=== PATIENT | male | born 1965 | race Caucasian/White ===

== ENCOUNTER 2021-01-09 12:39 | Inpatient (IN) | payer OTHER ==
[2021-01-09 13:05] LABS: Glucose,Whole Blood 175 mg/dL (75-99)
[2021-01-09] MEDS ORDERED: VANCOMYCIN IV PER PHARMACY 1 EACH MISC MISCELLANE PRN (13:15)
[2021-01-09] MEDS ORDERED: VANCOMYCIN 1,250 MG in SODIUM CHLORIDE 0.9% 250 ML IVPB STA (13:30)
[2021-01-09] MEDS ORDERED: SODIUM CHLORIDE 0.9% 1,000 ML IV ONE (13:45)
--- NOTE | 2021-01-09 14:26 | XR ---
EXAMINATION TYPE: XR chest 1V portable DATE OF EXAM: 01/09/2021 COMPARISON: NONE HISTORY: Hypothermia TECHNIQUE: Single frontal view of the chest is obtained. FINDINGS: There is no focal air space opacity, pleural effusion, or pneumothorax seen. The cardiac silhouette size is within normal limits. The osseous structures are intact. IMPRESSION: No acute process.
[2021-01-09] MEDS ORDERED: IPRATROPIUM-ALBUTEROL 3 ML NEB INHALATION PRN (14:29)
[2021-01-09] MEDS ORDERED: bisacodyL 10 MG SUPP RECTAL PRN (14:29)
[2021-01-09] MEDS ORDERED: NALOXONE 0.4 MG/ML 1 ML VIAL IV PRN ×2 (14:29→14:55)
[2021-01-09] MEDS ORDERED: SUCRALFATE 1 GM TAB PO PRN (14:36)
[2021-01-09 14:56] LABS: Basophils % (A) 0 %; Eosinophils % (A) 0 %; Lymphocytes # (A) 0.6 k/uL (1.0-4.8); Lymphocytes % (A) 4 %; MCHC 31.4 g/dL (31.0-37.0); MCV 108.4 fL (80.0-100.0); Macrocytosis Marked; Mean Platelet Volume 8.7; Monocytes # (A) 0.6 k/uL (0-1.0); Monocytes % (A) 3 %; Neutrophils % (A) 92 %; Platelet Count 216 k/uL (150-450); RBC 1.68 m/uL (4.30-5.90); WBC 18.5 k/uL (3.8-10.6)
[2021-01-09] MEDS ORDERED: fentaNYL (PF) 50 MCG/ML 2 ML AMP IVP STA (14:57)
[2021-01-09 14:58] LABS: HCT 18.2 % (39.0-53.0); HGB 5.7 gm/dL (13.0-17.5)
[2021-01-09] MEDS: SODIUM CHLORIDE 0.9% 500 ML 500 ML IV SCH ×2 (14:59→15:04)
[2021-01-09] MEDS: SODIUM CHLORIDE 0.9% 1,000 ML IV SCH (15:00)
[2021-01-09 15:02] LABS: INR 1.7 (<1.2); Prothrombin Time 16.5 sec (9.0-12.0)
[2021-01-09 15:03] LABS: Calcium 7.7 mg/dL (8.4-10.2); Partial Thromboplastin Time 35.1 sec (22.0-30.0); Potassium 5.3 mmol/L (3.5-5.1); Total Bilirubin 1.7 mg/dL (0.2-1.3); Total Protein 3.8 g/dL (6.3-8.2)
[2021-01-09 15:20] LABS: Poikilocytosis (M) Present; Polychromasia Present
[2021-01-09] MEDS ORDERED: ONDANSETRON 4 MG/2 ML VIAL IVP STA (15:22)
[2021-01-09] MEDS: NOREPINEPHRINE 4 MG in SODIUM CHLORIDE 0.9% 250 ML IV SCH ×2 (15:30→23:23)
[2021-01-09 15:31] LABS: Appearance,Urine Clear (Clear); Bilirubin,Urine Negative (Negative); Blood,Urine Negative (Negative); Color,Urine Yellow; Glucose,Urine (UA) Negative (Negative); Ketones,Urine Negative (Negative); Leukocyte Esterase,Urine Negative (Negative); Nitrite,Urine Negative (Negative); Protein,Urine Trace (Negative); Specific Gravity,Urine 1.015 (1.001-1.035); Urobilinogen,Urine <2.0 mg/dL (<2.0)
[2021-01-09] MEDS ORDERED: PANTOPRAZOLE 40 MG TABLET PO PRN (15:53)
--- NOTE | 2021-01-09 15:57 | ED ---
General Adult HPI - General Chief complaint: Recheck/Abnormal Lab/Rx Stated complaint: hypothermia Time Seen by Provider: 01/09/21 13:01 Source: EMS, RN notes reviewed, old records reviewed Mode of arrival: EMS Limitations: no limitations - History of Present Illness Initial comments: I evaluated the patient when he was placed in a room. Patient is a 56-year-old male with past medical history remarkable for cirrhosis, liver disease, anemia, recently diagnosed colitis on vancomycin by mouth, ventral hernia surgery one month ago, who presents emergency department after being transferred from [place] for sepsis. Patient is transferred for ICU admission. The story goes that the patient was found this morning outside in the cold. He was hypothermic at the time. Workup at the outside facility showed severe dehydration, lactic acidosis, hypothermia to 88.9, lactic acidosis of 13, leukocytosis of 29, an AK I. Patient denies knowing how he ended up outside and was a little confused at the time. CT head was obtained as well as CT abdomen and pelvis which revealed no acute processes. Patient complains of abdominal discomfort. He otherwise denies chest pain, shortness breath, fevers, chills, cough. Denies any blurry vision. States he wasn't drinking today. To me he denies any history of alcohol withdrawal. Patient presents hypotensive following at least a liter and a half of fluids at the outside facility. He is tachycardic. There is active rewarming as well, and there is a rectal thermometer to monitor his temperature. Patient presents for admission to the ICU. Patient is somewhat a poor historian. However he is alert and oriented 4.Patient states he takes lactulose but has been not taking it due to persistent diarrhea. He states he believes his he has been compliant with his oral vancomycin as well for what is suspected to be C. diff colitis. - Related Data Home Medications Medication Instructions Recorded Confirmed Albuterol Sulfate [Proair Hfa] 2 puff INHALATION RT-Q4H PRN 01/09/21 01/09/21 Dicyclomine [Bentyl] 20 mg PO QID PRN 01/09/21 01/09/21 HYDROcodone/APAP 10-325MG [[place] 1 tab PO Q4H PRN 01/09/21 01/09/21 10-325] Lisdexamfetamine Dimesylate 70 mg PO DAILY 01/09/21 01/09/21 [Vyvanse] Pantoprazole Sodium 40 mg PO DAILY PRN 01/09/21 01/09/21 Promethazine [Phenergan] 25 mg PO Q4H PRN 01/09/21 01/09/21 Sucralfate [Carafate] 1 gm PO ACHS PRN 01/09/21 01/09/21 Vancomycin HCl [Vancocin HCl] 125 mg PO QID 01/09/21 01/09/21 Allergies Allergy/AdvReac Type Severity Reaction Status Date / Time No Known Allergies Allergy Verified 01/09/21 13:38 Review of Systems ROS Statement: Those systems with pertinent positive or pertinent negative responses have been documented in the HPI. Review of Systems: CONST: Denies fever EYES: Denies blurry vision ENT: Denies nasal congestion C/V: Denies Chest pain RESP: Denies shortness of breath GI: Endorses acute on chronic abdominal pain. : Denies dysuria SKIN: Denies rash. MSK: Denies joint pain. NEURO: Denies headache ROS Other: All systems not noted in ROS Statement are negative. Past Medical History Past Medical History: Unable to Obtain, Liver Disease Additional Past Medical History / Comment(s): anemia, colitis, chirrosis Past Surgical History: Unable to Obtain Past Psychological History: No Psychological Hx Reported Smoking Status: Current some day smoker Past Alcohol Use History: Abuse Past Drug Use History: None Reported General Exam - General Exam Comments Initial Comments: General: In mild distress secondary to abdominal discomfort. HEAD: Normal with no signs of head trauma. EYES: PERRLA, EOMI, conjunctiva normal, no discharge. Pupils are 3 mm and equal bilaterally. ENT: Hearing grossly intact, normal oropharynx. Dry mucous membranes. RESPIRATORY: Clear breath sounds bilaterally. No wheezes, rales, or rhonchi. C/V: Mildly tachycardic with a regular rhythm. S1 and S2 auscultated. Peripheral pulses are 2+ and intact throughout. ABD: Diminished is somewhat soft. He is tender to palpation, more over the right upper quadrant. There is a healing midline abdominal incision scar from surgery.. There may be a small fluid wave present as well. There is hepatomegaly. There is no guarding or peritoneal signs at this time. EXT: Normal range of motion, no obvious deformity SKIN: No rashes or lesions observed on exposed skin. NEURO: Alert and oriented 4. No acute focal deficits. Limitations: no limitations Course Vital Signs 01/09/21 01/09/21 01/09/21 12:41 12:59 13:00 Temperature 97.8 F Pulse Rate 106 H 105 H 105 H Respiratory 16 12 14 Rate Blood Pressure 84/64 O2 Sat by Pulse 98 100 100 Oximetry 01/09/21 01/09/21 01/09/21 13:10 13:20 13:30 Temperature Pulse Rate 105 H 105 H 106 H Respiratory 14 16 16 Rate Blood Pressure 83/50 81/45 90/55 O2 Sat by Pulse 99 99 100 Oximetry 01/09/21 01/09/21 01/09/21 13:40 13:50 14:00 Temperature Pulse Rate 106 H 0 L 106 H Respiratory 16 14 24 Rate Blood Pressure 90/55 90/55 90/55 O2 Sat by Pulse 99 100 79 L Oximetry 01/09/21 01/09/21 01/09/21 14:10 14:20 14:30 Temperature Pulse Rate 105 H 105 H 105 H Respiratory 23 15 17 Rate Blood Pressure 90/55 83/50 90/49 O2 Sat by Pulse Oximetry 01/09/21 01/09/21 01/09/21 14:40 14:50 15:00 Temperature Pulse Rate 104 H 105 H 104 H Respiratory 19 17 15 Rate Blood Pressure 88/51 87/48 85/48 O2 Sat by Pulse Oximetry 01/09/21 01/09/21 01/09/21 15:10 15:20 15:30 Temperature Pulse Rate 0 L 0 L 106 H Respiratory 21 30 H 13 Rate Blood Pressure 83/51 101/54 92/52 O2 Sat by Pulse Oximetry 01/09/21 01/09/21 01/09/21 15:40 15:50 16:00 Temperature Pulse Rate 103 H 105 H 105 H Respiratory 9 L 8 L 12 Rate Blood Pressure 100/57 96/53 99/53 O2 Sat by Pulse Oximetry 01/09/21 16:10 Temperature Pulse Rate 105 H Respiratory 12 Rate Blood Pressure 89/58 O2 Sat by Pulse Oximetry Procedures - [place] Protocol (Time Out) Procedure Performed:: central line Performing Provider: Mac Soriano Nurse: India Whaley Patient Identification (2 identifiers required): Chart, Verbal, Birthdate Patient/Legal Supervisor Extrusion has Confirmed: Identity, Site, Procedure, Consent Site: left IJ Site Marked: No Site Verified With Patient/Guardian: No - Arterial Line No standard instances Consent Obtained: verbal consent Technique Used: guide wire technique Post-Procedure: line sutured into place, dry sterile dressing placed Patient Tolerated Procedure: well Complications: none - Central Line Placement Left IJ Consent Obtained: verbal consent Patient Placed on Monitor/Pulse Ox: Yes MD Prep: mask, gown, gloves Central Line Prep: Chlorhexidine scrub Local Anesthesia Used: Lidocaine 1% Amount of Anesthesia Used (mls): 5 Ultrasound Used for Placement: Yes Central Line Lumen Inserted: triple Medical Decision Making - Medical Decision Making Based on the patient's presentation and physical exam, I'm concerned for sepsis and the patient based on the patient's outpatient workup. CT imaging will be transferred into our system. We will continue by mouth vancomycin as well as the Zosyn that was started at the outpatient location. We will repeat laboratory studies as well as an EKG as patient was hyperkalemic at the outside facility. No EKG came with the patient. Patient will be fluid challenged, to ensure he receives 20 mL per KG with an additional fluid bolus. He may require central line access. Patient will be administered fentanyl for pain management due to his blood pressure. Active rewarming with a bear hugger is being done now, and we are monitoring with a rectal thermometer. Patient was in agreement this plan. Repeat EKG showed no signs concerning for hyperkalemia. Following the fluid bolus, was determined that the patient will receive a central line as well as an arterial line. I examined the patient with Dr. Zapata of the ICU who accepted the patient under his service was in agreement with this plan. Please see the separate procedure notes for the arterial line as well as central line, both of which the patient tolerated well. Chest x-ray following insertion showed intact line. No signs of cardio pulmonary process. Gallbladder ultrasound was ordered due to the findings on the patient's CT images, which revealed gallbladder sludge without any evidence of acute cholecystitis. There is hepatomegaly with heterogeneous increased echogenicity of the liver probably secondary to underlying disease which the patient does have. At this time, patient's laboratory studies returned and were remarkable for a leukocytosis of 18.5. Patient has a macrocytic anemia with a hemoglobin of 5.7. 2 units of packed red blood cells were ordered by myself to be transfused. The patient was consented. Coag studies were mildly elevated likely secondary to h is chronic liver disease. Patient's potassium is mildly elevated to 5.3 and he is mildly hyponatremic 21 and 33 and hypochloremic 109. Patient also has an AK I with a mildly elevated creatinine and be ON of 1.35 and 37 respectively. Patient's lactic acid is improved to 3.5. LFTs are mildly elevated, with AST of 145 and ALT of 37. Bilirubin is elevated 1.7. Urine studies shows no acute infection. Covid swab is negative. Blood cultures were drawn and sent. At this time after discussion with the ICU team, the patient be admitted to ICU. Levophed was ordered by myself but was not started initially as the patient's blood pressure following line placement had systolics in the low 100s. He will continue to be monitored with goal map greater than 65, and levophed will be started if needed. Patient's hypothermia is also resolved at this time. Patient will receive transfusions. Antibiotics were ordered Zosyn every 8 hours. He will continue to receive IV fluids as well. Patient was in agreement this plan. I spoke with the admitting team under city call with Chris Friedman who accepted the admission. I also consulted general surgery due to patient's history of abdominal surgeries and abdominal complaints at this time. I spoke with Dr. Yarbrough was in agreement with the plan and accepted the consult. Patient was therefore admitted to the ICU in serious condition. - Lab Data Result diagrams: 01/09/21 16:45 01/09/21 16:45 Lab Results 01/09/21 01/09/21 Range/Units 13:03 14:34 POC Glucose (mg/dL) 175 H (75-99) mg/dL POC Glu Cutting Machine Tender ID India Whaley Coronavirus (PCR) Not Detected (Not Detectd) - EKG Data -: EKG Interpreted by Me EKG Comments: 12-lead Electrocardiogram Interpretation Note EKG was reviewed and interpreted by myself. 12-lead ECG performed at 1412 is interpreted by me as revealing sinus tachycardia at a rate of 103 beats per minute. [place] is normal. Intervals 136 seconds, QRS duration is 60 ms, QTc is 448 ms.. There were no ST or T wave abnormalities to suggest myocardial ischemia or injury. R wave progression across the precordium was satisfactory. By my interpretation this EKG is non-diagnostic for acute ischemia. There are no signs of hyperkalemia either. Critical Care Time Critical Care Time: Yes Total Critical Care Time: 40 Critical Care Time: Upon my evaluation, this patient had a high probability of imminent or life- threatening deterioration due to sepsis, hypothermia, which required my direct attention, intervention, and personal management. I have personally provided 40 minutes of critical care time exclusive of time spent on separately billable procedures. Time includes review of laboratory data, radiology results, discussion with consultants, and monitoring for potential decompensation. Interventions were performed as documented in my note. Disposition Clinical Impression: Hyperkalemia, Sepsis, Septic shock, Abdominal pain, History of liver disease, Lactic acidosis, Macrocytic anemia, Dehydration, LACEY (acute kidney injury) Disposition: ADMITTED IP TO THIS HOSP Condition: Serious
[2021-01-09] MEDS ORDERED: CEFEPIME 2 GM in SODIUM CHLORIDE 0.9% 100 ML IVPB SCH (16:00)
--- NOTE | 2021-01-09 16:03 | XR ---
EXAMINATION TYPE: XR chest 1V portable DATE OF EXAM: 01/09/2021 COMPARISON: Chest radiograph same day HISTORY: Hypothermia, line placement TECHNIQUE: Single frontal view of the chest is obtained. FINDINGS: Interval placement of left-sided central venous catheter with tip overlying the cavoatrial junction. Cardiac mediastinal silhouette appears within normal limits. No dense focal airspace opaci ty, pleural effusion, or pneumothorax. Osseous structures appear intact. IMPRESSION: 1. Left-sided central venous catheter with tip overlying the cavoatrial junction. 2. No acute cardiopulmonary process.
[2021-01-09] MEDS: PIPERACILLIN-TAZOBACTAM 3.375 GM in SODIUM CHLORIDE 0.9% 100 ML IVPB SCH ×2 (16:11→23:23)
--- NOTE | 2021-01-09 16:18 | US ---
EXAMINATION TYPE: US gallbladder DATE OF EXAM: 01/09/2021 COMPARISON: NONE CLINICAL HISTORY: abd pain. EXAM MEASUREMENTS: Liver Length: 18.6 cm Gallbladder Wall: 0.3 cm CBD: 0.3 cm Right Kidney: 11.5 x 4.6 x 5.6 cm Pancreas: Obscured by bowel gas Liver: Increased attenuation, measures large Gallbladder: sludge ball within, seen in 1 view patient unable to move Evidence for sonographic Turner's sign: no CBD: wnl Right Kidney: wnl IMPRESSION: 1. Gallbladder sludge without sonographic evidence of acute cholecystitis. 2. Hepatomegaly with heterogeneous increased echogenicity of the liver parenchyma likely due to under lying hepatocellular disease, most commonly hepatic steatosis.
[2021-01-09 16:33] LABS: Glucose,Whole Blood 115 mg/dL (75-99)
[2021-01-09 16:58] LABS: Anisocytosis Slight; Basophils % (A) 0 %; Eosinophils # (A) 0.1 k/uL (0-0.7); Eosinophils % (A) 0 %; Lymphocytes # (A) 0.9 k/uL (1.0-4.8); Lymphocytes % (A) 4 %; MCH 34.2 pg (25.0-35.0); MCHC 31.6 g/dL (31.0-37.0); MCV 108.4 fL (80.0-100.0); Macrocytosis Marked; Mean Platelet Volume 9.6; Monocytes # (A) 0.8 k/uL (0-1.0); Monocytes % (A) 3 %; Neutrophils # (A) 20.7 k/uL (1.3-7.7); Neutrophils % (A) 91 %; Platelet Count 250 k/uL (150-450); RBC 1.72 m/uL (4.30-5.90); RDW 16.3 % (11.5-15.5); WBC 22.7 k/uL (3.8-10.6)
[2021-01-09 17:07] LABS: HGB 5.9 gm/dL (13.0-17.5)
[2021-01-09 17:08] LABS: Calcium 7.7 mg/dL (8.4-10.2); HCT 18.6 % (39.0-53.0); Magnesium 1.8 mg/dL (1.6-2.3); Potassium 5.5 mmol/L (3.5-5.1)
[2021-01-09 17:16] LABS: Amorphous Sediment,Urine Rare /hpf; Appearance,Urine Cloudy (Clear); Bilirubin,Urine Negative (Negative); Blood,Urine Negative (Negative); Cellular Casts,Urine 3 /lpf (0); Color,Urine Yellow; Glucose,Urine (UA) Negative (Negative); Hyaline Casts,Urine 17 /lpf (0-2); Ketones,Urine Negative (Negative); Leukocyte Esterase,Urine Negative (Negative); Mucus,Urine Rare /hpf; Nitrite,Urine Negative (Negative); Protein,Urine 1+ (Negative); RBC,Urine 4 /hpf (0-5); Specific Gravity,Urine 1.015 (1.001-1.035); Squamous Epithelial Cell,Urine 1 /hpf (0-4); Urobilinogen,Urine <2.0 mg/dL (<2.0); WBC,Urine 4 /hpf (0-5)
--- NOTE | 2021-01-09 17:23 | P.HPIM ---
History of Present Illness H&P Date: 01/09/21 Chief Complaint: Altered mental status 56-year-old male patient who is currently living in a motel was found out by police near motel outside the store per patient who is currently alert oriented to time place and person, apparently patient was found unconscious and hypothermic, patient was brought into the emergency department, patient initial level workup showed severe dehydration and lactic acidosis and hypotension, patient was given IV fluids. Initially was started on Levophed which was later turned off, patient W BC count was 18.5 hemoglobin 5.70 history of GI bleed or black stools, patient INR is 1.7. No major abnormalities on basic metabolic profile, patient initial lactic acid was 3.5, patient also was noted to have mild transaminitis with elevated alkaline phosphatase. Patient initial urinalysis was negative chest x-ray was negative, patient was started on broad- spectrum antibiotic with a concern for sepsis, patient was started on IV Prot ceci sucralfate and was transfused with blood that was started in the emergency department patient was then admitted to ICU for further care critical care was also consulted. Patient recently had hernia surgery outside hospital, patient does not have any significant abdominal pain at this point, general surgery also consulted in emergency department, patient is being admitted on hospital medicine service. Review of Systems 14 point review of system was done in detail and is negative except as above in HPI. Past Medical History Past Medical History: Unable to Obtain, Liver Disease Additional Past Medical History / Comment(s): anemia, colitis, chirrosis Past Surgical History: Unable to Obtain Past Psychological History: No Psychological Hx Reported Smoking Status: Current some day smoker Past Alcohol Use History: Abuse Past Drug Use History: None Reported Medications and Allergies Home Medications Medication Instructions Recorded Confirmed Type Albuterol Sulfate [Proair Hfa] 2 puff INHALATION RT-Q4H PRN 01/09/21 01/09/21 History Dicyclomine [Bentyl] 20 mg PO QID PRN 01/09/21 01/09/21 History HYDROcodone/APAP 10-325MG [[place] 1 tab PO Q4H PRN 01/09/21 01/09/21 History 10-325] Lisdexamfetamine Dimesylate 70 mg PO DAILY 01/09/21 01/09/21 History [Vyvanse] Pantoprazole Sodium 40 mg PO DAILY PRN 01/09/21 01/09/21 History Promethazine [Phenergan] 25 mg PO Q4H PRN 01/09/21 01/09/21 History Sucralfate [Carafate] 1 gm PO ACHS PRN 01/09/21 01/09/21 History Vancomycin HCl [Vancocin HCl] 125 mg PO QID 01/09/21 01/09/21 History Allergies Allergy/AdvReac Type Severity Reaction Status Date / Time No Known Allergies Allergy Verified 01/09/21 13:38 Physical Exam Vitals: Vital Signs Temp Pulse Resp BP Pulse Ox 01/09/21 16:10 105 H 12 89/58 01/09/21 16:00 105 H 12 99/53 01/09/21 15:50 105 H 8 L 96/53 01/09/21 15:40 103 H 9 L 100/57 01/09/21 15:30 106 H 13 92/52 01/09/21 15:20 0 L 30 H 101/54 01/09/21 15:10 0 L 21 83/51 01/09/21 15:00 104 H 15 85/48 01/09/21 14:50 105 H 17 87/48 01/09/21 14:40 104 H 19 88/51 01/09/21 14:30 105 H 17 90/49 01/09/21 14:20 105 H 15 83/50 01/09/21 14:10 105 H 23 90/55 01/09/21 14:00 106 H 24 90/55 79 L 01/09/21 13:50 0 L 14 90/55 100 01/09/21 13:40 106 H 16 90/55 99 01/09/21 13:30 106 H 16 90/55 100 01/09/21 13:20 105 H 16 81/45 99 01/09/21 13:10 105 H 14 83/50 99 01/09/21 13:00 105 H 14 100 01/09/21 12:59 105 H 12 100 01/09/21 12:41 97.8 F 106 H 16 84/64 98 Intake and Output 01/09/21 01/09/21 01/09/21 06:59 14:59 22:59 Other: Weight 68.039 kg ABP, PAP, CO, CI - Last 8 Hours Arterial Blood Pressure 80/39 Arterial Blood Pressure 76/37 Arterial Blood Pressure 75/37 Arterial Blood Pressure 78/37 Arterial Blood Pressure 79/41 Arterial Blood Pressure 81/42 Arterial Blood Pressure 74/35 Arterial Blood Pressure 82/34 General: non toxic, no acute distress, alert oriented to time place and person Head: atraumatic, normocephalic, symmetric Eyes: no lid lesion], anicteric sclera Mouth: no lip lesion, mucus membranes moist Cardiovascular: S1S2 reg rate and rhythm, no murmur, no gallop Lungs: Bilateral equal air entry, no wheezing no rhonchi no crackles. Abdominal: Soft, tender ot deep palpation, BS positive in all four quadrants Ext: no gross muscle atrophy, no edema extremities warm to suppose a positive Neuro: Alert oriented to time place and person, exam grossly nonfocal Psych: Mood and affect appropriate, patient not so certain Skin exam: No rashes no jaundice. Results CBC & Chem 7: 01/09/21 16:45 01/09/21 16:45 Labs: Abnormal Lab Results - Last 24 Hours (Table) 01/09/21 01/09/21 01/09/21 Range/Units 13:03 14:37 14:37 WBC 18.5 H (3.8-10.6) k/uL RBC 1.68 L (4.30-5.90) m/uL Hgb 5.7 L* (13.0-17.5) gm/dL Hct 18.2 L* (39.0-53.0) % MCV 108.4 H (80.0-100.0) fL RDW 16.0 H (11.5-15.5) % Neutrophils # 17.0 H (1.3-7.7) k/uL Lymphocytes # 0.6 L (1.0-4.8) k/uL Macrocytosis Marked A PT 16.5 H (9.0-12.0) sec INR 1.7 H (<1.2) APTT 35.1 H (22.0-30.0) sec Sodium (137-145) mmol/L Potassium (3.5-5.1) mmol/L Chloride (98-107) mmol/L Carbon Dioxide (22-30) mmol/L BUN (9-20) mg/dL Creatinine (0.66-1.25) mg/dL Glucose (74-99) mg/dL POC Glucose (mg/dL) 175 H (75-99) mg/dL Plasma Lactic Acid [place] (0.7-2.0) mmol/L Calcium (8.4-10.2) mg/dL Total Bilirubin (0.2-1.3) mg/dL AST (17-59) U/L Alkaline Phosphatase (38-126) U/L Creatine Kinase (55-170) U/L Total Protein (6.3-8.2) g/dL Albumin (3.5-5.0) g/dL Urine Protein (Negative) 01/09/21 01/09/21 01/09/21 Range/Units 14:37 14:37 14:37 WBC (3.8-10.6) k/uL RBC (4.30-5.90) m/uL Hgb (13.0-17.5) gm/dL Hct (39.0-53.0) % MCV (80.0-100.0) fL RDW (11.5-15.5) % Neutrophils # (1.3-7.7) k/uL Lymphocytes # (1.0-4.8) k/uL Macrocytosis PT (9.0-12.0) sec INR (<1.2) APTT (22.0-30.0) sec Sodium 133 L (137-145) mmol/L Potassium 5.3 H (3.5-5.1) mmol/L Chloride 109 H (98-107) mmol/L Carbon Dioxide 17 L (22-30) mmol/L BUN 37 H (9-20) mg/dL Creatinine 1.35 H (0.66-1.25) mg/dL Glucose 111 H (74-99) mg/dL POC Glucose (mg/dL) (75-99) mg/dL Plasma Lactic Acid [place] 3.5 H* (0.7-2.0) mmol/L Calcium 7.7 L (8.4-10.2) mg/dL Total Bilirubin 1.7 H (0.2-1.3) mg/dL AST 145 H (17-59) U/L Alkaline Phosphatase 167 H (38-126) U/L Creatine Kinase 347 H (55-170) U/L Total Protein 3.8 L (6.3-8.2) g/dL Albumin 2.0 L (3.5-5.0) g/dL Urine Protein Trace H (Negative) 01/09/21 01/09/21 01/09/21 Range/Units 16:31 16:45 16:45 WBC 22.7 H (3.8-10.6) k/uL RBC 1.72 L (4.30-5.90) m/uL Hgb 5.9 L* (13.0-17.5) gm/dL Hct 18.6 L* (39.0-53.0) % MCV 108.4 H (80.0-100.0) fL RDW 16.3 H (11.5-15.5) % Neutrophils # 20.7 H (1.3-7.7) k/uL Lymphocytes # 0.9 L (1.0-4.8) k/uL Macrocytosis Marked A PT (9.0-12.0) sec INR (<1.2) APTT (22.0-30.0) sec Sodium 133 L (137-145) mmol/L Potassium 5.5 H (3.5-5.1) mmol/L Chloride 110 H (98-107) mmol/L Carbon Dioxide 17 L (22-30) mmol/L BUN 39 H (9-20) mg/dL Creatinine 1.38 H (0.66-1.25) mg/dL Glucose 102 H (74-99) mg/dL POC Glucose (mg/dL) 115 H (75-99) mg/dL Plasma Lactic Acid [place] (0.7-2.0) mmol/L Calcium 7.7 L (8.4-10.2) mg/dL Total Bilirubin (0.2-1.3) mg/dL AST (17-59) U/L Alkaline Phosphatase (38-126) U/L Creatine Kinase (55-170) U/L Total Protein (6.3-8.2) g/dL Albumin (3.5-5.0) g/dL Urine Protein (Negative) Assessment and Plan Assessment: Shock with lactic acidosis Likely due to dehydration doubt sepsis Patient has not been drinking and eating well in the last few days With IV fluid patient lactic acid is improving Empiric antibiotic antibiotics started Patient to be admitted to medical ICU, critical care will be consulted. Acute anemia Once again no significant history of blood loss, we will request surgery evaluation Started patient on Protonix sucralfate, transfused blood unit Monitor H&H every 6 hours Currently keep patient nothing by mouth. Recent history of C. diff colitis diagnosed outside hospital Continue oral vancomycin for now If patient complains of diarrhea will recheck stool studies Will also consider infection disease evaluation if needed. Recent history of abdominal hernia repair Patient recently had surgery done outside hospital No acute postoperative complications suspected We'll check CT abdomen and pelvis Consulting surgery for evaluation Acute kidney injury Likely prerenal We'll check CT abdominal and pelvis without contrast Continue IV hydration Avoid nephrotoxin, monitor renal function. History of alcohol abuse Patient was drinking on a daily basis a month ago currently not drinking Last drink one month ago No concern for alcohol ongoing abuse or concern for withdrawal. DVT prophylaxis: SCDs for now CODE STATUS: Full code Disposition plan/next site of care: Likely next 4-5 days pending hospital course clinical improvement, patient may need rehab
[2021-01-09] MEDS ORDERED: VANCOMYCIN 125 MG CAPSULE PO SCH (18:00)
[2021-01-09] MEDS ORDERED: VANCOMYCIN ORAL SOLUTION 250 MG/5 ML BOTTLE PO SCH (18:00)
--- NOTE | 2021-01-09 18:19 | P.GSCN ---
History of Present Illness Consult date: 01/09/21 Reason for Consult: Abdominal pain History of present illness: The patient is a 56-year-old man who was transferred from [facility] due to altered mental status. Patient himself is a poor historian. History from the chart shows that he was found outside being hypothermic and unconscious. Unknown how long he was outside. He was treated in the emergency department with IV fluids and correction of his hypothermia. He was found to be persistently hypotensive and had lactic acidosis. He was started on Levophed and transferred here. The patient does admit to having recent hernia surgery but he is not sure. He doesn't know if he's had a history of ulcers. He was complaining of some abdominal discomfort so a CT of the head abdomen and pelvis was performed at [place] which showed some postsurgical changes in his abdo men but was otherwise unremarkable. Patient is not sure if he's been eating or drinking well. Doesn't recall when his last bowel movement was. Is unsure as been any blood in the stool or dark tarry stool Review of Systems All systems: negative Past Medical History Past Medical History: Unable to Obtain, Liver Disease Additional Past Medical History / Comment(s): anemia, colitis, chirrosis History of Any Multi-Drug Resistant Organisms: None Reported Past Surgical History: Unable to Obtain Additional Past Surgical History / Comment(s): patient states ex-lap for an ulcer Past Anesthesia/Blood Transfusion Reactions: No Reported Reaction Past Psychological History: No Psychological Hx Reported Smoking Status: Current some day smoker Past Alcohol Use History: Abuse Past Drug Use History: None Reported Medications and Allergies Home Medications Medication Instructions Recorded Confirmed Type Albuterol Sulfate [Proair Hfa] 2 puff INHALATION RT-Q4H PRN 01/09/21 01/09/21 History Dicyclomine [Bentyl] 20 mg PO QID PRN 01/09/21 01/09/21 History HYDROcodone/APAP 10-325MG [[place] 1 tab PO Q4H PRN 01/09/21 01/09/21 History 10-325] Lisdexamfetamine Dimesylate 70 mg PO DAILY 01/09/21 01/09/21 History [Vyvanse] Pantoprazole Sodium 40 mg PO DAILY PRN 01/09/21 01/09/21 History Promethazine [Phenergan] 25 mg PO Q4H PRN 01/09/21 01/09/21 History Sucralfate [Carafate] 1 gm PO ACHS PRN 01/09/21 01/09/21 History Vancomycin HCl [Vancocin HCl] 125 mg PO QID 01/09/21 01/09/21 History Allergies Allergy/AdvReac Type Severity Reaction Status Date / Time No Known Allergies Allergy Verified 01/09/21 13:38 Surgical - Exam Osteopathic Statement: *. No significant issues noted on an osteopathic structural exam other than those noted in the History and Physical/Consult. Vital Signs Temp Pulse Resp BP Pulse Ox 97.8 F 106 H 16 84/64 98 01/09/21 12:41 01/09/21 12:41 01/09/21 12:41 01/09/21 12:41 01/09/21 12:41 - General Somnolent but weeks to tactile and verbal stimuli no distress, moderate distress - Neck trachea midline - Respiratory normal respiratory effort, clear to auscultation - Cardiovascular Rhythm: regular - Abdomen Abdomen: soft, tender (Mild tenderness in the midline), bowel sounds (Hypoactive), no guarding, no rigid, no rebound, no distended (No tympany to percussion) Results - Labs 01/09/21 16:45 01/09/21 16:45 Abnormal Lab Results - Last 24 Hours (Table) 01/09/21 01/09/21 01/09/21 Range/Units 13:03 14:37 14:37 WBC 18.5 H (3.8-10.6) k/uL RBC 1.68 L (4.30-5.90) m/uL Hgb 5.7 L* (13.0-17.5) gm/dL Hct 18.2 L* (39.0-53.0) % MCV 108.4 H (80.0-100.0) fL RDW 16.0 H (11.5-15.5) % Neutrophils # 17.0 H (1.3-7.7) k/uL Lymphocytes # 0.6 L (1.0-4.8) k/uL Macrocytosis Marked A PT 16.5 H (9.0-12.0) sec INR 1.7 H (<1.2) APTT 35.1 H (22.0-30.0) sec Sodium (137-145) mmol/L Potassium (3.5-5.1) mmol/L Chloride (98-107) mmol/L Carbon Dioxide (22-30) mmol/L BUN (9-20) mg/dL Creatinine (0.66-1.25) mg/dL Glucose (74-99) mg/dL POC Glucose (mg/dL) 175 H (75-99) mg/dL Plasma Lactic Acid [place] (0.7-2.0) mmol/L Calcium (8.4-10.2) mg/dL Total Bilirubin (0.2-1.3) mg/dL AST (17-59) U/L Alkaline Phosphatase (38-126) U/L Creatine Kinase (55-170) U/L Total Protein (6.3-8.2) g/dL Albumin (3.5-5.0) g/dL Urine Protein (Negative) Amorphous Sediment (None) /hpf Hyaline Casts (0-2) /lpf Urine Mucus (None) /hpf 01/09/21 01/09/21 01/09/21 Range/Units 14:37 14:37 14:37 WBC (3.8-10.6) k/uL RBC (4.30-5.90) m/uL Hgb (13.0-17.5) gm/dL Hct (39.0-53.0) % MCV (80.0-100.0) fL RDW (11.5-15.5) % Neutrophils # (1.3-7.7) k/uL Lymphocytes # (1.0-4.8) k/uL Macrocytosis PT (9.0-12.0) sec INR (<1.2) APTT (22.0-30.0) sec Sodium 133 L (137-145) mmol/L Potassium 5.3 H (3.5-5.1) mmol/L Chloride 109 H (98-107) mmol/L Carbon Dioxide 17 L (22-30) mmol/L BUN 37 H (9-20) mg/dL Creatinine 1.35 H (0.66-1.25) mg/dL Glucose 111 H (74-99) mg/dL POC Glucose (mg/dL) (75-99) mg/dL Plasma Lactic Acid Franklin 3.5 H* (0.7-2.0) mmol/L Calcium 7.7 L (8.4-10.2) mg/dL Total Bilirubin 1.7 H (0.2-1.3) mg/dL AST 145 H (17-59) U/L Alkaline Phosphatase 167 H (38-126) U/L Creatine Kinase 347 H (55-170) U/L Total Protein 3.8 L (6.3-8.2) g/dL Albumin 2.0 L (3.5-5.0) g/dL Urine Protein Trace H (Negative) Amorphous Sediment (None) /hpf Hyaline Casts (0-2) /lpf Urine Mucus (None) /hpf 01/09/21 01/09/21 01/09/21 Range/Units 16:31 16:45 16:45 WBC 22.7 H (3.8-10.6) k/uL RBC 1.72 L (4.30-5.90) m/uL Hgb 5.9 L* (13.0-17.5) gm/dL Hct 18.6 L* (39.0-53.0) % MCV 108.4 H (80.0-100.0) fL RDW 16.3 H (11.5-15.5) % Neutrophils # 20.7 H (1.3-7.7) k/uL Lymphocytes # 0.9 L (1.0-4.8) k/uL Macrocytosis Marked A PT (9.0-12.0) sec INR (<1.2) APTT (22.0-30.0) sec Sodium 133 L (137-145) mmol/L Potassium 5.5 H (3.5-5.1) mmol/L Chloride 110 H (98-107) mmol/L Carbon Dioxide 17 L (22-30) mmol/L BUN 39 H (9-20) mg/dL Creatinine 1.38 H (0.66-1.25) mg/dL Glucose 102 H (74-99) mg/dL POC Glucose (mg/dL) 115 H (75-99) mg/dL Plasma Lactic Acid [place] (0.7-2.0) mmol/L Calcium 7.7 L (8.4-10.2) mg/dL Total Bilirubin (0.2-1.3) mg/dL AST (17-59) U/L Alkaline Phosphatase (38-126) U/L Creatine Kinase (55-170) U/L Total Protein (6.3-8.2) g/dL Albumin (3.5-5.0) g/dL Urine Protein (Negative) Amorphous Sediment (None) /hpf Hyaline Casts (0-2) /lpf Urine Mucus (None) /hpf 01/09/21 Range/Units 16:48 WBC (3.8-10.6) k/uL RBC (4.30-5.90) m/uL Hgb (13.0-17.5) gm/dL Hct (39.0-53.0) % MCV (80.0-100.0) fL RDW (11.5-15.5) % Neutrophils # (1.3-7.7) k/uL Lymphocytes # (1.0-4.8) k/uL Macrocytosis PT (9.0-12.0) sec INR (<1.2) APTT (22.0-30.0) sec Sodium (137-145) mmol/L Potassium (3.5-5.1) mmol/L Chloride (98-107) mmol/L Carbon Dioxide (22-30) mmol/L BUN (9-20) mg/dL Creatinine (0.66-1.25) mg/dL Glucose (74-99) mg/dL POC Glucose (mg/dL) (75-99) mg/dL Plasma Lactic Acid [place] (0.7-2.0) mmol/L Calcium (8.4-10.2) mg/dL Total Bilirubin (0.2-1.3) mg/dL AST (17-59) U/L Alkaline Phosphatase (38-126) U/L Creatine Kinase (55-170) U/L Total Protein (6.3-8.2) g/dL Albumin (3.5-5.0) g/dL Urine Protein 1+ H (Negative) Amorphous Sediment Rare H (None) /hpf Hyaline Casts 17 H (0-2) /lpf Urine Mucus Rare H (None) /hpf Diabetes panel 01/09/21 01/09/21 Range/Units 14:37 16:45 Sodium 133 L 133 L (137-145) mmol/L Potassium 5.3 H 5.5 H (3.5-5.1) mmol/L Chloride 109 H 110 H (98-107) mmol/L Carbon Dioxide 17 L 17 L (22-30) mmol/L BUN 37 H 39 H (9-20) mg/dL Creatinine 1.35 H 1.38 H (0.66-1.25) mg/dL Glucose 111 H 102 H (74-99) mg/dL Calcium 7.7 L 7.7 L (8.4-10.2) mg/dL AST 145 H (17-59) U/L ALT 37 (4-49) U/L Alkaline Phosphatase 167 H (38-126) U/L Total Protein 3.8 L (6.3-8.2) g/dL Albumin 2.0 L (3.5-5.0) g/dL Calcium panel 01/09/21 01/09/21 Range/Units 14:37 16:45 Calcium 7.7 L 7.7 L (8.4-10.2) mg/dL Albumin 2.0 L (3.5-5.0) g/dL Pituitary panel 01/09/21 01/09/21 Range/Units 14:37 16:45 Sodium 133 L 133 L (137-145) mmol/L Potassium 5.3 H 5.5 H (3.5-5.1) mmol/L Chloride 109 H 110 H (98-107) mmol/L Carbon Dioxide 17 L 17 L (22-30) mmol/L BUN 37 H 39 H (9-20) mg/dL Creatinine 1.35 H 1.38 H (0.66-1.25) mg/dL Glucose 111 H 102 H (74-99) mg/dL Calcium 7.7 L 7.7 L (8.4-10.2) mg/dL Adrenal panel 01/09/21 01/09/21 Range/Units 14:37 16:45 Sodium 133 L 133 L (137-145) mmol/L Potassium 5.3 H 5.5 H (3.5-5.1) mmol/L Chloride 109 H 110 H (98-107) mmol/L Carbon Dioxide 17 L 17 L (22-30) mmol/L BUN 37 H 39 H (9-20) mg/dL Creatinine 1.35 H 1.38 H (0.66-1.25) mg/dL Glucose 111 H 102 H (74-99) mg/dL Calcium 7.7 L 7.7 L (8.4-10.2) mg/dL Total Bilirubin 1.7 H (0.2-1.3) mg/dL AST 145 H (17-59) U/L ALT 37 (4-49) U/L Alkaline Phosphatase 167 H (38-126) U/L Total Protein 3.8 L (6.3-8.2) g/dL Albumin 2.0 L (3.5-5.0) g/dL - Imaging CT scan - chest: report reviewed Assessment and Plan (1) Hypotension Current Visit: Yes Status: Acute Code(s): I95.9 - HYPOTENSION, UNSPECIFIED SNOMED Code(s): 37609875 (2) Gallbladder sludge Current Visit: Yes Status: Acute Code(s): K82.8 - OTHER SPECIFIED DISEASES OF GALLBLADDER SNOMED Code(s): 37050500 (3) History of hernia repair Current Visit: Yes Status: Acute Code(s): Z98.890 - OTHER SPECIFIED POSTPROCEDURAL STATES; Z87.19 - PERSONAL HISTORY OF OTHER DISEASES OF THE DIGESTIVE SYSTEM SNOMED Code(s): 53249887551998 (4) LACEY (acute kidney injury) Current Visit: Yes Status: Acute Code(s): N17.9 - ACUTE KIDNEY FAILURE, UNSPECIFIED SNOMED Code(s): 32101287 (5) Dehydration Current Visit: Yes Status: Acute Code(s): E86.0 - DEHYDRATION SNOMED Code(s): 47697510 (6) History of liver disease Current Visit: Yes Status: Acute Code(s): Z87.19 - PERSONAL HISTORY OF OTHER DISEASES OF THE DIGESTIVE SYSTEM SNOMED Code(s): 495159207 (7) Lactic acidosis Current Visit: Yes Status: Acute Code(s): E87.2 - ACIDOSIS SNOMED Code(s): 21991458 (8) Sepsis Current Visit: Yes Status: Acute Code(s): A41.9 - SEPSIS, UNSPECIFIED ORGANISM SNOMED Code(s): 16135053 Plan: I doubt any intra-abdominal source of his sepsis. There is some sludge in the gallbladder but no signs of acute cholecystitis. Common bile duct is not dilated. There were some changes on ultrasound consistent with chronic liver di sease. His computed tomography scan done at outside facility showed no evidence of ascites. Continue medical care. No surgical intervention required at this point. Sludge in the gallbladder is not the cause of liver function test elevation given normal common bile duct and no gallbladder wall thickening. I will follow up as needed
[2021-01-09] MEDS: VANCOMYCIN 125 MG CAPSULE PO SCH ×2 (18:28→20:27)
[2021-01-09] MEDS: DOCUSATE 100 MG CAP PO SCH (20:26)
[2021-01-09] MEDS: SENNOSIDES 8.6 MG TAB PO SCH (20:26)
[2021-01-09] MEDS: FAMOTIDINE 20 MG TAB PO SCH (20:27)
[2021-01-09] MEDS ORDERED: HEPARIN SODIUM,PORCINE/PF 5,000 UNIT/0.5 ML SYRINGE SQ SCH (21:00)
[2021-01-09] MEDS: MORPHINE SULFATE 2 MG/ML SYRINGE IV PRN (21:18)
--- NOTE | 2021-01-09 21:33 | P.CNPUL ---
History of Present Illness Consult date: 01/09/21 Chief complaint: Abdominal pain, altered mentation, dehydration, hypotension History of present illness: 56-year-old male patient known history of alcoholic liver cirrhosis, post recent abdominal wall hernia repair, was found lethargipic, hypothermic, dehydrated, and hypotensive. The patient presented initially to another hospital and subseq uently the patient was transferred to us and that condition. I believe his initial presentation was the [facility]. At that time, the patient had a temperature of 88.9, was severely dehydrated with a lactic acid level of 13, white cell count 29 and the patient also had an acute kidney injury. The patient was also having diffuse abdominal pain and was confused. The Computed Tomography scan of the head was negative, CAT scan of the abdomen and pelvis was done that showed non-complicated diverticulosis, small amount of intra-abdominal fluid, sludge within the gallbladder. No acute abnormalities. No peritoneum. Accordingly, the patient was transferred to our emergency department. He denies having any chest pain. No shortness of breath. No focal neurological deficit. He is a previous alcohol drinker and he denies having ongoing alcohol drinking. In the emergency room, the patient was given IV fluids for hemodynamic support. Triple-lumen catheter was inserted. Extremities are warm and was applied. The patient was considered to have an underlying sepsis. He was taking oral vancomycin probably related to some ongoing colitis. He was started on IV Zosyn. Fluid resuscitation was continued. Blood work showed a white cell count of 22.7 a hemoglobin of 5.9. Potassium level was 5.5 and serum bicarb was 17 with a mean of 13 and a creatinine of 1.38. EKG showed a normal sinus rhythm. No ST segment abnormalities. Started on packed RBC transfusion and the patient was given a total of 2 units of packed RBC 4 hemoglobin of 5.9. Pressors was also started in the form of norepinephrine infusion and general surgery consultation was obtained. Gen. surgery to evaluate the patient's and based on that'll. There was no evidence of an acute abdomen. The patient had a nondilated common bile duct. There was sludge in the gallbladder. No evidence of any acute cholecystitis. Ultrasound the liver was consistent with chronic liver disease. No evidence of any ascites. Patient was admitted to the intensive care unit. With ongoing resuscitation, likely acid level dropped to 3.5. UA was negative. COVID-19 testing was negative. note that the patient has some mild transaminitis and elevation of alkaline phosphatase. Review of Systems ROS unobtainable: due to mental status Past Medical History Past Medical History: Unable to Obtain, Liver Disease Additional Past Medical History / Comment(s): anemia, colitis, chirrosis History of Any Multi-Drug Resistant Organisms: None Reported Past Surgical History: Unable to Obtain Additional Past Surgical History / Comment(s): patient states ex-lap for an ulcer, anterior abdominal wall hernia repair approximately a month ago Past Anesthesia/Blood Transfusion Reactions: No Reported Reaction Past Psychological History: No Psychological Hx Reported Smoking Status: Current some day smoker Past Alcohol Use History: Abuse Past Drug Use History: None Reported Medications and Allergies Home Medications Medication Instructions Recorded Confirmed Type Albuterol Sulfate [Proair Hfa] 2 puff INHALATION RT-Q4H PRN 01/09/21 01/09/21 History Dicyclomine [Bentyl] 20 mg PO QID PRN 01/09/21 01/09/21 History HYDROcodone/APAP 10-325MG [[place] 1 tab PO Q4H PRN 01/09/21 01/09/21 History 10-325] Lisdexamfetamine Dimesylate 70 mg PO DAILY 01/09/21 01/09/21 History [Vyvanse] Pantoprazole Sodium 40 mg PO DAILY PRN 01/09/21 01/09/21 History Promethazine [Phenergan] 25 mg PO Q4H PRN 01/09/21 01/09/21 History Sucralfate [Carafate] 1 gm PO ACHS PRN 01/09/21 01/09/21 History Vancomycin HCl [Vancocin HCl] 125 mg PO QID 01/09/21 01/09/21 History Allergies Allergy/AdvReac Type Severity Reaction Status Date / Time No Known Allergies Allergy Verified 01/09/21 13:38 Physical Exam Vitals: Vital Signs Temp Pulse Resp BP Pulse Ox 01/09/21 20:36 98.5 F 100 18 105/46 99 01/09/21 20:06 98.7 F 103 H 16 106/57 98 01/09/21 19:56 98.7 F 101 H 18 105/48 98 01/09/21 19:00 101 H 11 L 95 01/09/21 18:45 101 H 11 L 94 L 01/09/21 18:30 100 12 96 01/09/21 18:15 100 11 L 95 01/09/21 18:00 101 H 12 96 01/09/21 17:53 98.8 F 103 H 16 94/54 96 01/09/21 17:45 105 H 20 97 01/09/21 17:30 101 H 12 96 01/09/21 17:15 104 H 13 94 L 01/09/21 17:00 103 H 15 96 01/09/21 16:45 98.7 F 105 H 22 91/58 98 01/09/21 16:10 105 H 12 89/58 01/09/21 16:02 98.7 F 01/09/21 16:00 105 H 12 99/53 01/09/21 15:50 105 H 8 L 96/53 01/09/21 15:40 103 H 9 L 100/57 01/09/21 15:30 106 H 13 92/52 01/09/21 15:20 0 L 30 H 101/54 01/09/21 15:10 0 L 21 83/51 01/09/21 15:00 104 H 15 85/48 01/09/21 14:50 105 H 17 87/48 01/09/21 14:40 104 H 19 88/51 01/09/21 14:30 105 H 17 90/49 01/09/21 14:20 105 H 15 83/50 01/09/21 14:10 105 H 23 90/55 01/09/21 14:00 106 H 24 90/55 79 L 01/09/21 13:50 0 L 14 90/55 100 01/09/21 13:40 106 H 16 90/55 99 01/09/21 13:30 106 H 16 90/55 100 01/09/21 13:20 105 H 16 81/45 99 01/09/21 13:10 105 H 14 83/50 99 01/09/21 13:00 105 H 14 100 01/09/21 12:59 105 H 12 100 01/09/21 12:41 97.8 F 106 H 16 84/64 98 Intake and Output 01/09/21 01/09/21 01/09/21 06:59 14:59 22:59 Intake Total 344.154 Output Total 230 Balance 114.154 Intake: IV 300 Sodium Chloride 0.9% 1, 300 000 ml @ 100 mls/hr IV . Q10H WHIT Rx#:[id number] Intake, IV Titration 44.154 Amount Norepinephrine 4 mg In 44.154 Sodium Chloride 0.9% 250 ml @ 0.05 MCG/KG/MIN 12. 961 mls/hr IV .[id number] WHIT Rx#:[id number] Blood Product 0 Rc As-1 Unit 0 [id number] Output: Urine 230 Other: Voiding Method Indwelling Catheter Weight 68.039 kg 68.039 kg ABP, PAP, CO, CI - Last 8 Hours Arterial Blood Pressure 93/42 Arterial Blood Pressure 90/42 Arterial Blood Pressure 96/43 Arterial Blood Pressure 85/39 Arterial Blood Pressure 92/39 Arterial Blood Pressure 84/42 Arterial Blood Pressure 79/37 Arterial Blood Pressure 86/40 Arterial Blood Pressure 73/42 Arterial Blood Pressure 80/39 Arterial Blood Pressure 76/37 Arterial Blood Pressure 75/37 Arterial Blood Pressure 78/37 Arterial Blood Pressure 79/41 Arterial Blood Pressure 81/42 Arterial Blood Pressure 74/35 Arterial Blood Pressure 82/34 General: non toxic, no acute distress, alert oriented to time place and person, arousable, following simple commands. Mucous membranes are essentially dry. Head: atraumatic, normocephalic, symmetric Eyes: no lid lesion], anicteric sclera Mouth: no lip lesion, mucus membranes moist Cardiovascular: S1S2 reg rate and rhythm, no murmur, no gallop Lungs: Bilateral equal air entry, no wheezing no rhonchi no crackles. Abdominal: Soft, tender ot deep palpation, BS positive in all four quadrants Ext: no gross muscle atrophy, no edema extremities warm to suppose a positive Neuro: Alert oriented to time place and person, exam grossly nonfocal Psych: Mood and affect appropriate, patient not so certain Examination of the skin revealed no evidence of significant rashes, suspicious appearing nevi or other concerning lesions. Results - Laboratory Findings CBC and BMP: 01/09/21 16:45 01/09/21 16:45 PT/INR, D-dimer PT 16.5 sec (9.0-12.0) H 01/09/21 14:37 INR 1.7 (<1.2) H 01/09/21 14:37 Abnormal lab findings: Abnormal Labs 01/09/21 01/09/21 01/09/21 13:03 14:37 14:37 WBC 18.5 H RBC 1.68 L Hgb 5.7 L* Hct 18.2 L* MCV 108.4 H RDW 16.0 H Neutrophils # 17.0 H Lymphocytes # 0.6 L Macrocytosis Marked A PT 16.5 H INR 1.7 H APTT 35.1 H Sodium Potassium Chloride Carbon Dioxide BUN Creatinine Glucose POC Glucose (mg/dL) 175 H Plasma Lactic Acid [place] Calcium Total Bilirubin AST Alkaline Phosphatase Creatine Kinase Total Protein Albumin Urine Protein Amorphous Sediment Hyaline Casts Urine Mucus Crossmatch 01/09/21 01/09/21 01/09/21 14:37 14:37 14:37 WBC RBC Hgb Hct MCV RDW Neutrophils # Lymphocytes # Macrocytosis PT INR APTT Sodium 133 L Potassium 5.3 H Chloride 109 H Carbon Dioxide 17 L BUN 37 H Creatinine 1.35 H Glucose 111 H POC Glucose (mg/dL) Plasma Lactic Acid [place] 3.5 H* Calcium 7.7 L Total Bilirubin 1.7 H AST 145 H Alkaline Phosphatase 167 H Creatine Kinase 347 H Total Protein 3.8 L Albumin 2.0 L Urine Protein Trace H Amorphous Sediment Hyaline Casts Urine Mucus Crossmatch 01/09/21 01/09/21 01/09/21 16:31 16:45 16:45 WBC 22.7 H RBC 1.72 L Hgb 5.9 L* Hct 18.6 L* MCV 108.4 H RDW 16.3 H Neutrophils # 20.7 H Lymphocytes # 0.9 L Macrocytosis Marked A PT INR APTT Sodium 133 L Potassium 5.5 H Chloride 110 H Carbon Dioxide 17 L BUN 39 H Creatinine 1.38 H Glucose 102 H POC Glucose (mg/dL) 115 H Plasma Lactic Acid [place] Calcium 7.7 L Total Bilirubin AST Alkaline Phosphatase Creatine Kinase Total Protein Albumin Urine Protein Amorphous Sediment Hyaline Casts Urine Mucus Crossmatch 01/09/21 01/09/21 16:48 16:48 WBC RBC Hgb Hct MCV RDW Neutrophils # Lymphocytes # Macrocytosis PT INR APTT Sodium Potassium Chloride Carbon Dioxide BUN Creatinine Glucose POC Glucose (mg/dL) Plasma Lactic Acid [place] Calcium Total Bilirubin AST Alkaline Phosphatase Creatine Kinase Total Protein Albumin Urine Protein 1+ H Amorphous Sediment Rare H Hyaline Casts 17 H Urine Mucus Rare H Crossmatch See Detail - Diagnostic Findings Chest x-ray: image reviewed Assessment and Plan Plan: 1 abdominal pain, without evidence of an acute abdomen. CAT scan of the abdomen was noted. No evidence of any significant ascites. No evidence of diverticulitis. No evidence of any acute cholecystitis. The patient has biliary sludge. No evidence of any pneumoperitoneum. Rule out ischemic colitis. Rule out underlying C. diff colitis as the patient was taking oral vancomycin outpatient basis 2 acute hypovolemic hypotension, improved with fluid resuscitation. Currently IV fluids and pressors 3 leukocytosis 4 lactic acidosis , improving 5 acute kidney injury, likely secondary to above 6 history of alcoholic liver cirrhosis 7 recent history of an abdominal wall hernia repair, surgical wound infection and intact 8 biliary sludge 9 history of alcoholism 10 mild transaminitis Plan Continue fluid resuscitation Pressors if needed to follow norepinephrine infusion Continue IV Zosyn Blood cultures 2 Continue oral vancomycin vancomycin Morphine for pain control Neurosurgery consultation Lovenox for prophylaxis COVID-19 testing was negative We'll continue to follow.
[2021-01-10] MEDS: MORPHINE SULFATE 2 MG/ML SYRINGE IV PRN ×6 (01:55→21:34)
[2021-01-10] MEDS: SODIUM CHLORIDE 0.9% 1,000 ML IV SCH ×3 (01:55→18:14)
[2021-01-10] MEDS: NOREPINEPHRINE 8 MG in SODIUM CHLORIDE 0.9% 250 ML IV SCH (02:47)
[2021-01-10 04:15] LABS: Glucose,Whole Blood 93 mg/dL (75-99)
[2021-01-10 04:25] LABS: Anisocytosis Slight; Basophils # (A) 0.1 k/uL (0-0.2); Basophils % (A) 0 %; Eosinophils # (A) 0.4 k/uL (0-0.7); Eosinophils % (A) 1 %; HCT 28.4 % (39.0-53.0); Hypochromasia Slight; Lymphocytes # (A) 1.5 k/uL (1.0-4.8); Lymphocytes % (A) 5 %; MCH 32.7 pg (25.0-35.0); MCHC 31.5 g/dL (31.0-37.0); MCV 103.7 fL (80.0-100.0); Macrocytosis Moderate; Mean Platelet Volume 8.5; Monocytes # (A) 1.3 k/uL (0-1.0); Monocytes % (A) 4 %; Neutrophils # (A) 26.5 k/uL (1.3-7.7); Neutrophils % (A) 88 %; Platelet Count 308 k/uL (150-450); RBC 2.74 m/uL (4.30-5.90); WBC 30.2 k/uL (3.8-10.6)
[2021-01-10 04:50] LABS: Calcium 7.9 mg/dL (8.4-10.2); Potassium 5.1 mmol/L (3.5-5.1)
--- NOTE | 2021-01-10 08:34 | P.PN ---
Subjective Progress Note Date: 01/10/21 On today's evaluation of 01/10/2021, the patient is currently in the intensive care unit. He was admitted to the ICU yesterday. He continues to be hypotensive. He had some improvement in his acid levels which To 3.5. Nevertheless, He Still Acidotic with a Serum Bicarb of 17. His White Cell Count Is up to 30.2. The Patient Is Still Requiring Pressors and Currently Is on Norepinephrine Infusion Running at 0.2 Mcg/Kg Per Minute. The Patient Was Resuscitated IV Fluids and Pressors. He Is Overall Fluid Balance Has Been +1.7 L since midnight. Urine output is in order of 30 mL an hour. Abdomen is diffusely tender. He is receiving IV Zosyn. He is also on oral vancomycin. COVID-19 testing is been negative. UA has been negative. Blood cultures are still pending for now. Meanwhile, the patient is on room air oxygen with a pulse ox of 96%. He is awake. He is arousable. He can't communicate. No emesis. No chest pain. Pulses remained quite diminished in lower extremities bilaterally. There is some increased edema in lower extremities. Abdominal wound anteriorly is dry clean and intact. No evidence of any wound infection or cellulitis. Objective - Vital Signs Vital signs: Vital Signs Temp 98.3 F 01/10/21 04:00 Pulse 99 01/10/21 07:00 Resp 10 L 01/10/21 07:00 BP 91/58 01/10/21 07:00 Pulse Ox 95 01/10/21 07:00 Intake & Output 01/09/21 01/10/21 01/10/21 18:59 06:59 18:59 Intake Total 374.509 6625.679 100 Output Total 145 480 50 Balance -0.846 1798.679 50 Weight 68.039 kg 80.7 kg Intake: IV 100 1200 100 Sodium Chloride 0.9% 1, 100 1200 100 000 ml @ 100 mls/hr IV . Q10H [facility] Rx#:[id number] Intake, IV Titration 44.154 308.679 Amount Norepinephrine 4 mg In 44.154 208.679 Sodium Chloride 0.9% 250 ml @ 0.05 MCG/KG/MIN 12. 961 mls/hr IV .[id number] [facility] Rx#:[id number] Piperacillin-Tazobactam 3 100 .375 gm In Sodium Chloride 0.9% 100 ml @ 25 mls/hr IVPB Q8HR [facility] Rx# :[id number] Oral 150 Blood Product 620 Rc As-1 Unit 310 [id number] Rc As-1 Unit 310 [id number] Output: Urine 145 480 50 Other: Voiding Method Indwelling Catheter Indwelling Catheter # Bowel Movements 1 ABP, PAP, CO, CI - Last Documented Arterial Blood Pressure 105/51 - Exam General: non toxic, no acute distress, alert oriented to time place and person, arousable, following simple commands. Mucous membranes are essentially dry. Head: atraumatic, normocephalic, symmetric Eyes: no lid lesion], anicteric sclera Mouth: no lip lesion, mucus membranes moist Cardiovascular: S1S2 reg rate and rhythm, no murmur, no gallop Lungs: Bilateral equal air entry, no wheezing no rhonchi no crackles. Abdominal: Soft, tender on palpation, BS positive in all four quadrants Ext: no gross muscle atrophy, no edema extremities warm to suppose a positive Neuro: Alert oriented to time place and person, exam grossly nonfocal Psych: Mood and affect appropriate, patient not so certain Examination of the skin revealed no evidence of significant rashes, suspicious appearing nevi or other concerning lesions. - Labs CBC & Chem 7: 01/10/21 04:16 01/10/21 04:16 Labs: Abnormal Lab Results - Last 24 Hours (Table) 01/09/21 01/09/21 01/09/21 Range/Units 13:03 14:37 14:37 WBC 18.5 H (3.8-10.6) k/uL RBC 1.68 L (4.30-5.90) m/uL Hgb 5.7 L* (13.0-17.5) gm/dL Hct 18.2 L* (39.0-53.0) % MCV 108.4 H (80.0-100.0) fL RDW 16.0 H (11.5-15.5) % Neutrophils # 17.0 H (1.3-7.7) k/uL Lymphocytes # 0.6 L (1.0-4.8) k/uL Monocytes # (0-1.0) k/uL Macrocytosis Marked A PT 16.5 H (9.0-12.0) sec INR 1.7 H (<1.2) APTT 35.1 H (22.0-30.0) sec Sodium (137-145) mmol/L Potassium (3.5-5.1) mmol/L Chloride (98-107) mmol/L Carbon Dioxide (22-30) mmol/L BUN (9-20) mg/dL Creatinine (0.66-1.25) mg/dL Glucose (74-99) mg/dL POC Glucose (mg/dL) 175 H (75-99) mg/dL Plasma Lactic Acid Franklin (0.7-2.0) mmol/L Calcium (8.4-10.2) mg/dL Total Bilirubin (0.2-1.3) mg/dL AST (17-59) U/L Alkaline Phosphatase (38-126) U/L Creatine Kinase (55-170) U/L Total Protein (6.3-8.2) g/dL Albumin (3.5-5.0) g/dL Urine Protein (Negative) Amorphous Sediment (None) /hpf Hyaline Casts (0-2) /lpf Urine Mucus (None) /hpf Crossmatch 01/09/21 01/09/21 01/09/21 Range/Units 14:37 14:37 14:37 WBC (3.8-10.6) k/uL RBC (4.30-5.90) m/uL Hgb (13.0-17.5) gm/dL Hct (39.0-53.0) % MCV (80.0-100.0) fL RDW (11.5-15.5) % Neutrophils # (1.3-7.7) k/uL Lymphocytes # (1.0-4.8) k/uL Monocytes # (0-1.0) k/uL Macrocytosis PT (9.0-12.0) sec INR (<1.2) APTT (22.0-30.0) sec Sodium 133 L (137-145) mmol/L Potassium 5.3 H (3.5-5.1) mmol/L Chloride 109 H (98-107) mmol/L Carbon Dioxide 17 L (22-30) mmol/L BUN 37 H (9-20) mg/dL Creatinine 1.35 H (0.66-1.25) mg/dL Glucose 111 H (74-99) mg/dL POC Glucose (mg/dL) (75-99) mg/dL Plasma Lactic Acid Franklin 3.5 H* (0.7-2.0) mmol/L Calcium 7.7 L (8.4-10.2) mg/dL Total Bilirubin 1.7 H (0.2-1.3) mg/dL AST 145 H (17-59) U/L Alkaline Phosphatase 167 H (38-126) U/L Creatine Kinase 347 H (55-170) U/L Total Protein 3.8 L (6.3-8.2) g/dL Albumin 2.0 L (3.5-5.0) g/dL Urine Protein Trace H (Negative) Amorphous Sediment (None) /hpf Hyaline Casts (0-2) /lpf Urine Mucus (None) /hpf Crossmatch 01/09/21 01/09/21 01/09/21 Range/Units 16:31 16:45 16:45 WBC 22.7 H (3.8-10.6) k/uL RBC 1.72 L (4.30-5.90) m/uL Hgb 5.9 L* (13.0-17.5) gm/dL Hct 18.6 L* (39.0-53.0) % MCV 108.4 H (80.0-100.0) fL RDW 16.3 H (11.5-15.5) % Neutrophils # 20.7 H (1.3-7.7) k/uL Lymphocytes # 0.9 L (1.0-4.8) k/uL Monocytes # (0-1.0) k/uL Macrocytosis Marked A PT (9.0-12.0) sec INR (<1.2) APTT (22.0-30.0) sec Sodium 133 L (137-145) mmol/L Potassium 5.5 H (3.5-5.1) mmol/L Chloride 110 H (98-107) mmol/L Carbon Dioxide 17 L (22-30) mmol/L BUN 39 H (9-20) mg/dL Creatinine 1.38 H (0.66-1.25) mg/dL Glucose 102 H (74-99) mg/dL POC Glucose (mg/dL) 115 H (75-99) mg/dL Plasma Lactic Acid Franklin (0.7-2.0) mmol/L Calcium 7.7 L (8.4-10.2) mg/dL Total Bilirubin (0.2-1.3) mg/dL AST (17-59) U/L Alkaline Phosphatase (38-126) U/L Creatine Kinase (55-170) U/L Total Protein (6.3-8.2) g/dL Albumin (3.5-5.0) g/dL Urine Protein (Negative) Amorphous Sediment (None) /hpf Hyaline Casts (0-2) /lpf Urine Mucus (None) /hpf Crossmatch 01/09/21 01/09/21 01/10/21 Range/Units 16:48 16:48 04:16 WBC 30.2 H (3.8-10.6) k/uL RBC 2.74 L (4.30-5.90) m/uL Hgb 9.0 L D (13.0-17.5) gm/dL Hct 28.4 L (39.0-53.0) % MCV 103.7 H (80.0-100.0) fL RDW 17.0 H (11.5-15.5) % Neutrophils # 26.5 H (1.3-7.7) k/uL Lymphocytes # (1.0-4.8) k/uL Monocytes # 1.3 H (0-1.0) k/uL Macrocytosis PT (9.0-12.0) sec INR (<1.2) APTT (22.0-30.0) sec Sodium (137-145) mmol/L Potassium (3.5-5.1) mmol/L Chloride (98-107) mmol/L Carbon Dioxide (22-30) mmol/L BUN (9-20) mg/dL Creatinine (0.66-1.25) mg/dL Glucose (74-99) mg/dL POC Glucose (mg/dL) (75-99) mg/dL Plasma Lactic Acid Franklin (0.7-2.0) mmol/L Calcium (8.4-10.2) mg/dL Total Bilirubin (0.2-1.3) mg/dL AST (17-59) U/L Alkaline Phosphatase (38-126) U/L Creatine Kinase (55-170) U/L Total Protein (6.3-8.2) g/dL Albumin (3.5-5.0) g/dL Urine Protein 1+ H (Negative) Amorphous Sediment Rare H (None) /hpf Hyaline Casts 17 H (0-2) /lpf Urine Mucus Rare H (None) /hpf Crossmatch See Detail 01/10/21 Range/Units 04:16 WBC (3.8-10.6) k/uL RBC (4.30-5.90) m/uL Hgb (13.0-17.5) gm/dL Hct (39.0-53.0) % MCV (80.0-100.0) fL RDW (11.5-15.5) % Neutrophils # (1.3-7.7) k/uL Lymphocytes # (1.0-4.8) k/uL Monocytes # (0-1.0) k/uL Macrocytosis PT (9.0-12.0) sec INR (<1.2) APTT (22.0-30.0) sec Sodium 134 L (137-145) mmol/L Potassium (3.5-5.1) mmol/L Chloride 111 H (98-107) mmol/L Carbon Dioxide 17 L (22-30) mmol/L BUN 48 H (9-20) mg/dL Creatinine 1.44 H (0.66-1.25) mg/dL Glucose 131 H (74-99) mg/dL POC Glucose (mg/dL) (75-99) mg/dL Plasma Lactic Acid Franklin (0.7-2.0) mmol/L Calcium 7.9 L (8.4-10.2) mg/dL Total Bilirubin (0.2-1.3) mg/dL AST (17-59) U/L Alkaline Phosphatase (38-126) U/L Creatine Kinase (55-170) U/L Total Protein (6.3-8.2) g/dL Albumin (3.5-5.0) g/dL Urine Protein (Negative) Amorphous Sediment (None) /hpf Hyaline Casts (0-2) /lpf Urine Mucus (None) /hpf Crossmatch Assessment and Plan Plan: 1 abdominal pain, without evidence of an acute abdomen. CAT scan of the abdomen was noted. No evidence of any significant ascites. No evidence of diverticulitis. No evidence of any acute cholecystitis. The patient has biliary sludge. No evidence of any pneumoperitoneum. Rule out ischemic colitis. Rule out underlying C. diff colitis as the patient was taking oral vancomycin outpatient basis today's evaluation, the patient continues to be tender in his abdomen. No significant improvement in the abdominal tenderness since yesterday. He is suspected to have an intra-abdominal source of sepsis. For now, the patient continues to have leukocytosis and the white cell count is on the rise at 30.2. His lactic acid level is at 3.5. History of pressor dependent. He did have some mild transaminitis and this needs to be followed up today. We'll also check amylase and lipase. 2 acute hypotension, likely septic in nature, consider intra-abdominal source of sepsis. There may be also a component of hypovolemic hypotension, improved with fluid resuscitation. Currently IV fluids and pressors 3 leukocytosis, white cell count is on the rise at 32 4 lactic acidosis , improving, currently at 3.5 5 acute kidney injury, likely secondary to above. Creatinine is at 1.4 and there could be an underlying component of chronic kidney disease 6 history of alcoholic liver cirrhosis 7 recent history of an abdominal wall hernia repair, surgical wound infection and intact 8 biliary sludge 9 history of alcoholism 10 mild transaminitis Plan Continue fluid resuscitation 0.9 normal saline at the rate of 100 is an hour Continue present and the patient has a triple lumen cath in his left IJ Continue IV Zosyn Blood cultures 2 sent from the emergency and the results are still pending Continue oral vancomycin vancomycin Abdomen remains quite tender. I would suggest repeating the abdominal CAT scan with by mouth contrast Morphine for pain control Gen. surgery consultation Check amylase and lipase Obtain follow-up LFTs Stool for C. diff should there be any ongoing diarrhea Hemoglobin stable at 9.0 Monitor the white cell count Keep the patient ICU for now Lovenox for prophylaxis COVID-19 testing was negative We'll continue to follow.
[2021-01-10] MEDS: VANCOMYCIN 125 MG CAPSULE PO SCH ×4 (10:08→21:48)
[2021-01-10] MEDS: PIPERACILLIN-TAZOBACTAM 3.375 GM in SODIUM CHLORIDE 0.9% 100 ML IVPB SCH ×2 (10:08→18:06)
[2021-01-10] MEDS: DOCUSATE 100 MG CAP PO SCH ×2 (10:08→21:28)
[2021-01-10] MEDS: FAMOTIDINE 20 MG TAB PO SCH ×2 (10:08→21:29)
[2021-01-10 10:29] LABS: Amylase 55 U/L (30-110); Lipase 107 U/L (23-300)
[2021-01-10] MEDS: IOPAMIDOL CONTRAST (ORAL USE) VIAL PO PRN ×2 (11:51→13:06)
[2021-01-10 12:14] LABS: Glucose,Whole Blood 192 mg/dL (75-99)
--- NOTE | 2021-01-10 12:42 | P.PN ---
Progress Note - Text Progress Note Date: 01/10/21 The patient is seen on rounds. He is much more alert today. Able to answer questions appropriately. His hernia surgery was about a month ago. He said he went into "system failure "about 4 days after surgery and had to go down to [facility]. He was there for quite a few days. He has pain in the incision. He did not have any problem with infection in the mesh after it was placed, to his knowledge. Abdomen is softly distended, positive bowel sounds, mild diffuse tenderness. There is a seroma present which was not appreciated during exam yesterday. It does not appear to be erythematous or infected. After giving informed consent, the abdomen was prepped with ChloraPrep. A skin wheal of 1% lidocaine was placed. An 18-gauge needle was then used to aspirate clear seroma fluid. A dressing was applied. The fluid will be sent for culture. Assessment: Abdominal pain, sepsis, history of hernia repair Plan: Await culture of the seroma fluid. Grossly it appears to be simple fluid with no sign of infection. Continue medical care.
[2021-01-10] MEDS: ONDANSETRON 4 MG/2 ML VIAL IVP PRN (13:07)
--- NOTE | 2021-01-10 14:26 | P.PN ---
Subjective Progress Note Date: 01/10/21 56-year-old male patient who is currently living in a motel was found out by police near motel outside the store per patient who is currently alert oriented to time place and person, apparently patient was found unconscious and hypothermic, patient was brought into the emergency department, patient initial level workup showed severe dehydration and lactic acidosis and hypotension, patient was given IV fluids. Initially was started on Levophed which was later turned off, patient W BC count was 18.5 hemoglobin 5.70 history of GI bleed or black stools, patient INR is 1.7. No major abnormalities on basic metabolic profile, patient initial lactic acid was 3.5, patient also was noted to have mild transaminitis with elevated alkaline phosphatase. Patient initial urinalysis was negative chest x-ray was negative, patient was started on broad- spectrum antibiotic with a concern for sepsis due intraabdominal source, patient recently had hernia repair surgery at outside facility, CT abd pelvis showed Seroma. Gen surgery consulted, general surgery and pulmonary and critical care following. Patient seen and evaluated at bedside, today patient does not report any worsening of his breathing or report any new significant chest pain. Patient remains in no acute distress. Patient questions and concerns addressed at bedside, proper counseling done. Plan discussed with nursing staff. Objective - Vital Signs Vital signs: Vital Signs Temp 98.3 F 01/10/21 04:00 Pulse 99 01/10/21 07:00 Resp 10 L 01/10/21 07:00 BP 91/58 01/10/21 07:00 Pulse Ox 96 01/10/21 08:28 Intake & Output 01/09/21 01/10/21 01/10/21 18:59 06:59 18:59 Intake Total 129.252 5986.679 131.05 Output Total 145 480 50 Balance -0.846 1798.679 81.05 Weight 68.039 kg 80.7 kg Intake: IV 100 1200 100 Sodium Chloride 0.9% 1, 100 1200 100 000 ml @ 100 mls/hr IV . Q10H [facility] Rx#:[id number] Intake, IV Titration 44.154 308.679 31.05 Amount Norepinephrine 4 mg In 44.154 208.679 Sodium Chloride 0.9% 250 ml @ 0.05 MCG/KG/MIN 12. 961 mls/hr IV .[id number] [facility] Rx#:[id number] Norepinephrine 8 mg In 31.05 Sodium Chloride 0.9% 250 ml @ 0.05 MCG/KG/MIN 6. 583 mls/hr IV .Q24H [facility] Rx#:[id number] Piperacillin-Tazobactam 3 100 .375 gm In Sodium Chloride 0.9% 100 ml @ 25 mls/hr IVPB Q8HR [facility] Rx# :[id number] Oral 150 Blood Product 620 Rc As-1 Unit 310 [id number] Rc As-1 Unit 310 [id number] Output: Urine 145 480 50 Other: Voiding Method Indwelling Catheter Indwelling Catheter # Bowel Movements 1 ABP, PAP, CO, CI - Last Documented Arterial Blood Pressure 105/51 General: Mild distress due to clinical condition Head: atraumatic, normocephalic, symmetric Eyes: no lid lesion], anicteric sclera Mouth: no lip lesion, mucus membranes moist Cardiovascular: S1S2 reg rate and rhythm, no murmur, no gallop Lungs: Diminished breaths sounds bilaterally Abdominal: Tender to palpation, bowel sounds positive all 4 quadrants Ext: no gross muscle atrophy, no edema extremities warm to suppose a positive Neuro: Alert oriented to time place and person, exam grossly nonfocal Psych: Mood and affect appropriate, patient not so certain Skin exam: No rashes no jaundice.. - Labs CBC & Chem 7: 01/10/21 04:16 01/10/21 04:16 Labs: Abnormal Lab Results - Last 24 Hours (Table) 01/09/21 01/09/21 01/09/21 Range/Units 14:37 14:37 14:37 WBC 18.5 H (3.8-10.6) k/uL RBC 1.68 L (4.30-5.90) m/uL Hgb 5.7 L* (13.0-17.5) gm/dL Hct 18.2 L* (39.0-53.0) % MCV 108.4 H (80.0-100.0) fL RDW 16.0 H (11.5-15.5) % Neutrophils # 17.0 H (1.3-7.7) k/uL Lymphocytes # 0.6 L (1.0-4.8) k/uL Monocytes # (0-1.0) k/uL Macrocytosis Marked A PT 16.5 H (9.0-12.0) sec INR 1.7 H (<1.2) APTT 35.1 H (22.0-30.0) sec ABG Lactic Acid (0.5-1.6) mmol/L Sodium (137-145) mmol/L Potassium (3.5-5.1) mmol/L Chloride (98-107) mmol/L Carbon Dioxide (22-30) mmol/L BUN (9-20) mg/dL Creatinine (0.66-1.25) mg/dL Glucose (74-99) mg/dL POC Glucose (mg/dL) (75-99) mg/dL Plasma Lactic Acid Franklin (0.7-2.0) mmol/L Calcium (8.4-10.2) mg/dL Total Bilirubin (0.2-1.3) mg/dL AST (17-59) U/L Alkaline Phosphatase (38-126) U/L Creatine Kinase (55-170) U/L Total Protein (6.3-8.2) g/dL Albumin (3.5-5.0) g/dL Urine Protein Trace H (Negative) Amorphous Sediment (None) /hpf Hyaline Casts (0-2) /lpf Urine Mucus (None) /hpf Crossmatch 01/09/21 01/09/21 01/09/21 Range/Units 14:37 14:37 16:31 WBC (3.8-10.6) k/uL RBC (4.30-5.90) m/uL Hgb (13.0-17.5) gm/dL Hct (39.0-53.0) % MCV (80.0-100.0) fL RDW (11.5-15.5) % Neutrophils # (1.3-7.7) k/uL Lymphocytes # (1.0-4.8) k/uL Monocytes # (0-1.0) k/uL Macrocytosis PT (9.0-12.0) sec INR (<1.2) APTT (22.0-30.0) sec ABG Lactic Acid (0.5-1.6) mmol/L Sodium 133 L (137-145) mmol/L Potassium 5.3 H (3.5-5.1) mmol/L Chloride 109 H (98-107) mmol/L Carbon Dioxide 17 L (22-30) mmol/L BUN 37 H (9-20) mg/dL Creatinine 1.35 H (0.66-1.25) mg/dL Glucose 111 H (74-99) mg/dL POC Glucose (mg/dL) 115 H (75-99) mg/dL Plasma Lactic Acid Franklin 3.5 H* (0.7-2.0) mmol/L Calcium 7.7 L (8.4-10.2) mg/dL Total Bilirubin 1.7 H (0.2-1.3) mg/dL AST 145 H (17-59) U/L Alkaline Phosphatase 167 H (38-126) U/L Creatine Kinase 347 H (55-170) U/L Total Protein 3.8 L (6.3-8.2) g/dL Albumin 2.0 L (3.5-5.0) g/dL Urine Protein (Negative) Amorphous Sediment (None) /hpf Hyaline Casts (0-2) /lpf Urine Mucus (None) /hpf Crossmatch 01/09/21 01/09/21 01/09/21 Range/Units 16:45 16:45 16:48 WBC 22.7 H (3.8-10.6) k/uL RBC 1.72 L (4.30-5.90) m/uL Hgb 5.9 L* (13.0-17.5) gm/dL Hct 18.6 L* (39.0-53.0) % MCV 108.4 H (80.0-100.0) fL RDW 16.3 H (11.5-15.5) % Neutrophils # 20.7 H (1.3-7.7) k/uL Lymphocytes # 0.9 L (1.0-4.8) k/uL Monocytes # (0-1.0) k/uL Macrocytosis Marked A PT (9.0-12.0) sec INR (<1.2) APTT (22.0-30.0) sec ABG Lactic Acid (0.5-1.6) mmol/L Sodium 133 L (137-145) mmol/L Potassium 5.5 H (3.5-5.1) mmol/L Chloride 110 H (98-107) mmol/L Carbon Dioxide 17 L (22-30) mmol/L BUN 39 H (9-20) mg/dL Creatinine 1.38 H (0.66-1.25) mg/dL Glucose 102 H (74-99) mg/dL POC Glucose (mg/dL) (75-99) mg/dL Plasma Lactic Acid Franklin (0.7-2.0) mmol/L Calcium 7.7 L (8.4-10.2) mg/dL Total Bilirubin (0.2-1.3) mg/dL AST (17-59) U/L Alkaline Phosphatase (38-126) U/L Creatine Kinase (55-170) U/L Total Protein (6.3-8.2) g/dL Albumin (3.5-5.0) g/dL Urine Protein 1+ H (Negative) Amorphous Sediment Rare H (None) /hpf Hyaline Casts 17 H (0-2) /lpf Urine Mucus Rare H (None) /hpf Crossmatch 01/09/21 01/10/21 01/10/21 Range/Units 16:48 04:16 04:16 WBC 30.2 H (3.8-10.6) k/uL RBC 2.74 L (4.30-5.90) m/uL Hgb 9.0 L D (13.0-17.5) gm/dL Hct 28.4 L (39.0-53.0) % MCV 103.7 H (80.0-100.0) fL RDW 17.0 H (11.5-15.5) % Neutrophils # 26.5 H (1.3-7.7) k/uL Lymphocytes # (1.0-4.8) k/uL Monocytes # 1.3 H (0-1.0) k/uL Macrocytosis PT (9.0-12.0) sec INR (<1.2) APTT (22.0-30.0) sec ABG Lactic Acid (0.5-1.6) mmol/L Sodium 134 L (137-145) mmol/L Potassium (3.5-5.1) mmol/L Chloride 111 H (98-107) mmol/L Carbon Dioxide 17 L (22-30) mmol/L BUN 48 H (9-20) mg/dL Creatinine 1.44 H (0.66-1.25) mg/dL Glucose 131 H (74-99) mg/dL POC Glucose (mg/dL) (75-99) mg/dL Plasma Lactic Acid Franklin (0.7-2.0) mmol/L Calcium 7.9 L (8.4-10.2) mg/dL Total Bilirubin (0.2-1.3) mg/dL AST (17-59) U/L Alkaline Phosphatase (38-126) U/L Creatine Kinase (55-170) U/L Total Protein (6.3-8.2) g/dL Albumin (3.5-5.0) g/dL Urine Protein (Negative) Amorphous Sediment (None) /hpf Hyaline Casts (0-2) /lpf Urine Mucus (None) /hpf Crossmatch See Detail 01/10/21 01/10/21 Range/Units 12:12 12:15 WBC (3.8-10.6) k/uL RBC (4.30-5.90) m/uL Hgb (13.0-17.5) gm/dL Hct (39.0-53.0) % MCV (80.0-100.0) fL RDW (11.5-15.5) % Neutrophils # (1.3-7.7) k/uL Lymphocytes # (1.0-4.8) k/uL Monocytes # (0-1.0) k/uL Macrocytosis PT (9.0-12.0) sec INR (<1.2) APTT (22.0-30.0) sec ABG Lactic Acid 2.3 H* (0.5-1.6) mmol/L Sodium (137-145) mmol/L Potassium (3.5-5.1) mmol/L Chloride (98-107) mmol/L Carbon Dioxide (22-30) mmol/L BUN (9-20) mg/dL Creatinine (0.66-1.25) mg/dL Glucose (74-99) mg/dL POC Glucose (mg/dL) 192 H (75-99) mg/dL Plasma Lactic Acid Franklin (0.7-2.0) mmol/L Calcium (8.4-10.2) mg/dL Total Bilirubin (0.2-1.3) mg/dL AST (17-59) U/L Alkaline Phosphatase (38-126) U/L Creatine Kinase (55-170) U/L Total Protein (6.3-8.2) g/dL Albumin (3.5-5.0) g/dL Urine Protein (Negative) Amorphous Sediment (None) /hpf Hyaline Casts (0-2) /lpf Urine Mucus (None) /hpf Crossmatch Assessment and Plan Assessment: Sepsis, Shock with lactic acidosis Questionable intra-abdominal source, patient status post abdominal hernia repair surgery [address] abdomen and pelvis showing seroma question if this is infected, aspirated by general surgery sent for culture Continue empiric antibiotic treatment Neurosurgery and pulmonary critical care following Acute anemia Likely status post surgery, does not seem to have ongoing blood loss issue, patient status post transfusion 1 unit this admission except patient currently stable No concern for ongoing bleeding Recent history of C. diff colitis diagnosed outside hospital Recently was started on oral lincomycin for positive C. diff outside hospital Continue the oral vancomycin for now. Recent history of abdominal hernia repair Patient status post surgery approximately a month ago Apparently postoperative course was complicated by C. diff infection Cont c diff treatment as mentioned above Acute kidney injury Likely prerenal versus ATN component. Hold nephrotoxins Continue IV fluid History of alcohol abuse Patient was drinking on a daily basis a month ago currently not drinking Last drink one month ago No concern for alcohol ongoing abuse or concern for withdrawal. DVT prophylaxis: SCDs for now CODE STATUS: Full code Disposition plan/next site of care: Likely next 4-5 days pending hospital course clinical improvement, patient may need rehab
--- NOTE | 2021-01-10 14:30 | CT ---
EXAMINATION TYPE: CT abdomen pelvis wo con DATE OF EXAM: 01/10/2021 COMPARISON: Yesterday HISTORY: 928.8 CT DLP: sepsis mGycm Automated exposure control for dose reduction was used. Images from the diaphragm to the floor the pelvis with without IV contrast. There is some oral contra st in the stomach and small bowel.. There are bilateral pleural effusions. There is infiltrate and atelectasis at both lung bases. There is abdominal ascites. Liver has normal size. Gallbladder is large and measures 4.3 x 10 cm. The bile ducts are not dilated. There is increased density in the gallbladder neck region that could be a larg e gallstone. Spleen is intact. There is no evidence of pancreatic mass. There are some surgical clips at the anterior aspect of the pancreatic head. The stomach has normal size. There is no adrenal mass. Kidneys show normal size and contour. There is no hydronephrosis. Ureters a re not dilated. There is no retroperitoneal adenopathy. Urinary bladder is empty. There is Muñoz cath eter in the urinary bladder. There are fluid levels in the large bowel down to the rectum. I see no e vidence of free air. There is subcutaneous fluid accumulation over the anterior mid abdomen. This dion sures 10 x 3 cm and could relate to ascites fluid in a ventral hernia. The lumbar vertebra have normal alignment. There is no compression fracture. Posterior elements are i ntact. The hip joints are intact. There is mild acetabular spurring. The pelvic ring is intact. Sacro iliac joints are intact. There are some large bowel diverticula. I see no sign of diverticulitis. I s ee no evidence of a bowel obstruction. IMPRESSION: Compared to exam yesterday there is development of bilateral pleural effusions and basilar pulmonary infiltrates. There is development of moderate abdominal ascites fluid. There are fluid levels in the large bowel suggestive of ileus and diarrhea. Gallbladder is mildly dilated compared to yesterday and could relate to gallbladder dysfunction or cholecystitis. There is possible gallstone.
[2021-01-10 18:00] LABS: Glucose,Whole Blood 156 mg/dL (75-99)
[2021-01-10] MEDS: SENNOSIDES 8.6 MG TAB PO SCH (21:28)
[2021-01-10] MEDS: ALPRAZolam 0.25 MG TAB PO PRN (21:33)
[2021-01-11] MEDS: PIPERACILLIN-TAZOBACTAM 3.375 GM in SODIUM CHLORIDE 0.9% 100 ML IVPB SCH ×4 (00:01→23:21)
[2021-01-11] MEDS: MORPHINE SULFATE 2 MG/ML SYRINGE IV PRN ×7 (02:33→21:09)
[2021-01-11 02:59] LABS: Anisocytosis Slight; Basophils % (A) 0 %; Eosinophils # (A) 0.4 k/uL (0-0.7); Eosinophils % (A) 2 %; HCT 28.6 % (39.0-53.0); HGB 9.2 gm/dL (13.0-17.5); Lymphocytes # (A) 1.3 k/uL (1.0-4.8); Lymphocytes % (A) 6 %; MCH 32.6 pg (25.0-35.0); MCV 101.9 fL (80.0-100.0); Macrocytosis Moderate; Mean Platelet Volume 9.3; Monocytes # (A) 0.8 k/uL (0-1.0); Monocytes % (A) 4 %; Neutrophils # (A) 18.1 k/uL (1.3-7.7); Neutrophils % (A) 87 %; Platelet Count 215 k/uL (150-450); RBC 2.81 m/uL (4.30-5.90); RDW 17.5 % (11.5-15.5); WBC 20.9 k/uL (3.8-10.6)
[2021-01-11 03:14] LABS: Albumin 2.1 g/dL (3.5-5.0); Calcium 7.9 mg/dL (8.4-10.2); Potassium 3.9 mmol/L (3.5-5.1); Total Bilirubin 2.1 mg/dL (0.2-1.3); Total Protein 4.1 g/dL (6.3-8.2)
[2021-01-11] MEDS: SODIUM CHLORIDE 0.9% 1,000 ML IV SCH ×2 (03:49→18:06)
[2021-01-11] MEDS: NOREPINEPHRINE 8 MG in SODIUM CHLORIDE 0.9% 250 ML IV SCH (07:44)
[2021-01-11] MEDS: DOCUSATE 100 MG CAP PO SCH ×2 (07:45→18:35)
[2021-01-11] MEDS: VANCOMYCIN 125 MG CAPSULE PO SCH ×4 (08:48→21:08)
[2021-01-11] MEDS: FAMOTIDINE 20 MG TAB PO SCH ×2 (08:48→21:08)
--- NOTE | 2021-01-11 13:43 | P.PN ---
Progress Note - Text Progress Note Date: 01/11/21 The patient's computed tomography scan shows development of ascites and pleural effusions. Otherwise no acute inflammatory process with the abdomen Gram stain of the seroma was aspirated shows no organisms. I will continue to check, culture. Otherwise Will follow up as needed
--- NOTE | 2021-01-11 14:01 | P.PN ---
Subjective Progress Note Date: 01/11/21 Principal diagnosis: Acute abdominal pain with abdominal sepsis and septic shock. On today's evaluation of 01/10/2021, the patient is currently in the intensive care unit. He was admitted to the ICU yesterday. He continues to be hypotensive. He had some improvement in his acid levels which To 3.5. Nevertheless, He Still Acidotic with a Serum Bicarb of 17. His White Cell Count Is up to 30.2. The Patient Is Still Requiring Pressors and Currently Is on Norepinephrine Infusion Running at 0.2 Mcg/Kg Per Minute. The Patient Was Resuscitated IV Fluids and Pressors. He Is Overall Fluid Balance Has Been +1.7 L since midnight. Urine output is in order of 30 mL an hour. Abdomen is diffusely tender. He is receiving IV Zosyn. He is also on oral vancomycin. COVID-19 testing is been negative. UA has been negative. Blood cultures are still pending for now. Meanwhile, the patient is on room air oxygen with a pulse ox of 96%. He is awake. He is arousable. He can't communicate. No emesis. No chest pain. Pulses remained quite diminished in lower extremities b ilaterally. There is some increased edema in lower extremities. Abdominal wound anteriorly is dry clean and intact. No evidence of any wound infection or cellulitis. Patient was reevaluated today on 01/11/21, remains in the ICU, still complaining of abdominal pain and distention and discomfort. Patient had a history of hernia repair back in mid November, and he presented to the hospital with abdominal pain and hypotension. Patient had metabolic acidosis, leukocytosis, he required fluid boluses, and norepinephrine infusion which is presently off. Remains on IV fluid at 100 mL/h, patient is quite edematous and swollen. Remains on Zosyn and oral vancomycin. Fluid from the abdomen/ascitic fluid showed no organisms, cultures are pending. Continues to have leukocytosis with WBC of 20.9 hemoglobin is 9.2 electrolytes are normal however his bicarb is 16 BUN is 44 creatinine is 1.18. Patient is having black tarry stools, and tested positive for stool occult blood. Repeat C. diff screening is negative CT of the abdomen and pelvis done yesterday showed development of bilateral pleural effusions and moderate abdominal ascites with fluid levels in the large bowel this is suggestive of the lesions and diarrhea. There was also evidence of possible gallstones Objective - Vital Signs Vital signs: Vital Signs Temp 97.9 F 01/11/21 12:00 Pulse 102 H 01/11/21 13:00 Resp 20 01/11/21 13:00 BP 91/58 01/10/21 23:15 Pulse Ox 92 L 01/11/21 13:00 Intake & Output 01/10/21 01/11/21 01/11/21 18:59 06:59 18:59 Intake Total 1881.05 1200 770 Output Total 640 775 350 Balance 1241.05 425 420 Weight 86.4 kg Intake: IV 1400 1200 550 Piperacillin-Tazobactam 3 200 100 .375 gm In Sodium Chloride 0.9% 100 ml @ 25 mls/hr IVPB Q8HR WHIT Rx# :[id number] Sodium Chloride 0.9% 1, 1200 1200 450 000 ml @ 50 mls/hr IV . Q20H WHIT Rx#:[id number] Intake, IV Titration 31.05 Amount Norepinephrine 8 mg In 31.05 Sodium Chloride 0.9% 250 ml @ 0.05 MCG/KG/MIN 6. 583 mls/hr IV .Q24H WHIT Rx#:[id number] Oral 150 220 Tube Feeding 300 Output: Urine 640 775 350 Other: Voiding Method Indwelling Catheter Indwelling Catheter Indwelling Catheter # Bowel Movements 1 1 ABP, PAP, CO, CI - Last Documented Arterial Blood Pressure 123/71 - Exam General: Revealed a 56-year-old white male in no distress. Head: atraumatic, normocephalic HEENT: PERRLA, EOMI, nonicteric, no neck masses, dry mucous membranes. Cardiovascular: S1S2 reg rate and rhythm, no murmur, no gallop Lungs: Diminished breath sounds at the bases no crackles or rhonchi or wheezes Abdominal: Soft, tender on palpation, BS positive in all four quadrants , recent surgical scars from recent incision noted. Ext: No clubbing positive edema no cyanosis. Neuro: Alert oriented to time place and person, exam grossly nonfocal Psych: Normal mood affect and normal mental status examination. Skin: No rashes - Labs CBC & Chem 7: 01/11/21 02:50 01/11/21 02:50 Labs: Abnormal Lab Results - Last 24 Hours (Table) 01/10/21 01/11/2101/11/21 Range/Units 17:59 02:50 02:50 WBC 20.9 H (3.8-10.6) k/uL RBC 2.81 L (4.30-5.90) m/uL Hgb 9.2 L (13.0-17.5) gm/dL Hct 28.6 L (39.0-53.0) % MCV 101.9 H (80.0-100.0) fL RDW 17.5 H (11.5-15.5) % Neutrophils # 18.1 H (1.3-7.7) k/uL Sodium 135 L (137-145) mmol/L Chloride 114 H (98-107) mmol/L Carbon Dioxide 16 L (22-30) mmol/L BUN 44 H (9-20) mg/dL Glucose 109 H (74-99) mg/dL POC Glucose (mg/dL) 156 H (75-99) mg/dL Calcium 7.9 L (8.4-10.2) mg/dL Total Bilirubin 2.1 H (0.2-1.3) mg/dL AST 90 H (17-59) U/L Alkaline Phosphatase 230 H (38-126) U/L Total Protein 4.1 L (6.3-8.2) g/dL Albumin 2.1 L (3.5-5.0) g/dL Microbiology - Last 24 Hours (Table) 01/10/21 12:05 Gram Stain - Preliminary Ascites Fluid Body Fluid Culture - Preliminary 01/09/21 14:37 Blood Culture - Preliminary Blood No Growth after 24 hours 01/09/21 14:37 Blood Culture - Preliminary Blood No Growth after 24 hours Assessment and Plan Assessment: Impression: Acute abdominal sepsis and septic shock, exact source is not clear. Hypotension secondary to septic shock and sepsis Leukocytosis secondary to abdominal sepsis Lactic acidosis secondary to sepsis and septic shock Acute kidney injury secondary to sepsis and septic shock History of liver cirrhosis. Alcoholic related. History of abdominal wall hernia repair in mid November. Biliary sludge. History of alcoholism. Recommendation: Continue IV fluids at 100 mL per hour. Continue antibiotics/Zosyn Continue oral vancomycin Awaiting cultures including blood cultures and seroma fluid from the abdominal wall. Continue pain control. Continue to monitor in the ICU. Monitor CBC and white count. Continue DVT prophylaxis. Continue GI prophylaxis. We'll continue to follow Time with Patient: Less than 30
--- NOTE | 2021-01-11 15:28 | P.PN ---
Subjective Progress Note Date: 01/11/21 Principal diagnosis: CC: abdominal pain 56-year-old male patient who is currently living in a motel was found out by police near motel outside the store per patient who is currently alert oriented to time place and person, apparently patient was found unconscious and h ypothermic, patient was brought into the emergency department, patient initial level workup showed severe dehydration and lactic acidosis and hypotension, patient was given IV fluids. Initially was started on Levophed which was later turned off, patient W BC count was 18.5 hemoglobin 5.70 history of GI bleed or black stools, patient INR is 1.7. No major abnormalities on basic metabolic profile, patient initial lactic acid was 3.5, patient also was noted to have mild transaminitis with elevated alkaline phosphatase. Patient initial urinalysis was negative chest x-ray was negative, patient was started on broad- spectrum antibiotic with a concern for sepsis due intraabdominal source, patient recently had hernia repair surgery at outside facility, CT abd pelvis showed Seroma. Gen surgery consulted, general surgery and pulmonary and critical care following. General surgery did aspiration of the seroma. Cultures are currently pending. On 01/11/2021 patient started having black tarry stools. Stool occult was positive. Patient was seen and examined today. Patient states that he still has diffuse abdominal pain. He also states that he is having diarrhea. I discussed the case with the ICU nurses said that patient is having black tarry stools. Objective - Vital Signs Vital signs: Vital Signs Temp 97.9 F 01/11/21 12:00 Pulse 77 01/11/21 14:00 Resp 18 01/11/21 14:00 BP 91/58 01/10/21 23:15 Pulse Ox 98 01/11/21 14:00 Intake & Output 01/10/21 01/11/21 01/11/21 18:59 06:59 18:59 Intake Total 1881.05 1200 770 Output Total 640 775 350 Balance 1241.05 425 420 Weight 86.4 kg Intake: IV 1400 1200 550 Piperacillin-Tazobactam 3 200 100 .375 gm In Sodium Chloride 0.9% 100 ml @ 25 mls/hr IVPB Q8HR WHIT Rx# :[id number] Sodium Chloride 0.9% 1, 1200 1200 450 000 ml @ 50 mls/hr IV . Q20H WHIT Rx#:[id number] Intake, IV Titration 31.05 Amount Norepinephrine 8 mg In 31.05 Sodium Chloride 0.9% 250 ml @ 0.05 MCG/KG/MIN 6. 583 mls/hr IV .Q24H WHIT Rx#:[id number] Oral 150 220 Tube Feeding 300 Output: Urine 640 775 350 Other: Voiding Method Indwelling Catheter Indwelling Catheter Indwelling Catheter # Bowel Movements 1 1 ABP, PAP, CO, CI - Last Documented Arterial Blood Pressure 92/74 - Exam General examination - Alert and Oriented 3, appears chronically debilitated Heart - + S1S2 no murmurs Lungs - Clear to auscultation Abdomen diffuse tenderness to palpate Extremities - No edema [employer] - Moving all 4 extremities spontaneously Psych - Calm and cooperative - Labs CBC & Chem 7: 01/11/21 02:50 01/11/21 02:50 Labs: Abnormal Lab Results - Last 24 Hours (Table) 01/10/21 01/11/21 01/11/21 Range/Units 17:59 02:50 02:50 WBC 20.9 H (3.8-10.6) k/uL RBC 2.81 L (4.30-5.90) m/uL Hgb 9.2 L (13.0-17.5) gm/dL Hct 28.6 L (39.0-53.0) % MCV 101.9 H (80.0-100.0) fL RDW 17.5 H (11.5-15.5) % Neutrophils # 18.1 H (1.3-7.7) k/uL Sodium 135 L (137-145) mmol/L Chloride 114 H (98-107) mmol/L Carbon Dioxide 16 L (22-30) mmol/L BUN 44 H (9-20) mg/dL Glucose 109 H (74-99) mg/dL POC Glucose (mg/dL) 156 H (75-99) mg/dL Calcium 7.9 L (8.4-10.2) mg/dL Total Bilirubin 2.1 H (0.2-1.3) mg/dL AST 90 H (17-59) U/L Alkaline Phosphatase 230 H (38-126) U/L Total Protein 4.1 L (6.3-8.2) g/dL Albumin 2.1 L (3.5-5.0) g/dL Microbiology - Last 24 Hours (Table) 01/10/21 12:05 Gram Stain - Preliminary Ascites Fluid Body Fluid Culture - Preliminary 01/09/21 14:37 Blood Culture - Preliminary Blood No Growth after 24 hours 01/09/21 14:37 Blood Culture - Preliminary Blood No Growth after 24 hours Assessment and Plan Assessment: Sepsis, Shock with lactic acidosis Questionable intra-abdominal source, patient status post abdominal hernia repair surgery [address] abdomen and pelvis showing seroma question if this is infected, aspirated by general surgery sent for culture Stool cultures sent including for C. diff Patient is now off pressors and blood pressure stable. Continue empiric antibiotic treatment with IV Zosyn WBC is trending down General surgery and pulmonary critical care following Acute anemia likely due to upper GI bleed versus possible ischemic bowel Patient having melanotic stool that started on 01/11/2021 Patient received a total of 2 units of PRBC since admission Hemoglobin is stable this morning Consult GI Recent history of C. diff colitis diagnosed outside hospital Recently was started on oral vancomycin for positive C. diff outside hospital Check repeat C. diff Continue the oral vancomycin for now. Recent history of abdominal hernia repair Patient status post surgery approximately a month ago Apparently postoperative course was complicated by C. diff infection Cont c diff treatment as mentioned above Acute kidney injury Likely prerenal versus ATN component. Hold nephrotoxins Continue IV fluid History of alcohol abuse Patient was drinking on a daily basis a month ago currently not drinking Last drink one month ago No concern for alcohol ongoing abuse or concern for withdrawal. DVT prophylaxis: SCDs for now CODE STATUS: Full code Disposition plan/next site of care: Likely next 4-5 days pending hospital course clinical improvement, patient may need rehab
[2021-01-11] MEDS: SENNOSIDES 8.6 MG TAB PO SCH (18:35)
[2021-01-11] MEDS: ALPRAZolam 0.25 MG TAB PO PRN (21:08)
[2021-01-12] MEDS: MORPHINE SULFATE 2 MG/ML SYRINGE IV PRN ×7 (00:48→23:58)
[2021-01-12] MEDS: NOREPINEPHRINE 8 MG in SODIUM CHLORIDE 0.9% 250 ML IV SCH (07:43)
[2021-01-12] MEDS: DOCUSATE 100 MG CAP PO SCH ×2 (07:44→18:50)
[2021-01-12 08:17] LABS: Anisocytosis Slight; Basophils % (A) 0 %; Eosinophils # (A) 0.4 k/uL (0-0.7); Eosinophils % (A) 2 %; HCT 29.5 % (39.0-53.0); HGB 9.4 gm/dL (13.0-17.5); Lymphocytes % (A) 4 %; MCHC 31.9 g/dL (31.0-37.0); MCV 103.5 fL (80.0-100.0); Macrocytosis Moderate; Mean Platelet Volume 8.8; Monocytes # (A) 0.8 k/uL (0-1.0); Monocytes % (A) 4 %; Neutrophils % (A) 89 %; Platelet Count 194 k/uL (150-450); RBC 2.86 m/uL (4.30-5.90); RDW 17.3 % (11.5-15.5); WBC 22.5 k/uL (3.8-10.6)
[2021-01-12] MEDS: PIPERACILLIN-TAZOBACTAM 3.375 GM in SODIUM CHLORIDE 0.9% 100 ML IVPB SCH ×3 (08:26→23:53)
[2021-01-12] MEDS: FAMOTIDINE 20 MG TAB PO SCH ×2 (08:26→19:48)
[2021-01-12] MEDS: VANCOMYCIN 125 MG CAPSULE PO SCH ×4 (08:26→19:48)
[2021-01-12 08:29] LABS: ALT 42 U/L (4-49); AST 90 U/L (17-59); African American GFR (CKD) >90 (>60 ml/min/1.73 sqM); Albumin 2.1 g/dL (3.5-5.0); Alkaline Phosphatase 297 U/L (38-126); Anion Gap 4 mmol/L; Blood Urea Nitrogen 34 mg/dL (9-20); Carbon Dioxide 18 mmol/L (22-30); Chloride 115 mmol/L (98-107); Glucose 102 mg/dL (74-99); Non-African American GFR(CKD) >90 (>60 ml/min/1.73 sqM); Potassium 3.7 mmol/L (3.5-5.1); Sodium 137 mmol/L (137-145); Total Bilirubin 2.4 mg/dL (0.2-1.3); Total Protein 4.1 g/dL (6.3-8.2)
--- NOTE | 2021-01-12 10:24 | P.PN ---
Subjective Progress Note Date: 01/12/21 Principal diagnosis: Acute abdominal pain with abdominal sepsis and septic shock On today's evaluation of 01/10/2021, the patient is currently in the intensive care unit. He was admitted to the ICU yesterday. He continues to be hypotensive. He had some improvement in his acid levels which To 3.5. Nevertheless, He Still Acidotic with a Serum Bicarb of 17. His White Cell Count Is up to 30.2. The Patient Is Still Requiring Pressors and Currently Is on Norepinephrine Infusion Running at 0.2 Mcg/Kg Per Minute. The Patient Was Resuscitated IV Fluids and Pressors. He Is Overall Fluid Balance Has Been +1.7 L since midnight. Urine output is in order of 30 mL an hour. Abdomen is diffusely tender. He is receiving IV Zosyn. He is also on oral vancomycin. COVID-19 testing is been negative. UA has been negative. Blood cultures are still pending for now. Meanwhile, the patient is on room air oxygen with a pulse ox of 96%. He is awake. He is arousable. He can't communicate. No emesis. No chest pain. Pulses remained quite diminished in lower extremities bilaterally. There is some increased edema in lower extremities. Abdominal wound anteriorly is dry clean and intact. No evidence of any wound infection or cellulitis. Patient was reevaluated today on 01/11/21, remains in the ICU, still complaining of abdominal pain and distention and discomfort. Patient had a history of hernia repair back in mid November, and he presented to the hospital with a bdominal pain and hypotension. Patient had metabolic acidosis, leukocytosis, he required fluid boluses, and norepinephrine infusion which is presently off. Remains on IV fluid at 100 mL/h, patient is quite edematous and swollen. Remains on Zosyn and oral vancomycin. Fluid from the abdomen/ascitic fluid showed no organisms, cultures are pending. Continues to have leukocytosis with WBC of 20.9 hemoglobin is 9.2 electrolytes are normal however his bicarb is 16 BUN is 44 creatinine is 1.18. Patient is having black tarry stools, and tested positive for stool occult blood. Repeat C. diff screening is negative CT of the abdomen and pelvis done yesterday showed development of bilateral pleural effusions and moderate abdominal ascites with fluid levels in the large bowel this is suggestive of the lesions and diarrhea. There was also evidence of possible gallstones The patient is seen today 01/12/2021 in follow-up in the intensive care unit. He is currently sitting up in bed. Awake and alert in no acute distress. Still having some ongoing issues with abdominal discomfort. Still receiving morphine. He is maintaining good O2 saturations in the mid 90s on room air. He has been afebrile. Hemodynamically stable. Off pressors. Status post 2 units of packed red blood cells this admission. Current hemoglobin 9.4. Blood cultures reveal no growth. Ascites fluid cultures are pending. He still has a leaking abdominal wound. White count 22.5. Hemoglobin 9.4. Platelets 194. Sodium 137. Potassium 3.7. Bicarb 18. Creatinine 0.90. AST 90. ALT 42. Alk phos 297. C. diff negative. Stool for occult blood was positive. He remains on oral vancomycin. Zosyn. 0.9 normal saline at 50 MLS per hour. Tolerating a diet. Objective - Vital Signs Vital signs: Vital Signs Temp 98 F 01/12/21 08:00 Pulse 77 01/12/21 09:00 Resp 18 01/12/21 09:00 BP 91/58 01/10/21 23:15 Pulse Ox 97 01/12/21 09:00 Intake & Output 01/11/21 01/12/21 01/12/21 18:59 06:59 18:59 Intake Total 1360 840 440 Output Total 625 550 165 Balance 735 290 275 Weight 86.5 kg Intake: IV 900 600 200 Piperacillin-Tazobactam 3 200 100 .375 gm In Sodium Chloride 0.9% 100 ml @ 25 mls/hr IVPB Q8HR WHIT Rx# :[id number] Sodium Chloride 0.9% 1, 700 600 100 000 ml @ 50 mls/hr IV . Q20H WHIT Rx#:[id number] Oral 460 240 240 Output: Urine 625 550 165 Other: Voiding Method Indwelling Catheter Indwelling Catheter Indwelling Catheter # Bowel Movements 1 ABP, PAP, CO, CI - Last Documented Arterial Blood Pressure 120/70 - Exam General: 56-year-old male patient, non toxic, no acute distress, alert oriented to time place and person. Head: atraumatic, normocephalic, symmetric Eyes: no lid lesion], anicteric sclera Mouth: no lip lesion, mucus membranes moist Cardiovascular: S1S2 reg rate and rhythm, no murmur, no gallop Lungs: Bilateral equal air entry, crackles in the bilateral bases. Abdominal: Soft, tender on palpation, BS positive in all four quadrants. Some oozing of serous fluid from the old abdominal incision Ext: no gross muscle atrophy, no edema extremities warm to suppose a positive Neuro: Alert oriented to time place and person, exam grossly nonfocal Psych: Mood and affect appropriate, patient not so certain Examination of the skin revealed no evidence of significant rashes, suspicious appearing nevi or other concerning lesions. - Labs CBC & Chem 7: 01/12/21 08:00 01/12/21 08:00 Labs: Abnormal Lab Results - Last 24 Hours (Table) 01/12/21 01/12/21 Range/Units 08:00 08:00 WBC 22.5 H (3.8-10.6) k/uL RBC 2.86 L (4.30-5.90) m/uL Hgb 9.4 L (13.0-17.5) gm/dL Hct 29.5 L (39.0-53.0) % MCV 103.5 H (80.0-100.0) fL RDW 17.3 H (11.5-15.5) % Neutrophils # 20.0 H (1.3-7.7) k/uL Chloride 115 H (98-107) mmol/L Carbon Dioxide 18 L (22-30) mmol/L BUN 34 H (9-20) mg/dL Glucose 102 H (74-99) mg/dL Calcium 8.0 L (8.4-10.2) mg/dL Total Bilirubin 2.4 H (0.2-1.3) mg/dL AST 90 H (17-59) U/L Alkaline Phosphatase 297 H (38-126) U/L Total Protein 4.1 L (6.3-8.2) g/dL Albumin 2.1 L (3.5-5.0) g/dL Microbiology - Last 24 Hours (Table) 01/09/21 14:37 Blood Culture - Preliminary Blood No Growth after 48 hours 01/09/21 14:37 Blood Culture - Preliminary Blood No Growth after 48 hours 01/10/21 12:05 Gram Stain - Preliminary Ascites Fluid Body Fluid Culture - Preliminary Assessment and Plan Assessment: 1 abdominal pain, without evidence of an acute abdomen. CAT scan of the abdomen was noted. No evidence of any significant ascites. No evidence of diverticulitis. No evidence of any acute cholecystitis. The patient has biliary sludge. No evidence of any pneumoperitoneum. Rule out ischemic colitis. Follow-up C. diff colitis is negative as the patient was taking oral vancomycin outpatient basis. On today's evaluation, the patient is less tender in his abdomen old surgical site with serous drainage. 2 acute hypotension, likely septic in nature, consider intra-abdominal source of sepsis. There may be also a component of hypovolemic hypotension, improved with fluid resuscitation. Recovered, Currently off pressors 3 leukocytosis, white cell count is 22.5 4 lactic acidosis resolved, currently 1.2 5 acute kidney injury, recovered and current creatinine 0.90 6 history of alcoholic liver cirrhosis 7 recent history of an abdominal wall hernia repair, surgical wound infection and intact 8 biliary sludge 9 history of alcoholism 10 mild transaminitis Plan The patient was seen and evaluated by Dr. Lucero Labs reviewed Continue Zosyn Stable from the pulmonary and critical care standpoint Transfer out of the ICU to a regular medical floor today Pain management per primary services We will continue to follow and make further recommendations based on his clinical status I, the cosigning physician, performed a history & physical examination of the patient. Lungs sounds with crackles in the bilateral bases. Maintaining good O2 saturations in the 90s on room air. I discussed the assessment and plan of care with my nurse practitioner, Sally Wong. I attest to the above note as dictated by her.
[2021-01-12] MEDS: SODIUM CHLORIDE 0.9% 1,000 ML IV SCH (12:55)
--- NOTE | 2021-01-12 16:52 | P.PN ---
Subjective Progress Note Date: 01/12/21 The patient was seen and examined at the bedside on 01/12. He reported that his abdominal pain is somewhat improved from prior. He denied fevers, chills, chest pain, shortness of breath, nausea, vomiting, abdominal pain. General: Non-toxic, in no acute distress, appears stated age, overweight HEENT: NC/AT, anicteric sclerae, moist conjunctiva, no lid-lag, PERRLA Cardiovascular: S1/S2 wnl, no murmurs, rubs, or gallops Lungs: Clear to auscultation, normal respiratory effort, no accessory muscle use Abdominal: Soft, nontender, non-distended Skin: Warm, dry Extremities: No edema or contractures Psychiatric: Alert and oriented to person, place and time, appropriate affect Neuro: CN II-XII grossly intact, Strength 3+/5 in all 4 extremities, Speech intact, Sensation to light touch grossly intact throughout Assessment/plan Intra-abdominal infection -Septic shock resolved -Continue with IV Zosyn -General surgery and pulmonary crit recommendations appreciated -White blood cell count now trending upwards Acute kidney injury -Continue with IV fluids Recent C. diff colitis -Continue the oral vancomycin Anemia, suspected due to acute blood loss from GI bleeding -Status post 2 units of PRBCs since admission -Continue to monitor CBC -Stable at this time Objective - Vital Signs Vital signs: Vital Signs Temp 98 F 01/12/21 08:00 Pulse 77 01/12/21 09:00 Resp 18 01/12/21 09:00 BP 91/58 01/10/21 23:15 Pulse Ox 97 01/12/21 09:00 Intake & Output 01/11/21 01/12/21 01/12/21 18:59 06:59 18:59 Intake Total 1360 840 980 Output Total 625 550 290 Balance 735 290 690 Weight 86.5 kg Intake: IV 900 600 500 Piperacillin-Tazobactam 3 200 100 .375 gm In Sodium Chloride 0.9% 100 ml @ 25 mls/hr IVPB Q8HR WHIT Rx# :[id number] Sodium Chloride 0.9% 1, 700 600 400 000 ml @ 50 mls/hr IV . Q20H WHIT Rx#:[id number] Oral 460 240 480 Output: Urine 625 550 290 Other: Voiding Method Indwelling Catheter Indwelling Catheter Indwelling Catheter # Bowel Movements 1 ABP, PAP, CO, CI - Last Documented Arterial Blood Pressure 120/70 - Labs CBC & Chem 7: 01/12/21 08:00 01/12/21 08:00 Labs: Abnormal Lab Results - Last 24 Hours (Table) 01/12/21 01/12/21 Range/Units 08:00 08:00 WBC 22.5 H (3.8-10.6) k/uL RBC 2.86 L (4.30-5.90) m/uL Hgb 9.4 L (13.0-17.5) gm/dL Hct 29.5 L (39.0-53.0) % MCV 103.5 H (80.0-100.0) fL RDW 17.3 H (11.5-15.5) % Neutrophils # 20.0 H (1.3-7.7) k/uL Chloride 115 H (98-107) mmol/L Carbon Dioxide 18 L (22-30) mmol/L BUN 34 H (9-20) mg/dL Glucose 102 H (74-99) mg/dL Calcium 8.0 L (8.4-10.2) mg/dL Total Bilirubin 2.4 H (0.2-1.3) mg/dL AST 90 H (17-59) U/L Alkaline Phosphatase 297 H (38-126) U/L Total Protein 4.1 L (6.3-8.2) g/dL Albumin 2.1 L (3.5-5.0) g/dL Microbiology - Last 24 Hours (Table) 01/10/21 12:05 Gram Stain - Preliminary Ascites Fluid Body Fluid Culture - Preliminary 01/09/21 14:37 Blood Culture - Preliminary Blood No Growth after 48 hours 01/09/21 14:37 Blood Culture - Preliminary Blood No Growth after 48 hours
[2021-01-12] MEDS: SENNOSIDES 8.6 MG TAB PO SCH (18:50)
[2021-01-13] MEDS: MORPHINE SULFATE 2 MG/ML SYRINGE IV PRN ×5 (05:33→21:47)
[2021-01-13] MEDS: FAMOTIDINE 20 MG TAB PO SCH ×2 (08:36→20:14)
[2021-01-13] MEDS: PIPERACILLIN-TAZOBACTAM 3.375 GM in SODIUM CHLORIDE 0.9% 100 ML IVPB SCH ×2 (08:36→15:05)
[2021-01-13] MEDS: VANCOMYCIN 125 MG CAPSULE PO SCH ×4 (08:37→20:14)
[2021-01-13] MEDS: DOCUSATE 100 MG CAP PO SCH ×2 (08:37→20:14)
[2021-01-13] MEDS: SODIUM CHLORIDE 0.9% 1,000 ML IV SCH (08:37)
[2021-01-13 10:08] LABS: Anisocytosis Slight; HCT 30.2 % (39.0-53.0); HGB 9.6 gm/dL (13.0-17.5); Hypochromasia Slight; MCH 33.9 pg (25.0-35.0); MCHC 31.8 g/dL (31.0-37.0); MCV 106.4 fL (80.0-100.0); Macrocytosis Marked; Mean Platelet Volume 9.4; Platelet Count 162 k/uL (150-450); RBC 2.84 m/uL (4.30-5.90); RDW 17.1 % (11.5-15.5); WBC 22.8 k/uL (3.8-10.6)
[2021-01-13 10:18] LABS: African American GFR (CKD) >90 (>60 ml/min/1.73 sqM); Anion Gap 6 mmol/L; Blood Urea Nitrogen 30 mg/dL (9-20); Calcium 8.1 mg/dL (8.4-10.2); Carbon Dioxide 17 mmol/L (22-30); Chloride 115 mmol/L (98-107); Glucose 141 mg/dL (74-99); Non-African American GFR(CKD) 89 (>60 ml/min/1.73 sqM); Potassium 3.8 mmol/L (3.5-5.1); Sodium 138 mmol/L (137-145)
--- NOTE | 2021-01-13 13:26 | P.PN ---
Subjective Progress Note Date: 01/13/21 Principal diagnosis: Acute abdominal pain with abdominal sepsis and septic shock On today's evaluation of 01/10/2021, the patient is currently in the intensive care unit. He was admitted to the ICU yesterday. He continues to be hypotensive. He had some improvement in his acid levels which To 3.5. Nevertheless, He Still Acidotic with a Serum Bicarb of 17. His White Cell Count Is up to 30.2. The Patient Is Still Requiring Pressors and Currently Is on Norepinephrine Infusion Running at 0.2 Mcg/Kg Per Minute. The Patient Was Resuscitated IV Fluids and Pressors. He Is Overall Fluid Balance Has Been +1.7 L since midnight. Urine output is in order of 30 mL an hour. Abdomen is diffusely tender. He is receiving IV Zosyn. He is also on oral vancomycin. COVID-19 testing is been negative. UA has been negative. Blood cultures are still pending for now. Meanwhile, the patient is on room air oxygen with a pulse ox of 96%. He is awake. He is arousable. He can't communicate. No emesis. No chest pain. Pulses remained quite diminished in lower extremities bilaterally. There is some increased edema in lower extremities. Abdominal wound anteriorly is dry clean and intact. No evidence of any wound infection or cellulitis. Patient was reevaluated today on 01/11/21, remains in the ICU, still complaining of abdominal pain and distention and discomfort. Patient had a history of hernia repair back in mid November, and he presented to the hospital with a bdominal pain and hypotension. Patient had metabolic acidosis, leukocytosis, he required fluid boluses, and norepinephrine infusion which is presently off. Remains on IV fluid at 100 mL/h, patient is quite edematous and swollen. Remains on Zosyn and oral vancomycin. Fluid from the abdomen/ascitic fluid showed no organisms, cultures are pending. Continues to have leukocytosis with WBC of 20.9 hemoglobin is 9.2 electrolytes are normal however his bicarb is 16 BUN is 44 creatinine is 1.18. Patient is having black tarry stools, and tested positive for stool occult blood. Repeat C. diff screening is negative CT of the abdomen and pelvis done yesterday showed development of bilateral pleural effusions and moderate abdominal ascites with fluid levels in the large bowel this is suggestive of the lesions and diarrhea. There was also evidence of possible gallstones The patient is seen today 01/12/2021 in follow-up in the intensive care unit. He is currently sitting up in bed. Awake and alert in no acute distress. Still having some ongoing issues with abdominal discomfort. Still receiving morphine. He is maintaining good O2 saturations in the mid 90s on room air. He has been afebrile. Hemodynamically stable. Off pressors. Status post 2 units of packed red blood cells this admission. Current hemoglobin 9.4. Blood cultures reveal no growth. Ascites fluid cultures are pending. He still has a leaking abdominal wound. White count 22.5. Hemoglobin 9.4. Platelets 194. Sodium 137. Potassium 3.7. Bicarb 18. Creatinine 0.90. AST 90. ALT 42. Alk phos 297. C. diff negative. Stool for occult blood was positive. He remains on oral vancomycin. Zosyn. 0.9 normal saline at 50 MLS per hour. Tolerating a diet. The patient is seen today 01/13/2021 in follow-up in the intensive care unit. He has a regular medical floor overflow. He is currently resting comfortably in bed. Awake and alert in no acute distress. He is feeling better today compared to yesterday. Pain is well controlled. He is maintaining O2 saturations in the mid 90s on room air. He's been afebrile. Hemodynamically stable. He is status post 2 units of packed red blood cells this admission. Blood cultures revealed no growth. White count 22.8. Hemoglobin 9.6. Sodium 138. Potassium 3.8. Creatinine 0.94. He remains on Zosyn. Oral vancomycin. Bronchodilators. Objective - Vital Signs Vital signs: Vital Signs Temp 97.7 F 01/13/21 08:00 Pulse 90 01/13/21 08:00 Resp 20 01/13/21 08:00 BP 107/67 01/13/21 08:00 Pulse Ox 97 01/13/21 08:00 Intake & Output 01/12/21 01/13/21 01/13/21 18:59 06:59 18:59 Intake Total 1420 1080 Output Total 515 875 Balance 905 205 Weight 86.9 kg Intake: IV 700 600 Piperacillin-Tazobactam 3 100 .375 gm In Sodium Chloride 0.9% 100 ml @ 25 mls/hr IVPB Q8HR [facility] Rx# :[id number] Sodium Chloride 0.9% 1, 600 600 000 ml @ 50 mls/hr IV . Q20H [facility] Rx#:[id number] Oral 720 480 Output: Urine 515 875 Other: Voiding Method Indwelling Catheter Indwelling Catheter ABP, PAP, CO, CI - Last Documented Arterial Blood Pressure 120/70 - Exam General: 56-year-old male patient, on room air, no acute distress, alert oriented to time place and person. Head: atraumatic, normocephalic, symmetric Eyes: no lid lesion], anicteric sclera Mouth: no lip lesion, mucus membranes moist Cardiovascular: S1S2 reg rate and rhythm, no murmur, no gallop Lungs: Bilateral equal air entry, crackles in the bilateral bases. Abdominal: Soft, tender on palpation, BS positive in all four quadrants. Some oozing of serous fluid from the old abdominal incision Ext: no gross muscle atrophy, no edema extremities warm to suppose a positive Neuro: Alert oriented to time place and person, exam grossly nonfocal Psych: Mood and affect appropriate, patient not so certain Examination of the skin revealed no evidence of significant rashes, suspicious appearing nevi or other concerning lesions. - Labs CBC & Chem 7: 01/13/21 09:46 01/13/21 09:46 Labs: Abnormal Lab Results - Last 24 Hours (Table) 01/13/21 01/13/21 Range/Units 09:46 09:46 WBC 22.8 H (3.8-10.6) k/uL RBC 2.84 L (4.30-5.90) m/uL Hgb 9.6 L (13.0-17.5) gm/dL Hct 30.2 L (39.0-53.0) % MCV 106.4 H (80.0-100.0) fL RDW 17.1 H (11.5-15.5) % Macrocytosis Marked A Chloride 115 H (98-107) mmol/L Carbon Dioxide 17 L (22-30) mmol/L BUN 30 H (9-20) mg/dL Glucose 141 H (74-99) mg/dL Calcium 8.1 L (8.4-10.2) mg/dL Microbiology - Last 24 Hours (Table) 01/10/21 12:05 Gram Stain - Preliminary Ascites Fluid Body Fluid Culture - Preliminary 01/09/21 14:37 Blood Culture - Preliminary Blood No Growth after 72 hours 01/09/21 14:37 Blood Culture - Preliminary Blood No Growth after 72 hours Assessment and Plan Assessment: 1 abdominal pain, without evidence of an acute abdomen. CAT scan of the abdomen was noted. No evidence of any significant ascites. No evidence of diverticulitis. No evidence of any acute cholecystitis. The patient has biliary sludge. No evidence of any pneumoperitoneum. Rule out ischemic colitis. Follow-up C. diff colitis is negative as the patient was taking oral vancomycin outpatient basis. 2 acute hypotension, likely septic in nature, consider intra-abdominal source of sepsis. There may be also a component of hypovolemic hypotension, improved with fluid resuscitation. Recovered, Currently off pressors 3 leukocytosis, white cell count is 22.8 4 lactic acidosis resolved, currently 1.2 5 acute kidney injury, recovered and current creatinine 0.94 6 history of alcoholic liver cirrhosis 7 recent history of an abdominal wall hernia repair, surgical wound infection and intact 8 biliary sludge 9 history of alcoholism 10 mild transaminitis Plan The patient was seen and evaluated by Dr. Nic Phan from the pulmonary and critical care standpoint Transfer to a regular medical floor Pain management per primary services I, the cosigning physician, performed a history & physical examination of the patient. Lungs sounds with crackles in the bilateral bases. Maintaining good O2 saturations in the 90s on room air. I discussed the assessment and plan of care with my nurse practitioner, Sally Wong. I attest to the above note as dictated by her.
--- NOTE | 2021-01-13 15:06 | P.PN ---
Subjective Progress Note Date: 01/13/21 The patient is a 56-year-old male living [place] who was brought into the emergency room after he was found unconscious and hyperthermic. In the emergency room, the patient was noted to be hypotensive with dehydration and lactic acidosis. He was thereby admitted to the medical ICU for septic shock with abdomen as a suspected source. The patient reportedly recently undergone a hernia repair surgery at an outside facility. General surgery was consulted. CT abdomen and pelvis had revealed seroma and he was maintained on broad- spectrum IV antibiotics. The patient's IV pressors were eventually tapered off and he was downgraded from the medical ICU. Patient was seen and examined at the bedside on 01/13. He reported ongoing abdominal pain, currently at a 4 out of 10, diffuse. He denied chest discomfort, shortness of breath, nausea, vomiting. Continues to have somewhat loose stools 3-4 times daily. General: Somewhat chronically ill-appearing male, in no acute distress, appears stated age HEENT: NC/AT, anicteric sclerae, moist conjunctiva, no lid-lag, PERRLA Cardiovascular: S1/S2 wnl, no murmurs, rubs, or gallops Lungs: Clear to auscultation, normal respiratory effort, no accessory muscle use Abdominal: Soft, mild diffuse tenderness, non-distended Skin: Warm, dry Extremities: No edema or contractures Psychiatric: Alert and oriented to person, place and time, appropriate affect Neuro: CN II-XII grossly intact, Strength 3+/5 in all 4 extremities, Speech intact, Sensation to light touch grossly intact throughout Assessment/plan Septic shock with suspected abdominal source, now resolved -CT abdomen and pelvis showed a seroma which was aspirated by Gen. surgery and sent for culture, currently pending -Continue with IV Zosyn -General surgery and pulmonary crit recommendations appreciated -Continuing to have persistent leukocytosis. Will consult ID -Downgraded to [facility] Acute kidney injury, significantly improved -Continue with IV fluids Recent C. diff colitis, from outside hospital -Continue the oral vancomycin Anemia, suspected due to acute blood loss from GI bleeding -Status post 2 units of PRBCs since admission -Continue to monitor CBC -Stable at this time Debility -PT consult DVT prophylaxis -IPCDs (recent GI bleeding) Discussed with: Patient Anticipated discharge date: 2-[address]: Assisted[facility]Hotel A total of 30 minutes was spent on the care of this complex patient more than 50% of the time was spent in counseling and care coordination. Objective - Vital Signs Vital signs: Vital Signs Temp 97.7 F 01/13/21 08:00 Pulse 90 01/13/21 08:00 Resp 20 01/13/21 08:00 BP 107/67 01/13/21 08:00 Pulse Ox 97 01/13/21 08:00 Intake & Output 01/12/21 01/13/21 01/13/21 18:59 06:59 18:59 Intake Total 1420 1080 Output Total 515 875 Balance 905 205 Weight 86.9 kg 86.9 kg Intake: IV 700 600 Piperacillin-Tazobactam 3 100 .375 gm In Sodium Chloride 0.9% 100 ml @ 25 mls/hr IVPB Q8HR [facility] Rx# :[id number] Sodium Chloride 0.9% 1, 600 600 000 ml @ 50 mls/hr IV . Q20H [facility] Rx#:[id number] Oral 720 480 Output: Urine 515 875 Other: Voiding Method Indwelling Catheter Indwelling Catheter ABP, PAP, CO, CI - Last Documented Arterial Blood Pressure 120/70 - Labs CBC & Chem 7: 01/13/21 09:46 01/13/21 09:46 Labs: Abnormal Lab Results - Last 24 Hours (Table) 01/13/21 01/13/21 Range/Units 09:46 09:46 WBC 22.8 H (3.8-10.6) k/uL RBC 2.84 L (4.30-5.90) m/uL Hgb 9.6 L (13.0-17.5) gm/dL Hct 30.2 L (39.0-53.0) % MCV 106.4 H (80.0-100.0) fL RDW 17.1 H (11.5-15.5) % Macrocytosis Marked A Chloride 115 H (98-107) mmol/L Carbon Dioxide 17 L (22-30) mmol/L BUN 30 H (9-20) mg/dL Glucose 141 H (74-99) mg/dL Calcium 8.1 L (8.4-10.2) mg/dL Microbiology - Last 24 Hours (Table) 01/10/21 12:05 Gram Stain - Preliminary Ascites Fluid Body Fluid Culture - Preliminary 01/09/21 14:37 Blood Culture - Preliminary Blood No Growth after 72 hours 01/09/21 14:37 Blood Culture - Preliminary Blood No Growth after 72 hours
--- NOTE | 2021-01-13 15:34 | P.PN ---
Progress Note - Text Progress Note Date: 01/13/21 The patient has developed more ascites. The ascites is draining from the puncture site from aspiration. It was treated with dermabond. If it continues to drain, I will place a suture to decrease the chance of ascending infection into the abdomen
[2021-01-13] MEDS: SENNOSIDES 8.6 MG TAB PO SCH (20:14)
[2021-01-14] MEDS: MORPHINE SULFATE 2 MG/ML SYRINGE IV PRN ×6 (01:05→23:01)
[2021-01-14] MEDS: PIPERACILLIN-TAZOBACTAM 3.375 GM in SODIUM CHLORIDE 0.9% 100 ML IVPB SCH ×3 (01:09→16:17)
[2021-01-14 06:39] LABS: Anisocytosis Slight; HCT 34.8 % (39.0-53.0); HGB 10.3 gm/dL (13.0-17.5); Hypochromasia Marked; MCH 32.2 pg (25.0-35.0); MCHC 29.6 g/dL (31.0-37.0); MCV 108.8 fL (80.0-100.0); Macrocytosis Marked; Mean Platelet Volume 8.9; Platelet Count 154 k/uL (150-450); RDW 16.3 % (11.5-15.5); WBC 25.8 k/uL (3.8-10.6)
[2021-01-14 07:02] LABS: African American GFR (CKD) >90 (>60 ml/min/1.73 sqM); Anion Gap 7 mmol/L; Blood Urea Nitrogen 29 mg/dL (9-20); Calcium 8.7 mg/dL (8.4-10.2); Carbon Dioxide 15 mmol/L (22-30); Chloride 117 mmol/L (98-107); Glucose 110 mg/dL (74-99); Non-African American GFR(CKD) >90 (>60 ml/min/1.73 sqM); Potassium 3.8 mmol/L (3.5-5.1); Sodium 139 mmol/L (137-145)
[2021-01-14] MEDS: SODIUM CHLORIDE 0.9% 1,000 ML IV SCH (07:44)
[2021-01-14] MEDS: DOCUSATE 100 MG CAP PO SCH ×2 (07:45→20:35)
[2021-01-14] MEDS: FAMOTIDINE 20 MG TAB PO SCH ×2 (07:45→20:35)
[2021-01-14] MEDS: VANCOMYCIN 125 MG CAPSULE PO SCH ×4 (11:54→23:00)
--- NOTE | 2021-01-14 12:33 | US ---
EXAMINATION TYPE: US abdomen limited DATE OF EXAM: 01/14/2021 COMPARISON: NONE CLINICAL HISTORY: abdominal distention, ascites. distended abd Moderate amount of fluid seen IMPRESSION: Ascites
--- NOTE | 2021-01-14 13:25 | P.PN ---
Subjective Progress Note Date: 01/14/21 Principal diagnosis: Abdominal pain On today's evaluation on 01/14/2021 patient seen in follow-up on medical surgical floor. He is alert, in no acute distress, he sitting up in the chair, reading cough, room air pulse ox is 98%, afebrile, hemodynamically stable, his abdomen is soft, but tender with palpation, not draining any fluid today, and there is just a small 4 x 4 dressing on the anterior lower abdominal area that was previously draining serous fluid. However his abdomen is generally distended and remains tender to touch. His last CT of the abdomen and pelvis showed moderate abdominal ascites, and fluid levels in the large bowel just above ileus and diarrhea, gallbladder was mildly dilated" related to gallbladder dysfunction and or cholecystitis. With the possibility of gallstone. Patient has been passing bowel movements. Stool For C. diff was negative. Ascites culture from previous paracentesis on 01/10/2021 showed no growth, blood cultures have been negative. Patient remains on oral vancomycin, and on Zosyn. He is tolerating oral diet. No nausea vomiting or diarrhea. He remains on IV hydration with 0.9 and was seen at a rate of 50 ML per hour. Objective - Vital Signs Vital signs: Vital Signs Temp 98.6 F 01/14/21 07:58 Pulse 92 01/14/21 07:58 Resp 17 01/14/21 07:58 BP 117/74 01/14/21 07:58 Pulse Ox 98 01/14/21 07:58 Intake & Output 01/13/21 01/14/21 01/14/21 18:59 06:59 18:59 Intake Total 550 Output Total 200 300 Balance 350 -300 Weight 86.9 kg 83 kg Intake: IV 550 Piperacillin-Tazobactam 3 100 .375 gm In Sodium Chloride 0.9% 100 ml @ 25 mls/hr IVPB Q8HR [facility] Rx# :[id number] Sodium Chloride 0.9% 1, 450 000 ml @ 50 mls/hr IV . Q20H [facility] Rx#:[id number] Output: Urine 200 300 Other: Voiding Method Urinal Urinal # Bowel Movements 1 ABP, PAP, CO, CI - Last Documented Arterial Blood Pressure 120/70 - Exam GENERAL EXAM: Alert, very pleasant, 56-year-old white male, sitting up in the chair, in no acute distress, breathing comfortably, appears slightly generally weak, comfortable in no apparent distress. HEAD: Normocephalic/atraumatic. EYES: Normal reaction of pupils, equal size. Conjunctiva pink, sclera white. NOSE: Clear with pink turbinates. THROAT: No erythema or exudates. NECK: No masses, no JVD, no thyroid enlargement, no adenopathy. CHEST: No chest wall deformity. Symmetrical expansion. LUNGS: Equal air entry with no crackles, wheeze, rhonchi or dullness. CVS: Regular rate and rhythm, normal S1 and S2, no gallops, no murmurs, no rubs ABDOMEN: Soft, distended and tender. No hepatosplenomegaly, normal bowel sounds, no guarding or rigidity. Anterior lower abdomen abdominal hernia, and there was a area of draining fluid from the center of the abdominal hernia that is currently not draining. Abdomen remains distended EXTREMITIES: No clubbing, 2+ bilateral lower extremity edema no cyanosis, 2+ pulses and upper and lower extremities. MUSCULOSKELETAL: Muscle strength and tone normal. SPINE: No scoliosis or deformity SKIN: No rashes CENTRAL NERVOUS SYSTEM: Alert and oriented -3. No focal deficits, tone is normal in all 4 extremities. PSYCHIATRIC: Alert and oriented -3. Appropriate affect. Intact judgment and insight. - Labs CBC & Chem 7: 01/14/21 06:26 01/14/21 06:26 Labs: Abnormal Lab Results - Last 24 Hours (Table) 01/14/21 01/14/21 Range/Units 06:26 06:26 WBC 25.8 H (3.8-10.6) k/uL RBC 3.20 L (4.30-5.90) m/uL Hgb 10.3 L (13.0-17.5) gm/dL Hct 34.8 L (39.0-53.0) % MCV 108.8 H (80.0-100.0) fL MCHC 29.6 L (31.0-37.0) g/dL RDW 16.3 H (11.5-15.5) % Macrocytosis Marked A Chloride 117 H (98-107) mmol/L Carbon Dioxide 15 L (22-30) mmol/L BUN 29 H (9-20) mg/dL Glucose 110 H (74-99) mg/dL Microbiology - Last 24 Hours (Table) 01/10/21 12:05 Gram Stain - Final Ascites Fluid Body Fluid Culture - Final 01/09/21 14:37 Blood Culture - Preliminary Blood No Growth after 96 hours 01/09/21 14:37 Blood Culture - Preliminary Blood No Growth after 96 hours Assessment and Plan Plan: Assessment: #1. Abdominal pain, without evidence of an acute abdomen, computed tomography scan of the abdomen showed no significant ascites, no evidence of diverticulitis, no cholecystitis. Patient had biliary sludge, no evidence of pneumoperitoneum. Rule out ischemic colitis, follow-up C. diff colitis was negative, and patient is taking oral vancomycin, which was started on an outpatient basis. Ascites fluid culture collected on 01/10/2021, showed no growth, patient is covered with Zosyn for empiric antibiotic coverage #2. Acute hypotension, likely septic in nature, with consideration of intra- abdominal source of sepsis. And this improved with fluid resuscitation. Patient did require pressors support and was in the ICU, currently he modynamically stable, transferred out of ICU on 01/13/2021 #3. Acute leukocytosis, persistent #4. Acute lactic acidosis, resolved with fluid resuscitation #5. Acute kidney injury recovered #6. History of alcoholic liver cirrhosis #7. Recent history of abdominal wall hernia repair, surgical wound infection is intact #8. Biliary sludge #9. History of alcoholism #10. Mild transaminitis Plan: Ultrasound of the abdomen was obtained showing ascites We will ask interventional radiology to do ultrasound-guided paracentesis We will send ascites fluid again for cultures, analysis and cytology Continue with Zosyn and oral vancomycin Vital signs are stable Denies any breathing difficulty, provided incentive spirometer and encourage the patient to use it Abdominal CT did show small bilateral pleural effusions patient has significant edema in his bilateral lower extremities We will add Aldactone 25 mg twice daily Obtain daily weights, follow-up labs including electrolytes and renal profile We'll continue Tylenol I performed a history & physical examination of the patient and discussed their management with my nurse practitioner, Antonina Rojo. I reviewed the nurse practitioner's note and agree with the documented findings and plan of care. Lung sounds are positive for diminished breath sounds throughout the lung mulligan. The findings and the impression was discussed with the patient. I attest to the documentation by the nurse practitioner. Time with Patient: Less than 30
--- NOTE | 2021-01-14 13:35 | XR ---
EXAMINATION TYPE: XR chest 2V DATE OF EXAM: 01/14/2021 COMPARISON: 01/09/2021 HISTORY: Shortness of breath TECHNIQUE: Frontal and lateral views of the chest are obtained. FINDINGS: Scattered senescent parenchymal changes noted. Hyperinflation compatible with COPD. Reticulonodular infiltrates bilaterally persist without significant change. Heart size is stable. Mediastinal structures are stable and grossly unremarkable. No evidence for hilar prominence. Degenerative changes dorsal spine. IMPRESSION: 1. Reticulonodular infiltrates bilaterally persist without significant change.
--- NOTE | 2021-01-14 14:34 | P.CONS ---
History of Present Illness - Reason for Consult Consult date: 01/13/21 leukocytosis Requesting physician: Link Ceballos - Chief Complaint weakness and abd pain x days - History of Present Illness History of Present Illness : Patient is a 56-year-old male with a past medical history sniffing and for cirrhosis of the liver and recent diagnosis of C. difficile colitis for the patient is on oral vancomycin developed after the patient had ventral hernia surgery a month ago patient presented to the hospital on 09 January from [facility] with concern for possible sepsis apparently the patient was found this morning outside in the cold patient was noted to be hypothermic did have a elevated white count lactic acidosis the ia tient did have CT abdominal pelvis which was negative for any acute process patient with continuous abdominal discomfort the some nausea but no vomiting and denies any worsening diarrhea on presentation to this facility patient was afebrile and no fever has been recorded subsequently patient did have a white count of 22,000 admission which went up to 30,000 on the 24 has been trending down and is down to 22.8 today infectious was consulted with percent elevated white count patient did have a UA x2 which has been negative ogden PCR was negative stool for C. difficile has been negative patient did have ultrasound of the gallbladder which was read as gallbladder sludge without evidence of acute cholecystitis, CT abdominal pelvis bilateral effusion and basilar pulmonary infiltrate ileus, chest x-ray admission was no acute process, patient is currently in ICU he is breathing comfortably denies any chest pain minimal cough some abdominal discomforts have some distention abdominal wall and pelvis patient have slight drainage from one of the site previous site of paracentesis but no cloudy fluid Review of system: CONSTITUTIONAL: Positive for weakness denies high-grade fever. EYES: No complaint. ENT: No complaint. RESPIRATORY: As per history of present illness. CARDIOVASCULAR: No complaint. GENITOURINARY: No complaint. GASTROINTESTINAL: As per history of present illness. MUSCULOSKELETAL: No complaint. INTEGUMENTARY : No complaint. PSYCHOLOGIC: No complaint. ENDOCRINE: No complaint. NEUROLOGIC: No complaint. Past medical history : Reviewed, documented below Past surgical history : Reviewed, documented below Social history: Reviewed, documented below Medications: Reviewed, as documented below EXAMINATION: Vital sigans= Reviewed and documented below GENERAL DESCRIPTION: Middle-aged male lying in bed, no distress. No tachypnea or accessory muscle of respiration use. HEENT: Shows Pallor , no scleral icterus. Oral mucous membrane is dry. NECK: Trachea central, no thyromegaly. LUNGS: Unlabored breathing. Decreased breath sound the base. No wheeze or crackle. HEART: S1, S2, regular rate and rhythm. ABDOMEN: Soft, abdominal distention with minimal tenderness , guarding or rigidity EXTREMITIES: 1+ edema feet SKIN: No rash, no masses palpable. NEUROLOGICAL: The patient is awake, alert, oriented x3, mood and affect normal. LABS AND RADIOLOGY: Reviewed results see below Assessment : Patient with elevated white count in this patient who did have a history of liver cirrhosis did have significant ascites and the patient also recently diagnosed with a C. difficile colitis and has been oral vancomycin however the patient diarrhea is improving further work-up during a negative chest x-ray urine has been negative with a question of possible SBP versus oropharyngeal candidiasis the patient has been on courses of antibiotic Plan: 1-recommend paracentesis and fluid should be sent for cell count differential and culture 2-continue oral vancomycin and Zosyn 3-add Diflucan We will follow on clinical condition and cultures to further adjust medication if needed Thank you for this consultation we will follow the patient along with you Past Medical History Past Medical History: Unable to Obtain, Liver Disease Additional Past Medical History / Comment(s): anemia, colitis, chirrosis History of Any Multi-Drug Resistant Organisms: None Reported Past Surgical History: Unable to Obtain Additional Past Surgical History / Comment(s): patient states ex-lap for an ulcer, anterior abdominal wall hernia repair approximately a month ago Past Anesthesia/Blood Transfusion Reactions: No Reported Reaction Past Psychological History: No Psychological Hx Reported Smoking Status: Current some day smoker Past Alcohol Use History: Abuse Past Drug Use History: None Reported Medications and Allergies Home Medications Medication Instructions Recorded Confirmed Type Albuterol Sulfate [Proair Hfa] 2 puff INHALATION RT-Q4H PRN 01/09/21 01/09/21 History Dicyclomine [Bentyl] 20 mg PO QID PRN 01/09/21 01/09/21 History HYDROcodone/APAP 10-325MG [[place] 1 tab PO Q4H PRN 01/09/21 01/09/21 History 10-325] Lisdexamfetamine Dimesylate 70 mg PO DAILY 01/09/21 01/09/21 History [Vyvanse] Pantoprazole Sodium 40 mg PO DAILY PRN 01/09/21 01/09/21 History Promethazine [Phenergan] 25 mg PO Q4H PRN 01/09/21 01/09/21 History Sucralfate [Carafate] 1 gm PO ACHS PRN 01/09/21 01/09/21 History Vancomycin HCl [Vancocin HCl] 125 mg PO QID 01/09/21 01/09/21 History Allergies Allergy/AdvReac Type Severity Reaction Status Date / Time No Known Allergies Allergy Verified 01/09/21 13:38 Physical Exam Vitals: Vital Signs Temp Pulse Pulse Pulse Resp BP BP 01/13/21 08:00 97.7 F 90 20 107/67 01/13/21 01:54 97.9 F 95 16 117/65 01/12/21 19:44 97.6 F 72 14 104/67 01/12/21 17:00 98 F 79 16 110/68 Pulse Ox 01/13/21 08:00 97 01/13/21 01:54 97 01/12/21 19:44 97 01/12/21 17:00 98 Intake and Output 01/13/21 01/13/21 01/13/21 06:59 14:59 22:59 Intake Total 1030 500 Output Total 875 200 Balance 155 300 Intake: IV 550 500 Piperacillin-Tazobactam 3 100 .375 gm In Sodium Chloride 0.9% 100 ml @ 25 mls/hr IVPB Q8HR [facility] Rx# :[id number] Sodium Chloride 0.9% 1, 550 400 000 ml @ 50 mls/hr IV . Q20H [facility] Rx#:[id number] Oral 480 Output: Urine 875 200 Other: Voiding Method Indwelling Catheter # Bowel Movements 1 Weight 86.9 kg 86.9 kg Results CBC & Chem 7: 01/14/21 06:26 01/14/21 06:26 Labs: Abnormal Lab Results - Last 24 Hours (Table) 01/13/21 01/13/21 Range/Units 09:46 09:46 WBC 22.8 H (3.8-10.6) k/uL RBC 2.84 L (4.30-5.90) m/uL Hgb 9.6 L (13.0-17.5) gm/dL Hct 30.2 L (39.0-53.0) % MCV 106.4 H (80.0-100.0) fL RDW 17.1 H (11.5-15.5) % Macrocytosis Marked A Chloride 115 H (98-107) mmol/L Carbon Dioxide 17 L (22-30) mmol/L BUN 30 H (9-20) mg/dL Glucose 141 H (74-99) mg/dL Calcium 8.1 L (8.4-10.2) mg/dL Microbiology - Last 24 Hours (Table) 01/10/21 12:05 Gram Stain - Preliminary Ascites Fluid Body Fluid Culture - Preliminary 01/09/21 14:37 Blood Culture - Preliminary Blood No Growth after 72 hours 01/09/21 14:37 Blood Culture - Preliminary Blood No Growth after 72 hours
[2021-01-14] MEDS ORDERED: FLUCONAZOLE 100 MG TAB PO ONE (14:45)
--- NOTE | 2021-01-14 15:30 | P.PN ---
Progress Note - Text Progress Note Date: 01/14/21 The patient is seen on rounds. He was having some persistent drainage of ascites from a puncture site when I aspirated a seroma. This was treated with skin glue yesterday and he is having no further drainage. Follow-up as needed.
--- NOTE | 2021-01-14 16:40 | ECHOF ---
Referral Reason:chf MEASUREMENTS -------- HEIGHT: 180.3 cm WEIGHT: 82.6 kg BP: 103/69 RVIDd: 3.2 cm (< 3.3) IVSd: 1.3 cm (0.6 - 1.1) LVIDd: 4.1 cm (3.9 - 5.3) LVPWd: 1.3 cm (0.6 - 1.1) IVSs: 1.5 cm LVIDs: 3.2 cm LVPWs: 1.7 cm LA Diam: 3.4 cm (2.7 - 3.8) Ao Diam: 3.4 cm (2.0 - 3.7) MV EXCURSION: 17.007 mm (> 18.000) MV EF SLOPE: 86 mm/s (70 - 150) EPSS: 0.4 cm MV E Daniel: 0.97 m/s MV DecT: 182 ms MV A Daniel: 0.84 m/s MV E/A Ratio: 1.16 FINDINGS -------- Sinus rhythm. This was a technically adequate study. The left ventricular size is normal. There is mild concentric left ventricular hypertrophy. Overa ll left ventricular systolic function is normal with, an EF between 60 - 65 %. The right ventricle is normal in size. The left atrium is normal in size. The right atrium is normal in size. Interatrial and interventricular septum intact. The aortic valve is trileaflet, and appears structurally normal. No aortic stenosis or regurgitation. The mitral valve leaflets are mildly thickened. Mild mitral annular calcification present. The tricuspid valve appears structurally normal. Unable to estimate RVSP due to inadequate TR jet s pectral doppler profile. The pulmonic valve was not well visualized. The aortic root size is normal. Normal inferior vena cava with normal inspiratory collapse consistent with estimated right atrial pre ssure of 5 mmHg. There is no pericardial effusion. CONCLUSIONS -------- 1. The left ventricular size is normal. 2. There is mild concentric left ventricular hypertrophy. 3. Overall left ventricular systolic function is normal with, an EF between 60 - 65 %. 4. The aortic valve is trileaflet, and appears structurally normal. No aortic stenosis or regurgitati on. 5. The mitral valve leaflets are mildly thickened. 6. Mild mitral annular calcification present. 7. There is no pericardial effusion. INTELLECTUAL PROPERTY COUNSEL: Beth Hodge RDCS
[2021-01-14] MEDS: SPIRONOLACTONE 25 MG TAB PO SCH ×2 (17:53→21:52)
--- NOTE | 2021-01-14 19:33 | PN ---
PROGRESS NOTE DATE OF SERVICE: 01/14/2021 REASON FOR FOLLOWUP: Leukocytosis, C difficile colitis and ascites. INTERVAL HISTORY: The patient is afebrile. The patient is breathing slightly comfortably. Still complaining of abdominal distention and some discomfort. The patient's diarrhea has slowed down per the nursing staff. No vomiting. Still has some drainage from his abdominal wall seroma site. PHYSICAL EXAMINATION: Blood pressure 112/74, pulse of 87, temperature 97.7. He is 99% on room air. General description is a middle-aged male up in the chair in no distress. RESPIRATORY SYSTEM: Unlabored breathing. Decreased breath sounds at the bases. No wheeze. HEART: S1, S2. Regular rate and rhythm. ABDOMEN: Soft. Mildly distended. No guarding or rigidity. EXTREMITIES: LABS: White count is up to 25,000 today. Creatinine 0.81. DIAGNOSTIC IMPRESSION AND PLAN: Patient with elevated white count; could be related to underlying oropharyngeal candidiasis in this patient who is status post antibiotic. Also with a history of C difficile; however, C difficile is improving, and no significant intraabdominal pathology per Surgery. We will discontinue the Zosyn. Continue the oral vancomycin and Diflucan. Await paracentesis and continue supportive care. MMODL / IJN: [id number] /
[2021-01-14 20:23] LABS: Appearance,BF Clear; Nucleated Cells, Body Fluid 42 /uL; RBC, Body Fluid 46 /uL
--- NOTE | 2021-01-14 20:30 | P.PN ---
Subjective Progress Note Date: 01/14/21 Principal diagnosis: decreased responsiveness The patient is a 56-year-old male living in [place] motel who was brought into the emergency room after he was found unconscious and hyperthermic. In the emergency room, the patient was noted to be hypotensive with dehydration and lactic acidosis. He was thereby admitted to the medical ICU for septic shock with abdomen as a suspected source. The patient reportedly recently undergone a hernia repair surgery at an outside facility. General surgery was consulted. CT abdomen and pelvis had revealed seroma and he was maintained on broad- spectrum IV antibiotics. The patient's IV pressors were eventually tapered off and he was downgraded from the medical ICU. Seroma cultures came back negative. He was also found have ascitic fluid which is cultured. Patient seen and examined at bedside. He reports feeling very cold and very t ired. He denies chest pain, shortness breath, nausea, vomiting, or diarrhea. He continues to have some abdominal pain. General: Ill-appearing, no distress, appears at stated age, disheveled Derm: warm, dry Head: atraumatic, normocephalic, symmetric Eyes: EOMI, no lid lag, anicteric sclera Mouth: no lip lesion, mucus membranes moist Cardiovascular: S1S2 reg, no murmur, positive posterior tibial pulse bilateral, Lungs: CTA bilateral, no rhonchi, no rales , no accessory muscle use Abdominal: soft, +tenderness to palpation diffusely, no guarding, no appreciable organomegaly Ext: no gross muscle atrophy, 3+ edema, no contractures Neuro: CN II-XI grossly intact, no focal neuro deficits Psych: Alert, oriented, appropriate affect Septic shock with suspected abdominal source, now resolved Recent C. diff -CT abdomen and pelvis showed a seroma which was aspirated by Gen. surgery and sent for culture which is negative -Repeat abdominal ultrasound with ascites. IR consulted by critical care. -Continue with IV Zosyn, on oral Diflucan and Zosyn -Critical care recommendations appreciated -ID recommendations appreciated -With persistent leukocytosis will check chest x-ray -Hyperbilirubinemia with elevated liver enzymes, distended gallbladder, and pericholecystic fluid. Repeat labs in a.m. Concern for possible cholecystitis. Ascites with lower extremity edema -Stop IV fluids -Start Lasix -Check echocardiogram Acute kidney injury, significantly improved -Off IV fluids -Continue with diuretics -Follow BMP Recent C. diff colitis, from outside hospital -Continue the oral vancomycin Anemia, suspected due to acute blood loss from GI bleeding -Status post 2 units of PRBCs since admission -Continue to monitor CBC -Stable at this time Debility -PT DVT prophylaxis: SCD Discussed with: Patient Anticipated discharge date: 2-[address]:[facility] A total of 35 minutes was spent on the care of this complex patient more than 50% of the time was spent in counseling and care coordination. Objective - Vital Signs Vital signs: Vital Signs Temp 97.6 F 01/14/21 19:25 Pulse 94 01/14/21 19:25 Resp 16 01/14/21 19:53 BP 106/56 01/14/21 19:25 Pulse Ox 97 01/14/21 19:25 Intake & Output 01/14/21 01/14/21 01/15/21 06:59 18:59 06:59 Output Total 300 Balance -300 Weight 83 kg Output: Urine 300 Other: Voiding Method Urinal Urinal ABP, PAP, CO, CI - Last Documented Arterial Blood Pressure 120/70 - Labs CBC & Chem 7: 01/14/21 06:26 01/14/21 06:26 Labs: Abnormal Lab Results - Last 24 Hours (Table) 01/14/21 01/14/21 Range/Units 06:26 06:26 WBC 25.8 H (3.8-10.6) k/uL RBC 3.20 L (4.30-5.90) m/uL Hgb 10.3 L (13.0-17.5) gm/dL Hct 34.8 L (39.0-53.0) % MCV 108.8 H (80.0-100.0) fL MCHC 29.6 L (31.0-37.0) g/dL RDW 16.3 H (11.5-15.5) % Macrocytosis Marked A Chloride 117 H (98-107) mmol/L Carbon Dioxide 15 L (22-30) mmol/L BUN 29 H (9-20) mg/dL Glucose 110 H (74-99) mg/dL Microbiology - Last 24 Hours (Table) 01/09/21 14:37 Blood Culture - Preliminary Blood No Growth after 120 hours 01/09/21 14:37 Blood Culture - Preliminary Blood No Growth after 120 hours 01/10/21 12:05 Gram Stain - Final Ascites Fluid Body Fluid Culture - Final
[2021-01-14] MEDS: FUROSEMIDE 10 MG/ML 4 ML VIAL IV SCH (20:35)
[2021-01-14] MEDS: SENNOSIDES 8.6 MG TAB PO SCH (20:35)
[2021-01-14 20:49] LABS: Mononuclear WBC,Body Fluid 42 %; Polynuclear WBC,Body Fluid 56 %; Total Cells Counted,Body Fluid 100
[2021-01-15] MEDS: MORPHINE SULFATE 2 MG/ML SYRINGE IV PRN ×4 (05:37→21:36)
[2021-01-15 06:40] LABS: Glucose, BF Source Ascites; Glucose, Body Fluid 131 mg/dL; LDH, Body Fluid Source Ascites; Total Protein, Body Fluid 717 mg/dL
[2021-01-15 07:32] LABS: Anisocytosis Slight; HCT 32.1 % (39.0-53.0); HGB 10.1 gm/dL (13.0-17.5); Hypochromasia Slight; MCH 33.1 pg (25.0-35.0); MCHC 31.3 g/dL (31.0-37.0); MCV 105.6 fL (80.0-100.0); Macrocytosis Marked; Mean Platelet Volume 9.3; Platelet Count 138 k/uL (150-450); RBC 3.04 m/uL (4.30-5.90); RDW 16.8 % (11.5-15.5); WBC 19.7 k/uL (3.8-10.6)
[2021-01-15 07:47] LABS: ALT 35 U/L (4-49); AST 70 U/L (17-59); African American GFR (CKD) >90 (>60 ml/min/1.73 sqM); Albumin 2.1 g/dL (3.5-5.0); Alkaline Phosphatase 324 U/L (38-126); Anion Gap 8 mmol/L; Blood Urea Nitrogen 27 mg/dL (9-20); Calcium 8.4 mg/dL (8.4-10.2); Carbon Dioxide 16 mmol/L (22-30); Chloride 115 mmol/L (98-107); Globulin 2.2 g/dL; Glucose 104 mg/dL (74-99); Non-African American GFR(CKD) >90 (>60 ml/min/1.73 sqM); Potassium 3.8 mmol/L (3.5-5.1); Sodium 139 mmol/L (137-145); Total Bilirubin 1.8 mg/dL (0.2-1.3); Total Protein 4.3 g/dL (6.3-8.2)
[2021-01-15] MEDS: VANCOMYCIN 125 MG CAPSULE PO SCH ×4 (08:29→21:36)
[2021-01-15] MEDS: FLUCONAZOLE 100 MG TAB PO SCH (08:29)
[2021-01-15] MEDS: FAMOTIDINE 20 MG TAB PO SCH ×2 (08:29→20:48)
[2021-01-15] MEDS: DOCUSATE 100 MG CAP PO SCH ×2 (08:29→20:48)
[2021-01-15] MEDS: SPIRONOLACTONE 25 MG TAB PO SCH ×2 (08:29→20:48)
--- NOTE | 2021-01-15 09:01 | US ---
EXAMINATION TYPE: US paracentesis abd w/image DATE OF EXAM: 01/14/2021 COMPARISON: NONE HISTORY: Ascites. PROCEDURE: Maximal barrier technique was utilized. The skin overlying a suitable pocket of fluid was localized with ultrasound and the overlying skin was prepped and draped. Ultrasound was utilized with sterile technique. Lidocaine was used for local anesthesia and a skin garrett made with a scalpel. Catheter was advanced under direct ultrasound guidance into a suitable pocket of fluid and approximately 1.7 liter s of serous fluid were removed. Catheter was withdrawn and hemostasis achieved. There is no immedia te complication; the patient is discharged in stable condition. IMPRESSION: STATUS POST ULTRASOUND GUIDED PARACENTESIS FOR PALLIATION AND DIAGNOSTIC PURPOSES OF ASC ITES. THIS PROCEDURE WAS PERFORMED BY THE UNDERSIGNED. Specimen sent for laboratory analysis.
[2021-01-15] MEDS: SODIUM CHLORIDE 0.9% 1,000 ML IV SCH (10:54)
[2021-01-15] MEDS: FUROSEMIDE 10 MG/ML 4 ML VIAL IV SCH ×2 (10:57→20:48)
--- NOTE | 2021-01-15 11:06 | P.PN ---
<Mendez Berger - Last Filed: 01/15/21 10:34> Subjective Progress Note Date: 01/15/21 Hospital Course: The patient is a 56-year-old male with a past medical history of cirrhosis, anemia, colitis and recent ventral hernia sx. He was reportedly living in a motel and was found to be unresponsive and hypothermic. He was taken to [facility] and was transferred to our facility for ICU admission on 01/09/21 for diagnosis of severe sepsis with septic shock as evidenced by hypotension, hypothermia, dehydration, and lactic acidosis. Initially pt was admitted to the medical ICU for septic shock with abdomen as a suspected source secondary to recent ventral hernia repair one month prior. General surgery was consulted. CT abdomen and pelvis obtained and had revealed seroma and he was maintained on broad-spectrum IV antibiotics. Initially pt required vasopressors, however these were eventually tapered off and patient was downgraded from the medical ICU. Seroma cultures came back negative. Blood cultures showing no growth after 120 hours. He was also found to have moderate ascitic fluid and underwent a paracentesis with removal of 1.7 L of fluid on 01/14/21 this was sent for culture and is currently pending results. Physical Examination: Patient seen and examined at bedside. He reports felling weak this morning. Pt was assisted with repositioning in bed so he could eat some breakfast. He reports continued abdominal discomfort, denies any nausea or vomiting. He also denies any lightheadedness, dizziness, chest pain, palpitations or shortness of breath. RN reports pt had moderate leakage overnight from paracentesis site requiring gown and bedding changes, states dressing reinforced and no further episodes of leakage. Blood pressure this morning soft 90's systolic. Discussed with RN imprortance of monitoring this closely and to notify provider immediately if worsened, may consider albumin infusion if hypotension worsens. Morning labs reviewed, patient continues to have significant leukocytosis with WBC count of 19.7, stable microcytic normochromic anemia with hemoglobin of 10.1, non-anion gap metabolic acidosis with chloride 115 and CO2 of 16. Elevated liver enzymes with total bili of 1.8, AST 70, and ALT of 324. Hypoalbuminemia with albumin of 2.1 and elevated pro-calcitonin and 0.47. General: Chronically Ill-appearing, no acute distress, appears at stated age Derm: warm, dry Head: atraumatic, normocephalic, symmetric Eyes: EOMI, no lid lag, anicteric sclera Mouth: no lip lesion, mucus membranes moist Cardiovascular: S1S2 reg, no murmur, positive posterior tibial pulses bilaterally, 3+ BLE pitting edema, Lungs: CTA bilateral, no rhonchi, no rales , no accessory muscle use Abdominal: Cirrhotic abdomen, +tenderness to palpation diffusely, no guarding, no appreciable organomegaly Ext: no gross muscle atrophy, no contractures Neuro: CN II-XI grossly intact, no focal neuro deficits Psych: Alert, oriented, appropriate affect Assessment and Plan of Care: Septic shock with suspected abdominal source, now resolved Recent C. diff Persistent abdominal pain Moderate ascites -CT abdomen and pelvis showed a seroma which was aspirated by Gen. surgery and sent for culture which was negative -Repeat abdominal ultrasound with moderate ascites. -IR following and patient underwent paracentesis with removal of 1.7 L of ascitic fluid on 01/14/21. This was sent for culture and is currently pending results. -Pt received IV antibiotics with Zosyn along with oral diflucan both completed treatment course. Pt remains on oral vancomycin at this time. -ID following appreciate further recommendations. -With persistent leukocytosis will check chest x-ray, repeat CXR showing no changes with reports of reticulonodular infiltrates bilaterally. -Hyperbilirubinemia with elevated liver enzymes, distended gallbladder, and pericholecystic fluid. Repeat labs in a.m. Concern for possible cholecystitis. Ascites with lower extremity edema -Stop IV fluids -Start Lasix -Check echocardiogram -Ronnie barron Acute kidney injury, resolved -Off IV fluids -Continue with diuretics -Follow BMP Recent C. diff colitis, from outside hospital -Continue the oral vancomycin Anemia, suspected due to acute blood loss from GI bleeding -Status post 2 units of PRBCs since admission -Continue to monitor CBC -Stable at this time Physical Debility -PT Consult DVT prophylaxis: SCDs Discussed with: Patient and RN Anticipated discharge date: Clinical Course to Determine Anticipated discharge place: [facility] A total of 40 minutes was spent on the care of this complex patient more than 50% of the time was spent in counseling and care coordination.coordination. Objective - Vital Signs Vital signs: Vital Signs Temp 97.6 F 01/15/21 01:01 Pulse 88 01/15/21 01:01 Resp 16 01/15/21 01:01 BP 112/71 01/15/21 01:01 Pulse Ox 98 01/15/21 01:01 Intake & Output 01/14/21 01/15/21 01/15/21 18:59 06:59 18:59 Weight 81 kg Other: Voiding Method Urinal ABP, PAP, CO, CI - Last Documented Arterial Blood Pressure 120/70 - Labs CBC & Chem 7: 01/15/21 06:50 01/15/21 06:50 Labs: Abnormal Lab Results - Last 24 Hours (Table) 01/14/21 01/15/21 01/15/21 Range/Units 06:26 06:50 06:50 WBC 19.7 H (3.8-10.6) k/uL RBC 3.04 L (4.30-5.90) m/uL Hgb 10.1 L (13.0-17.5) gm/dL Hct 32.1 L (39.0-53.0) % MCV 105.6 H (80.0-100.0) fL RDW 16.8 H (11.5-15.5) % Plt Count 138 L (150-450) k/uL Macrocytosis Marked A Chloride 115 H (98-107) mmol/L Carbon Dioxide 16 L (22-30) mmol/L BUN 27 H (9-20) mg/dL Glucose 104 H (74-99) mg/dL Total Bilirubin 1.8 H (0.2-1.3) mg/dL AST 70 H (17-59) U/L Alkaline Phosphatase 324 H (38-126) U/L Total Protein 4.3 L (6.3-8.2) g/dL Albumin 2.1 L (3.5-5.0) g/dL Procalcitonin 0.47 H (0.02-0.09) ng/mL Microbiology - Last 24 Hours (Table) 01/14/21 16:13 Body Fluid Culture - Preliminary Ascites Fluid 01/14/21 16:13 Anaerobic Culture - Preliminary Ascites Fluid 01/14/21 16:13 Fungal Culture - Preliminary Ascites Fluid 01/09/21 14:37 Blood Culture - Preliminary Blood No Growth after 120 hours 01/09/21 14:37 Blood Culture - Preliminary Blood No Growth after 120 hours 01/10/21 12:05 Gram Stain - Final Ascites Fluid Body Fluid Culture - Final <Shoshana,Yajaira Madie - Last Filed: 01/15/21 20:49> Subjective Mendez Berger NP rendered care for this patient independently, reviewed the findings and plan as documented in the note above. I did not physically speak with or examine the patient on this date. Objective - Vital Signs Vital signs: Vital Signs Temp 97.6 F 01/15/21 14:00 Pulse 98 01/15/21 14:00 Resp 17 01/15/21 14:00 BP 109/68 01/15/21 14:00 Pulse Ox 99 01/15/21 14:00 Intake & Output 01/15/21 01/15/21 01/16/21 06:59 18:59 06:59 Weight 81 kg 81 kg Other: Voiding Method Urinal ABP, PAP, CO, CI - Last Documented Arterial Blood Pressure 120/70 - Labs CBC & Chem 7: 01/15/21 06:50 01/15/21 06:50 Labs: Abnormal Lab Results - Last 24 Hours (Table) 01/14/21 01/15/21 01/15/21 Range/Units 06:26 06:50 06:50 WBC 19.7 H (3.8-10.6) k/uL RBC 3.04 L (4.30-5.90) m/uL Hgb 10.1 L (13.0-17.5) gm/dL Hct 32.1 L (39.0-53.0) % MCV 105.6 H (80.0-100.0) fL RDW 16.8 H (11.5-15.5) % Plt Count 138 L (150-450) k/uL Macrocytosis Marked A Chloride 115 H (98-107) mmol/L Carbon Dioxide 16 L (22-30) mmol/L BUN 27 H (9-20) mg/dL Glucose 104 H (74-99) mg/dL Total Bilirubin 1.8 H (0.2-1.3) mg/dL AST 70 H (17-59) U/L Alkaline Phosphatase 324 H (38-126) U/L Total Protein 4.3 L (6.3-8.2) g/dL Albumin 2.1 L (3.5-5.0) g/dL Procalcitonin 0.47 H (0.02-0.09) ng/mL Microbiology - Last 24 Hours (Table) 01/09/21 14:37 Blood Culture - Final Blood No Growth after 144 hours 01/09/21 14:37 Blood Culture - Final Blood No Growth after 144 hours 01/14/21 16:13 Gram Stain - Preliminary Ascites Fluid Body Fluid Culture - Preliminary 01/14/21 16:13 Anaerobic Culture - Preliminary Ascites Fluid 01/14/21 16:13 Fungal Culture - Preliminary Ascites Fluid
--- NOTE | 2021-01-15 16:50 | PN ---
PROGRESS NOTE DATE OF SERVICE: 12/26/2020 REASON FOR FOLLOWUP: 1. C difficile colitis. 2. Possible oropharyngeal candidiasis. INTERVAL HISTORY: The patient is afebrile. The patient is status post paracentesis. Ascitic fluid white count was only 56. The patient tolerated the procedure. Abdominal distention has slightly decreased. No chest pain or shortness of breath or cough. Diarrhea has decreased in frequency as well. PHYSICAL EXAMINATION: Blood pressure is 139/68 with a pulse of 90, temperature 97.6. He is 99% on 2 L nasal cannula. General description is a middle-aged male lying in bed in no distress. RESPIRATORY SYSTEM: Unlabored breathing. Decreased breath sounds at the bases. No wheeze. HEART: S1, S2. Regular rate and rhythm. ABDOMEN: Soft. Mildly distended. No guarding or rigidity. EXTREMITIES: No edema of the feet. LABS: Cultures are currently pending. DIAGNOSTIC IMPRESSION AND PLAN: 1. Patient with elevated white count, more likely multifactorial, possibly reactive versus related to oropharyngeal candidiasis. The white count is trending down with Diflucan; to continue for another week or 10 days. 2. Patient with history of Clostridium difficile colitis. Will continue with his oral vancomycin to finish his course of therapy. Continue with supportive care. MMODL / IJN: [id number] /
[2021-01-15] MEDS: SENNOSIDES 8.6 MG TAB PO SCH (20:48)
[2021-01-16] MEDS: MORPHINE SULFATE 2 MG/ML SYRINGE IV PRN ×8 (01:37→23:44)
[2021-01-16] MEDS: SODIUM CHLORIDE 0.9% 1,000 ML IV SCH (02:04)
[2021-01-16] MEDS: SPIRONOLACTONE 25 MG TAB PO SCH ×2 (09:54→21:02)
[2021-01-16] MEDS: VANCOMYCIN 125 MG CAPSULE PO SCH ×3 (09:54→17:02)
[2021-01-16] MEDS: DOCUSATE 100 MG CAP PO SCH ×2 (09:54→21:02)
[2021-01-16] MEDS: FAMOTIDINE 20 MG TAB PO SCH ×2 (09:54→21:02)
[2021-01-16] MEDS: FUROSEMIDE 10 MG/ML 4 ML VIAL IV SCH ×2 (09:56→21:02)
[2021-01-16] MEDS: FLUCONAZOLE 100 MG TAB PO SCH (09:56)
[2021-01-16] MEDS: ONDANSETRON 4 MG/2 ML VIAL IVP PRN (11:18)
[2021-01-16 12:08] LABS: ALT 38 U/L (4-49); AST 85 U/L (17-59); African American GFR (CKD) >90 (>60 ml/min/1.73 sqM); Albumin 2.3 g/dL (3.5-5.0); Albumin/Globulin Ratio 0.9; Alkaline Phosphatase 360 U/L (38-126); Anion Gap 9 mmol/L; Blood Urea Nitrogen 30 mg/dL (9-20); Calcium 8.9 mg/dL (8.4-10.2); Carbon Dioxide 16 mmol/L (22-30); Chloride 114 mmol/L (98-107); Globulin 2.5 g/dL; Glucose 96 mg/dL (74-99); Magnesium 1.7 mg/dL (1.6-2.3); Non-African American GFR(CKD) 88 (>60 ml/min/1.73 sqM); Sodium 139 mmol/L (137-145); Total Bilirubin 1.6 mg/dL (0.2-1.3); Total Protein 4.8 g/dL (6.3-8.2)
--- NOTE | 2021-01-16 12:16 | P.PN ---
Subjective Progress Note Date: 01/16/21 Hospital Course: The patient is a 56-year-old male with a past medical history of cirrhosis, anemia, colitis and recent ventral hernia sx. He was reportedly living in a motel and was found to be unresponsive and hypothermic. He was taken to [place] [facility] and was transferred to our facility for ICU admission on 01/09/21 for diagnosis of severe sepsis with septic shock as evidenced by hypotension, hypothermia, dehydration, and lactic acidosis. Initially pt was admitted to the medical ICU for septic shock with abdomen as a suspected source secondary to recent ventral hernia repair one month prior. General surgery was consulted. CT abdomen and pelvis obtained and had revealed seroma and he was maintained on broad-spectrum IV antibiotics. Initially pt required vasopressors, however these were eventually tapered off and patient was downgraded from the medical ICU. Seroma cultures came back negative. Blood cultures showing no growth after 120 hours. He was also found to have moderate ascitic fluid and underwent a paracentesis with removal of 1.7 L of fluid on 01/14/21 this was sent for culture and is currently pending results. Physical Examination: Patient seen and examined at bedside. Patient reports continued feeling of weakness and fatigue, he states improvement of abdominal discomfort but abdomen remains diffusely tender with palpation. Vital signs have been stable. Patient denies having any complaints at this time including lightheadedness, dizziness, chest pain, palpitations, shortness of breath, or experiencing any numbness/tingling/weakness in his extremities. Patient assisted the sitting position and encouraged to eat breakfast this morning. Morning labs are delayed and currently awaiting their results. Preliminary cultures of ascitic fluid showing no growth at this time. Blood cultures resulting showing no growth after 144 hours. Patient has shown improvement in lower extremity edema since application of RONNIE hose. General: Chronically Ill-appearing, no acute distress, appears at stated age Derm: warm, dry Head: atraumatic, normocephalic, symmetric Eyes: EOMI, no lid lag, anicteric sclera Mouth: no lip lesion, mucus membranes moist Cardiovascular: S1S2 reg, systolic murmur, positive posterior tibial pulses bilaterally, 2+ BLE pitting edema, Lungs: CTA bilateral, no rhonchi, no rales , no accessory muscle use Abdominal: Cirrhotic abdomen, +tenderness to palpation diffusely, no guarding, no appreciable organomegaly Ext: no gross muscle atrophy, no contractures Neuro: CN II-XI grossly intact, no focal neuro deficits Psych: Alert, oriented, appropriate affect Assessment and Plan of Care: Septic shock with suspected abdominal source, now resolved Recent C. diff Persistent abdominal pain Moderate ascites -CT abdomen and pelvis showed a seroma which was aspirated by Gen. surgery and sent for culture which was negative -Repeat abdominal ultrasound with moderate ascites. -IR following and patient underwent paracentesis with removal of 1.7 L of ascitic fluid on 01/14/21. This was sent for culture and is currently pending results. -Pt received IV antibiotics with Zosyn along with oral diflucan both completed treatment course. Pt remains on oral vancomycin at this time. -ID following appreciate further recommendations. -With persistent leukocytosis will check chest x-ray, repeat CXR showing no changes with reports of reticulonodular infiltrates bilaterally. -Hyperbilirubinemia with elevated liver enzymes, distended gallbladder, and pericholecystic fluid. Repeat labs in a.m. Concern for possible cholecystitis. Ascites with lower extremity edema, improving -Continue Lasix -Echocardiogram revealing a normal EF between 60 and 65% with no significant valvular abnormalities. -Ronnie barron Acute kidney injury, resolved -Off IV fluids -Continue with diuretics -Follow BMP Recent C. diff colitis, from outside hospital -Continue the oral vancomycin Anemia, suspected due to acute blood loss from GI bleeding -Status post 2 units of PRBCs since admission -Continue to monitor CBC -Stable at this time Physical Debility -PT Consult, appreciate recommendations DVT prophylaxis: SCDs Discussed with: Patient and RN Anticipated discharge date: Clinical Course to Determine Anticipated discharge place: [facility] A total of 40 minutes was spent on the care of this complex patient more than 50% of the time was spent in counseling and care coordination.coordination. Objective - Vital Signs Vital signs: Vital Signs Temp 97.8 F 01/16/21 08:00 Pulse 98 01/16/21 08:00 Resp 18 01/16/21 08:00 BP 115/74 01/16/21 08:00 Pulse Ox 98 01/16/21 08:00 Intake & Output 01/15/21 01/16/21 01/16/21 18:59 06:59 18:59 Output Total 300 Balance -300 Weight 81 kg 97.7 kg Output: Urine 300 Other: Voiding Method Urinal # Voids 1 ABP, PAP, CO, CI - Last Documented Arterial Blood Pressure 120/70 - Labs CBC & Chem 7: 01/15/21 06:50 01/16/21 10:26 Labs: Microbiology - Last 24 Hours (Table) 01/14/21 16:13 Anaerobic Culture - Preliminary Ascites Fluid 01/14/21 16:13 Gram Stain - Preliminary Ascites Fluid Body Fluid Culture - Preliminary 01/09/21 14:37 Blood Culture - Final Blood No Growth after 144 hours 01/09/21 14:37 Blood Culture - Final Blood No Growth after 144 hours
[2021-01-16 13:42] LABS: Basophils % (A) 0 %; Eosinophils # (A) 0.4 k/uL (0-0.7); Eosinophils % (A) 2 %; HCT 35.5 % (39.0-53.0); Hypochromasia Moderate; Lymphocytes # (A) 1.2 k/uL (1.0-4.8); Lymphocytes % (A) 5 %; MCH 32.6 pg (25.0-35.0); MCHC 30.9 g/dL (31.0-37.0); MCV 105.7 fL (80.0-100.0); Macrocytosis Moderate; Mean Platelet Volume 11.1; Monocytes % (A) 4 %; Neutrophils # (A) 20.4 k/uL (1.3-7.7); Neutrophils % (A) 87 %; Platelet Count 125 k/uL (150-450); RBC 3.36 m/uL (4.30-5.90); RDW 15.9 % (11.5-15.5)
[2021-01-16 13:45] LABS: WBC 23.5 k/uL (3.8-10.6)
--- NOTE | 2021-01-16 18:31 | PN ---
PROGRESS NOTE DATE OF SERVICE: 01/16/2021 REASON FOR FOLLOWUP: Leukocytosis. INTERVAL HISTORY: The patient is afebrile. The patient is currently breathing comfortably on room air. The patient denies having any chest pain or shortness of breath or cough. Abdominal pain has improved and diarrhea has slowed down. No urinary symptoms. PHYSICAL EXAMINATION: Blood pressure 114/69, pulse of 97, temperature 97.9. He is 100% on room air. General description is a middle-aged male lying in bed in no distress. RESPIRATORY SYSTEM: Unlabored breathing. Clear to auscultation anteriorly. HEART: S1, S2. Regular rate and rhythm. ABDOMEN: Soft. Mildly distended. No guarding or rigidity. EXTREMITIES: No edema of the feet. LABS: Hemoglobin is 11, white count is up to 23,000, BUN of 30, creatinine 0.95. DIAGNOSTIC IMPRESSION AND PLAN: Patient with elevated white count in this patient with a history of cirrhosis of the liver. Did have C difficile colitis, which seems to have clinically improved. There was concern for possible oropharyngeal candidiasis, for which the patient was started on Diflucan; however, the white count did jump higher today. Will recheck his CBC, inflammatory markers and culture tomorrow and adjust antibiotics further if needed. Continue supportive care. MMODL / IJN: [id number] /
[2021-01-16] MEDS: SENNOSIDES 8.6 MG TAB PO SCH (21:02)
[2021-01-17 00:17] LABS: Appearance,Urine Clear (Clear); Bilirubin,Urine Negative (Negative); Blood,Urine Negative (Negative); Color,Urine Yellow; Glucose,Urine (UA) Negative (Negative); Ketones,Urine Negative (Negative); Leukocyte Esterase,Urine Negative (Negative); Nitrite,Urine Negative (Negative); Protein,Urine Negative (Negative); Specific Gravity,Urine 1.012 (1.001-1.035); Urobilinogen,Urine <2.0 mg/dL (<2.0)
[2021-01-17] MEDS: SODIUM CHLORIDE 0.9% 1,000 ML IV SCH (03:31)
[2021-01-17] MEDS: MORPHINE SULFATE 2 MG/ML SYRINGE IV PRN ×5 (03:56→22:07)
[2021-01-17] MEDS: SPIRONOLACTONE 25 MG TAB PO SCH ×2 (07:22→20:21)
[2021-01-17] MEDS: FLUCONAZOLE 100 MG TAB PO SCH (07:22)
[2021-01-17] MEDS: FAMOTIDINE 20 MG TAB PO SCH ×2 (07:22→20:21)
[2021-01-17] MEDS: DOCUSATE 100 MG CAP PO SCH ×2 (07:22→20:20)
[2021-01-17] MEDS: FUROSEMIDE 10 MG/ML 4 ML VIAL IV SCH ×2 (07:23→20:21)
[2021-01-17 10:14] LABS: Basophils # (A) 0.1 k/uL (0-0.2); Basophils % (A) 0 %; Eosinophils # (A) 0.4 k/uL (0-0.7); Eosinophils % (A) 2 %; HCT 31.6 % (39.0-53.0); HGB 9.7 gm/dL (13.0-17.5); Hypochromasia Moderate; Lymphocytes # (A) 0.8 k/uL (1.0-4.8); Lymphocytes % (A) 4 %; MCH 32.8 pg (25.0-35.0); MCHC 30.7 g/dL (31.0-37.0); Macrocytosis Marked; Mean Platelet Volume 9.3; Monocytes # (A) 0.8 k/uL (0-1.0); Monocytes % (A) 4 %; Neutrophils # (A) 18.9 k/uL (1.3-7.7); Neutrophils % (A) 89 %; Platelet Count 132 k/uL (150-450); RBC 2.96 m/uL (4.30-5.90); RDW 15.9 % (11.5-15.5); WBC 21.2 k/uL (3.8-10.6)
[2021-01-17 10:26] LABS: ALT 35 U/L (4-49); AST 85 U/L (17-59); African American GFR (CKD) 72 (>60 ml/min/1.73 sqM); Albumin 2.2 g/dL (3.5-5.0); Albumin/Globulin Ratio 0.9; Alkaline Phosphatase 312 U/L (38-126); Anion Gap 9 mmol/L; Blood Urea Nitrogen 35 mg/dL (9-20); C Reactive Protein 6.9 mg/dL (<1.0); Calcium 8.4 mg/dL (8.4-10.2); Carbon Dioxide 15 mmol/L (22-30); Chloride 112 mmol/L (98-107); Globulin 2.4 g/dL; Glucose 121 mg/dL (74-99); LDH 518 U/L (313-618); Non-African American GFR(CKD) 62 (>60 ml/min/1.73 sqM); Potassium 4.1 mmol/L (3.5-5.1); Sodium 136 mmol/L (137-145); Total Bilirubin 1.6 mg/dL (0.2-1.3); Total Protein 4.6 g/dL (6.3-8.2)
[2021-01-17 10:38] LABS: MCV 106.9 fL (80.0-100.0)
--- NOTE | 2021-01-17 13:16 | P.PN ---
Subjective Progress Note Date: 01/17/21 Hospital Course: The patient is a 56-year-old male with a past medical history of cirrhosis, anemia, colitis and recent ventral hernia sx. He was reportedly living in a motel and was found to be unresponsive and hypothermic. He was taken to [place] ER and was transferred to our facility for ICU admission on 01/09/21 for diagnosis of severe sepsis with septic shock as evidenced by hypotension, hypothermia, dehydration, and lactic acidosis. Initially pt was admitted to the medical ICU for septic shock with abdomen as a suspected source secondary to recent ventral hernia repair one month prior. General surgery was consulted. CT abdomen and pelvis obtained and had revealed seroma and he was maintained on broad-spectrum IV antibiotics. Initially pt required vasopressors, however these were eventually tapered off and patient was downgraded from the medical ICU. Seroma cultures came back negative. Blood cultures showing no growth after 144 hours. He was also found to have moderate ascitic fluid and underwent a paracentesis with removal of 1.7 L of fluid on 01/14/21 this was sent for culture and is currently pending results. Physical Examination: Patient was seen and fully evaluated at bedside this morning. He reports continued diffuse abdominal pain, however reports improvement with pain upon palpation. His vital signs remained stable and he remains afebrile. Patient continues to have leukocytosis with WBC count of 21.2. Pro-calcitonin 0.64, CRP 7.2, and LDH of 518. Infectious disease following, appreciate further recommendations. Blood cultures showing no growth after 144 hours. Gram stain negative. Fungal culture preliminary results negative and ascites fluid culture preliminary results negative. Patient denies having any headache, lightheadedness, dizziness, chest pain, palpitations, shortness of breath, nausea, or vomiting. Vital signs stable and lower extremity edema improving. General: Chronically Ill-appearing, no acute distress, appears at stated age Derm: warm, dry Head: atraumatic, normocephalic, symmetric Eyes: EOMI, no lid lag, anicteric sclera Mouth: no lip lesion, mucus membranes moist Cardiovascular: S1S2 reg, systolic murmur, positive posterior tibial pulses bilaterally, 2+ BLE pitting edema, Lungs: CTA bilateral, no rhonchi, no rales , no accessory muscle use Abdominal: Cirrhotic abdomen, +tenderness to palpation diffusely, no guarding, no appreciable organomegaly Ext: no gross muscle atrophy, no contractures Neuro: CN II-XI grossly intact, no focal neuro deficits Psych: Alert, oriented, appropriate affect Assessment and Plan of Care: Septic shock with suspected abdominal source, now resolved Recent C. diff Persistent abdominal pain Moderate ascites -CT abdomen and pelvis showed a seroma which was aspirated by Gen. surgery and sent for culture which was negative -Repeat abdominal ultrasound with moderate ascites. -IR following and patient underwent paracentesis with removal of 1.7 L of ascitic fluid on 01/14/21. This was sent for culture and is currently pending results. -Pt received IV antibiotics with Zosyn along with oral diflucan both completed treatment course. Pt remains on oral vancomycin at this time. -ID following appreciate further recommendations. -With persistent leukocytosis will check chest x-ray, repeat CXR showing no changes with reports of reticulonodular infiltrates bilaterally. -Hyperbilirubinemia with elevated liver enzymes, distended gallbladder, and pericholecystic fluid. Repeat labs in a.m. Concern for possible cholecystitis. -Blood cultures showing no growth after 144 hours. Gram stain negative. Fungal culture preliminary results negative and ascites fluid culture preliminary results negative. Ascites with lower extremity edema, improving -Continue Lasix -Echocardiogram revealing a normal EF between 60 and 65% with no significant valvular abnormalities. -Ronnie barron Acute kidney injury, resolved -Off IV fluids -Continue with diuretics -Follow BMP Recent C. diff colitis, from outside hospital -Completed course of oral vancomycin Anemia, suspected due to acute blood loss from GI bleeding, stable -Status post 2 units of PRBCs since admission -Continue to monitor CBC -Stable at this time Physical Debility -PT Consult, appreciate recommendations DVT prophylaxis: SCDs Discussed with: Patient and RN Anticipated discharge date: Clinical Course to Determine Anticipated discharge place: [facility] A total of 40 minutes was spent on the care of this complex patient more than 50% of the time was spent in counseling and care coordination.coordination. Objective - Vital Signs Vital signs: Vital Signs Temp 97.5 F L 01/17/21 06:10 Pulse 98 01/17/21 06:10 Resp 16 01/16/21 20:12 BP 134/85 01/17/21 06:10 Pulse Ox 100 01/17/21 06:10 Intake & Output 01/16/21 01/17/21 01/17/21 18:59 06:59 18:59 Output Total 600 500 Balance -600 -500 Output: Urine 600 500 Other: Voiding Method Urinal # Voids 3 # Bowel Movements 0 ABP, PAP, CO, CI - Last Documented Arterial Blood Pressure 120/70 - Labs CBC & Chem 7: 01/17/21 09:51 01/17/21 09:51 Labs: Abnormal Lab Results - Last 24 Hours (Table) 01/16/21 01/16/21 Range/Units 10:26 10:26 WBC 23.5 H (3.8-10.6) k/uL RBC 3.36 L (4.30-5.90) m/uL Hgb 11.0 L (13.0-17.5) gm/dL Hct 35.5 L (39.0-53.0) % MCV 105.7 H (80.0-100.0) fL MCHC 30.9 L (31.0-37.0) g/dL RDW 15.9 H (11.5-15.5) % Plt Count 125 L (150-450) k/uL Neutrophils # 20.4 H (1.3-7.7) k/uL Chloride 114 H (98-107) mmol/L Carbon Dioxide 16 L (22-30) mmol/L BUN 30 H (9-20) mg/dL Total Bilirubin 1.6 H (0.2-1.3) mg/dL AST 85 H (17-59) U/L Alkaline Phosphatase 360 H (38-126) U/L Total Protein 4.8 L (6.3-8.2) g/dL Albumin 2.3 L (3.5-5.0) g/dL Microbiology - Last 24 Hours (Table) 01/14/21 16:13 Gram Stain - Preliminary Ascites Fluid Body Fluid Culture - Preliminary 01/14/21 16:13 Anaerobic Culture - Preliminary Ascites Fluid
[2021-01-17 13:55] LABS: Erythrocyte Sedimentation Rate 16 mm/hr (0-15)
[2021-01-17] MEDS: SENNOSIDES 8.6 MG TAB PO SCH (20:21)
--- NOTE | 2021-01-18 00:46 | PN ---
PROGRESS NOTE DATE OF SERVICE: 01/17/2021 REASON FOR FOLLOWUP: Leukocytosis. INTERVAL HISTORY: The patient is afebrile. The patient is breathing comfortably. The patient denies having any chest pain, shortness of breath or cough. No abdominal pain mentioned. Diarrhea has resolved. PHYSICAL EXAMINATION: Blood pressure 116/70 with a pulse of 85, temperature 97.6. He is 99% on room air. General description is a middle-aged male lying in bed in no distress. RESPIRATORY SYSTEM: Unlabored breathing. Decreased breath sounds at the bases. No wheeze. HEART: S1, S2. Regular rate and rhythm. ABDOMEN: Soft. Mildly distended. No guarding or rigidity. LABS: White count is down to 21.2. Creatinine is 1.26. DIAGNOSTIC IMPRESSION AND PLAN: Patient with leukocytosis, multifactorial, in this patient status post paracentesis, and did have recent C difficile colitis. The patient's white count is trending down. Will repeat CBC tomorrow. If it is showing the downward trend, to continue. Otherwise, we will obtain a CT abdomen and pelvis to continue with empiric Diflucan at this point. Continue supportive care. MMODL / IJN: [id number] /
[2021-01-18] MEDS: MORPHINE SULFATE 2 MG/ML SYRINGE IV PRN ×6 (03:48→23:06)
[2021-01-18] MEDS: SODIUM CHLORIDE 0.9% 1,000 ML IV SCH (06:47)
[2021-01-18] MEDS: DOCUSATE 100 MG CAP PO SCH ×2 (06:56→19:42)
[2021-01-18] MEDS: SPIRONOLACTONE 25 MG TAB PO SCH ×2 (06:56→19:42)
[2021-01-18] MEDS: FAMOTIDINE 20 MG TAB PO SCH ×2 (06:56→19:42)
[2021-01-18] MEDS: FLUCONAZOLE 100 MG TAB PO SCH (06:56)
[2021-01-18] MEDS: FUROSEMIDE 10 MG/ML 4 ML VIAL IV SCH ×2 (06:57→19:42)
[2021-01-18 08:43] LABS: HCT 29.2 % (39.6-50.0); HGB 9.4 g/dL (13.0-17.0); MCH 31.8 pg (27.0-32.0); MCHC 32.2 g/dL (32.0-37.0); MCV 98.6 fL (80.0-97.0); Mean Platelet Volume 11.6 fL (9.5-12.2); Platelet Count 150 X 10*3/uL (140-440); RBC 2.96 X 10*6/uL (4.40-5.60); RDW 17.2 % (11.5-14.5); WBC 22.82 X 10*3/uL (4.50-10.00)
[2021-01-18 09:12] LABS: African American GFR (CKD) 54.2 (60.0-200.0); Albumin 2.4 g/dL (3.8-4.9); Albumin/Globulin Ratio 1.26 (1.60-3.17); Anion Gap 12.2 mmol/L (4.00-12.00); BUN/Creat Ratio 22.75 Ratio (12.00-20.00); Blood Urea Nitrogen 36.4 mg/dL (9.0-27.0); Calcium 8.3 mg/dL (8.7-10.3); Carbon Dioxide 16.8 mmol/L (21.6-31.8); Globulin 1.9 g/dL (1.6-3.3); Magnesium 1.8 mg/dL (1.5-2.4); Non-African American GFR(CKD) 46.8 (60.0-200.0); Potassium 4.3 mmol/L (3.5-5.5); Total Bilirubin 1.2 mg/dL (0.30-1.20); Total Protein 4.4 g/dL (6.2-8.2)
[2021-01-18] MEDS: IOPAMIDOL CONTRAST (ORAL USE) VIAL PO PRN ×2 (10:38→11:36)
--- NOTE | 2021-01-18 13:55 | P.CONS ---
History of Present Illness - Reason for Consult Consult date: 01/18/21 melena, ascites Requesting physician: Stanley Hyde - Chief Complaint Sepsis - History of Present Illness This is a 56-year-old male who was a transfer from [facility] on 01/09/2021 for sepsis. On admission he was noted to have a hemoglobin of 5.7 and is status post 2 units of PRBC transfusion. Gastroenterology was consulted for melena/anemia. The consultation order for gastroenterology was placed on 01/11/2021, however there was no GI coverage until today. Gen. surgery Dr. Yarbrough was consulted for abdominal pain at that time, reviewed CT of the abdomen which with no significant findings. No endoscopy was completed. He has a past medical history including alcoholic cirrhosis of the liver, anemia, recent diagnosis of C. difficile colitis status post oral vancomycin, and recent ventral hernia repair. Apparently the patient was found outside in the cold nonresponsive and was hypothermic. The patient states he does have a known history of alcoholic cirrhosis of the liver which he states his PCP has been following. The patient states he has been a daily drinker for multiple years, he states he recently quit a couple months ago. He also states that he has had previous paracentesis 4-5 times and has had that done in [facility]. He is unsure how much fluid they remove each time. He denies any history of anemia, states he has had a blood transfusion previously but he is unsure why and states many years ago. He denies any previous EGD, states he has had a colonoscopy years ago. He denies any black stool or blood in his stool. Denies any history of acid reflux. He did recently undergo ventral hernia surgery approximately 2 months ago. He had a paracentesis this admission on 01/15/2021 with 1.7 L removed. Protein was 717 mg, fluid culture with no growth. Patient is complaining of abdominal tenderness. He denies any fevers or chills. Review of Systems REVIEW OF SYSTEMS: CARDIOPULMONARY: No chest pain or shortness of breath. Gastrointestinal: Diffuse abdominal pain. Abdominal distention. No nausea or vomiting. No hematemesis, coffee-ground emesis. No rectal bleeding, or melena. GENITOURINARY: No dysuria or hematuria. MUSCULOSKELETAL: Reports normal range of motion., Joint pain. SKIN: No rashes. No jaundice. ENDOCRINE: No chills, fevers. No excessive weight gain or loss. No polydipsia or polyuria. PSYCHIATRIC: Unremarkable. NEUROLOGY: Patient was found unresponsive prior to admission outside in the cold. Denies dizziness, headache. ENT: Vision unremarkable. CONSTITUTIONAL: No recent weight loss. No fever, chills, night sweats. Past Medical History Past Medical History: Unable to Obtain, Liver Disease Additional Past Medical History / Comment(s): anemia, colitis, chirrosis History of Any Multi-Drug Resistant Organisms: None Reported Past Surgical History: Unable to Obtain Additional Past Surgical History / Comment(s): patient states ex-lap for an ulcer, anterior abdominal wall hernia repair approximately a month ago Past Anesthesia/Blood Transfusion Reactions: No Reported Reaction Past Psychological History: No Psychological Hx Reported Smoking Status: Current some day smoker Past Alcohol Use History: Abuse Past Drug Use History: None Reported Medications and Allergies Home Medications Medication Instructions Recorded Confirmed Type Albuterol Sulfate [Proair Hfa] 2 puff INHALATION RT-Q4H PRN 01/09/21 01/09/21 History Dicyclomine [Bentyl] 20 mg PO QID PRN 01/09/21 01/09/21 History HYDROcodone/APAP 10-325MG [[place] 1 tab PO Q4H PRN 01/09/21 01/09/21 History 10-325] Lisdexamfetamine Dimesylate 70 mg PO DAILY 01/09/21 01/09/21 History [Vyvanse] Pantoprazole Sodium 40 mg PO DAILY PRN 01/09/21 01/09/21 History Promethazine [Phenergan] 25 mg PO Q4H PRN 01/09/21 01/09/21 History Sucralfate [Carafate] 1 gm PO ACHS PRN 01/09/21 01/09/21 History Vancomycin HCl [Vancocin HCl] 125 mg PO QID 01/09/21 01/09/21 History Allergies Allergy/AdvReac Type Severity Reaction Status Date / Time No Known Allergies Allergy Verified 01/09/21 13:38 Physical Exam Vitals: Vital Signs Temp Pulse Resp BP Pulse Ox 01/18/21 07:20 97.6 F 90 16 107/71 98 01/18/21 02:05 97.8 F 92 17 101/66 99 01/17/21 18:05 97.6 F 85 18 116/70 99 01/17/21 14:00 97.6 F 86 18 115/77 99 Intake and Output 01/17/21 01/18/21 01/18/21 22:59 06:59 14:59 Intake Total 296 Output Total 200 Balance -200 296 Intake: Oral 296 Output: Urine 200 Other: Voiding Method Urinal Weight 82.5 kg General appearance: The patient is alert, oriented, appears in no acute distress. HET: Head is normocephalic and atraumatic. Conjunctiva pink. Sclera anicteric. Neck: Supple without lymphadenopathy. Trachea midline. Heart: S1 S2. Regular rate and rhythm. Lungs: Clear to auscultation. Abdomen: Soft, diffuse tenderness, ventral hernia, mild distention with bowel s ounds. No guarding or rigidity. Skin: No rashes. No jaundice. Extremities: Normal skin color and turgor. Bilateral pedal edema. Neurological: No focal deficits. Alert and oriented x3. Results CBC & Chem 7: 01/18/21 06:17 01/18/21 06:17 Labs: Abnormal Lab Results - Last 24 Hours (Table) 01/17/21 01/17/21 01/17/21 Range/Units 06:58 06:58 09:51 WBC 21.2 H (3.8-10.6) k/uL RBC 2.96 L (4.30-5.90) m/uL Hgb 9.7 L (13.0-17.5) gm/dL Hct 31.6 L (39.0-53.0) % MCV 106.9 H (80.0-100.0) fL MCHC 30.7 L (31.0-37.0) g/dL RDW 15.9 H (11.5-15.5) % Plt Count 132 L (150-450) k/uL Neutrophils # 18.9 H (1.3-7.7) k/uL Lymphocytes # 0.8 L (1.0-4.8) k/uL Macrocytosis Marked A ESR 16 H (0-15) mm/hr Sodium (137-145) mmol/L Chloride (98-107) mmol/L Carbon Dioxide (22-30) mmol/L Anion Gap (4.00-12.00) mmol/L BUN (9-20) mg/dL Creatinine (0.66-1.25) mg/dL Est GFR (CKD-EPI)AfAm (60.0-200.0) Est GFR (CKD-EPI)NonAf (60.0-200.0) BUN/Creatinine Ratio (12.00-20.00) Ratio Glucose (74-99) mg/dL Calcium (8.7-10.3) mg/dL Total Bilirubin (0.2-1.3) mg/dL AST (17-59) U/L Alkaline Phosphatase (38-126) U/L C-Reactive Protein 7.20 H (0.00-0.80) mg/dL Total Protein (6.3-8.2) g/dL Albumin (3.5-5.0) g/dL Albumin/Globulin Ratio (1.60-3.17) g/dL Procalcitonin 0.64 H (0.02-0.09) ng/mL 01/17/21 01/18/21 01/18/21 Range/Units 09:51 06:17 06:17 WBC 22.82 H (3.8-10.6) k/uL RBC 2.96 L (4.30-5.90) m/uL Hgb 9.4 L (13.0-17.5) gm/dL Hct 29.2 L (39.0-53.0) % MCV 98.6 H (80.0-100.0) fL MCHC (31.0-37.0) g/dL RDW 17.2 H (11.5-15.5) % Plt Count (150-450) k/uL Neutrophils # (1.3-7.7) k/uL Lymphocytes # (1.0-4.8) k/uL Macrocytosis ESR (0-15) mm/hr Sodium 136 L (137-145) mmol/L Chloride 112 H 110 H (98-107) mmol/L Carbon Dioxide 15 L 16.8 L (22-30) mmol/L Anion Gap 12.20 H (4.00-12.00) mmol/L BUN 35 H 36.4 H (9-20) mg/dL Creatinine 1.26 H 1.6 H (0.66-1.25) mg/dL Est GFR (CKD-EPI)AfAm 54.2 L (60.0-200.0) Est GFR (CKD-EPI)NonAf 46.8 L (60.0-200.0) BUN/Creatinine Ratio 22.75 H (12.00-20.00) Ratio Glucose 121 H (74-99) mg/dL Calcium 8.3 L (8.7-10.3) mg/dL Total Bilirubin 1.6 H (0.2-1.3) mg/dL AST 85 H 71 H (17-59) U/L Alkaline Phosphatase 312 H 342 H (38-126) U/L C-Reactive Protein 6.9 H (0.00-0.80) mg/dL Total Protein 4.6 L 4.4 L (6.3-8.2) g/dL Albumin 2.2 L 2.4 L (3.5-5.0) g/dL Albumin/Globulin Ratio 1.26 L (1.60-3.17) g/dL Procalcitonin (0.02-0.09) ng/mL Microbiology - Last 24 Hours (Table) 01/14/21 16:13 Gram Stain - Preliminary Ascites Fluid Body Fluid Culture - Preliminary Comments: CT abdomen and pelvis (01/10/21) showed development of bilateral pleural effusion and basilar pulmonary infiltrates. There is development of moderate abdominal ascites fluid. There are fluid levels in the large bowel suggestive of ileus and diarrhea. Gallbladder is mildly dilated compared to yesterday and could relate to gallbladder dysfunction or cholecystitis. There is possible occult stone. Assessment and Plan (1) Alcoholic cirrhosis of liver with ascites Narrative/Plan: 56-year-old male with a previous history of alcoholic cirrhosis of the liver with ascites. Patient states he has been a daily drinker for several years, who recently quit drinking a few months ago. Patient states he's managed by his PCP and has had 4-5 previous paracentesis done in [facility]. Patient was found unresponsive outside and brought to [facility] then transferred to our intensive care unit on 01/09/2021 for sepsis and altered mental status changes. The patient had a CT of the abdomen and pelvis that did show moderate amount of ascites. He underwent a paracentesis on 01/15/2021 with 1.7 L of fluid removed. He had a fluid protein of 717 g, fluid WBC 56, fluid culture with no growth. Patient is still with complaints of abdominal pain as well as leukocytosis. He has been afebrile. Patient was treated with vancomycin outpatient for C. difficile colitis. Need to consider spontaneous bacterial peritonitis, will discuss starting ceftriaxone with infectious disease. Current Visit: Yes Status: Acute Code(s): K70.31 - ALCOHOLIC CIRRHOSIS OF LIVER WITH ASCITES SNOMED Code(s): 190173963 (2) Macrocytic anemia Narrative/Plan: Patiently is consistent with macrocytic anemia. Likely related to underlying liver disease. Denies any signs or symptoms of GI bleed. Patient did have a positive occult stool on admission, however patient also had recent diagnosis of C. difficile colitis recently treated with vancomycin. On admission patient was noted to have a hemoglobin of 5.7, he was transfused with 2 units of PRBC transfusion. Hemoglobin has remained stable and is 9.4 today. Patient denies any previous history of EGD, last colonoscopy several years ago. No plans at this time for endoscopic evaluation. We'll continue to monitor CBC. Current Visit: Yes Status: Acute Code(s): D53.9 - NUTRITIONAL ANEMIA, UNSPECIFIED SNOMED Code(s): 41174903 (3) Abdominal pain Current Visit: Yes Status: Acute Code(s): R10.9 - UNSPECIFIED ABDOMINAL PAIN SNOMED Code(s): 25817218 (4) Sepsis Current Visit: Yes Status: Acute Code(s): A41.9 - SEPSIS, UNSPECIFIED ORGANISM SNOMED Code(s): 18999616 Plan: 1. Continue symptomatic and supportive care 2. Continue current diuretics 3. Discussed possibility of SBP with infectious disease, will start ceftriaxone 2 g daily 4. Recommend Alcohol abstinence 5. No plans on endoscopic evaluation at this time 6. Continue daily CBC, CMP Thank you for this consultation, we will continue to follow. Dr. Karen Aleman I agree with the dictator's note, documented as a scribe by Hoda De La Torre.
--- NOTE | 2021-01-18 14:26 | P.PN ---
Subjective Progress Note Date: 01/18/21 Principal diagnosis: sepsis 56-year-old male with a past medical history of cirrhosis, anemia, colitis and recent ventral hernia sx. He was reportedly living in a motel and was found to be unresponsive and hypothermic. He was taken to [facility] and was transferred to our facility for ICU admission on 01/09/21 for diagnosis of severe sepsis with septic shock as evidenced by hypotension, hypothermia, dehydration, and lactic acidosis. Initially pt was admitted to the medical ICU for septic shock with abdomen as a suspected source secondary to recent ventral hernia repair one month prior. General surgery was consulted. CT abdomen and pelvis obtained and had revealed seroma and he was maintained on broad-spectrum IV antibiotics. Initially pt required vasopressors, however these were eventually tapered off and patient was downgraded from the medical ICU. Seroma cultures came back negative. Blood cultures showing no growth after 144 hours. He was also found to have moderate ascitic fluid and underwent a paracentesis with removal of 1.7 L of fluid on 01/14/21 this was sent for culture and is currently pending results. 01/18 Doing well. Has some abdominal pain, no fevers. Objective - Vital Signs Vital signs: Vital Signs Temp 97.6 F 01/18/21 13:35 Pulse 87 01/18/21 13:35 Resp 16 01/18/21 13:35 BP 108/73 01/18/21 13:35 Pulse Ox 100 01/18/21 13:35 Intake & Output 01/17/21 01/18/21 01/18/21 18:59 06:59 18:59 Intake Total 532 Output Total 350 Balance -350 532 Weight 82.5 kg Intake: Oral 532 Output: Urine 350 Other: Voiding Method Urinal ABP, PAP, CO, CI - Last Documented Arterial Blood Pressure 120/70 - Exam General: Chronically Ill-appearing, no acute distress, appears at stated age Derm: warm, dry Head: atraumatic, normocephalic, symmetric Eyes: EOMI, no lid lag, anicteric sclera Mouth: no lip lesion, mucus membranes moist Cardiovascular: S1S2 reg, systolic murmur, positive posterior tibial pulses bilaterally, 2+ BLE pitting edema, Lungs: CTA bilateral, no rhonchi, no rales , no accessory muscle use Abdominal: Cirrhotic abdomen, +tenderness to palpation diffusely, no guarding, no appreciable organomegaly Ext: no gross muscle atrophy, no contractures Neuro: CN II-XI grossly intact, no focal neuro deficits Psych: Alert, oriented, appropriate affect - Labs CBC & Chem 7: 01/18/21 06:17 01/18/21 06:17 Labs: Abnormal Lab Results - Last 24 Hours (Table) 01/18/21 01/18/21 Range/Units 06:17 06:17 WBC 22.82 H (4.50-10.00) X 10*3/uL RBC 2.96 L (4.40-5.60) X 10*6/uL Hgb 9.4 L (13.0-17.0) g/dL Hct 29.2 L (39.6-50.0) % MCV 98.6 H (80.0-97.0) fL RDW 17.2 H (11.5-14.5) % Chloride 110 H (96-109) mmol/L Carbon Dioxide 16.8 L (21.6-31.8) mmol/L Anion Gap 12.20 H (4.00-12.00) mmol/L BUN 36.4 H (9.0-27.0) mg/dL Creatinine 1.6 H (0.6-1.5) mg/dL Est GFR (CKD-EPI)AfAm 54.2 L (60.0-200.0) Est GFR (CKD-EPI)NonAf 46.8 L (60.0-200.0) BUN/Creatinine Ratio 22.75 H (12.00-20.00) Ratio Calcium 8.3 L (8.7-10.3) mg/dL AST 71 H (14-35) U/L Alkaline Phosphatase 342 H (41-126) U/L Total Protein 4.4 L (6.2-8.2) g/dL Albumin 2.4 L (3.8-4.9) g/dL Albumin/Globulin Ratio 1.26 L (1.60-3.17) g/dL Microbiology - Last 24 Hours (Table) 01/17/21 06:58 Blood Culture - Preliminary Blood No Growth after 24 hours 01/14/21 16:13 Gram Stain - Preliminary Ascites Fluid Body Fluid Culture - Preliminary Assessment and Plan Plan: Septic shock with suspected abdominal source, now resolved Recent C. diff Persistent abdominal pain Moderate ascites -CT abdomen and pelvis showed a seroma which was aspirated by Gen. surgery and sent for culture which was negative, will repeat CT today -Repeat abdominal ultrasound with moderate ascites. -IR following and patient underwent paracentesis with removal of 1.7 L of ascitic fluid on 01/14/21. WBC in the 50s. D/w ID, will re-start abx due to ongoing symptoms. Pt received IV antibiotics with Zosyn along with oral diflucan both completed treatment course. Pt remains on oral vancomycin at this time. -With persistent leukocytosis will check chest x-ray, repeat CXR showing no changes with reports of reticulonodular infiltrates bilaterally. -Hyperbilirubinemia with elevated liver enzymes, distended gallbladder, and pericholecystic fluid. -Seen by GI, no plans for scopes Ascites with lower extremity edema, improving -Continue Lasix -Echocardiogram revealing a normal EF between 60 and 65% with no significant valvular abnormalities. -Ronnie barron Acute kidney injury, resolved -Off IV fluids -Continue with diuretics -Follow BMP Recent C. diff colitis, from outside hospital -Completed course of oral vancomycin Anemia, suspected due to acute blood loss from GI bleeding, stable -Status post 2 units of PRBCs since admission -Continue to monitor CBC -Stable at this time Physical Debility -PT Consult, appreciate recommendations DVT prophylaxis: SCDs Discussed with: Patient and RN Anticipated discharge date: Clinical Course to Determine Anticipated discharge place: SNF A total of 40 minutes was spent on the care of this complex patient more than 50% of the time was spent in counseling and care coordination.coordination.
--- NOTE | 2021-01-18 15:18 | CT ---
EXAMINATION TYPE: CT abdomen pelvis wo con DATE OF EXAM: 01/18/2021 COMPARISON: 01/10/2021 HISTORY: 56-year-old male Sepsis, leukocytosis CT DLP: 775.1 mGycm. Automated exposure control for dose reduction was used. TECHNIQUE: Contiguous axial scanning of the abdomen and pelvis without IV contrast. Coronal and sagit pablito reconstructions performed. FINDINGS: Heart normal size without pericardial effusion. Scattered coronary artery calcifications are present. Tiny hiatal hernia. There is a small left and trace right pleural effusion. Patchy groundglass changes in the anterior lo wer lungs, increased from prior. Severe generalized anasarca change, increased from prior. Nodular, cirrhotic hepatic morphology. Borderline hepatomegaly at 17.2 cm. Lack of IV contrast limits assessment of the solid abdominal viscera, lymph nodes, and vascular structures. There is some rounded soft tissue density in the gallbladder neck region measuring 2.9 cm, possible g allstone or sludge. Noncontrast appearance of the adrenal glands, kidneys, leaning, and pancreas show no gross abnormalit y. Curvilinear high density material near the yaakov hepatis region probably related to some prior proced ure or surgery and should be correlated clinically. Worsening, now moderate abdominal pelvic ascites. No dilated small bowel, free fluid, or free air. Oral contrast material has progressed to the mid sma ll bowel level. There is moderate stool burden. Sigmoid diverticulosis. No discrete colonic wall thickening is identi fied. Scattered mild atherosclerosis calcifications infrarenal abdominal aorta and common iliac arteries. Tiny focus of nondependent air anteriorly at the bladder likely within the lumen. Bladder is collapse d. Prostate gland normal size at 3.2 cm wide. Moderate pelvic ascites. No pelvic lymphadenopathy iden tified. There is ventral abdominal wall hernia along the supraumbilical region filled with ascites fluid meaghan uring 9.9 cm wide versus 9.6 cm, previously. Bones: Moderate degenerative change at the hips. Mild degenerative changes SI joints. Moderate degene rative disc disease L5-S1. Facet arthropathy lower lumbar spine. IMPRESSION: 1. Severe generalized anasarca/third spacing, worsening from 01/10/2021. Worsening, now moderate abd ominopelvic ascites and new small left and trace right pleural effusions. 2. Tiny focus of nondependent air anteriorly in the bladder. Correlate for any recent instrumentatio n that would account for this air. Otherwise, correlate to exclude cystitis. 3. Worsening patchy groundglass within the anterior lower lungs concerning for COVID pneumonia. 4. Cirrhotic morphology of the liver. 5. Curvilinear high density material near the yaakov hepatis probably related to some type of prior p rocedure or surgery. This should be correlated clinically. 6. Moderate-sized supraumbilical ventral abdominal wall hernia filled with ascites fluid is slightly larger now measuring nearly 10 cm wide. 7. Sigmoid diverticulosis. No definite evidence for acute diverticulitis. 8. Rounded 2.9 cm soft tissue density at the gallbladder neck region, possible gallstone or tumefact hema sludge.
--- NOTE | 2021-01-18 19:12 | PN ---
PROGRESS NOTE DATE OF SERVICE: 01/18/2021 REASON FOR FOLLOWUP: Leukocytosis. INTERVAL HISTORY: The patient is afebrile. The patient is breathing comfortably. Denies any chest pain or cough. Still has abdominal distention. Some nausea but no vomiting. Denies any further diarrhea. PHYSICAL EXAMINATION: Blood pressure 108/73 with a pulse of , temperature 97.6. He is 100% on room air. General description is a middle-aged male up in the chair in no distress. RESPIRATORY SYSTEM: Unlabored breathing. Decreased intensity of breath sounds. No wheeze. HEART: S1, S2. Regular rate and rhythm. ABDOMEN: Soft. Mildly distended. No guarding or rigidity. LABS: Hematocrit is 9.4, white count 22.3, creatinine 1.6. CT of abdomen and pelvis shows ascites but no other acute abnormality. DIAGNOSTIC IMPRESSION AND PLAN: Patient with elevated white count, multifactorial, in this patient who did have ascites from underlying cirrhosis, concern for SBP. CT did not show any other abnormality. Rocephin has been added; to continue along with Diflucan. Repeat CBC tomorrow and monitor clinical course closely. MMODL / IJN: [id number] /
[2021-01-18] MEDS: SENNOSIDES 8.6 MG TAB PO SCH (19:41)
[2021-01-19] MEDS: MORPHINE SULFATE 2 MG/ML SYRINGE IV PRN ×7 (01:46→22:37)
[2021-01-19] MEDS: SODIUM CHLORIDE 0.9% 1,000 ML IV SCH (03:27)
[2021-01-19] MEDS: SPIRONOLACTONE 25 MG TAB PO SCH ×2 (07:37→20:34)
[2021-01-19] MEDS: DOCUSATE 100 MG CAP PO SCH ×2 (07:37→20:34)
[2021-01-19] MEDS: FLUCONAZOLE 100 MG TAB PO SCH (07:37)
[2021-01-19] MEDS: FAMOTIDINE 20 MG TAB PO SCH ×2 (07:37→20:34)
[2021-01-19] MEDS: FUROSEMIDE 10 MG/ML 4 ML VIAL IV SCH ×2 (07:57→20:34)
[2021-01-19 11:16] LABS: HCT 33.3 % (39.6-50.0); HGB 10.6 g/dL (13.0-17.0); MCH 32.4 pg (27.0-32.0); MCHC 31.8 g/dL (32.0-37.0); MCV 101.8 fL (80.0-97.0); Platelet Count 161 X 10*3/uL (140-440); RBC 3.27 X 10*6/uL (4.40-5.60); RDW 16.8 % (11.5-14.5); WBC 26.19 X 10*3/uL (4.50-10.00)
--- NOTE | 2021-01-19 11:29 | P.PN ---
Subjective Progress Note Date: 01/19/21 Principal diagnosis: Anemia, ascites 56-year-old male who was admitted as a transfer from [facility] for sepsis. On admission he was noted to be anemic and gastroenterology was consulted for melena. He denies any reported blood in his stool. He does have a significant history of alcoholism and has been diagnosed with alcoholic cirrhosis of the liver. During this hospitalization on 1028 he underwent a paracentesis with 1.7 L of fluid removed. Blood cultures were negative. Patient continues to remain with elevated WBC, he has been afebrile. He has however been complaining of abdominal pain which he states today is severe. He denies any nausea or vomiting. He has had a decreased appetite but is drinking his Ensure. Yesterday he underwent a CT of the abdomen and pelvis that showed severe generalized anasarca/third spacing, worsening from 01/10/2021. Worsening now moderate abdominopelvic ascites and new small left and trace right pleural effusions. Tiny focus of nondependent air anteriorly in the bladder. Correlate for any recent instrumentation that would account for this air. Worsening patchy groundglass within the anterior lower lungs concerning for cold with pneumonia. Cirrhotic morphology of the liver. Curvilinear high density mater ial near the yaakov hepatis probably related to some type of prior procedure or surgery. Moderate-sized supraumbilical ventral abdominal wall hernia filled with ascites fluid is slightly larger now measuring nearly 10 cm wide. Sigmoid diverticulosis. No definite evidence for acute diverticulitis. Rounded 2.9 cm soft tissue density at the gallbladder neck region, possible gallstone or tumefactive sludge. Labs are Currently pending. He has been afebrile. Objective - Vital Signs Vital signs: Vital Signs Temp 97.4 F L 01/19/21 07:45 Pulse 98 01/19/21 07:45 Resp 18 01/19/21 07:45 BP 110/72 01/19/21 07:45 Pulse Ox 100 01/19/21 07:45 Intake & Output 01/18/21 01/19/21 01/19/21 18:59 06:59 18:59 Intake Total 532 Output Total 400 Balance 132 Weight 81.2 kg Intake: Oral 532 Output: Urine 400 ABP, PAP, CO, CI - Last Documented Arterial Blood Pressure 120/70 - Exam General appearance: The patient is alert, oriented, appears in no acute dist ress. HET: Head is normocephalic and atraumatic. Conjunctiva pink. Sclera anicteric. Neck: Supple without lymphadenopathy. Abdomen: Distended, abdominal ascites with ventral hernia, diffuse tenderness to palpation. No guarding or rigidity. Extremities: Normal skin color and turgor. Pedal edema. Skin: No rashes, no jaundice Neurological: No focal deficits. Alert and oriented x3. - Labs CBC & Chem 7: 01/18/21 06:17 01/18/21 06:17 Labs: Microbiology - Last 24 Hours (Table) 01/17/21 06:58 Blood Culture - Preliminary Blood No Growth after 48 hours 01/14/21 16:13 Gram Stain - Final Ascites Fluid Body Fluid Culture - Final 01/14/21 16:13 Anaerobic Culture - Final Ascites Fluid Assessment and Plan (1) Alcoholic cirrhosis of liver with ascites Narrative/Plan: 56-year-old male with a previous history of alcoholic cirrhosis of the liver with ascites. Patient states he has been a daily drinker for several years, who recently quit drinking a few months ago. Patient states he's managed by his PCP and has had 4-5 previous paracentesis done in [facility]. Patient was found unresponsive outside and brought to [facility] then transferred to our intensive care unit on 01/09/2021 for sepsis and altered mental status changes. The patient had a CT of the abdomen and pelvis that did show moderate amount of ascites. He underwent a paracentesis on 01/15/2021 with 1.7 L of fluid removed. He had a fluid protein of 717 g, fluid WBC 56, fluid culture with no growth. Patient is still with complaints of abdominal pain as well as leukocytosis. He has been afebrile. Patient was treated with vancomycin outpatient for C. difficile colitis. Need to consider spontaneous bacterial peritonitis, will discuss starting ceftriaxone with infectious disease. Current Visit: Yes Status: Acute Code(s): K70.31 - ALCOHOLIC CIRRHOSIS OF LIVER WITH ASCITES SNOMED Code(s): 058533555 (2) Macrocytic anemia Narrative/Plan: Patiently is consistent with macrocytic anemia. Likely related to underlying liver disease. Denies any signs or symptoms of GI bleed. Patient did have a positive occult stool on admission, however patient also had recent diagnosis of C. difficile colitis recently treated with vancomycin. On admission patient was noted to have a hemoglobin of 5.7, he was transfused with 2 units of PRBC transfusion. Hemoglobin has remained stable and is 9.4 today. Patient denies any previous history of EGD, last colonoscopy several years ago. No plans at this time for endoscopic evaluation. We'll continue to monitor CBC. Current Visit: Yes Status: Acute Code(s): D53.9 - NUTRITIONAL ANEMIA, UNSPECIFIED SNOMED Code(s): 70383738 (3) Abdominal pain Current Visit: Yes Status: Acute Code(s): R10.9 - UNSPECIFIED ABDOMINAL PAIN SNOMED Code(s): 85301478 (4) Sepsis Current Visit: Yes Status: Acute Code(s): A41.9 - SEPSIS, UNSPECIFIED ORGANISM SNOMED Code(s): 79723346 Plan: 1. Continue symptomatic and supportive care 2. Continue current diuretics 3. Continue ceftriaxone 2 g daily 4. Recommend Alcohol abstinence 5. No plans on endoscopic evaluation at this time 6. Continue daily CBC, CMP 7. Consult to intervention Gen. radiology for repeat paracentesis Thank you for this consultation, we will continue to follow. Dr. Karen Aleman I agree with the dictator's note, documented as a scribe by Hoda De La Torre.
[2021-01-19 12:13] LABS: Albumin 2.8 g/dL (3.8-4.9); Albumin/Globulin Ratio 1.22 (1.60-3.17); Anion Gap 15.4 mmol/L (4.00-12.00); BUN/Creat Ratio 23.11 Ratio (12.00-20.00); Blood Urea Nitrogen 41.6 mg/dL (9.0-27.0); Calcium 8.6 mg/dL (8.7-10.3); Carbon Dioxide 16.6 mmol/L (21.6-31.8); Globulin 2.3 g/dL (1.6-3.3); Non-African American GFR(CKD) 40.6 (60.0-200.0); Potassium 4.5 mmol/L (3.5-5.5); Total Bilirubin 1.3 mg/dL (0.30-1.20); Total Protein 5.1 g/dL (6.2-8.2)
[2021-01-19 14:08] LABS: Basophils # (A) 0.07 X 10*3/uL (0.00-0.10); Basophils % (A) 0.3 %; Eosinophils # (A) 0.36 X 10*3/uL (0.04-0.35); Eosinophils % (A) 1.4 %; Lymphocytes # (A) 1.06 X 10*3/uL (0.90-5.00); Monocytes # (A) 1.55 X 10*3/uL (0.20-1.00); Monocytes % (A) 5.9 %; Neutrophils # (A) 22.97 X 10*3/uL (1.80-7.70); Neutrophils % (A) 87.7 %
[2021-01-19 14:09] LABS: Crenated RBC 2+
[2021-01-19 14:11] LABS: INR 1.3 (<1.2); Prothrombin Time 13.7 sec (9.0-12.0)
--- NOTE | 2021-01-19 15:39 | P.PN ---
Subjective Progress Note Date: 01/19/21 Hospital Course: The patient is a 56-year-old male with a past medical history of cirrhosis, anemia, colitis and recent ventral hernia sx. He was reportedly living in a motel and was found to be unresponsive and hypothermic. He was taken to [facility] and was transferred to our facility for ICU admission on 01/09/21 for diagnosis of severe sepsis with septic shock as evidenced by hypotension, hypothermia, dehydration, and lactic acidosis. Initially pt was admitted to the medical ICU for septic shock with abdomen as a suspected source secondary to recent ventral hernia repair one month prior. General surgery was consulted. CT abdomen and pelvis obtained and had revealed seroma and he was maintained on broad-spectrum IV antibiotics. Initially pt required vasopressors, however these were eventually tapered off and patient was downgraded from the medical ICU. Seroma cultures came back negative. Blood cultures showing no growth after 144 hours. He was also found to have moderate ascitic fluid and underwent a paracentesis with removal of 1.7 L of fluid on 01/14/21 this was sent for culture with negative results. blood cultures showing no growth after 144 hours, gram stains negative, fungal culture negative and repeat blood cultures again showing no growth after 48 hour Physical Examination: Patient was seen and fully evaluated at bedside this morning. He reports continued diffuse abdominal pain and significant increase in abdominal distention and lower extremity edema. Morning labs reveal elevated WBC count of 26.19 and an acute kidney injury with BUN 41.6, creatinine 1.8, and GFR of 40.6 with baseline creatinine of 0.9. Pro-calcitonin 0.64. Vital signs stable and patient remains afebrile. Patient reports abdominal distention has gotten so bad it is difficult for him to take a deep breath and that he just feels full and heavy. He denies having any headache, lightheadedness, dizziness, chest pain, palpitations, shortness of breath, nausea, or vomiting. General: Chronically Ill-appearing, no acute distress, appears at stated age Derm: warm, dry Head: atraumatic, normocephalic, symmetric Eyes: EOMI, no lid lag, anicteric sclera Mouth: no lip lesion, mucus membranes moist Cardiovascular: S1S2 reg, systolic murmur, positive posterior tibial pulses bilaterally, 3+ BLE pitting edema, Lungs: CTA bilateral, no rhonchi, no rales , no accessory muscle use Abdominal: Cirrhotic abdomen, +tenderness to palpation diffusely, no guarding, no appreciable organomegaly Ext: no gross muscle atrophy, no contractures Neuro: CN II-XI grossly intact, no focal neuro deficits Psych: Alert, oriented, appropriate affect Assessment and Plan of Care: Septic shock with suspected abdominal source, now resolved Recent C. diff Persistent abdominal pain Moderate ascites -CT abdomen and pelvis showed a seroma which was aspirated by Gen. surgery and sent for culture which was negative -Repeat abdominal ultrasound with moderate ascites. -IR following and patient underwent paracentesis with removal of 1.7 L of ascitic fluid on 01/14/21. -Continue IV antibiotics: Rocephin -Continue Diflucan -ID following appreciate further recommendations. -GI following, no plans for scopes at this time. -With persistent leukocytosis will check chest x-ray, repeat CXR showing no changes with reports of reticulonodular infiltrates bilaterally. -Hyperbilirubinemia with elevated liver enzymes, distended gallbladder, and pericholecystic fluid. Repeat labs in a.m. Concern for possible cholecystitis. -Blood cultures showing no growth after 144 hours. Gram stain negative. Fungal culture negative and ascites fluid culture negative. Moderate Ascites with lower extremity edema -Continue Lasix and Aldactone -Echocardiogram revealing a normal EF between 60 and 65% with no significant valvular abnormalities. -Ronnie barron Acute kidney injury -Off IV fluids -Continue with diuretics -Follow BMP closely Recent C. diff colitis, from outside hospital -Completed course of oral vancomycin Anemia, suspected due to acute blood loss from GI bleeding, stable -Status post 2 units of PRBCs since admission -Continue to monitor CBC -Stable at this time Physical Debility -PT Consult, appreciate recommendations DVT prophylaxis: SCDs Discussed with: Patient and RN Anticipated discharge date: Clinical Course to Determine Anticipated discharge place: SNF A total of 40 minutes was spent on the care of this complex patient more than 50% of the time was spent in counseling and care coordination.coordination. Objective - Vital Signs Vital signs: Vital Signs Temp 97.4 F L 01/19/21 07:45 Pulse 98 01/19/21 07:45 Resp 18 01/19/21 07:45 BP 110/72 01/19/21 07:45 Pulse Ox 100 01/19/21 07:45 Intake & Output 01/18/21 01/19/21 01/19/21 18:59 06:59 18:59 Intake Total 532 Output Total 400 Balance 132 Weight 81.2 kg Intake: Oral 532 Output: Urine 400 ABP, PAP, CO, CI - Last Documented Arterial Blood Pressure 120/70 - Labs CBC & Chem 7: 01/19/21 06:48 01/19/21 06:48 Labs: Abnormal Lab Results - Last 24 Hours (Table) 01/18/21 01/18/21 Range/Units 06:17 06:17 WBC 22.82 H (4.50-10.00) X 10*3/uL RBC 2.96 L (4.40-5.60) X 10*6/uL Hgb 9.4 L (13.0-17.0) g/dL Hct 29.2 L (39.6-50.0) % MCV 98.6 H (80.0-97.0) fL RDW 17.2 H (11.5-14.5) % Chloride 110 H (96-109) mmol/L Carbon Dioxide 16.8 L (21.6-31.8) mmol/L Anion Gap 12.20 H (4.00-12.00) mmol/L BUN 36.4 H (9.0-27.0) mg/dL Creatinine 1.6 H (0.6-1.5) mg/dL Est GFR (CKD-EPI)AfAm 54.2 L (60.0-200.0) Est GFR (CKD-EPI)NonAf 46.8 L (60.0-200.0) BUN/Creatinine Ratio 22.75 H (12.00-20.00) Ratio Calcium 8.3 L (8.7-10.3) mg/dL AST 71 H (14-35) U/L Alkaline Phosphatase 342 H (41-126) U/L Total Protein 4.4 L (6.2-8.2) g/dL Albumin 2.4 L (3.8-4.9) g/dL Albumin/Globulin Ratio 1.26 L (1.60-3.17) g/dL Microbiology - Last 24 Hours (Table) 01/14/21 16:13 Gram Stain - Final Ascites Fluid Body Fluid Culture - Final 01/14/21 16:13 Anaerobic Culture - Final Ascites Fluid 01/17/21 06:58 Blood Culture - Preliminary Blood No Growth after 24 hours
[2021-01-19] MEDS: SENNOSIDES 8.6 MG TAB PO SCH (20:34)
--- NOTE | 2021-01-19 22:07 | PN ---
PROGRESS NOTE DATE OF SERVICE: 01/19/2021 REASON FOR FOLLOWUP: Leukocytosis. INTERVAL HISTORY: The patient is afebrile; has been complaining of more abdominal distention and discomfort. Slight nausea but no vomiting. No diarrhea. He is currently breathing comfortably on room air. PHYSICAL EXAMINATION: Blood pressure 104/71 with a pulse of 89, temperature 97.5. He is 100% on room air. General description is a middle-aged male lying in bed in no distress. RESPIRATORY SYSTEM: Unlabored breathing. Decreased intensity of breath sounds. No wheeze. HEART: S1, S2. Regular rate and rhythm. ABDOMEN: Soft. Mildly distended. No guarding or rigidity. LABS: Hemoglobin is 10.8, white count 6.19. Creatinine is up to 1.8. DIAGNOSTIC IMPRESSION AND PLAN: Patient with leukocytosis in this patient who had extensive workup. CT of abdomen and pelvis did show extensive ascites and did show some abnormality in the gallbladder neck area and a question of possible cholecystitis. Antibiotic was adjusted to Zosyn. Will check an ultrasound of the gallbladder area and continue supportive care. MMODL / IJN: [id number] /
[2021-01-19] MEDS: PIPERACILLIN-TAZOBACTAM 3.375 GM in SODIUM CHLORIDE 0.9% 100 ML IVPB SCH (22:38)
[2021-01-20] MEDS: MORPHINE SULFATE 2 MG/ML SYRINGE IV PRN ×6 (02:06→19:32)
[2021-01-20] MEDS: SODIUM CHLORIDE 0.9% 1,000 ML IV SCH (02:39)
[2021-01-20] MEDS: DOCUSATE 100 MG CAP PO SCH ×2 (07:34→20:24)
[2021-01-20] MEDS: FAMOTIDINE 20 MG TAB PO SCH (07:38)
[2021-01-20] MEDS: SPIRONOLACTONE 25 MG TAB PO SCH ×2 (07:39→21:05)
[2021-01-20] MEDS: FUROSEMIDE 10 MG/ML 4 ML VIAL IV SCH ×2 (07:54→21:05)
[2021-01-20] MEDS: FLUCONAZOLE 100 MG TAB PO SCH (07:55)
[2021-01-20] MEDS: PIPERACILLIN-TAZOBACTAM 3.375 GM in SODIUM CHLORIDE 0.9% 100 ML IVPB SCH ×2 (07:55→16:16)
--- NOTE | 2021-01-20 08:09 | US ---
EXAMINATION TYPE: US abdomen limited DATE OF EXAM: 01/20/2021 COMPARISON: CT 01/18/2021 CLINICAL HISTORY: 56-year-old male abnormal CT. Per RN, assess for ascites for possible paracentesis today TECHNIQUE: Multiple sonographic images of the 4 abdominal quadrants for assessment of ascites fluid. FINDINGS: Ascites is imaged in all 4 abdominal quadrants with largest pocket in RLQ = 8.8cm A/P. IMPRESSION: Moderate overall abdominal ascites fluid. 9 mm pocket in the right lower quadrant.
--- NOTE | 2021-01-20 11:02 | P.PN ---
Subjective Progress Note Date: 01/20/21 Principal diagnosis: Anemia, ascites 56-year-old male who was admitted as a transfer from [facility] for sepsis. On admission he was noted to be anemic and gastroenterology was consulted for melena. He denies any reported blood in his stool. He does have a significant history of alcoholism and has been diagnosed with alcoholic cirrhosis of the liver. During this hospitalization on 1029 he underwent a paracentesis with 1.7 L of fluid removed. Blood cultures were negative. Patient continues to remain with elevated WBC, he has been afebrile. shouldn't states still having abdominal pain. He did have an abdominal ultrasound this morning that again showed ascites. Plan is for paracentesis with fluid studies today. Today's labs are currently pending. He remains afebrile Objective - Vital Signs Vital signs: Vital Signs Temp 97.5 F L 01/20/21 07:41 Pulse 95 01/20/21 10:51 Resp 18 01/20/21 10:51 BP 107/70 01/20/21 10:51 Pulse Ox 97 01/20/21 10:51 Intake & Output 01/19/21 01/20/21 01/20/21 18:59 06:59 18:59 Weight 81.2 kg 88.5 kg Other: Voiding Method Urinal ABP, PAP, CO, CI - Last Documented Arterial Blood Pressure 120/70 - Exam General appearance: The patient is alert, oriented, appears in no acute distress. HET: Head is normocephalic and atraumatic. Conjunctiva pink. Sclera anicteric. Neck: Supple without lymphadenopathy. Abdomen: Distended, abdominal ascites with ventral hernia, diffuse tenderness to palpation. No guarding or rigidity. Extremities: Normal skin color and turgor. Pedal edema. Skin: No rashes, no jaundice Neurological: No focal deficits. Alert and oriented x3. - Labs CBC & Chem 7: 01/19/21 06:48 01/19/21 06:48 Labs: Abnormal Lab Results - Last 24 Hours (Table) 01/19/21 01/19/21 01/19/21 Range/Units 06:48 06:48 13:07 WBC 26.19 H (4.50-10.00) X 10*3/uL RBC 3.27 L (4.40-5.60) X 10*6/uL Hgb 10.6 L (13.0-17.0) g/dL Hct 33.3 L (39.6-50.0) % MCV 101.8 H (80.0-97.0) fL MCH 32.4 H (27.0-32.0) pg MCHC 31.8 L (32.0-37.0) g/dL RDW 16.8 H (11.5-14.5) % Immature Gran # 0.18 H (0.00-0.04) X 10*3/uL Neutrophils # 22.97 H (1.80-7.70) X 10*3/uL Monocytes # 1.55 H (0.20-1.00) X 10*3/uL Eosinophils # 0.36 H (0.04-0.35) X 10*3/uL PT 13.7 H (9.0-12.0) sec INR 1.3 H (<1.2) Carbon Dioxide 16.6 L (21.6-31.8) mmol/L Anion Gap 15.40 H (4.00-12.00) mmol/L BUN 41.6 H (9.0-27.0) mg/dL Creatinine 1.8 H (0.6-1.5) mg/dL Est GFR (CKD-EPI)AfAm 47.0 L (60.0-200.0) Est GFR (CKD-EPI)NonAf 40.6 L (60.0-200.0) BUN/Creatinine Ratio 23.11 H (12.00-20.00) Ratio Calcium 8.6 L (8.7-10.3) mg/dL Total Bilirubin 1.30 H (0.30-1.20) mg/dL AST 94 H (14-35) U/L Alkaline Phosphatase 392 H (41-126) U/L Total Protein 5.1 L (6.2-8.2) g/dL Albumin 2.8 L (3.8-4.9) g/dL Albumin/Globulin Ratio 1.22 L (1.60-3.17) g/dL Microbiology - Last 24 Hours (Table) 01/17/21 06:58 Blood Culture - Preliminary Blood No Growth after 72 hours Assessment and Plan (1) Alcoholic cirrhosis of liver with ascites Narrative/Plan: 56-year-old male with a previous history of alcoholic cirrhosis of the liver with ascites. Patient states he has been a daily drinker for several years, who recently quit drinking a few months ago. Patient states he's managed by his PCP and has had 4-5 previous paracentesis done in [facility]. Patient was found unresponsive outside and brought to [facility] then transferred to our intensive care unit on 01/09/2021 for sepsis and altered mental status changes. The patient had a CT of the abdomen and pelvis that did show moderate amount of ascites. He underwent a paracentesis on 01/15/2021 with 1.7 L of fluid removed. He had a fluid protein of 717 g, fluid WBC 56, fluid culture with no growth. Patient is still with complaints of abdominal pain as well as leukocytosis. He has been afebrile. Patient was treated with vancomycin outpatient for C. difficile colitis. Need to consider spontaneous bacterial peritonitis, will discuss starting ceftriaxone with infectious disease. Current Visit: Yes Status: Acute Code(s): K70.31 - ALCOHOLIC CIRRHOSIS OF LIVER WITH ASCITES SNOMED Code(s): 821682248 (2) Macrocytic anemia Narrative/Plan: Patiently is consistent with macrocytic anemia. Likely related to underlying liver disease. Denies any signs or symptoms of GI bleed. Patient did have a positive occult stool on admission, however patient also had recent diagnosis of C. difficile colitis recently treated with vancomycin. On admission patient was noted to have a hemoglobin of 5.7, he was transfused with 2 units of PRBC transfusion. Hemoglobin has remained stable and is 9.4 today. Patient denies any previous history of EGD, last colonoscopy several years ago. No plans at this time for endoscopic evaluation. We'll continue to monitor CBC. Current Visit: Yes Status: Acute Code(s): D53.9 - NUTRITIONAL ANEMIA, UNSPECIFIED SNOMED Code(s): 50966251 (3) Abdominal pain Current Visit: Yes Status: Acute Code(s): R10.9 - UNSPECIFIED ABDOMINAL PAIN SNOMED Code(s): 26498698 (4) Sepsis Current Visit: Yes Status: Acute Code(s): A41.9 - SEPSIS, UNSPECIFIED ORGANISM SNOMED Code(s): 79197397 (5) Leukocytosis Current Visit: Yes Status: Acute Code(s): D72.829 - ELEVATED WHITE BLOOD CELL COUNT, UNSPECIFIED SNOMED Code(s): 783609081 Plan: 1. Continue symptomatic and supportive care 2. Continue current diuretics 3. Continue ceftriaxone 2 g daily 4. Recommend Alcohol abstinence 5. No plans on endoscopic evaluation at this time 6. Continue daily CBC, CMP 7. Consult to intervention Gen. radiology for repeat paracentesiswith fluid studies 8. Continue with recommendations from infectious disease for leukocytosis Thank you for this consultation, we will continue to follow. Dr. Karen Aleman I agree with the dictator's note, documented as a scribe by Hoda De La Torre.
--- NOTE | 2021-01-20 13:00 | US ---
EXAMINATION TYPE: US paracentesis abd w/image DATE OF EXAM: 01/20/2021 COMPARISON: NONE HISTORY: Ascites. PROCEDURE: Maximal barrier technique was utilized. The skin overlying a suitable pocket of fluid was localized with ultrasound and the overlying skin was prepped and draped. Ultrasound was utilized with sterile technique. Lidocaine was used for local anesthesia and a skin garrett made with a scalpel. Catheter was advanced under direct ultrasound guidance into a suitable pocket of fluid and approximately 3.6 liter s of serous fluid were removed. Catheter was withdrawn and hemostasis achieved. There is no immedia te complication; the patient is discharged in stable condition. IMPRESSION: STATUS POST ULTRASOUND GUIDED PARACENTESIS FOR PALLIATION OF ASCITES. THIS PROCEDURE WA S PERFORMED BY THE UNDERSIGNED. Specimen submitted for laboratory analysis.
[2021-01-20 15:03] LABS: Appearance,BF Hazy; Nucleated Cells, Body Fluid 41 /uL; RBC, Body Fluid 76 /uL
[2021-01-20 15:58] LABS: Mononuclear WBC,Body Fluid 71 %; Polynuclear WBC,Body Fluid 29 %; Total Cells Counted,Body Fluid 100
[2021-01-20 17:04] LABS: Basophils # (A) 0.1 k/uL (0-0.2); Basophils % (A) 1 %; Eosinophils # (A) 0.4 k/uL (0-0.7); Eosinophils % (A) 2 %; HCT 34.2 % (39.0-53.0); HGB 9.7 gm/dL (13.0-17.5); Hypochromasia Marked; Lymphocytes # (A) 0.7 k/uL (1.0-4.8); Lymphocytes % (A) 3 %; MCH 32.3 pg (25.0-35.0); MCHC 28.5 g/dL (31.0-37.0); MCV 113.5 fL (80.0-100.0); Macrocytosis Marked; Mean Platelet Volume 8.6; Monocytes % (A) 4 %; Neutrophils # (A) 20.1 k/uL (1.3-7.7); Neutrophils % (A) 88 %; Platelet Count 120 k/uL (150-450); RBC 3.01 m/uL (4.30-5.90); RDW 15.7 % (11.5-15.5); WBC 22.9 k/uL (3.8-10.6)
--- NOTE | 2021-01-20 18:11 | P.PN ---
<Mendez Berger - Last Filed: 01/20/21 17:17> Subjective Progress Note Date: 01/20/21 Hospital Course: The patient is a 56-year-old male with a past medical history of cirrhosis, anemia, colitis and recent ventral hernia sx. He was reportedly living in a motel and was found to be unresponsive and hypothermic. He was taken to [facility] and was transferred to our facility for ICU admission on 01/09/21 for diagnosis of severe sepsis with septic shock as evidenced by hypotension, hypothermia, dehydration, and lactic acidosis. Initially pt was admitted to the medical ICU for septic shock with abdomen as a suspected source secondary to recent ventral hernia repair one month prior. General surgery was consulted. CT abdomen and pelvis obtained and had revealed seroma and he was maintained on broad-spectrum IV antibiotics. Initially pt required vasopressors, however these were eventually tapered off and patient was downgraded from the medical ICU. Seroma cultures came back negative. Blood cultures showing no growth after 144 hours. He was also found to have moderate ascitic fluid and underwent a paracentesis with removal of 1.7 L of fluid on 01/14/21 this was sent for culture with negative results. blood cultures showing no growth after 144 hours, gram stains negative, fungal culture negative and repeat blood cultures again showing no growth after 72 hours. Physical Examination: Patient was seen and fully evaluated at bedside upon return from paracentesis completed this morning. Patient reports feeling "relieved". He states he has continued abdominal pain/discomfort. But states fullness and heaviness significantly improved after having paracentesis. Patient denies having any headache, lightheadedness, dizziness, chest pain, palpitations, or shortness of breath at this time. Morning labs reveal continued leukocytosis with WBC count of 22.9, thrombocytopenia with platelet count of 120, and stable macrocytic hyperchromic anemia with hemoglobin of 9.7. Paracentesis report stated removal of approximately 3.6 L of ascitic fluid. General: Chronically Ill-appearing, no acute distress, appears at stated age Derm: warm, dry Head: atraumatic, normocephalic, symmetric Eyes: EOMI, no lid lag, anicteric sclera Mouth: no lip lesion, mucus membranes moist Cardiovascular: S1S2 reg, systolic murmur, positive posterior tibial pulses bilaterally, 3+ BLE pitting edema, Lungs: CTA bilateral, no rhonchi, no rales , no accessory muscle use Abdominal: Cirrhotic abdomen, +tenderness to palpation diffusely, no guarding, no appreciable organomegaly Ext: no gross muscle atrophy, no contractures Neuro: CN II-XI grossly intact, no focal neuro deficits Psych: Alert, oriented, appropriate affect Assessment and Plan of Care: Septic shock with suspected abdominal source, now resolved Recent C. diff Persistent abdominal pain Moderate ascites Significant leukocytosis -CT abdomen and pelvis showed a seroma which was aspirated by Gen. surgery and sent for culture which was negative -Repeat abdominal ultrasound with moderate ascites. -IR following and patient underwent paracentesis with removal of 1.7 L of ascitic fluid on 01/14/21. Patient underwent repeat paracentesis this morning in which approximately 3.6 L of fluid was removed. -Rocephin discontinued and ID place patient on Zosyn along with continued Diflucan. -ID following appreciate further recommendations. -GI following, no plans for scopes at this time. -With persistent leukocytosis will check chest x-ray, repeat CXR showing no changes with reports of reticulonodular infiltrates bilaterally. -Hyperbilirubinemia with elevated liver enzymes, distended gallbladder, and pericholecystic fluid. Repeat labs in a.m. Concern for possible cholecystitis. -Blood cultures showing no growth after 144 hours. Gram stain negative. Fungal culture negative and ascites fluid culture negative. Repeat blood culture showing no growth after 72 hours. Moderate Ascites with lower extremity edema Generalized Weakness reported secondary to swelling -Continue Lasix and Aldactone -Echocardiogram revealing a normal EF between 60 and 65% with no significant valvular abnormalities. -Ronnie barron PT/OT Acute kidney injury -Off IV fluids -Continue with diuretics -Follow BMP closely Recent C. diff colitis, from outside hospital -Completed course of oral vancomycin Anemia, suspected due to acute blood loss from GI bleeding, stable normocytic hyperchromic anemia -Status post 2 units of PRBCs since admission -Continue to monitor CBC -Stable at this time. Thrombocytopenia -We will continue to monitor with repeat a.m. labs. Physical Debility -PT Consult, appreciate recommendations DVT prophylaxis: SCDs Discussed with: Patient and RN Anticipated discharge date: Clinical Course to Determine Anticipated discharge place: [facility] A total of 40 minutes was spent on the care of this complex patient more than 50% of the time was spent in counseling and care coordination.coordination. Objective - Vital Signs Vital signs: Vital Signs Temp 97.5 F L 01/20/21 07:41 Pulse 91 01/20/21 07:41 Resp 17 01/20/21 07:41 BP 106/75 01/20/21 07:41 Pulse Ox 99 01/20/21 07:41 Intake & Output 01/19/21 01/20/21 01/20/21 18:59 06:59 18:59 Weight 81.2 kg Other: Voiding Method Urinal ABP, PAP, CO, CI - Last Documented Arterial Blood Pressure 120/70 - Labs CBC & Chem 7: 01/20/21 16:10 01/19/21 06:48 Labs: Abnormal Lab Results - Last 24 Hours (Table) 01/19/21 01/19/21 01/19/21 Range/Units 06:48 06:48 13:07 WBC 26.19 H (4.50-10.00) X 10*3/uL RBC 3.27 L (4.40-5.60) X 10*6/uL Hgb 10.6 L (13.0-17.0) g/dL Hct 33.3 L (39.6-50.0) % MCV 101.8 H (80.0-97.0) fL MCH 32.4 H (27.0-32.0) pg MCHC 31.8 L (32.0-37.0) g/dL RDW 16.8 H (11.5-14.5) % Immature Gran # 0.18 H (0.00-0.04) X 10*3/uL Neutrophils # 22.97 H (1.80-7.70) X 10*3/uL Monocytes # 1.55 H (0.20-1.00) X 10*3/uL Eosinophils # 0.36 H (0.04-0.35) X 10*3/uL PT 13.7 H (9.0-12.0) sec INR 1.3 H (<1.2) Carbon Dioxide 16.6 L (21.6-31.8) mmol/L Anion Gap 15.40 H (4.00-12.00) mmol/L BUN 41.6 H (9.0-27.0) mg/dL Creatinine 1.8 H (0.6-1.5) mg/dL Est GFR (CKD-EPI)AfAm 47.0 L (60.0-200.0) Est GFR (CKD-EPI)NonAf 40.6 L (60.0-200.0) BUN/Creatinine Ratio 23.11 H (12.00-20.00) Ratio Calcium 8.6 L (8.7-10.3) mg/dL Total Bilirubin 1.30 H (0.30-1.20) mg/dL AST 94 H (14-35) U/L Alkaline Phosphatase 392 H (41-126) U/L Total Protein 5.1 L (6.2-8.2) g/dL Albumin 2.8 L (3.8-4.9) g/dL Albumin/Globulin Ratio 1.22 L (1.60-3.17) g/dL Microbiology - Last 24 Hours (Table) 01/17/21 06:58 Blood Culture - Preliminary Blood No Growth after 48 hours <Yajaira Anna - Last Filed: 01/20/21 22:45> Subjective Mendez Berger NP rendered care for this patient independently, reviewed the findings and plan as documented in the note above. I did not physically speak with or examine the patient on this date. Add oncology due to persistent leukocytosis with ABX use and no definitive source Objective - Vital Signs Vital signs: Vital Signs Temp 97.8 F 01/20/21 19:36 Pulse 96 01/20/21 19:55 Resp 18 01/20/21 19:55 BP 114/58 01/20/21 19:36 Pulse Ox 97 01/20/21 19:36 Intake & Output 01/20/21 01/20/21 01/21/21 06:59 18:59 06:59 Intake Total 236 236 Output Total 400 Balance 236 -164 Weight 88.5 kg 88.5 kg Intake: Oral 236 236 Output: Urine 400 Other: Voiding Method Urinal # Voids 3 ABP, PAP, CO, CI - Last Documented Arterial Blood Pressure 120/70 - Labs CBC & Chem 7: 01/20/21 16:10 01/20/21 19:09 Labs: Abnormal Lab Results - Last 24 Hours (Table) 01/20/21 01/20/21 Range/Units 16:10 19:09 WBC 22.9 H (3.8-10.6) k/uL RBC 3.01 L (4.30-5.90) m/uL Hgb 9.7 L (13.0-17.5) gm/dL Hct 34.2 L (39.0-53.0) % MCV 113.5 H D (80.0-100.0) fL MCHC 28.5 L (31.0-37.0) g/dL RDW 15.7 H (11.5-15.5) % Plt Count 120 L (150-450) k/uL Neutrophils # 20.1 H (1.3-7.7) k/uL Lymphocytes # 0.7 L (1.0-4.8) k/uL Macrocytosis Marked A Sodium 136 L (137-145) mmol/L Chloride 108 H (98-107) mmol/L Carbon Dioxide 20 L (22-30) mmol/L BUN 47 H (9-20) mg/dL Creatinine 2.03 H (0.66-1.25) mg/dL Glucose 121 H (74-99) mg/dL AST 91 H (17-59) U/L Alkaline Phosphatase 330 H (38-126) U/L Total Protein 4.8 L (6.3-8.2) g/dL Albumin 2.2 L (3.5-5.0) g/dL Microbiology - Last 24 Hours (Table) 01/20/21 11:15 Body Fluid Culture - Preliminary Paracentesis Fluid 01/17/21 06:58 Blood Culture - Preliminary Blood No Growth after 72 hours
[2021-01-20 19:27] LABS: ALT 34 U/L (4-49); AST 91 U/L (17-59); African American GFR (CKD) 41 (>60 ml/min/1.73 sqM); Albumin 2.2 g/dL (3.5-5.0); Albumin/Globulin Ratio 0.8; Alkaline Phosphatase 330 U/L (38-126); Anion Gap 8 mmol/L; Blood Urea Nitrogen 47 mg/dL (9-20); Calcium 8.4 mg/dL (8.4-10.2); Carbon Dioxide 20 mmol/L (22-30); Chloride 108 mmol/L (98-107); Globulin 2.6 g/dL; Glucose 121 mg/dL (74-99); Magnesium 1.8 mg/dL (1.6-2.3); Non-African American GFR(CKD) 35 (>60 ml/min/1.73 sqM); Potassium 4.6 mmol/L (3.5-5.1); Sodium 136 mmol/L (137-145); Total Bilirubin 1.1 mg/dL (0.2-1.3); Total Protein 4.8 g/dL (6.3-8.2)
[2021-01-20] MEDS: SENNOSIDES 8.6 MG TAB PO SCH (20:24)
--- NOTE | 2021-01-20 23:40 | PN ---
PROGRESS NOTE DATE OF SERVICE: 01/20/2021 REASON FOR FOLLOW UP: Leukocytosis. INTERVAL HISTORY: Patient is status post paracentesis. Patient has tolerated the procedure and no discomfort. Denies any chest pain, shortness of breath or cough. No vomiting or any diarrhea. PHYSICAL EXAMINATION: Blood pressure 114/58 with a pulse of 93, temperature 97.8. He is 97% on room air. General description is a middle-aged male up in the bed in no distress. Respiratory system: Unlabored breathing. Decreased breath sounds at the base. No wheeze. Heart S1, S2. Regular rate and rhythm. Abdomen: Soft. Mild distention. No guarding. No rigidity. LABS: Hemoglobin is 9.1, white count 22.9, creatinine is 2.03. DIAGNOSTIC IMPRESSION AND PLAN: Patient with elevated white count. Multifactorial in this patient who did have cirrhosis of the liver, significant . No other significant focus has been noticed. White count responded with addition of Zosyn that will continue while waiting for the culture to finalize. Monitor clinical course closely. MMODL / IJN: [id number] /
[2021-01-21] MEDS: PIPERACILLIN-TAZOBACTAM 3.375 GM in SODIUM CHLORIDE 0.9% 100 ML IVPB SCH ×4 (02:28→21:06)
[2021-01-21] MEDS: MORPHINE SULFATE 2 MG/ML SYRINGE IV PRN ×5 (02:29→21:07)
[2021-01-21 02:31] LABS: Total Protein, Body Fluid 703 mg/dL
[2021-01-21] MEDS: SODIUM CHLORIDE 0.9% 1,000 ML IV SCH (04:40)
[2021-01-21] MEDS: FLUCONAZOLE 100 MG TAB PO SCH (07:42)
[2021-01-21] MEDS: SPIRONOLACTONE 25 MG TAB PO SCH ×2 (07:42→21:10)
[2021-01-21] MEDS: DOCUSATE 100 MG CAP PO SCH ×2 (07:42→21:11)
[2021-01-21] MEDS: FUROSEMIDE 10 MG/ML 4 ML VIAL IV SCH (07:42)
[2021-01-21] MEDS: FAMOTIDINE 20 MG TAB PO SCH (07:42)
[2021-01-21 09:37] LABS: HGB 10.2 g/dL (13.0-17.0); MCH 31.8 pg (27.0-32.0); MCHC 31.9 g/dL (32.0-37.0); MCV 99.7 fL (80.0-97.0); Mean Platelet Volume 11.1 fL (9.5-12.2); Platelet Count 158 X 10*3/uL (140-440); RBC 3.21 X 10*6/uL (4.40-5.60); RDW 16.7 % (11.5-14.5); WBC 25.07 X 10*3/uL (4.50-10.00)
[2021-01-21 14:02] LABS: African American GFR (CKD) 36.7 (60.0-200.0); Albumin 2.4 g/dL (3.8-4.9); Albumin/Globulin Ratio 1.08 (1.60-3.17); Anion Gap 15.8 mmol/L (4.00-12.00); BUN/Creat Ratio 20.23 Ratio (12.00-20.00); Blood Urea Nitrogen 44.7 mg/dL (9.0-27.0); Calcium 8.4 mg/dL (8.7-10.3); Carbon Dioxide 17.3 mmol/L (21.6-31.8); Globulin 2.2 g/dL (1.6-3.3); Magnesium 1.8 mg/dL (1.5-2.4); Non-African American GFR(CKD) 31.7 (60.0-200.0); Potassium 4.5 mmol/L (3.5-5.5); Total Bilirubin 1.1 mg/dL (0.30-1.20); Total Protein 4.7 g/dL (6.2-8.2)
--- NOTE | 2021-01-21 14:17 | P.CONS ---
History of Present Illness - Reason for Consult Consult date: 01/21/21 leukocytosis, not responding to abx Requesting physician: Yajaira Anna - Chief Complaint abdominal pain - History of Present Illness Mr. Aggarwal is a patient we were asked to see for his persistent Leukocytosis despite infection treatment, He has a known history of ETOH and liver disease, recurrent abdominal ascites - last cytology neg malignancy. Status Post Palliaitive paracentesis for recurrent ascites. He denies ETOH, but then changes his story, therefore as an historian not sure quite accurate. Review of Systems All systems: negative Constitutional: Reports as per HPI Past Medical History Past Medical History: Unable to Obtain, Liver Disease Additional Past Medical History / Comment(s): anemia, colitis, chirrosis History of Any Multi-Drug Resistant Organisms: None Reported Past Surgical History: Unable to Obtain Additional Past Surgical History / Comment(s): patient states ex-lap for an ulcer, anterior abdominal wall hernia repair approximately a month ago Past Anesthesia/Blood Transfusion Reactions: No Reported Reaction Past Psychological History: No Psychological Hx Reported Smoking Status: Current some day smoker Past Alcohol Use History: Abuse Past Drug Use History: None Reported Medications and Allergies Home Medications Medication Instructions Recorded Confirmed Type Albuterol Sulfate [Proair Hfa] 2 puff INHALATION RT-Q4H PRN 01/09/21 01/09/21 History Dicyclomine [Bentyl] 20 mg PO QID PRN 01/09/21 01/09/21 History HYDROcodone/APAP 10-325MG [Solomons 1 tab PO Q4H PRN 01/09/21 01/09/21 History 10-325] Lisdexamfetamine Dimesylate 70 mg PO DAILY 01/09/21 01/09/21 History [Vyvanse] Pantoprazole Sodium 40 mg PO DAILY PRN 01/09/21 01/09/21 History Promethazine [Phenergan] 25 mg PO Q4H PRN 01/09/21 01/09/21 History Sucralfate [Carafate] 1 gm PO ACHS PRN 01/09/21 01/09/21 History Vancomycin HCl [Vancocin HCl] 125 mg PO QID 01/09/21 01/09/21 History Allergies Allergy/AdvReac Type Severity Reaction Status Date / Time No Known Allergies Allergy Verified 01/09/21 13:38 Physical Exam Vitals: Vital Signs Temp Pulse Resp BP Pulse Ox 01/21/21 08:00 97.4 F L 93 18 102/67 100 01/21/21 02:00 97.5 F L 95 17 99/65 99 01/20/21 19:55 96 18 01/20/21 19:36 97.8 F 96 18 114/58 97 01/20/21 14:00 97.5 F L 99 16 109/70 100 Intake and Output 01/20/21 01/21/21 01/21/21 22:59 06:59 14:59 Intake Total 236 Output Total 400 Balance -164 Intake: Oral 236 Output: Urine 400 Other: Voiding Method Urinal # Voids 3 Weight 88.5 kg - Constitutional General appearance: cooperative, no acute distress - EENT Eyes: poor dentition, scleral icterus ENT: NA/AT - Neck Neck: normal ROM - Respiratory Respiratory: bilateral: diminished - Cardiovascular Rhythm: regularly irregular - Gastrointestinal General gastrointestinal: distended, tenderness - Integumentary Integumentary: jaundiced, pale - Neurologic non focal - Musculoskeletal Musculoskeletal: generalized weakness - Psychiatric Psychiatric: A&O x's 3 Results CBC & Chem 7: 01/21/21 06:07 01/20/21 19:09 Labs: Abnormal Lab Results - Last 24 Hours (Table) 01/20/21 01/20/21 01/21/21 Range/Units 16:10 19:09 06:07 WBC 22.9 H 25.07 H (3.8-10.6) k/uL RBC 3.01 L 3.21 L (4.30-5.90) m/uL Hgb 9.7 L 10.2 L (13.0-17.5) gm/dL Hct 34.2 L 32.0 L (39.0-53.0) % MCV 113.5 H D 99.7 H (80.0-100.0) fL MCHC 28.5 L 31.9 L (31.0-37.0) g/dL RDW 15.7 H 16.7 H (11.5-15.5) % Plt Count 120 L (150-450) k/uL Neutrophils # 20.1 H (1.3-7.7) k/uL Lymphocytes # 0.7 L (1.0-4.8) k/uL Macrocytosis Marked A Sodium 136 L (137-145) mmol/L Chloride 108 H (98-107) mmol/L Carbon Dioxide 20 L (22-30) mmol/L BUN 47 H (9-20) mg/dL Creatinine 2.03 H (0.66-1.25) mg/dL Glucose 121 H (74-99) mg/dL AST 91 H (17-59) U/L Alkaline Phosphatase 330 H (38-126) U/L Total Protein 4.8 L (6.3-8.2) g/dL Albumin 2.2 L (3.5-5.0) g/dL Microbiology - Last 24 Hours (Table) 01/20/21 11:15 Gram Stain - Preliminary Paracentesis Fluid Body Fluid Culture - Preliminary 01/17/21 06:58 Blood Culture - Preliminary Blood No Growth after [address] scan - abdomen: report reviewed CT scan - pelvis: report reviewed US - abdomen: report reviewed Assessment and Plan (1) Macrocytosis Current Visit: Yes Status: Acute Code(s): D75.89 - OTHER SPECIFIED DISEASES OF BLOOD AND BLOOD-FORMING ORGANS SNOMED Code(s): 622630072 (2) LACEY (acute kidney injury) Current Visit: Yes Status: Acute Code(s): N17.9 - ACUTE KIDNEY FAILURE, UNSPECIFIED SNOMED Code(s): 94920684 (3) Abdominal pain Current Visit: Yes Status: Acute Code(s): R10.9 - UNSPECIFIED ABDOMINAL PAIN SNOMED Code(s): 55031692 (4) Alcoholic cirrhosis of liver with ascites Current Visit: Yes Status: Acute Code(s): K70.31 - ALCOHOLIC CIRRHOSIS OF LIVER WITH ASCITES SNOMED Code(s): 231562536 (5) Leukocytosis Current Visit: Yes Status: Acute Code(s): D72.829 - ELEVATED WHITE BLOOD CELL COUNT, UNSPECIFIED SNOMED Code(s): 246268063 Plan: leukocytosis, macrocytosis, and mild thrombocytopenia. Leukocytosis likely reactive to viral infectious and/or underlying inflammatory process, further work-up has been ordered. Await results of further work-up, likely most stems from ETOH cirrhosis Status post Paracentesis - Would send culture if has not been sent. Very tender to abdomen exam Physician Attest: I have completed the full history and physical and agree with above dictation, dictated as a scribe.
--- NOTE | 2021-01-21 14:25 | P.PN ---
Subjective Progress Note Date: 01/21/21 Principal diagnosis: Anemia, ascites 56-year-old male who was admitted as a transfer from [facility] for sepsis. On admission he was noted to be anemic and gastroenterology was consulted for melena. He denies any reported blood in his stool. He does have a significant history of alcoholism and has been diagnosed with alcoholic cirrhosis of the liver. Patient underwent paracentesis yesterday with 3.6 L of fluid removed. Infectious disease changed patient from ceftriaxone to Zosyn. Patient still has evidence of leukocytosis with a WBC of 25. The patient act ually states he is feeling better today. He still has abdominal pain however feeling some improvement. He denies any fevers or chills. He is eating and has a little bit more appetite. He has been afebrile. Bowel movements have been normal last bowel movement this morning. Objective - Vital Signs Vital signs: Vital Signs Temp 97.4 F L 01/21/21 08:00 Pulse 93 01/21/21 08:00 Resp 18 01/21/21 08:00 BP 102/67 01/21/21 08:00 Pulse Ox 100 01/21/21 08:00 Intake & Output 01/20/21 01/21/21 01/21/21 18:59 06:59 18:59 Intake Total 236 236 Output Total 400 Balance 236 -164 Weight 88.5 kg Intake: Oral 236 236 Output: Urine 400 Other: Voiding Method Urinal # Voids 3 ABP, PAP, CO, CI - Last Documented Arterial Blood Pressure 120/70 - Exam General appearance: The patient is alert, oriented, appears in no acute distress. HET: Head is normocephalic and atraumatic. Conjunctiva pink. Sclera anicteric. Neck: Supple without lymphadenopathy. Abdomen: Soft, abdominal ascites with ventral hernia, diffuse tenderness to palpation. No guarding or rigidity. Extremities: Normal skin color and turgor. Pedal edema. Skin: No rashes, no jaundice Neurological: No focal deficits. Alert and oriented x3. - Labs CBC & Chem 7: 01/21/21 06:07 01/21/21 06:07 Labs: Abnormal Lab Results - Last 24 Hours (Table) 01/20/21 01/20/21 01/21/21 Range/Units 16:10 19:09 06:07 WBC 22.9 H 25.07 H (3.8-10.6) k/uL RBC 3.01 L 3.21 L (4.30-5.90) m/uL Hgb 9.7 L 10.2 L (13.0-17.5) gm/dL Hct 34.2 L 32.0 L (39.0-53.0) % MCV 113.5 H D 99.7 H (80.0-100.0) fL MCHC 28.5 L 31.9 L (31.0-37.0) g/dL RDW 15.7 H 16.7 H (11.5-15.5) % Plt Count 120 L (150-450) k/uL Neutrophils # 20.1 H (1.3-7.7) k/uL Lymphocytes # 0.7 L (1.0-4.8) k/uL Macrocytosis Marked A Sodium 136 L (137-145) mmol/L Chloride 108 H (98-107) mmol/L Carbon Dioxide 20 L (22-30) mmol/L BUN 47 H (9-20) mg/dL Creatinine 2.03 H (0.66-1.25) mg/dL Glucose 121 H (74-99) mg/dL AST 91 H (17-59) U/L Alkaline Phosphatase 330 H (38-126) U/L Total Protein 4.8 L (6.3-8.2) g/dL Albumin 2.2 L (3.5-5.0) g/dL Microbiology - Last 24 Hours (Table) 01/20/21 11:15 Gram Stain - Preliminary Paracentesis Fluid Body Fluid Culture - Preliminary 01/17/21 06:58 Blood Culture - Preliminary Blood No Growth after 72 hours Assessment and Plan (1) Alcoholic cirrhosis of liver with ascites Narrative/Plan: 56-year-old male with a previous history of alcoholic cirrhosis of the liver with ascites. Patient states he has been a daily drinker for several years, who recently quit drinking a few months ago. Patient states he's managed by his PCP and has had 4-5 previous paracentesis done in [facility]. Patient was found unresponsive outside and brought to [facility] then transferred to our intensive care unit on 01/09/2021 for sepsis and altered mental status changes. The patient had a CT of the abdomen and pelvis that did show moderate amount of ascites. He underwent a paracentesis on 01/15/2021 with 1.7 L of fluid removed. He had a fluid protein of 717 g, fluid WBC 56, fluid culture with no growth. Patient is still with complaints of abdominal pain as well as leukocytosis. He has been afebrile. Patient was treated with vancomycin outpatient for C. difficile colitis. Need to consider spontaneous bacterial peritonitis, will discuss starting ceftriaxone with infectious disease. Current Visit: Yes Status: Acute Code(s): K70.31 - ALCOHOLIC CIRRHOSIS OF LIVER WITH ASCITES SNOMED Code(s): 750503744 (2) Macrocytic anemia Narrative/Plan: Patiently is consistent with macrocytic anemia. Likely related to underlying liver disease. Denies any signs or symptoms of GI bleed. Patient did have a positive occult stool on admission, however patient also had recent diagnosis of C. difficile colitis recently treated with vancomycin. On admission patient was noted to have a hemoglobin of 5.7, he was transfused with 2 units of PRBC transfusion. Hemoglobin has remained stable and is 9.4 today. Patient denies any previous history of EGD, last colonoscopy several years ago. No plans at this time for endoscopic evaluation. We'll continue to monitor CBC. Current Visit: Yes Status: Acute Code(s): D53.9 - NUTRITIONAL ANEMIA, UNSPECIFIED SNOMED Code(s): 66906889 (3) Abdominal pain Narrative/Plan: Recommend reconsult to general surgery regarding ongoing abdominal pain Current Visit: Yes Status: Acute Code(s): R10.9 - UNSPECIFIED ABDOMINAL PAIN SNOMED Code(s): 09294753 (4) Sepsis Current Visit: Yes Status: Acute Code(s): A41.9 - SEPSIS, UNSPECIFIED ORGANISM SNOMED Code(s): 17683763 (5) Leukocytosis Current Visit: Yes Status: Acute Code(s): D72.829 - ELEVATED WHITE BLOOD CELL COUNT, UNSPECIFIED SNOMED Code(s): 949555012 Plan: 1. Continue symptomatic and supportive care 2. Continue current diuretics 3. Continue IV antibiotics per recommendations from infectious disease 4. Recommend Alcohol abstinence 5. No plans on endoscopic evaluation at this time 6. Recommend consultation to general surgery regarding abdominal pain, ventral hernia, gallbladder Thank you for this consultation, we will continue to follow. Dr. Karen Aleman I agree with the dictator's note, documented as a scribe by Hoda De La Torre.
--- NOTE | 2021-01-21 18:05 | P.PN ---
<Mendez Berger - Last Filed: 01/21/21 17:40> Subjective Progress Note Date: 01/21/21 Hospital Course: The patient is a 56-year-old male with a past medical history of cirrhosis, anemia, colitis and recent ventral hernia sx. He was reportedly living in a motel and was found to be unresponsive and hypothermic. He was taken to [facility] and was transferred to our facility for ICU admission on 01/09/21 for diagnosis of severe sepsis with septic shock as evidenced by hypotension, hypothermia, dehydration, and lactic acidosis. Initially pt was admitted to the medical ICU for septic shock with abdomen as a suspected source secondary to recent ventral hernia repair one month prior. General surgery was consulted. CT abdomen and pelvis obtained and had revealed seroma and he was maintained on broad-spectrum IV antibiotics. Initially pt required vasopressors, however these were eventually tapered off and patient was downgraded from the medical ICU. Seroma cultures came back negative. Blood cultures showing no growth after 144 hours. He was also found to have moderate ascitic fluid and underwent a paracentesis with removal of 1.7 L of fluid on 01/14/21 this was sent for culture with negative results. blood cultures showing no growth after 144 hours, gram stains negative, fungal culture negative and repeat blood cultures again showing no growth after 96 hours. Patient again underwent paracentesis on 01/20/21, with a reported removal of approximately 3.6 L of ascitic fluid. Physical Examination: Patient was seen and fully evaluated at bedside this morning. He reports feeling significantly better after paracentesis yesterday and reports able to walk around room much easier. He does however report continued diffuse abdominal pain and discomfort as well as pain in lower extremities, patient describes this pain as feeling as though his skin is going to break because it is so tight. Morning labs show continued leukocytosis with WBC count of 25.07, consult placed to hematology at this time and surgery re-consulted secondary to concerns of continued suspected abdominal source of infection and CT findings indicative of 2.9 cm soft tissue density at neck of gallbladder. Renal function also continues to elevate with creatinine of 2.2, BUN 44.7, and GFR 31.7. Lasix decreased to 40 mg daily. At this time we will continue Aldactone 25 mg twice daily. General: Chronically Ill-appearing, no acute distress, appears at stated age Derm: warm, dry Head: atraumatic, normocephalic, symmetric Eyes: EOMI, no lid lag, anicteric sclera Mouth: no lip lesion, mucus membranes moist Cardiovascular: S1S2 reg, systolic murmur, positive posterior tibial pulses bilaterally, 3+ BLE pitting edema, Lungs: CTA bilateral, no rhonchi, no rales , no accessory muscle use Abdominal: Cirrhotic abdomen, +tenderness to palpation diffusely, no guarding, no appreciable organomegaly Ext: no gross muscle atrophy, no contractures Neuro: CN II-XI grossly intact, no focal neuro deficits Psych: Alert, oriented, appropriate affect Assessment and Plan of Care: Septic shock with suspected abdominal source Recent C. diff Persistent abdominal pain Moderate ascites Significant leukocytosis -CT abdomen and pelvis showed a seroma which was aspirated by Gen. surgery and sent for culture which was negative -Repeat abdominal ultrasound with moderate ascites. -IR following and patient underwent paracentesis with removal of 1.7 L of ascitic fluid on 01/14/21. Patient underwent repeat paracentesis 01/20/21 in which approximately 3.6 L of fluid was removed. -Rocephin discontinued and ID place patient on Zosyn along with continued Diflucan. -ID following appreciate further recommendations. -GI following, no plans for scopes at this time. -Morning labs show continued leukocytosis with WBC count of 25.07, consult placed to hematology at this time and surgery re-consulted secondary to concerns of continued suspected abdominal source of infection and CT findings indicative of 2.9 cm soft tissue density at neck of gallbladder. -With persistent leukocytosis will check chest x-ray, repeat CXR showing no changes with reports of reticulonodular infiltrates bilaterally. -Blood cultures showing no growth after 144 hours. Gram stain negative. Fungal culture negative and ascites fluid culture negative. Repeat blood culture showing no growth after 96 hours. Moderate Ascites with lower extremity edema Generalized Weakness reported secondary to swelling -Continue Lasix and Aldactone -Echocardiogram revealing a normal EF between 60 and 65% with no significant valvular abnormalities. -Ronnie barron PT/OT Acute kidney injury, worsening -Off IV fluids -Lasix decreased to 40 mg once daily and this time we will continue Aldactone 25 mg twice daily. -Follow BMP closely Recent C. diff colitis, from outside hospital -Completed course of oral vancomycinIn reporting back to normal bowel function Anemia, suspected due to acute blood loss from GI bleeding, stable normocytic hyperchromic anemia -Status post 2 units of PRBCs since admission -Continue to monitor CBC -Stable at this time. Thrombocytopenia, resolved -We will continue to monitor with repeat a.m. labs. Physical Debility -PT Consult, appreciate recommendations DVT prophylaxis: SCDs Discussed with: Patient and RN Anticipated discharge date: Clinical Course to Determine Anticipated discharge place: SNF A total of 40 minutes was spent on the care of this complex patient more than 50% of the time was spent in counseling and care coordination.coordination. Objective - Vital Signs Vital signs: Vital Signs Temp 97.6 F 01/21/21 14:00 Pulse 88 01/21/21 14:00 Resp 16 01/21/21 14:00 BP 104/69 01/21/21 14:00 Pulse Ox 100 01/21/21 14:00 Intake & Output 01/20/21 01/21/21 01/21/21 18:59 06:59 18:59 Intake Total 236 236 472 Output Total 400 Balance 236 -164 472 Weight 88.5 kg Intake: Oral 236 236 472 Output: Urine 400 Other: Voiding Method Urinal # Voids 3 ABP, PAP, CO, CI - Last Documented Arterial Blood Pressure 120/70 - Labs CBC & Chem 7: 01/21/21 06:07 01/21/21 06:07 Labs: Abnormal Lab Results - Last 24 Hours (Table) 01/20/21 01/21/21 01/21/21 Range/Units 19:09 06:07 06:07 WBC 25.07 H (4.50-10.00) X 10*3/uL RBC 3.21 L (4.40-5.60) X 10*6/uL Hgb 10.2 L (13.0-17.0) g/dL Hct 32.0 L (39.6-50.0) % MCV 99.7 H (80.0-97.0) fL MCHC 31.9 L (32.0-37.0) g/dL RDW 16.7 H (11.5-14.5) % Sodium 136 L (137-145) mmol/L Chloride 108 H (98-107) mmol/L Carbon Dioxide 20 L 17.3 L (22-30) mmol/L Anion Gap 15.80 H (4.00-12.00) mmol/L BUN 47 H 44.7 H (9-20) mg/dL Creatinine 2.03 H 2.2 H (0.66-1.25) mg/dL Est GFR (CKD-EPI)AfAm 36.7 L (60.0-200.0) Est GFR (CKD-EPI)NonAf 31.7 L (60.0-200.0) BUN/Creatinine Ratio 20.23 H (12.00-20.00) Ratio Glucose 121 H (74-99) mg/dL Calcium 8.4 L (8.7-10.3) mg/dL AST 91 H 90 H (17-59) U/L Alkaline Phosphatase 330 H 373 H (38-126) U/L Total Protein 4.8 L 4.7 L (6.3-8.2) g/dL Albumin 2.2 L 2.4 L (3.5-5.0) g/dL Albumin/Globulin Ratio 1.08 L (1.60-3.17) g/dL Microbiology - Last 24 Hours (Table) 01/20/21 11:15 Gram Stain - Preliminary Paracentesis Fluid Body Fluid Culture - Preliminary 01/17/21 06:58 Blood Culture - Preliminary Blood No Growth after 96 hours <Yajaira Anna - Last Filed: 01/21/21 21:56> Subjective Mendez Berger NP rendered care for this patient independently, reviewed the findings and plan as documented in the note above. I did not physically speak with or examine the patient on this date. Objective - Vital Signs Vital signs: Vital Signs Temp 97.6 F 01/21/21 14:00 Pulse 88 01/21/21 19:39 Resp 16 01/21/21 19:39 BP 104/69 01/21/21 14:00 Pulse Ox 100 01/21/21 14:00 Intake & Output 01/21/21 01/21/21 01/22/21 06:59 18:59 06:59 Intake Total 236 472 240 Output Total 400 Balance -164 472 240 Weight 88.5 kg 88.4 kg Intake: Oral 236 472 240 Output: Urine 400 Other: Voiding Method Urinal Urinal # Voids 3 ABP, PAP, CO, CI - Last Documented Arterial Blood Pressure 120/70 - Labs CBC & Chem 7: 01/21/21 06:07 01/21/21 06:07 Labs: Abnormal Lab Results - Last 24 Hours (Table) 01/21/21 01/21/21 Range/Units 06:07 06:07 WBC 25.07 H (4.50-10.00) X 10*3/uL RBC 3.21 L (4.40-5.60) X 10*6/uL Hgb 10.2 L (13.0-17.0) g/dL Hct 32.0 L (39.6-50.0) % MCV 99.7 H (80.0-97.0) fL MCHC 31.9 L (32.0-37.0) g/dL RDW 16.7 H (11.5-14.5) % Carbon Dioxide 17.3 L (21.6-31.8) mmol/L Anion Gap 15.80 H (4.00-12.00) mmol/L BUN 44.7 H (9.0-27.0) mg/dL Creatinine 2.2 H (0.6-1.5) mg/dL Est GFR (CKD-EPI)AfAm 36.7 L (60.0-200.0) Est GFR (CKD-EPI)NonAf 31.7 L (60.0-200.0) BUN/Creatinine Ratio 20.23 H (12.00-20.00) Ratio Calcium 8.4 L (8.7-10.3) mg/dL AST 90 H (14-35) U/L Alkaline Phosphatase 373 H (41-126) U/L Total Protein 4.7 L (6.2-8.2) g/dL Albumin 2.4 L (3.8-4.9) g/dL Albumin/Globulin Ratio 1.08 L (1.60-3.17) g/dL Microbiology - Last 24 Hours (Table) 01/20/21 11:15 Gram Stain - Preliminary Paracentesis Fluid Body Fluid Culture - Preliminary 01/17/21 06:58 Blood Culture - Preliminary Blood No Growth after 96 hours
[2021-01-21] MEDS: ONDANSETRON 4 MG/2 ML VIAL IVP PRN (21:08)
[2021-01-21] MEDS: SENNOSIDES 8.6 MG TAB PO SCH (21:11)
--- NOTE | 2021-01-21 22:18 | PN ---
PROGRESS NOTE DATE OF SERVICE: 01/21/2021 REASON FOR FOLLOWUP: Leukocytosis. INTERVAL HISTORY: The patient is afebrile, breathing comfortably. Denies having any chest pain, shortness of breath or cough. Still has some abdominal distention and discomfort, nausea but no vomiting, and no worsening diarrhea. PHYSICAL EXAMINATION: Blood pressure 104/69, pulse of 80, temperature 97.6. He is 100% on room air. General description is a middle-aged male up in the bed in no distress. RESPIRATORY SYSTEM: Unlabored breathing. Decreased breath sounds at the bases. No wheeze. HEART: S1, S2. Regular rate and rhythm. ABDOMEN: Soft. Mildly distended. No guarding or rigidity. LABS: Hemoglobin is 10.2, white count 55,000 with a BUN of 44. Creatinine is 2.2. Paracentesis from yesterday did not show elevated white count. Cultures have been negative. DIAGNOSTIC IMPRESSION AND PLAN: Patient with elevated white count in this patient who did have multiple cultures. Those have been negative. He has not responded to the antifungal or antibiotic therapy. Question of non-infectious etiology. Oncology has been consulted. Will wait for their recommendation. May consider continue antibiotic. Continue with supportive care. MMODL / IJN: [id number] /
[2021-01-22] MEDS: SODIUM CHLORIDE 0.9% 1,000 ML IV SCH (04:05)
[2021-01-22] MEDS: MORPHINE SULFATE 2 MG/ML SYRINGE IV PRN ×4 (05:35→21:58)
[2021-01-22] MEDS: ONDANSETRON 4 MG/2 ML VIAL IVP PRN (05:35)
[2021-01-22] MEDS: PIPERACILLIN-TAZOBACTAM 3.375 GM in SODIUM CHLORIDE 0.9% 100 ML IVPB SCH (09:04)
[2021-01-22] MEDS: FUROSEMIDE 10 MG/ML 4 ML VIAL IV SCH (09:05)
[2021-01-22 09:12] LABS: HCT 31.3 % (39.6-50.0); HGB 10.2 g/dL (13.0-17.0); MCH 31.1 pg (27.0-32.0); MCHC 32.6 g/dL (32.0-37.0); MCV 95.4 fL (80.0-97.0); Mean Platelet Volume 11.9 fL (9.5-12.2); Platelet Count 170 X 10*3/uL (140-440); RBC 3.28 X 10*6/uL (4.40-5.60); RDW 16.9 % (11.5-14.5); WBC 25.82 X 10*3/uL (4.50-10.00)
[2021-01-22] MEDS: FAMOTIDINE 20 MG TAB PO SCH (10:06)
[2021-01-22] MEDS: SPIRONOLACTONE 25 MG TAB PO SCH ×2 (10:06→21:58)
[2021-01-22] MEDS: FLUCONAZOLE 100 MG TAB PO SCH (10:06)
[2021-01-22] MEDS: DOCUSATE 100 MG CAP PO SCH ×2 (10:06→21:24)
[2021-01-22 10:19] LABS: Protein, Total 4.9 g/dL (6.2-8.2)
[2021-01-22 10:22] LABS: ALT 36 U/L (10-49); AST 78 U/L (14-35); African American GFR (CKD) 30.2 (60.0-200.0); Albumin 2.5 g/dL (3.8-4.9); Albumin/Globulin Ratio 1.04 (1.60-3.17); Alkaline Phosphatase 357 U/L (41-126); BUN/Creat Ratio 17.85 Ratio (12.00-20.00); Blood Urea Nitrogen 46.4 mg/dL (9.0-27.0); Calcium 8.3 mg/dL (8.7-10.3); Carbon Dioxide 16.6 mmol/L (21.6-31.8); Chloride 104 mmol/L (96-109); Globulin 2.4 g/dL (1.6-3.3); Glucose 102 mg/dL (70-110); Potassium 4.4 mmol/L (3.5-5.5); Sodium 137 mmol/L (135-145); Total Protein 4.9 g/dL (6.2-8.2)
--- NOTE | 2021-01-22 11:09 | P.PN ---
Subjective Progress Note Date: 01/22/21 Principal diagnosis: Anemia, ascites 56-year-old male who was admitted as a transfer from [facility] for sepsis. On admission he was noted to be anemic and gastroenterology was consulted for melena. He denies any reported blood in his stool. He does have a significant history of alcoholism and has been diagnosed with alcoholic cirrhosis of the liver. Patient underwent paracentesis yesterday with 3.6 L of fluid removed. Infectious disease changed patient from ceftriaxone to Zosyn. Patient seen and examined lying in bed. States overall not much change. He denies any fevers or chills. He's been afebrile. WBC 25.8. Hematology now on consult. Gen. surgery Dr. Yarbrough recovery consulted for abdominal pain. Fluid cytology came back negative for malignant cells. Fluid culture currently pending however no growth after 24 hours. Acute changes through the night. Objective - Vital Signs Vital signs: Vital Signs Temp 97.8 F 01/22/21 09:03 Pulse 97 01/22/21 09:03 Resp 18 01/22/21 09:03 BP 105/67 01/22/21 09:03 Pulse Ox 99 01/22/21 09:03 Intake & Output 01/21/21 01/22/21 01/22/21 18:59 06:59 18:59 Intake Total 472 240 Balance 472 240 Weight 88.4 kg Intake: Oral 472 240 Other: Voiding Method Urinal # Voids 3 ABP, PAP, CO, CI - Last Documented Arterial Blood Pressure 120/70 - Exam General appearance: The patient is alert, oriented, appears in no acute distress. HET: Head is normocephalic and atraumatic. Conjunctiva pink. Sclera anicteric. Neck: Supple without lymphadenopathy. Abdomen: Soft, ventral hernia, diffuse tenderness to palpation. No guarding or rigidity. Extremities: Normal skin color and turgor. Pedal edema. Skin: No rashes, no jaundice Neurological: No focal deficits. Alert and oriented x3. - Labs CBC & Chem 7: 01/22/21 06:16 01/22/21 06:16 Labs: Abnormal Lab Results - Last 24 Hours (Table) 01/21/21 01/22/21 01/22/21 Range/Units 06:07 06:16 06:16 WBC 25.82 H (4.50-10.00) X 10*3/uL RBC 3.28 L (4.40-5.60) X 10*6/uL Hgb 10.2 L (13.0-17.0) g/dL Hct 31.3 L (39.6-50.0) % RDW 16.9 H (11.5-14.5) % Carbon Dioxide 17.3 L 16.6 L (21.6-31.8) mmol/L Anion Gap 15.80 H 16.40 H (4.00-12.00) mmol/L BUN 44.7 H 46.4 H (9.0-27.0) mg/dL Creatinine 2.2 H 2.6 H (0.6-1.5) mg/dL Est GFR (CKD-EPI)AfAm 36.7 L 30.2 L (60.0-200.0) Est GFR (CKD-EPI)NonAf 31.7 L 26.0 L (60.0-200.0) BUN/Creatinine Ratio 20.23 H (12.00-20.00) Ratio Calcium 8.4 L 8.3 L (8.7-10.3) mg/dL AST 90 H 78 H (14-35) U/L Alkaline Phosphatase 373 H 357 H (41-126) U/L Total Protein 4.7 L 4.9 L (6.2-8.2) g/dL Total Protein (PEP) (6.2-8.2) g/dL Albumin 2.4 L 2.5 L (3.8-4.9) g/dL Albumin/Globulin Ratio 1.08 L 1.04 L (1.60-3.17) g/dL 01/22/21 Range/Units 06:16 WBC (4.50-10.00) X 10*3/uL RBC (4.40-5.60) X 10*6/uL Hgb (13.0-17.0) g/dL Hct (39.6-50.0) % RDW (11.5-14.5) % Carbon Dioxide (21.6-31.8) mmol/L Anion Gap (4.00-12.00) mmol/L BUN (9.0-27.0) mg/dL Creatinine (0.6-1.5) mg/dL Est GFR (CKD-EPI)AfAm (60.0-200.0) Est GFR (CKD-EPI)NonAf (60.0-200.0) BUN/Creatinine Ratio (12.00-20.00) Ratio Calcium (8.7-10.3) mg/dL AST (14-35) U/L Alkaline Phosphatase (41-126) U/L Total Protein (6.2-8.2) g/dL Total Protein (PEP) 4.9 L (6.2-8.2) g/dL Albumin (3.8-4.9) g/dL Albumin/Globulin Ratio (1.60-3.17) g/dL Microbiology - Last 24 Hours (Table) 01/17/21 06:58 Blood Culture - Preliminary Blood No Growth after 120 hours 01/20/21 11:15 Gram Stain - Preliminary Paracentesis Fluid Body Fluid Culture - Preliminary Assessment and Plan (1) Alcoholic cirrhosis of liver with ascites Narrative/Plan: 56-year-old male with a previous history of alcoholic cirrhosis of the liver with ascites. Patient states he has been a daily drinker for several years, who recently quit drinking a few months ago. Patient states he's managed by his PCP and has had 4-5 previous paracentesis done in [facility]. Patient was found unresponsive outside and brought to [facility] then transferred to our intensive care unit on 01/09/2021 for sepsis and altered mental status changes. The patient had a CT of the abdomen and pelvis that did show moderate amount of ascites. He underwent a paracentesis on 01/15/2021 with 1.7 L of fluid removed. He had a fluid protein of 717 g, fluid WBC 56, fluid culture with no growth. Patient is still with complaints of abdominal pain as well as leukocytosis. He has been afebrile. Patient was treated with vancomycin outpatient for C. difficile colitis. Need to consider spontaneous bacterial peritonitis, will discuss starting ceftriaxone with infectious disease. Current Visit: Yes Status: Acute Code(s): K70.31 - ALCOHOLIC CIRRHOSIS OF LIVER WITH ASCITES SNOMED Code(s): 168290871 (2) Macrocytic anemia Narrative/Plan: Patiently is consistent with macrocytic anemia. Likely related to underlying liver disease. Denies any signs or symptoms of GI bleed. Patient did have a positive occult stool on admission, however patient also had recent diagnosis of C. difficile colitis recently treated with vancomycin. On admission patient was noted to have a hemoglobin of 5.7, he was transfused with 2 units of PRBC transfusion. Hemoglobin has remained stable and is 9.4 today. Patient denies any previous history of EGD, last colonoscopy several years ago. No plans at this time for endoscopic evaluation. We'll continue to monitor CBC. Current Visit: Yes Status: Acute Code(s): D53.9 - NUTRITIONAL ANEMIA, UNSPECIFIED SNOMED Code(s): 98599665 (3) Abdominal pain Narrative/Plan: Recommend reconsult to general surgery regarding ongoing abdominal pain Current Visit: Yes Status: Acute Code(s): R10.9 - UNSPECIFIED ABDOMINAL PAIN SNOMED Code(s): 44775764 (4) Sepsis Current Visit: Yes Status: Acute Code(s): A41.9 - SEPSIS, UNSPECIFIED ORGANISM SNOMED Code(s): 96790672 (5) Leukocytosis Current Visit: Yes Status: Acute Code(s): D72.829 - ELEVATED WHITE BLOOD CELL COUNT, UNSPECIFIED SNOMED Code(s): 087553244 Plan: 1. Continue symptomatic and supportive care 2. Continue current diuretics 3. Continue IV antibiotics per recommendations from infectious disease 4. Recommend Alcohol abstinence 5. No plans on endoscopic evaluation at this time 6. Recommend consultation to general surgery regarding abdominal pain, ventral hernia, gallbladder Thank you for allowing us to participate in the care of the patient, the GI service will sign off, gastroenterology will not be available at the hospital this weekend and through next week. If further evaluation by gastroenterology is required the patient will need transfer as per the primary team's discretion. Dr. Karen Aleman I agree with the dictator's note, documented as a scribe by Hoda De La Torre.
[2021-01-22 12:10] LABS: Immunoglobulin M 98.2 mg/dL (40.0-280.0)
[2021-01-22 13:17] LABS: Basophils # (A) 0.14 X 10*3/uL (0.00-0.10); Basophils % (A) 0.5 %; Eosinophils # (A) 0.55 X 10*3/uL (0.04-0.35); Eosinophils % (A) 2.1 %; Lymphocytes # (A) 0.91 X 10*3/uL (0.90-5.00); Lymphocytes % (A) 3.5 %; Monocytes # (A) 1.86 X 10*3/uL (0.20-1.00); Monocytes % (A) 7.2 %; Neutrophils # (A) 22.19 X 10*3/uL (1.80-7.70)
[2021-01-22 16:07] LABS: Erythrocyte Sedimentation Rate 20 mm/Hr (0-20)
--- NOTE | 2021-01-22 17:00 | P.PN ---
<Mendez Berger - Last Filed: 01/22/21 16:42> Subjective Progress Note Date: 01/22/21 Hospital Course: The patient is a 56-year-old male with a past medical history of cirrhosis, anemia, colitis and recent ventral hernia sx. He was reportedly living in a motel and was found to be unresponsive and hypothermic. He was taken to [facility] and was transferred to our facility for ICU admission on 01/09/21 for diagnosis of severe sepsis with septic shock as evidenced by hypotension, hypothermia, dehydration, and lactic acidosis. Initially pt was admitted to the medical ICU for septic shock with abdomen as a suspected source secondary to recent ventral hernia repair one month prior. General surgery was consulted. CT abdomen and pelvis obtained and had revealed seroma and he was maintained on broad-spectrum IV antibiotics. Initially pt required vasopressors, however these were eventually tapered off and patient was downgraded from the medical ICU. Seroma cultures came back negative. Blood cultures showing no growth after 144 hours. He was also found to have moderate ascitic fluid and underwent a paracentesis with removal of 1.7 L of fluid on 01/14/21 this was sent for culture with negative results. blood cultures showing no growth after 144 hours, gram stains negative, fungal culture negative and repeat blood cultures again showing no growth after 120 hours. Patient again underwent paracentesis on 01/20/21, with a reported removal of approximately 3.6 L of ascitic fluid. Echocardiogram revealing a normal EF between 60 and 65% with no significant valvular abnormalities. Patient continues to have significant leukocytosis and abdominal pain. Hematology consulted. General surgery also re-consulted secondary to CT findings revealing a 2.9 cm soft tissue density in gallbladder neck. Physical Examination: Patient was seen and fully evaluated at bedside this morning. He reports contin ued diffuse abdominal pain and tightness in his lower extremities. He was sitting up and eating breakfast at this time. Discussed patient's care with infectious disease and secondary to persistent leukocytosis, infectious disease placing patient on a 2 day holiday from antibiotics due leukocytosis suspected to be from inflammatory response and not necessarily infectious origin. Hematology following stating leukocytosis likely reactive due to viral infectious or underlying inflammatory process and ordered for additional workup. General surgery following, awaiting further recommendations. Morning labs reviewed continued to reveal leukocytosis with WBC count of 25.82 and stable normocytic normochromic anemia with hemoglobin of 10.2. Continues to have worsening renal function BUN of 46.4, creatinine 2.6, and GFR of 26. Lasix was decreased yesterday. Patient reports eating and drinking well and that he has been urinating clear straw-colored urine without any difficulties or changes. We will continue to monitor closely with repeat a.m. labs. General: Chronically Ill-appearing, no acute distress, appears at stated age Derm: warm, dry Head: atraumatic, normocephalic, symmetric Eyes: EOMI, no lid lag, anicteric sclera Mouth: no lip lesion, mucus membranes moist Cardiovascular: S1S2 reg, systolic murmur, positive posterior tibial pulses bilaterally, 3+ BLE pitting edema, Lungs: CTA bilateral, no rhonchi, no rales , no accessory muscle use Abdominal: Cirrhotic abdomen, +tenderness to palpation diffusely, no guarding, no appreciable organomegaly Ext: no gross muscle atrophy, no contractures Neuro: CN II-XI grossly intact, no focal neuro deficits Psych: Alert, oriented, appropriate affect Assessment and Plan of Care: Septic shock with suspected abdominal source Recent C. diff Persistent abdominal pain Moderate ascites Significant leukocytosis -CT abdomen and pelvis showed a seroma which was aspirated by Gen. surgery and sent for culture which was negative -Repeat abdominal ultrasound with moderate ascites. -IR following and patient underwent paracentesis with removal of 1.7 L of ascitic fluid on 01/14/21. -Patient underwent repeat paracentesis 01/20/21 in which 3.6 L of ascitic fluid was removed. -ID following, patient placed on holiday from antibiotics to evaluate WBC response as leukocytosis suspected to be from inflammatory reaction and less likely infectious. -GI services have signed off patient care, no plans for scopes at this time. -Hematology following, appreciate further recommendations. -Gen. surgery following, appreciate further recommendations. -Blood cultures showing no growth after 144 hours. Gram stain negative. Fungal culture negative and ascites fluid culture negative. Repeat blood culture showing no growth after 96 hours. Moderate Ascites with lower extremity edema Generalized Weakness reported secondary to swelling -Continue Lasix and Aldactone at this time -Echocardiogram revealing a normal EF between 60 and 65% with no significant valvular abnormalities. -Ronnie barron PT/OT Acute kidney injury, worsening -Off IV fluids -Lasix decreased to 40 mg once daily and this time we will continue Aldactone 25 mg twice daily. -Follow BMP closely Recent C. diff colitis, from outside hospital -Completed course of oral vancomycinIn reporting back to normal bowel function Anemia, suspected due to acute blood loss from GI bleeding, stable normocytic hyperchromic anemia -Status post 2 units of PRBCs since admission -Continue to monitor CBC -Stable at this time. Thrombocytopenia, resolved -We will continue to monitor with repeat a.m. labs. Physical Debility -PT Consult, appreciate recommendations DVT prophylaxis: SCDs Discussed with: Patient and RN Anticipated discharge date: Clinical Course to Determine Anticipated discharge place: SNF A total of 40 minutes was spent on the care of this complex patient more than 50% of the time was spent in counseling and care coordination.coordination. Objective - Vital Signs Vital signs: Vital Signs Temp 97.8 F 01/22/21 09:03 Pulse 97 01/22/21 09:03 Resp 18 01/22/21 09:03 BP 105/67 01/22/21 09:03 Pulse Ox 99 01/22/21 09:03 Intake & Output 01/21/21 01/22/21 01/22/21 18:59 06:59 18:59 Intake Total 472 240 Balance 472 240 Weight 88.4 kg Intake: Oral 472 240 Other: Voiding Method Urinal Urinal # Voids 3 ABP, PAP, CO, CI - Last Documented Arterial Blood Pressure 120/70 - Labs CBC & Chem 7: 01/22/21 06:16 01/22/21 06:16 Labs: Abnormal Lab Results - Last 24 Hours (Table) 01/21/21 01/22/21 01/22/21 Range/Units 06:07 06:16 06:16 WBC 25.82 H (4.50-10.00) X 10*3/uL RBC 3.28 L (4.40-5.60) X 10*6/uL Hgb 10.2 L (13.0-17.0) g/dL Hct 31.3 L (39.6-50.0) % RDW 16.9 H (11.5-14.5) % Carbon Dioxide 17.3 L 16.6 L (21.6-31.8) mmol/L Anion Gap 15.80 H 16.40 H (4.00-12.00) mmol/L BUN 44.7 H 46.4 H (9.0-27.0) mg/dL Creatinine 2.2 H 2.6 H (0.6-1.5) mg/dL Est GFR (CKD-EPI)AfAm 36.7 L 30.2 L (60.0-200.0) Est GFR (CKD-EPI)NonAf 31.7 L 26.0 L (60.0-200.0) BUN/Creatinine Ratio 20.23 H (12.00-20.00) Ratio Calcium 8.4 L 8.3 L (8.7-10.3) mg/dL AST 90 H 78 H (14-35) U/L Alkaline Phosphatase 373 H 357 H (41-126) U/L Total Protein 4.7 L 4.9 L (6.2-8.2) g/dL Total Protein (PEP) (6.2-8.2) g/dL Albumin 2.4 L 2.5 L (3.8-4.9) g/dL Albumin/Globulin Ratio 1.08 L 1.04 L (1.60-3.17) g/dL 01/22/21 Range/Units 06:16 WBC (4.50-10.00) X 10*3/uL RBC (4.40-5.60) X 10*6/uL Hgb (13.0-17.0) g/dL Hct (39.6-50.0) % RDW (11.5-14.5) % Carbon Dioxide (21.6-31.8) mmol/L Anion Gap (4.00-12.00) mmol/L BUN (9.0-27.0) mg/dL Creatinine (0.6-1.5) mg/dL Est GFR (CKD-EPI)AfAm (60.0-200.0) Est GFR (CKD-EPI)NonAf (60.0-200.0) BUN/Creatinine Ratio (12.00-20.00) Ratio Calcium (8.7-10.3) mg/dL AST (14-35) U/L Alkaline Phosphatase (41-126) U/L Total Protein (6.2-8.2) g/dL Total Protein (PEP) 4.9 L (6.2-8.2) g/dL Albumin (3.8-4.9) g/dL Albumin/Globulin Ratio (1.60-3.17) g/dL Microbiology - Last 24 Hours (Table) 01/17/21 06:58 Blood Culture - Preliminary Blood No Growth after 120 hours 01/20/21 11:15 Gram Stain - Preliminary Paracentesis Fluid Body Fluid Culture - Preliminary <Yajaira Anna - Last Filed: 01/22/21 22:29> Subjective Mendez Berger [employer] rendered care for this patient independently, reviewed the findings and plan as documented in the note above. I did not physically speak with or examine the patient on this date. Objective - Vital Signs Vital signs: Vital Signs Temp 98.5 F 01/22/21 20:00 Pulse 98 01/22/21 20:00 Resp 16 01/22/21 20:00 BP 116/73 01/22/21 20:00 Pulse Ox 100 01/22/21 20:00 Intake & Output 01/22/21 01/22/21 01/23/21 06:59 18:59 06:59 Intake Total 240 240 Balance 240 240 Weight 88.4 kg 88.4 kg Intake: Oral 240 240 Other: Voiding Method Urinal Urinal Urinal # Voids 3 ABP, PAP, CO, CI - Last Documented Arterial Blood Pressure 120/70 - Labs CBC & Chem 7: 01/22/21 06:16 01/22/21 06:16 Labs: Abnormal Lab Results - Last 24 Hours (Table) 01/22/21 01/22/21 01/22/21 Range/Units 06:16 06:16 06:16 WBC 25.82 H (4.50-10.00) X 10*3/uL RBC 3.28 L (4.40-5.60) X 10*6/uL Hgb 10.2 L (13.0-17.0) g/dL Hct 31.3 L (39.6-50.0) % RDW 16.9 H (11.5-14.5) % Immature Gran # 0.17 H (0.00-0.04) X 10*3/uL Neutrophils # 22.19 H (1.80-7.70) X 10*3/uL Monocytes # 1.86 H (0.20-1.00) X 10*3/uL Eosinophils # 0.55 H (0.04-0.35) X 10*3/uL Basophils # 0.14 H (0.00-0.10) X 10*3/uL Carbon Dioxide 16.6 L (21.6-31.8) mmol/L Anion Gap 16.40 H (4.00-12.00) mmol/L BUN 46.4 H (9.0-27.0) mg/dL Creatinine 2.6 H (0.6-1.5) mg/dL Est GFR (CKD-EPI)AfAm 30.2 L (60.0-200.0) Est GFR (CKD-EPI)NonAf 26.0 L (60.0-200.0) Calcium 8.3 L (8.7-10.3) mg/dL AST 78 H (14-35) U/L Alkaline Phosphatase 357 H (41-126) U/L Total Protein 4.9 L (6.2-8.2) g/dL Total Protein (PEP) 4.9 L (6.2-8.2) g/dL Albumin 2.5 L (3.8-4.9) g/dL Albumin/Globulin Ratio 1.04 L (1.60-3.17) g/dL Vitamin B12 >2000.0 H (200.0-944.0) pg/mL IgA (60.0-350.0) mg/dL 01/22/21 Range/Units 06:16 WBC (4.50-10.00) X 10*3/uL RBC (4.40-5.60) X 10*6/uL Hgb (13.0-17.0) g/dL Hct (39.6-50.0) % RDW (11.5-14.5) % Immature Gran # (0.00-0.04) X 10*3/uL Neutrophils # (1.80-7.70) X 10*3/uL Monocytes # (0.20-1.00) X 10*3/uL Eosinophils # (0.04-0.35) X 10*3/uL Basophils # (0.00-0.10) X 10*3/uL Carbon Dioxide (21.6-31.8) mmol/L Anion Gap (4.00-12.00) mmol/L BUN (9.0-27.0) mg/dL Creatinine (0.6-1.5) mg/dL Est GFR (CKD-EPI)AfAm (60.0-200.0) Est GFR (CKD-EPI)NonAf (60.0-200.0) Calcium (8.7-10.3) mg/dL AST (14-35) U/L Alkaline Phosphatase (41-126) U/L Total Protein (6.2-8.2) g/dL Total Protein (PEP) (6.2-8.2) g/dL Albumin (3.8-4.9) g/dL Albumin/Globulin Ratio (1.60-3.17) g/dL Vitamin B12 (200.0-944.0) pg/mL IgA 470.0 H (60.0-350.0) mg/dL Microbiology - Last 24 Hours (Table) 01/14/21 16:13 Fungal Culture - Preliminary Ascites Fluid 01/20/21 11:15 Gram Stain - Preliminary Paracentesis Fluid Body Fluid Culture - Preliminary 01/17/21 06:58 Blood Culture - Preliminary Blood No Growth after 120 hours
--- NOTE | 2021-01-22 17:32 | PN ---
PROGRESS NOTE DATE OF SERVICE: 01/22/2021 REASON FOR FOLLOWUP: Leukocytosis. INTERVAL HISTORY: The patient is afebrile. The patient is currently breathing comfortably on room air. The patient denies having any chest pain, shortness or cough. No abdominal pain, no diarrhea. PHYSICAL EXAMINATION: Blood pressure 105/67, pulse of 97, temperature ( ). He is 99% on room air. General description is a middle-aged male lying in bed in no distress. Respiratory system: Unlabored breathing. Decreased breath sounds in the base, no wheeze. Heart S1, S2. Regular rate and rhythm. Abdomen soft, no tenderness. Extremities: No edema of the feet. LABS: Hemoglobin 7.1, white count of 5.82, creatinine 2.6. DIAGNOSTIC IMPRESSION AND PLAN: Patient with ( ) did have extensive workup. Multiple ( ) culture negative. CT of abdomen and pelvis negative as well. The patient's white count not responding to the Rocephin antibiotic ( ) more likely and no clear focus more likely non infectious etiology. We will go ahead and discontinue antibiotics and antifungals and monitor the patient closely off antibiotic therapy. This was discussed in detail with the medical team. Continue supportive care. MMODL / IJN: [id number] /
[2021-01-22 17:50] LABS: Rheumatoid Factor, Qnt <10 IU/mL (0-15); Vitamin B12 >2000.0 pg/mL (200.0-944.0)
[2021-01-22] MEDS: SENNOSIDES 8.6 MG TAB PO SCH (21:24)
--- NOTE | 2021-01-22 22:20 | P.PN ---
Subjective Progress Note Date: 01/22/21 Objective - Vital Signs Vital signs: Vital Signs Temp 97.8 F 01/22/21 09:03 Pulse 97 01/22/21 09:03 Resp 18 01/22/21 09:03 BP 105/67 01/22/21 09:03 Pulse Ox 99 01/22/21 09:03 Intake & Output 01/21/21 01/22/21 01/22/21 18:59 06:59 18:59 Intake Total 472 240 Balance 472 240 Weight 88.4 kg Intake: Oral 472 240 Other: Voiding Method Urinal Urinal # Voids 3 ABP, PAP, CO, CI - Last Documented Arterial Blood Pressure 120/70 - Exam - Constitutional General appearance: cooperative, no acute distress - EENT Eyes: poor dentition, scleral icterus ENT: NA/AT - Neck Neck: normal ROM - Respiratory Respiratory: bilateral: diminished - Cardiovascular Rhythm: regularly irregular - Gastrointestinal General gastrointestinal: distended, tenderness - Integumentary Integumentary: jaundiced, pale - Neurologic non focal - Musculoskeletal Musculoskeletal: generalized weakness - Psychiatric Psychiatric: A&O x's 3 - Labs CBC & Chem 7: 01/22/21 06:16 01/22/21 06:16 Labs: Abnormal Lab Results - Last 24 Hours (Table) 01/21/21 01/22/21 01/22/21 Range/Units 06:07 06:16 06:16 WBC 25.82 H (4.50-10.00) X 10*3/uL RBC 3.28 L (4.40-5.60) X 10*6/uL Hgb 10.2 L (13.0-17.0) g/dL Hct 31.3 L (39.6-50.0) % RDW 16.9 H (11.5-14.5) % Immature Gran # 0.17 H (0.00-0.04) X 10*3/uL Neutrophils # 22.19 H (1.80-7.70) X 10*3/uL Monocytes # 1.86 H (0.20-1.00) X 10*3/uL Eosinophils # 0.55 H (0.04-0.35) X 10*3/uL Basophils # 0.14 H (0.00-0.10) X 10*3/uL Carbon Dioxide 17.3 L 16.6 L (21.6-31.8) mmol/L Anion Gap 15.80 H 16.40 H (4.00-12.00) mmol/L BUN 44.7 H 46.4 H (9.0-27.0) mg/dL Creatinine 2.2 H 2.6 H (0.6-1.5) mg/dL Est GFR (CKD-EPI)AfAm 36.7 L 30.2 L (60.0-200.0) Est GFR (CKD-EPI)NonAf 31.7 L 26.0 L (60.0-200.0) BUN/Creatinine Ratio 20.23 H (12.00-20.00) Ratio Calcium 8.4 L 8.3 L (8.7-10.3) mg/dL AST 90 H 78 H (14-35) U/L Alkaline Phosphatase 373 H 357 H (41-126) U/L Total Protein 4.7 L 4.9 L (6.2-8.2) g/dL Total Protein (PEP) (6.2-8.2) g/dL Albumin 2.4 L 2.5 L (3.8-4.9) g/dL Albumin/Globulin Ratio 1.08 L 1.04 L (1.60-3.17) g/dL IgA (60.0-350.0) mg/dL 01/22/21 01/22/21 Range/Units 06:16 06:16 WBC (4.50-10.00) X 10*3/uL RBC (4.40-5.60) X 10*6/uL Hgb (13.0-17.0) g/dL Hct (39.6-50.0) % RDW (11.5-14.5) % Immature Gran # (0.00-0.04) X 10*3/uL Neutrophils # (1.80-7.70) X 10*3/uL Monocytes # (0.20-1.00) X 10*3/uL Eosinophils # (0.04-0.35) X 10*3/uL Basophils # (0.00-0.10) X 10*3/uL Carbon Dioxide (21.6-31.8) mmol/L Anion Gap (4.00-12.00) mmol/L BUN (9.0-27.0) mg/dL Creatinine (0.6-1.5) mg/dL Est GFR (CKD-EPI)AfAm (60.0-200.0) Est GFR (CKD-EPI)NonAf (60.0-200.0) BUN/Creatinine Ratio (12.00-20.00) Ratio Calcium (8.7-10.3) mg/dL AST (14-35) U/L Alkaline Phosphatase (41-126) U/L Total Protein (6.2-8.2) g/dL Total Protein (PEP) 4.9 L (6.2-8.2) g/dL Albumin (3.8-4.9) g/dL Albumin/Globulin Ratio (1.60-3.17) g/dL IgA 470.0 H (60.0-350.0) mg/dL Microbiology - Last 24 Hours (Table) 01/14/21 16:13 Fungal Culture - Preliminary Ascites Fluid 01/20/21 11:15 Gram Stain - Preliminary Paracentesis Fluid Body Fluid Culture - Preliminary 01/17/21 06:58 Blood Culture - Preliminary Blood No Growth after 120 hours Assessment and Plan (1) Macrocytosis Current Visit: Yes Status: Acute Code(s): D75.89 - OTHER SPECIFIED DISEASES OF BLOOD AND BLOOD-FORMING ORGANS SNOMED Code(s): 536666780 (2) LACEY (acute kidney injury) Current Visit: Yes Status: Acute Code(s): N17.9 - ACUTE KIDNEY FAILURE, UNSPECIFIED SNOMED Code(s): 49566863 (3) Abdominal pain Current Visit: Yes Status: Acute Code(s): R10.9 - UNSPECIFIED ABDOMINAL PAIN SNOMED Code(s): 37214884 (4) Alcoholic cirrhosis of liver with ascites Current Visit: Yes Status: Acute Code(s): K70.31 - ALCOHOLIC CIRRHOSIS OF LIVER WITH ASCITES SNOMED Code(s): 085865615 (5) Leukocytosis Current Visit: Yes Status: Acute Code(s): D72.829 - ELEVATED WHITE BLOOD CELL COUNT, UNSPECIFIED SNOMED Code(s): 311373580 Plan: leukocytosis, macrocytosis, and mild thrombocytopenia. All labs are stable today and within safe range. Leukocytosis likely reactive to viral infectious and/or underlying inflammatory process, further work-up has been ordered. Await results of further work-up, likely most stems from ETOH cirrhosis Status post Paracentesis - Would send culture if has not been sent. Very tender to abdomen exam Continue to await full hematological work-up: Immunoglobulins resulted with IgA increased however non-specific without full work-up Add Folic Acid and await completion of hematology labs Further recs after resulted.
[2021-01-23] MEDS: SODIUM CHLORIDE 0.9% 1,000 ML IV SCH ×2 (06:01→20:26)
[2021-01-23] MEDS: MORPHINE SULFATE 2 MG/ML SYRINGE IV PRN ×4 (06:29→23:09)
[2021-01-23] MEDS: FUROSEMIDE 10 MG/ML 4 ML VIAL IV SCH (07:47)
[2021-01-23] MEDS: FAMOTIDINE 20 MG TAB PO SCH (08:46)
[2021-01-23] MEDS: SPIRONOLACTONE 25 MG TAB PO SCH (08:46)
[2021-01-23] MEDS: DOCUSATE 100 MG CAP PO SCH ×2 (08:47→20:26)
[2021-01-23 11:48] LABS: Reticulocyte % 2.35 % (0.10-1.80)
[2021-01-23 12:44] LABS: Basophils % (A) 0 %; Eosinophils # (A) 0.3 k/uL (0-0.7); Eosinophils % (A) 1 %; HCT 33.5 % (39.0-53.0); HGB 10.4 gm/dL (13.0-17.5); Hypochromasia Marked; Lymphocytes # (A) 0.8 k/uL (1.0-4.8); Lymphocytes % (A) 4 %; MCH 32.3 pg (25.0-35.0); Macrocytosis Moderate; Mean Platelet Volume 10.9; Monocytes # (A) 0.8 k/uL (0-1.0); Monocytes % (A) 4 %; Neutrophils # (A) 17.9 k/uL (1.3-7.7); Neutrophils % (A) 89 %; Platelet Count 135 k/uL (150-450); RBC 3.22 m/uL (4.30-5.90); RDW 15.3 % (11.5-15.5); WBC 20.1 k/uL (3.8-10.6)
[2021-01-23 12:58] LABS: MCV 104.1 fL (80.0-100.0)
[2021-01-23 13:04] LABS: ALT 33 U/L (4-49); AST 83 U/L (17-59); African American GFR (CKD) 28 (>60 ml/min/1.73 sqM); Albumin 2.1 g/dL (3.5-5.0); Albumin/Globulin Ratio 0.8; Alkaline Phosphatase 311 U/L (38-126); Anion Gap 9 mmol/L; Blood Urea Nitrogen 53 mg/dL (9-20); Calcium 8.1 mg/dL (8.4-10.2); Carbon Dioxide 19 mmol/L (22-30); Chloride 106 mmol/L (98-107); Globulin 2.7 g/dL; Glucose 129 mg/dL (74-99); Non-African American GFR(CKD) 24 (>60 ml/min/1.73 sqM); Potassium 4.1 mmol/L (3.5-5.1); Sodium 134 mmol/L (137-145); Total Bilirubin 1.4 mg/dL (0.2-1.3); Total Protein 4.8 g/dL (6.3-8.2)
[2021-01-23 13:45] LABS: % Iron Saturation 19.89 (15.00-50.00)
--- NOTE | 2021-01-23 16:31 | P.PN ---
<Mendez Berger - Last Filed: 01/23/21 16:18> Subjective Progress Note Date: 01/23/21 Hospital Course: The patient is a 56-year-old male with a past medical history of cirrhosis, anemia, colitis and recent ventral hernia sx. He was reportedly living in a motel and was found to be unresponsive and hypothermic. He was taken to [place] [facility] and was transferred to our facility for ICU admission on 01/09/21 for diagnosis of severe sepsis with septic shock as evidenced by hypotension, hypothermia, dehydration, and lactic acidosis. Initially pt was admitted to the medical ICU for septic shock with abdomen as a suspected source secondary to recent ventral hernia repair one month prior. General surgery was consulted. CT abdomen and pelvis obtained and had revealed seroma and he was maintained on broad-spectrum IV antibiotics. Initially pt required vasopressors, however these were eventually tapered off and patient was downgraded from the medical ICU. Seroma cultures came back negative. Blood cultures showing no growth after 144 hours. He was also found to have moderate ascitic fluid and underwent a paracentesis with removal of 1.7 L of fluid on 01/14/21 this was sent for culture with negative results. blood cultures showing no growth after 144 hours, gram stains negative, fungal culture negative and repeat blood cultures again showing no growth after 144 hours. Patient again underwent paracentesis on 01/20/21, with a reported removal of approximately 3.6 L of ascitic fluid. Echocardiogram revealing a normal EF between 60 and 65% with no significant valvular abnormalities. Patient continues to have significant leukocytosis and abdominal pain. Hematology consulted. General surgery also re-consulted secondary to CT findings revealing a 2.9 cm soft tissue density in gallbladder neck. Physical Examination: Patient was seen and fully evaluated at bedside this morning. He reports contin ued diffuse abdominal pain and tightness in his lower extremities along with increased abdominal distention. Patient states he has been trying to increase ambulation in his room. He is currently on a holiday from antibiotics WBCs down to 20.1 this morning. Renal function slightly worsening with BUN 53, creatinine 2.77, and GFR of 24. Aldactone decreased to 12.5 mg twice daily and we will continue with Lasix 40 mg daily at this time. We will continue to monitor closely with repeat a.m. labs. Appreciate further recommendations from infectious disease and general surgery. General: Chronically Ill-appearing, no acute distress, appears at stated age Derm: warm, dry Head: atraumatic, normocephalic, symmetric Eyes: EOMI, no lid lag, anicteric sclera Mouth: no lip lesion, mucus membranes moist Cardiovascular: S1S2 reg, systolic murmur, positive posterior tibial pulses bilaterally, 3+ BLE pitting edema, Lungs: CTA bilateral, no rhonchi, no rales , no accessory muscle use Abdominal: Cirrhotic abdomen, +tenderness to palpation diffusely, no guarding, no appreciable organomegaly Ext: no gross muscle atrophy, no contractures Neuro: CN II-XI grossly intact, no focal neuro deficits Psych: Alert, oriented, appropriate affect Assessment and Plan of Care: Septic shock with suspected abdominal source Recent C. diff Persistent abdominal pain Moderate ascites Significant leukocytosis -CT abdomen and pelvis showed a seroma which was aspirated by Gen. surgery and sent for culture which was negative -Repeat abdominal ultrasound with moderate ascites. -IR following and patient underwent paracentesis with removal of 1.7 L of ascitic fluid on 01/14/21. -Patient underwent repeat paracentesis 01/20/21 in which 3.6 L of ascitic fluid was removed. -ID following, patient placed on holiday from antibiotics to evaluate WBC response as leukocytosis suspected to be from inflammatory reaction and less l ikely infectious. -GI services have signed off patient care, no plans for scopes at this time. -Hematology following, appreciate further recommendations. -Gen. surgery following, appreciate further recommendations. -Blood cultures showing no growth after 144 hours. Gram stain negative. Fungal culture negative and ascites fluid culture negative. Repeat blood culture showing no growth after 96 hours. Moderate Ascites with lower extremity edema Generalized Weakness reported secondary to swelling -Continue Lasix and Aldactone at this time -Echocardiogram revealing a normal EF between 60 and 65% with no significant valvular abnormalities. -Ronnie barron PT/OT Acute kidney injury, worsening -Off IV fluids -Lasix decreased to 40 mg once daily and Aldactone decreased to 12.5 mg twice daily. -Follow BMP closely Recent C. diff colitis, from outside hospital -Completed course of oral vancomycinIn reporting back to normal bowel function Anemia, suspected due to acute blood loss from GI bleeding, stable normocytic hyperchromic anemia -Status post 2 units of PRBCs since admission -Continue to monitor CBC -Stable at this time. Thrombocytopenia -We will continue to monitor with repeat a.m. labs. Physical Debility -PT Consult, appreciate recommendations DVT prophylaxis: SCDs Discussed with: Patient and RN Anticipated discharge date: Clinical Course to Determine Anticipated discharge place: SNF A total of 40 minutes was spent on the care of this complex patient more than 50% of the time was spent in counseling and care coordination.coordination. Objective - Vital Signs Vital signs: Vital Signs Temp 97.6 F 01/23/21 08:00 Pulse 91 01/23/21 08:00 Resp 16 01/23/21 08:00 BP 113/69 01/23/21 08:00 Pulse Ox 100 01/23/21 08:00 Intake & Output 01/22/21 01/23/21 01/23/21 18:59 06:59 18:59 Intake Total 240 Balance 240 Weight 88.4 kg Intake: Oral 240 Other: Voiding Method Urinal Urinal ABP, PAP, CO, CI - Last Documented Arterial Blood Pressure 120/70 - Labs CBC & Chem 7: 01/23/21 08:23 01/23/21 08:23 Labs: Abnormal Lab Results - Last 24 Hours (Table) 01/22/21 01/22/21 01/23/21 Range/Units 06:16 06:16 08:23 Immature Gran # 0.17 H (0.00-0.04) X 10*3/uL Neutrophils # 22.19 H (1.80-7.70) X 10*3/uL Monocytes # 1.86 H (0.20-1.00) X 10*3/uL Eosinophils # 0.55 H (0.04-0.35) X 10*3/uL Basophils # 0.14 H (0.00-0.10) X 10*3/uL Retic Count 2.35 H (0.10-1.80) % Vitamin B12 >2000.0 H (200.0-944.0) pg/mL Microbiology - Last 24 Hours (Table) 01/17/21 06:58 Blood Culture - Final Blood No Growth after 144 hours 01/14/21 16:13 Fungal Culture - Preliminary Ascites Fluid 01/20/21 11:15 Gram Stain - Preliminary Paracentesis Fluid Body Fluid Culture - Preliminary <Yajaira Anna - Last Filed: 01/23/21 18:40> Subjective Patient seen and examined independently. Patient was also seen by Mendez Berger NP and case was discussed. I am in agreement with subjective, physical exam, assessment and plan as written above and amended below. PAtient seen and examonied at bedside. States she has abdominal pain. He eats. Denies any nausea or vomiting. No chest pain or shortness of breath. General: non toxic, no distress, appears at stated age Derm: warm, dry Head: atraumatic, normocephalic, symmetric Eyes: EOMI, no lid lag, anicteric sclera Mouth: no lip lesion, mucus membranes moist Cardiovascular: S1S2 reg, no murmur, positive posterior tibial pulse bilateral, Lungs: CTA bilateral, no rhonchi, no rales , no accessory muscle use Abdominal: soft, + distention, + tender to palpation, no guarding, no appreciable organomegaly Ext: no gross muscle atrophy, 4+ edema., no contractures Neuro: CN II-XI grossly intact, no focal neuro deficits Psych: Alert, oriented, appropriate affect Objective - Vital Signs Vital signs: Vital Signs Temp 97.5 F L 01/23/21 14:00 Pulse 59 L 01/23/21 14:00 Resp 16 01/23/21 14:00 BP 109/66 01/23/21 14:00 Pulse Ox 90 L 01/23/21 14:00 Intake & Output 01/22/21 01/23/21 01/23/21 18:59 06:59 18:59 Intake Total 240 Balance 240 Weight 88.4 kg Intake: Oral 240 Other: Voiding Method Urinal Urinal ABP, PAP, CO, CI - Last Documented Arterial Blood Pressure 120/70 - Labs CBC & Chem 7: 01/23/21 08:23 01/23/21 08:23 Labs: Abnormal Lab Results - Last 24 Hours (Table) 01/23/21 01/23/21 01/23/21 Range/Units 08:23 08:23 08:23 WBC 20.1 H (3.8-10.6) k/uL RBC 3.22 L (4.30-5.90) m/uL Hgb 10.4 L (13.0-17.5) gm/dL Hct 33.5 L (39.0-53.0) % MCV 104.1 H D (80.0-100.0) fL Plt Count 135 L (150-450) k/uL Neutrophils # 17.9 H (1.3-7.7) k/uL Lymphocytes # 0.8 L (1.0-4.8) k/uL Retic Count 2.35 H (0.10-1.80) % Sodium (137-145) mmol/L Carbon Dioxide (22-30) mmol/L BUN (9-20) mg/dL Creatinine (0.66-1.25) mg/dL Glucose (74-99) mg/dL Calcium (8.4-10.2) mg/dL Iron 24 L (65-175) ug/dL TIBC 119 L (228-460) ug/dL Transferrin 85.1 L (204.0-354.0) mg/dL Total Bilirubin (0.2-1.3) mg/dL AST (17-59) U/L Alkaline Phosphatase (38-126) U/L Lactate Dehydrogenase 285 H (120-246) U/L Total Protein (6.3-8.2) g/dL Albumin (3.5-5.0) g/dL 01/23/21 Range/Units 08:23 WBC (3.8-10.6) k/uL RBC (4.30-5.90) m/uL Hgb (13.0-17.5) gm/dL Hct (39.0-53.0) % MCV (80.0-100.0) fL Plt Count (150-450) k/uL Neutrophils # (1.3-7.7) k/uL Lymphocytes # (1.0-4.8) k/uL Retic Count (0.10-1.80) % Sodium 134 L (137-145) mmol/L Carbon Dioxide 19 L (22-30) mmol/L BUN 53 H (9-20) mg/dL Creatinine 2.77 H (0.66-1.25) mg/dL Glucose 129 H (74-99) mg/dL Calcium 8.1 L (8.4-10.2) mg/dL Iron (65-175) ug/dL TIBC (228-460) ug/dL Transferrin (204.0-354.0) mg/dL Total Bilirubin 1.4 H (0.2-1.3) mg/dL AST 83 H (17-59) U/L Alkaline Phosphatase 311 H (38-126) U/L Lactate Dehydrogenase (120-246) U/L Total Protein 4.8 L (6.3-8.2) g/dL Albumin 2.1 L (3.5-5.0) g/dL Microbiology - Last 24 Hours (Table) 01/20/21 11:15 Gram Stain - Preliminary Paracentesis Fluid Body Fluid Culture - Preliminary 01/17/21 06:58 Blood Culture - Final Blood No Growth after 144 hours
[2021-01-23] MEDS ORDERED: SPIRONOLACTONE 25 MG TAB PO SCH (17:30)
--- NOTE | 2021-01-23 17:49 | P.PN ---
Subjective Progress Note Date: 01/23/21 Asked to reevaluate patient for general surgery. Patient with a history of being found outside and concern for hypothermia. He also has a recent history of ventral hernia repair. During this admission, he was diagnosed with cirrhosis of the liver, likely secondary to all call use. On my current conver sation with the patient, he states that he quit drinking alcohol approximately 6 months ago but did drink a pint a day prior to that. Currently, during this admission, there is been concern for persistent leukocytosis. CT of the abdomen and pelvis was performed that did show a 2.9 cm area of the gallbladder that is concerning for either stone or gallbladder sludge. When compared to ultrasound from 01/09,This area is likely the sludge that was found just a few weeks ago. Currently, patient has some generalized discomfort of the abdomen. He also is noted to be mildly distended. Objective - Vital Signs Vital signs: Vital Signs Temp 97.5 F L 01/23/21 14:00 Pulse 59 L 01/23/21 14:00 Resp 16 01/23/21 14:00 BP 109/66 01/23/21 14:00 Pulse Ox 90 L 01/23/21 14:00 Intake & Output 01/22/21 01/23/21 01/23/21 18:59 06:59 18:59 Intake Total 240 Balance 240 Weight 88.4 kg Intake: Oral 240 Other: Voiding Method Urinal Urinal ABP, PAP, CO, CI - Last Documented Arterial Blood Pressure 120/70 - Constitutional General appearance: Present: cooperative - Respiratory Details: No difficulty with respiration - Gastrointestinal Gastrointestinal Comment(s): Soft, mildly distended, generalized discomfort to palpation, nontender to percussion, no rebound, no guarding, well-healed midline incision site from his ventral hernia repair - Psychiatric Psychiatric: Present: A&O x's 3 - Labs CBC & Chem 7: 01/23/21 08:23 01/23/21 08:23 Labs: Abnormal Lab Results - Last 24 Hours (Table) 01/22/21 01/23/21 01/23/21 Range/Units 06:16 08:23 08:23 WBC (3.8-10.6) k/uL RBC (4.30-5.90) m/uL Hgb (13.0-17.5) gm/dL Hct (39.0-53.0) % MCV (80.0-100.0) fL Plt Count (150-450) k/uL Neutrophils # (1.3-7.7) k/uL Lymphocytes # (1.0-4.8) k/uL Retic Count 2.35 H (0.10-1.80) % Sodium (137-145) mmol/L Carbon Dioxide (22-30) mmol/L BUN (9-20) mg/dL Creatinine (0.66-1.25) mg/dL Glucose (74-99) mg/dL Calcium (8.4-10.2) mg/dL Iron 24 L (65-175) ug/dL TIBC 119 L (228-460) ug/dL Transferrin 85.1 L (204.0-354.0) mg/dL Total Bilirubin (0.2-1.3) mg/dL AST (17-59) U/L Alkaline Phosphatase (38-126) U/L Lactate Dehydrogenase 285 H (120-246) U/L Total Protein (6.3-8.2) g/dL Albumin (3.5-5.0) g/dL Vitamin B12 >2000.0 H (200.0-944.0) pg/mL 01/23/21 01/23/21 Range/Units 08:23 08:23 WBC 20.1 H (3.8-10.6) k/uL RBC 3.22 L (4.30-5.90) m/uL Hgb 10.4 L (13.0-17.5) gm/dL Hct 33.5 L (39.0-53.0) % MCV 104.1 H D (80.0-100.0) fL Plt Count 135 L (150-450) k/uL Neutrophils # 17.9 H (1.3-7.7) k/uL Lymphocytes # 0.8 L (1.0-4.8) k/uL Retic Count (0.10-1.80) % Sodium 134 L (137-145) mmol/L Carbon Dioxide 19 L (22-30) mmol/L BUN 53 H (9-20) mg/dL Creatinine 2.77 H (0.66-1.25) mg/dL Glucose 129 H (74-99) mg/dL Calcium 8.1 L (8.4-10.2) mg/dL Iron (65-175) ug/dL TIBC (228-460) ug/dL Transferrin (204.0-354.0) mg/dL Total Bilirubin 1.4 H (0.2-1.3) mg/dL AST 83 H (17-59) U/L Alkaline Phosphatase 311 H (38-126) U/L Lactate Dehydrogenase (120-246) U/L Total Protein 4.8 L (6.3-8.2) g/dL Albumin 2.1 L (3.5-5.0) g/dL Vitamin B12 (200.0-944.0) pg/mL Microbiology - Last 24 Hours (Table) 01/20/21 11:15 Gram Stain - Preliminary Paracentesis Fluid Body Fluid Culture - Preliminary 01/17/21 06:58 Blood Culture - Final Blood No Growth after 144 hours Assessment and Plan Plan: 56-year-old male with persistent leukocytosis, alcoholic cirrhosis and gallbladder sludge. At this point, patient just recently underwent her centesis secondary to ascites with 1.7 L of fluid drained. It does not appear that the gallbladder sludge is causing the patient's persistent leukocytosis or abdominal distention and pain. The patient's abdominal symptoms seem to be more related to cirrhosis. Undergoing any surgical procedure at this time would put the patient at risk of fulminant liver failure. As the gallbladder is not likely the source of the patient's current issue, I would not recommend any surgical intervention. If surgical intervention would be required, I would recommend evaluation at a hepatobiliary center due to the high risk of fulminant liver failure in the postoperative setting.
--- NOTE | 2021-01-23 18:51 | PN ---
PROGRESS NOTE DATE OF SERVICE: 01/23/2021 REASON FOR FOLLOWUP: Leukocytosis. INTERVAL HISTORY: The patient is afebrile. The patient is currently breathing comfortably. No chest pain, shortness of breath or cough. Did have some abdominal distention. No vomiting or diarrhea. PHYSICAL EXAMINATION: Blood pressure 109/66, pulse of 59, temperature is 97.5. He is 90% on room air. General description is a middle-aged male lying in bed in no distress. Respiratory system: Unlabored breathing, clear to auscultation anteriorly. Heart S1, S2. Regular rate and rhythm. Abdomen soft, distended. No guarding or rigidity. LABS: Hemoglobin is 10.4, white count 20.1, creatinine 2.77. DIAGNOSTIC IMPRESSION AND PLAN: Patient with leukocytosis in this patient did have extensive workup without any obvious focus of infection. Antibiotics and fungal discontinue, white count is trending down. Will continue to monitor the patient closely off antibiotic therapy. Continue supportive care. MMODL / IJN: [id number] /
[2021-01-23] MEDS: SENNOSIDES 8.6 MG TAB PO SCH (20:25)
[2021-01-23] MEDS: OCTREOTIDE 100 MCG/ML INJ SQ SCH ×2 (22:38→23:09)
[2021-01-23] MEDS: ONDANSETRON 4 MG/2 ML VIAL IVP PRN (23:09)
[2021-01-24] MEDS ORDERED: MIDODRINE 5 MG TAB PO SCH (07:30)
[2021-01-24] MEDS: OCTREOTIDE 100 MCG/ML INJ SQ SCH ×2 (09:35→16:29)
[2021-01-24] MEDS: FAMOTIDINE 20 MG TAB PO SCH (09:35)
[2021-01-24] MEDS: DOCUSATE 100 MG CAP PO SCH ×2 (09:39→22:43)
[2021-01-24] MEDS ORDERED: CODEINE 30 MG TAB PO PRN ×2 (10:44)
[2021-01-24] MEDS: MIDODRINE 5 MG TAB PO SCH ×2 (11:17→16:29)
--- NOTE | 2021-01-24 11:58 | CONS ---
CONSULTATION REASON FOR CONSULT: Renal failure. HISTORY OF PRESENT ILLNESS: The patient is a 56-year-old male who was initially admitted to the hospital on January 09 with mental status changes. He was unconscious, hypothermic. He was hypotensive with severe lactic acidosis and patient was also noted to have GI bleed. Since then, he has been volume resuscitated. Patient has a significant history of EtOH abuse and alcoholic liver cirrhosis and has had recurrent ascites with paracentesis. CT of the abdomen done on 01/18/2021 did not reveal any abnormalities in the kidneys. This was done without IV contrast. Significant ascites was noted. Patient's serum creatinine was around 0.8-0.9 up until 01/16/2021, subsequently started to increase from 1.2-2.7 now. The patient has been voiding on his own. Review of vital signs shows blood pressure on the lower side with systolic 99-101 mm of Hg mostly. The patient was started on midodrine today at 5 mg t.i.d. He was also started on Sandostatin yesterday with concern for possible hepatorenal syndrome. The patient states that he has been voiding well. I am not sure if there is underlying oliguria. Paracentesis was performed on 01/15/2021 and then 01/20/2021 and it appears that the serum creatinine did go up from around 2.0-2.2 on January 21 and subsequently to 2.7 yesterday. There are no other nephrotoxic agents on board. PAST MEDICAL HISTORY: ETOH abuse, alcoholic liver cirrhosis. MEDICATIONS: Prior to prior to admission included: Carafate, Phenergan, pantoprazole, Bentyl, [place]. SOCIAL HISTORY: Positive for alcohol abuse and smoking cigarettes. ALLERGIES: None. REVIEW OF SYSTEMS: Negative for diarrhea, cough, fever, chills, abdominal pain. EXAMINATION: Today blood pressure is 101/67, heart rate 85 per minute. Patient is afebrile. Examination of the heart S1, S2. Examination of lungs decreased breath sounds at the bases. Abdomen: Soft, distended, nontender. Exam of lower extremities shows edema 2+ bilaterally. HEALTH INFORMATION TECHNOLOGIST exam grossly intact. LAB: Show sodium 134 from 01/23/2021, potassium 4.1, BUN 53, creatinine 2.7, hemoglobin 10.4 g/dL. ASSESSMENT: 1. Acute kidney injury, most likely associated with hypotension, hypoperfusion and underlying ATN, however, need to rule out hepatorenal syndrome. It is unclear as to the amount of urine that patient has had over the last 24 hours. We will check accurate I's and O's and I will check a bladder scan to rule out urine retention. It may not be clear given the underlying ascites. CT scan did not show any evidence of hydronephrosis. Therefore, we do not need to do an ultrasound. I will repeat another UA as previous UA was done on January 16 and it had been completely benign. I will increase the midodrine to 10 mg t.i.d. Continue with the Sandostatin and repeat labs today and then again in a.m. 2. Alcoholic cirrhosis with recurrent ascites and paracentesis. 3. Anemia with iron deficiency. 4. Severe metabolic acidosis and lactic acidosis with volume depletion on initial admission currently resolved. PLAN: Continue Lasix. Increase midodrine. Check bladder scan. Check accurate I's and O's. Repeat labs today and then again in a.m. Thank you for this consultation. We will continue to follow the patient with you during his hospitalization. MMODL / IJN: [id number] /
[2021-01-24] MEDS: SODIUM FERRIC GLUCONAT-SUCROSE 125 MG in SODIUM CHLORIDE 0.9% 100 ML IVPB SCH (12:21)
[2021-01-24 12:37] LABS: HCT 31.3 % (39.6-50.0); HGB 10.1 g/dL (13.0-17.0); MCH 30.9 pg (27.0-32.0); MCHC 32.3 g/dL (32.0-37.0); MCV 95.7 fL (80.0-97.0); Mean Platelet Volume 11.5 fL (9.5-12.2); Platelet Count 185 X 10*3/uL (140-440); RBC 3.27 X 10*6/uL (4.40-5.60); RDW 17.1 % (11.5-14.5); WBC 25.16 X 10*3/uL (4.50-10.00)
[2021-01-24 12:46] LABS: Magnesium 2.1 mg/dL (1.5-2.4)
[2021-01-24 12:58] LABS: African American GFR (CKD) 22.3 (60.0-200.0); Anion Gap 15.3 mmol/L (4.00-12.00); BUN/Creat Ratio 15.87 Ratio (12.00-20.00); Calcium 8.3 mg/dL (8.7-10.3); Carbon Dioxide 17.2 mmol/L (21.6-31.8); Non-African American GFR(CKD) 19.2 (60.0-200.0); Potassium 4.6 mmol/L (3.5-5.5)
[2021-01-24 13:21] LABS: INR 1.4 (<1.2); Prothrombin Time 14.6 sec (9.0-12.0)
--- NOTE | 2021-01-24 17:20 | P.PN ---
<Mendez Berger - Last Filed: 01/24/21 17:13> Subjective Progress Note Date: 01/24/21 Hospital Course: The patient is a 56-year-old male with a past medical history of cirrhosis, anemia, colitis and recent ventral hernia sx. He was reportedly living in a motel and was found to be unresponsive and hypothermic. He was taken to [place] [facility] and was transferred to our facility for ICU admission on 01/09/21 for diagnosis of severe sepsis with septic shock as evidenced by hypotension, hypothermia, dehydration, and lactic acidosis. Initially pt was admitted to the medical ICU for septic shock with abdomen as a suspected source secondary to recent ventral hernia repair one month prior. General surgery was consulted. CT abdomen and pelvis obtained and had revealed seroma and he was maintained on broad-spectrum IV antibiotics. Initially pt required vasopressors, however these were eventually tapered off and patient was downgraded from the medical ICU. Seroma cultures came back negative. Blood cultures showing no growth after 144 hours. He was also found to have moderate ascitic fluid and underwent a paracentesis with removal of 1.7 L of fluid on 01/14/21 this was sent for culture with negative results. blood cultures showing no growth after 144 hours, gram stains negative, fungal culture negative and repeat blood cultures again showing no growth after 144 hours. Patient again underwent paracentesis on 01/20/21, with a reported removal of approximately 3.6 L of ascitic fluid. Repeat cultures and Gram stain on paracentesis fluid also negative. Echocardiogram revealing a normal EF between 60 and 65% with no significant valvular abnormalities. Patient continues to have significant leukocytosis and abdominal pain. Hematology consulted. General surgery also re-consulted secondary to CT findings revealing a 2.9 cm soft tissue density in gallbladder neck, General surgery not recommending surgical intervention at this time due to extreme risk of fulminant liver failure and abdominal pain believed to be secondary to cirrhosis and highly unlikely gallbladder related. Physical Examination: Patient was seen and fully evaluated at bedside this morning. Patient sitting up in chair at bedside. He continues to report diffuse abdominal pain and tightness in his lower extremities. Patient again reporting increased abdominal distention, tentatively scheduled to go down for paracentesis tomorrow. He remains on holiday from antibiotics, remains afebrile with no significant changes in his WBC count. Leukocytosis likely inflammatory reaction and less likely infectious process. Nephrology was consulted secondary to worsening renal function believed to be secondary to hepatorenal syndrome. Lasix and Aldactone discontinued and patient started on Midodrine and octreotide, will hold off on initiating albumin infusions pending further nephrology recommendations. Morning labs reviewed and they revealed continued leukocytosis with WBC 25.16 along with normocytic normochromic anemia with hemoglobin of 10.1. CMP revealing continued worsening of renal function with BUN 53, creatinine 3.3, and GFR 19.2. Meld score 21. Iron 24, TIBC 119, and total iron saturation 19.89%. Orders place for Ferrlecit x 3 doses and then to begin oral ferrous sulfate.. Additional orders place for acute hepatitis panel along with hepatitis A IgG and IgM. General: Chronically Ill-appearing, no acute distress, appears at stated age Derm: warm, dry Head: atraumatic, normocephalic, symmetric Eyes: EOMI, no lid lag, anicteric sclera Mouth: no lip lesion, mucus membranes moist Cardiovascular: S1S2 reg, systolic murmur, positive posterior tibial pulses ariadna aterally, 3+ BLE pitting edema, Lungs: CTA bilateral, no rhonchi, no rales , no accessory muscle use Abdominal: Cirrhotic abdomen, +tenderness to palpation diffusely, no guarding, no appreciable organomegaly Ext: no gross muscle atrophy, no contractures Neuro: CN II-XI grossly intact, no focal neuro deficits Psych: Alert, oriented, appropriate affect Assessment and Plan of Care: Liver cirrhosis MELD score of 21 Septic shock with suspected abdominal source Recent C. diff Persistent abdominal pain Moderate abdominal ascites with lower extremity edema Significant leukocytosis -CT abdomen and pelvis showed a seroma which was aspirated by Gen. surgery and sent for culture which was negative -Repeat abdominal ultrasound with moderate ascites. -IR following and patient underwent paracentesis with removal of 1.7 L of ascitic fluid on 01/14/21. -Patient underwent repeat paracentesis 01/20/21 in which 3.6 L of ascitic fluid was removed. -ID following, patient placed on holiday from antibiotics to evaluate WBC response as leukocytosis suspected to be from inflammatory reaction and less likely infectious. -GI services have signed off patient care, no plans for scopes at this time. -Hematology following, appreciate further recommendations. -Gen. surgery evaluated, not recommending surgical intervention at this time due to extreme risk of fulminant liver failure and abdominal pain believed to be secondary to cirrhosis and highly unlikely gallbladder related. -Blood cultures showing no growth after 144 hours. Gram stain negative. Fungal culture negative and ascites fluid culture negative. Repeat blood culture showing no growth after 144 hours. -Meld score 21 Acute kidney injury, worsening Concerns for hepatorenal syndrome -Off IV fluids -Lasix and Aldactone discontinued secondary to concerns of hepatorenal syndrome and Patient started on octreotide and midodrine -Nephrology consulted, appreciate further recommendations -We will continue to follow BMP closely Recent C. diff colitis, from outside hospital -Completed course of oral vancomycinIn reporting back to normal bowel function Anemia, suspected due to acute blood loss from GI bleeding, stable normocytic hyperchromic anemia -Status post 2 units of PRBCs since admission -Continue to monitor CBC -Stable at this time. Thrombocytopenia, resolved -We will continue to monitor with repeat a.m. labs. Physical Debility -PT Consult, appreciate recommendations DVT prophylaxis: SCDs Discussed with: Patient and RN Anticipated discharge date: Clinical Course to Determine Anticipated discharge place: SNF A total of 40 minutes was spent on the care of this complex patient more than 50% of the time was spent in counseling and care coordination.coordination. Objective - Vital Signs Vital signs: Vital Signs Temp 97.6 F 01/24/21 08:00 Pulse 85 01/24/21 08:00 Resp 18 01/24/21 08:00 BP 101/67 01/24/21 08:00 Pulse Ox 99 01/24/21 08:00 Intake & Output 01/23/21 01/24/21 01/24/21 19:59 06:59 18:59 Weight Other: Voiding Method ABP, PAP, CO, CI - Last Documented Arterial Blood Pressure 120/70 - Labs CBC & Chem 7: 01/24/21 08:28 01/24/21 08:28 Labs: Abnormal Lab Results - Last 24 Hours (Table) 01/23/21 01/23/21 01/23/21 Range/Units 08:23 08:23 08:23 WBC 20.1 H (3.8-10.6) k/uL RBC 3.22 L (4.30-5.90) m/uL Hgb 10.4 L (13.0-17.5) gm/dL Hct 33.5 L (39.0-53.0) % MCV 104.1 H D (80.0-100.0) fL Plt Count 135 L (150-450) k/uL Neutrophils # 17.9 H (1.3-7.7) k/uL Lymphocytes # 0.8 L (1.0-4.8) k/uL Retic Count 2.35 H (0.10-1.80) % Sodium (137-145) mmol/L Carbon Dioxide (22-30) mmol/L BUN (9-20) mg/dL Creatinine (0.66-1.25) mg/dL Glucose (74-99) mg/dL Calcium (8.4-10.2) mg/dL Iron 24 L (65-175) ug/dL TIBC 119 L (228-460) ug/dL Transferrin 85.1 L (204.0-354.0) mg/dL Total Bilirubin (0.2-1.3) mg/dL AST (17-59) U/L Alkaline Phosphatase (38-126) U/L Lactate Dehydrogenase 285 H (120-246) U/L Total Protein (6.3-8.2) g/dL Albumin (3.5-5.0) g/dL 01/23/21 Range/Units 08:23 WBC (3.8-10.6) k/uL RBC (4.30-5.90) m/uL Hgb (13.0-17.5) gm/dL Hct (39.0-53.0) % MCV (80.0-100.0) fL Plt Count (150-450) k/uL Neutrophils # (1.3-7.7) k/uL Lymphocytes # (1.0-4.8) k/uL Retic Count (0.10-1.80) % Sodium 134 L (137-145) mmol/L Carbon Dioxide 19 L (22-30) mmol/L BUN 53 H (9-20) mg/dL Creatinine 2.77 H (0.66-1.25) mg/dL Glucose 129 H (74-99) mg/dL Calcium 8.1 L (8.4-10.2) mg/dL Iron (65-175) ug/dL TIBC (228-460) ug/dL Transferrin (204.0-354.0) mg/dL Total Bilirubin 1.4 H (0.2-1.3) mg/dL AST 83 H (17-59) U/L Alkaline Phosphatase 311 H (38-126) U/L Lactate Dehydrogenase (120-246) U/L Total Protein 4.8 L (6.3-8.2) g/dL Albumin 2.1 L (3.5-5.0) g/dL Microbiology - Last 24 Hours (Table) 01/20/21 11:15 Gram Stain - Preliminary Paracentesis Fluid Body Fluid Culture - Preliminary 01/17/21 06:58 Blood Culture - Final Blood No Growth after 144 hours <Yajaira Anna - Last Filed: 01/24/21 21:30> Subjective Mendez Berger NP rendered care for this patient independently, reviewed the findings and plan as documented in the note above. I did not physically speak with or examine the patient on this date. Case discussed with Dr. Llanes nephrology. Possible ATN versus less likely hepatorenal syndrome. Will need strict I's and O's, bladder scan, repeat urinalysis. Recommended increasing Midrin to 10mg 3 times a day continue with octreotide, and adding albumin is low urine output. Objective - Vital Signs Vital signs: Vital Signs Temp 97.8 F 01/24/21 14:00 Pulse 84 01/24/21 14:00 Resp 17 01/24/21 14:00 BP 105/71 01/24/21 14:00 Pulse Ox 100 01/24/21 14:00 Intake & Output 01/24/21 01/24/21 01/25/21 06:59 18:59 06:59 Weight Other: Voiding Method Urinal ABP, PAP, CO, CI - Last Documented Arterial Blood Pressure 120/70 - Labs CBC & Chem 7: 01/24/21 08:28 01/24/21 08:28 Labs: Abnormal Lab Results - Last 24 Hours (Table) 01/24/21 01/24/21 01/24/21 Range/Units 08:28 08:28 13:03 WBC 25.16 H (4.50-10.00) X 10*3/uL RBC 3.27 L (4.40-5.60) X 10*6/uL Hgb 10.1 L (13.0-17.0) g/dL Hct 31.3 L (39.6-50.0) % RDW 17.1 H (11.5-14.5) % PT 14.6 H (9.0-12.0) sec INR 1.4 H (<1.2) Carbon Dioxide 17.2 L (21.6-31.8) mmol/L Anion Gap 15.30 H (4.00-12.00) mmol/L BUN 53.0 H (9.0-27.0) mg/dL Creatinine 3.3 H (0.6-1.5) mg/dL Est GFR (CKD-EPI)AfAm 22.3 L (60.0-200.0) Est GFR (CKD-EPI)NonAf 19.2 L (60.0-200.0) Glucose 159 H (70-110) mg/dL Calcium 8.3 L (8.7-10.3) mg/dL Microbiology - Last 24 Hours (Table) 01/20/21 11:15 Gram Stain - Final Paracentesis Fluid Body Fluid Culture - Final
[2021-01-24 17:42] LABS: Hepatitis A Ab, Total Nonreactive (Nonreactive); Hepatitis A Antibody IgM Nonreactive (Nonreactive)
[2021-01-24 21:24] LABS: Hepatitis A Antibody IgM Nonreactive (Nonreactive); Hepatitis B Core IgM Nonreactive (Nonreactive); Hepatitis B Surface Antigen Nonreactive (Nonreactive); Hepatitis C IgG Antibody Nonreactive (Nonreactive)
[2021-01-24] MEDS ORDERED: SPIRONOLACTONE 25 MG TAB PO SCH (21:30)
[2021-01-24] MEDS: FUROSEMIDE 10 MG/ML 4 ML VIAL IV SCH (22:41)
[2021-01-24] MEDS: HYDROcodone/APAP 5-325MG 1 EACH TAB PO PRN (22:42)
[2021-01-24] MEDS: SENNOSIDES 8.6 MG TAB PO SCH (22:43)
--- NOTE | 2021-01-24 22:50 | PN ---
PROGRESS NOTE DATE OF SERVICE: 01/24/2021 REASON FOR FOLLOWUP: Leukocytosis. INTERVAL HISTORY: The patient is afebrile. The patient is currently breathing comfortably on room air. Denies having any chest pain, shortness of breath or cough. Some abdominal distention. No vomiting. No abdominal pain or diarrhea. PHYSICAL EXAMINATION: Blood pressure 105/71, pulse 84, temperature 97.8. He is 100% on room air. General description is a middle-aged male up in the bed in no distress. Respiratory system: Unlabored breathing, decreased breath sounds in the base. Heart S1, S2. Regular rate and rhythm. Abdomen soft, slightly distended. No guarding or rigidity. LABS: Hemoglobin is 10.8, white count 25.16, creatinine 3.3. DIAGNOSTIC IMPRESSION AND PLAN: Patient with leukocytosis which is multifactorial in this patient who did have extensive workup for infectious etiology. No clear focus of infection. All cultures have been negative. Currently being monitored closely off antibiotic therapy. Hematology/Oncology is closely following the patient as well. Continue with supportive care. MMODL / IJN: [id number] /
[2021-01-25] MEDS: OCTREOTIDE 100 MCG/ML INJ SQ SCH ×3 (00:01→17:10)
[2021-01-25 07:41] LABS: Appearance,Urine Cloudy (Clear); Bilirubin,Urine Negative (Negative); Blood,Urine Negative (Negative); Color,Urine Yellow; Glucose,Urine (UA) Negative (Negative); Ketones,Urine Negative (Negative); Leukocyte Esterase,Urine Negative (Negative); Mucus,Urine Rare /hpf; Nitrite,Urine Negative (Negative); Protein,Urine Trace (Negative); Specific Gravity,Urine 1.018 (1.001-1.035); Urobilinogen,Urine <2.0 mg/dL (<2.0); WBC,Urine 5 /hpf (0-5)
[2021-01-25] MEDS: FUROSEMIDE 10 MG/ML 4 ML VIAL IV SCH (08:08)
[2021-01-25] MEDS: MIDODRINE 5 MG TAB PO SCH ×3 (08:09→17:10)
[2021-01-25] MEDS: SODIUM FERRIC GLUCONAT-SUCROSE 125 MG in SODIUM CHLORIDE 0.9% 100 ML IVPB SCH (08:09)
[2021-01-25] MEDS: DOCUSATE 100 MG CAP PO SCH ×2 (08:09→21:45)
[2021-01-25] MEDS: FAMOTIDINE 20 MG TAB PO SCH (08:09)
[2021-01-25] MEDS: HYDROcodone/APAP 5-325MG 1 EACH TAB PO PRN ×3 (08:54→21:45)
[2021-01-25 09:15] LABS: Free Kappa Lt Chain Qnt, Serum 9.82 mg/dL (0.33-1.94)
--- NOTE | 2021-01-25 10:57 | P.PN ---
Subjective Patient is seen in follow-up for acute kidney injury. Renal function worsening. Creatinine 3.3 yesterday. Blood pressure stable on midodrine. Underwent paracentesis on January 20 with 3.6 L drained. Oral intake poor. Vital signs are stable. HEENT: Head exam is unremarkable. LUNGS: Breath sounds decreased. HEART: Rate and Rhythm are regular. ABDOMEN: Soft, mild distention. EXTREMITITES: 1+ edema. Objective - Vital Signs Vital signs: Vital Signs Temp 97.7 F 01/25/21 03:46 Pulse 82 01/25/21 03:46 Resp 16 01/25/21 03:46 BP 107/68 01/25/21 03:46 Pulse Ox 99 01/25/21 03:46 Intake & Output 01/24/21 01/25/21 01/25/21 18:59 06:59 18:59 Intake Total 200 240 Output Total 130 100 Balance 70 140 Weight 89 kg Intake: Oral 200 240 Output: Urine 130 100 Other: Voiding Method Urinal Urinal ABP, PAP, CO, CI - Last Documented Arterial Blood Pressure 120/70 - Labs CBC & Chem 7: 01/24/21 08:28 01/24/21 08:28 Labs: Abnormal Lab Results - Last 24 Hours (Table) 01/22/21 01/24/21 01/24/21 Range/Units 06:16 08:28 08:28 WBC 25.16 H (4.50-10.00) X 10*3/uL RBC 3.27 L (4.40-5.60) X 10*6/uL Hgb 10.1 L (13.0-17.0) g/dL Hct 31.3 L (39.6-50.0) % RDW 17.1 H (11.5-14.5) % PT (9.0-12.0) sec INR (<1.2) Carbon Dioxide 17.2 L (21.6-31.8) mmol/L Anion Gap 15.30 H (4.00-12.00) mmol/L BUN 53.0 H (9.0-27.0) mg/dL Creatinine 3.3 H (0.6-1.5) mg/dL Est GFR (CKD-EPI)AfAm 22.3 L (60.0-200.0) Est GFR (CKD-EPI)NonAf 19.2 L (60.0-200.0) Glucose 159 H (70-110) mg/dL Calcium 8.3 L (8.7-10.3) mg/dL Urine Protein (Negative) Urine Mucus (None) /hpf Free [facility] LC, Quant 9.82 H (0.33-1.94) mg/dL Free Lambda LC, Quant 9.58 H (0.57-2.63) mg/dL 01/24/21 01/24/21 Range/Units 13:03 22:23 WBC (4.50-10.00) X 10*3/uL RBC (4.40-5.60) X 10*6/uL Hgb (13.0-17.0) g/dL Hct (39.6-50.0) % RDW (11.5-14.5) % PT 14.6 H (9.0-12.0) sec INR 1.4 H (<1.2) Carbon Dioxide (21.6-31.8) mmol/L Anion Gap (4.00-12.00) mmol/L BUN (9.0-27.0) mg/dL Creatinine (0.6-1.5) mg/dL Est GFR (CKD-EPI)AfAm (60.0-200.0) Est GFR (CKD-EPI)NonAf (60.0-200.0) Glucose (70-110) mg/dL Calcium (8.7-10.3) mg/dL Urine Protein Trace H (Negative) Urine Mucus Rare H (None) /hpf Free [facility] LC, Quant (0.33-1.94) mg/dL Free Lambda LC, Quant (0.57-2.63) mg/dL Microbiology - Last 24 Hours (Table) 01/20/21 11:15 Gram Stain - Final Paracentesis Fluid Body Fluid Culture - Final Assessment and Plan Plan: Assessment: 1. Acute kidney injury secondary to ATN secondary to hypotension. Also concern for hepatorenal syndrome. UA benign. Creatinine 3.3 yesterday. No hydronephrosis noted on kidney ultrasound. 2. Liver cirrhosis. 3. Ascites status post paracentesis on January 20 with 3.6 L drained. 4. Iron deficiency anemia. Receiving IV iron. 5. Metabolic acidosis secondary to acute kidney injury. Plan: 25 g IV albumin 2 doses today. Insert Muñoz catheter. Strict I's and O's. Hold diuretics. Maintain midodrine. Check urine sodium. Follow-up morning labs. Continue to monitor renal function and urine output
--- NOTE | 2021-01-25 13:14 | P.PN ---
Subjective Progress Note Date: 01/25/21 Objective - Vital Signs Vital signs: Vital Signs Temp 97.8 F 01/25/21 08:00 Pulse 85 01/25/21 08:00 Resp 16 01/25/21 08:00 BP 101/66 01/25/21 08:00 Pulse Ox 99 01/25/21 08:00 Intake & Output 01/24/21 01/25/21 01/25/21 18:59 06:59 18:59 Intake Total 200 240 Output Total 130 100 Balance 70 140 Weight 89 kg Intake: Oral 200 240 Output: Urine 130 100 Other: Voiding Method Urinal Urinal ABP, PAP, CO, CI - Last Documented Arterial Blood Pressure 120/70 - Labs CBC & Chem 7: 01/24/21 08:28 01/24/21 08:28 Labs: Abnormal Lab Results - Last 24 Hours (Table) 01/22/21 01/24/21 01/24/21 Range/Units 06:16 13:03 22:23 PT 14.6 H (9.0-12.0) sec INR 1.4 H (<1.2) Urine Protein Trace H (Negative) Urine Mucus Rare H (None) /hpf Free [place] LC, Quant 9.82 H (0.33-1.94) mg/dL Free Lambda LC, Quant 9.58 H (0.57-2.63) mg/dL Microbiology - Last 24 Hours (Table) 01/20/21 11:15 Gram Stain - Final Paracentesis Fluid Body Fluid Culture - Final Assessment and Plan (1) Macrocytosis Current Visit: Yes Status: Acute Code(s): D75.89 - OTHER SPECIFIED DISEASES OF BLOOD AND BLOOD-FORMING ORGANS SNOMED Code(s): 996167965 (2) LACEY (acute kidney injury) Current Visit: Yes Status: Acute Code(s): N17.9 - ACUTE KIDNEY FAILURE, UNSPECIFIED SNOMED Code(s): 99249670 (3) Abdominal pain Current Visit: Yes Status: Acute Code(s): R10.9 - UNSPECIFIED ABDOMINAL PAIN SNOMED Code(s): 17374280 (4) Alcoholic cirrhosis of liver with ascites Current Visit: Yes Status: Acute Code(s): K70.31 - ALCOHOLIC CIRRHOSIS OF LIVER WITH ASCITES SNOMED Code(s): 371581045 (5) Leukocytosis Current Visit: Yes Status: Acute Code(s): D72.829 - ELEVATED WHITE BLOOD CELL COUNT, UNSPECIFIED SNOMED Code(s): 751950371 Plan: leukocytosis, macrocytosis, and mild thrombocytopenia. All labs are stable today and within safe range. Leukocytosis likely reactive to viral infectious and/or underlying inflammatory process, further work-up has been ordered. Await results of further work-up, likely most stems from ETOH cirrhosis Status post Paracentesis - Would send culture if has not been sent. Very tender to abdomen exam Continue to await full hematological work-up: Immunoglobulins resulted with IgA increased however non-specific without full work-up Anemia and Macrocytosis secondary to chronic liver disease and Inflammation - Folic Acid Continue - Agree with Iron Supplementation given the recent Positive C-diff and OB - Rest of his hematological work-up points towards underlying problem of liver. Highly encourage continued cessation of Alcohol. Discussed with primary team
[2021-01-25] MEDS ORDERED: LIDOCAINE URO-JET JELLY 2% 5 ML KIT URETHRAL ONE (13:22)
--- NOTE | 2021-01-25 13:25 | P.PN ---
<Mendez Berger - Last Filed: 01/25/21 13:04> Subjective Progress Note Date: 01/25/21 Hospital Course: The patient is a 56-year-old male with a past medical history of cirrhosis, anemia, colitis and recent ventral hernia sx. He was reportedly living in a motel and was found to be unresponsive and hypothermic. He was taken to [place] [facility] and was transferred to our facility for ICU admission on 01/09/21 for diagnosis of severe sepsis with septic shock as evidenced by hypotension, hypothermia, dehydration, and lactic acidosis. Initially pt was admitted to the medical ICU for septic shock with abdomen as a suspected source secondary to recent ventral hernia repair one month prior. General surgery was consulted. CT abdomen and pelvis obtained and had revealed seroma and he was maintained on broad-spectrum IV antibiotics. Initially pt required vasopressors, however these were eventually tapered off and patient was downgraded from the medical ICU. Seroma cultures came back negative. Blood cultures showing no growth after 144 hours. He was also found to have moderate ascitic fluid and underwent a paracentesis with removal of 1.7 L of fluid on 01/14/21 this was sent for culture with negative results. blood cultures showing no growth after 144 hours, gram stains negative, fungal culture negative and repeat blood cultures again showing no growth after 144 hours. Patient again underwent paracentesis on 01/20/21, with a reported removal of approximately 3.6 L of ascitic fluid. Repeat cultures and Gram stain on paracentesis fluid also negative. Echocardiogram revealing a normal EF between 60 and 65% with no significant valvular abnormalities. Patient continues to have significant leukocytosis and abdominal pain. Hematology consulted. General surgery also re-consulted secondary to CT findings revealing a 2.9 cm soft tissue density in gallbladder neck, General surgery not recommending surgical intervention at this time due to extreme risk of fulminant liver failure and abdominal pain believed to be secondary to cirrhosis and highly unlikely gallbladder related. Physical Examination: Patient was seen and fully evaluated at bedside this morning. Patient sitting up on edge of the bed at this time. Patient was reportedly urinating in brief yesterday and urinary output unable to be documented accurately nephrology placed order for insertion of Muñoz catheter for strict intake and output. Secondary to ATN versus hepatorenal syndrome, nephrology adding and 25 g albumin 2 doses today in addition to Midodrine and octreotide. Acute hepatitis panel nonreactive. Awaiting daily CBC and CMP results at this time. Patient tolerating oral intake and denies any nausea or vomiting. Patient also denies having any headache, lightheadedness, dizziness, chest pain, palpitations, marcus rtness of breath, or experiencing any numbness/tingling in his extremities. He reports continued diffuse abdominal pain/discomfort and tightness in his lower extremities. He reports pain is currently controlled with oral pain medication, [place]. General: Chronically Ill-appearing, no acute distress, appears at stated age Derm: warm, dry Head: atraumatic, normocephalic, symmetric Eyes: EOMI, no lid lag, anicteric sclera Mouth: no lip lesion, mucus membranes moist Cardiovascular: S1S2 reg, systolic murmur, positive posterior tibial pulses bilaterally, 3+ BLE pitting edema, Lungs: CTA bilateral, no rhonchi, no rales , no accessory muscle use Abdominal: Cirrhotic abdomen, +tenderness to palpation diffusely, no guarding, no appreciable organomegaly Ext: no gross muscle atrophy, no contractures Neuro: CN II-XI grossly intact, no focal neuro deficits Psych: Alert, oriented, appropriate affect Assessment and Plan of Care: Liver cirrhosis MELD score of 21 Septic shock with suspected abdominal source Recent C. diff Persistent abdominal pain Moderate abdominal ascites with lower extremity edema Significant leukocytosis -CT abdomen and pelvis showed a seroma which was aspirated by Gen. surgery and sent for culture which was negative -Repeat abdominal ultrasound with moderate ascites. -IR following and patient underwent paracentesis with removal of 1.7 L of ascitic fluid on 01/14/21. -Patient underwent repeat paracentesis 01/20/21 in which 3.6 L of ascitic fluid was removed. -ID following, patient placed on holiday from antibiotics to evaluate WBC response as leukocytosis suspected to be from inflammatory reaction and less likely infectious. -GI services have signed off patient care, no plans for scopes at this time. -Hematology following, appreciate further recommendations. -Gen. surgery evaluated, not recommending surgical intervention at this time due to extreme risk of fulminant liver failure and abdominal pain believed to be secondary to cirrhosis and highly unlikely gallbladder related. -Blood cultures showing no growth after 144 hours. Gram stain negative. Fungal culture negative and ascites fluid culture negative. Repeat blood culture showing no growth after 144 hours. -Meld score 21 Acute kidney injury, worsening. LACEY secondary to ATN with Concerns for hepatorenal syndrome -Off IV fluids -Lasix and Aldactone discontinued secondary to concerns of hepatorenal syndrome and Patient started on octreotide and midodrine -Nephrology consulted, also recommending infusion of albumin 2 doses -Muñoz catheter to be inserted for strict monitoring of I's and O's -We will continue to follow BMP closely Recent C. diff colitis, from outside hospital -Completed course of oral vancomycinIn reporting back to normal bowel function Anemia, suspected due to acute blood loss from GI bleeding, stable normocytic hyperchromic anemia -Status post 2 units of PRBCs since admission -Continue to monitor CBC -Stable at this time. Thrombocytopenia -We will continue to monitor with repeat a.m. labs. Physical Debility -PT Consult, appreciate recommendations DVT prophylaxis: SCDs Discussed with: Patient and RN Anticipated discharge date: Clinical Course to Determine Anticipated discharge place: SNF A total of 40 minutes was spent on the care of this complex patient more than 50% of the time was spent in counseling and care coordination.coordination. Objective - Vital Signs Vital signs: Vital Signs Temp 97.7 F 01/25/21 03:46 Pulse 82 01/25/21 03:46 Resp 16 01/25/21 03:46 BP 107/68 01/25/21 03:46 Pulse Ox 99 01/25/21 03:46 Intake & Output 01/24/21 01/25/21 01/25/21 18:59 06:59 18:59 Intake Total 200 Output Total 130 Balance 70 Weight 89 kg Intake: Oral 200 Output: Urine 130 Other: Voiding Method Urinal Urinal ABP, PAP, CO, CI - Last Documented Arterial Blood Pressure 120/70 - Labs CBC & Chem 7: 01/24/21 08:28 01/24/21 08:28 Labs: Abnormal Lab Results - Last 24 Hours (Table) 01/24/21 01/24/21 01/24/21 Range/Units 08:28 08:28 13:03 WBC 25.16 H (4.50-10.00) X 10*3/uL RBC 3.27 L (4.40-5.60) X 10*6/uL Hgb 10.1 L (13.0-17.0) g/dL Hct 31.3 L (39.6-50.0) % RDW 17.1 H (11.5-14.5) % PT 14.6 H (9.0-12.0) sec INR 1.4 H (<1.2) Carbon Dioxide 17.2 L (21.6-31.8) mmol/L Anion Gap 15.30 H (4.00-12.00) mmol/L BUN 53.0 H (9.0-27.0) mg/dL Creatinine 3.3 H (0.6-1.5) mg/dL Est GFR (CKD-EPI)AfAm 22.3 L (60.0-200.0) Est GFR (CKD-EPI)NonAf 19.2 L (60.0-200.0) Glucose 159 H (70-110) mg/dL Calcium 8.3 L (8.7-10.3) mg/dL Urine Protein (Negative) Urine Mucus (None) /hpf 01/24/21 Range/Units 22:23 WBC (4.50-10.00) X 10*3/uL RBC (4.40-5.60) X 10*6/uL Hgb (13.0-17.0) g/dL Hct (39.6-50.0) % RDW (11.5-14.5) % PT (9.0-12.0) sec INR (<1.2) Carbon Dioxide (21.6-31.8) mmol/L Anion Gap (4.00-12.00) mmol/L BUN (9.0-27.0) mg/dL Creatinine (0.6-1.5) mg/dL Est GFR (CKD-EPI)AfAm (60.0-200.0) Est GFR (CKD-EPI)NonAf (60.0-200.0) Glucose (70-110) mg/dL Calcium (8.7-10.3) mg/dL Urine Protein Trace H (Negative) Urine Mucus Rare H (None) /hpf Microbiology - Last 24 Hours (Table) 01/20/21 11:15 Gram Stain - Final Paracentesis Fluid Body Fluid Culture - Final <Yajaira Anna - Last Filed: 01/25/21 14:56> Subjective Patient seen and examined independently. Patient was also seen by Mendez Berger NP and case was discussed. I am in agreement with subjective, physical exam, assessment and plan as written above and amended below. Complains of feeling very tired and not getting rest, bili is larger today than yesterday, swelling is unchanged, no shortness of breath. General: non toxic, no distress, appears at stated age Derm: warm, dry, + jaundiced Head: atraumatic, normocephalic, symmetric Eyes: EOMI, no lid lag, anicteric sclera Mouth: no lip lesion, mucus membranes moist Cardiovascular: S1S2 reg, no murmur, positive posterior tibial pulse bilateral, Lungs: CTA bilateral, no rhonchi, no rales , no accessory muscle use Abdominal: soft, + distended, nontender to palpation, no guarding, no appreciable organomegaly Ext: no gross muscle atrophy, no edema, no contractures Neuro: CN II-XI grossly intact, no focal neuro deficits Psych: Alert, oriented, appropriate affect Hepatitis profile was negative. Patient appears to have low urine output. Case discussed with Dr. Brennan Muñoz will be initiated- lasix will be stopped, Albumin. D/W Dr. Grant will continue to monitor off antibiotics. Objective - Vital Signs Vital signs: Vital Signs Temp 97.8 F 01/25/21 08:00 Pulse 85 01/25/21 08:00 Resp 16 01/25/21 08:00 BP 101/66 01/25/21 08:00 Pulse Ox 99 01/25/21 08:00 Intake & Output 01/24/21 01/25/21 01/25/21 18:59 06:59 18:59 Intake Total 200 440 Output Total 130 120 Balance 70 320 Weight 89 kg Intake: IV 200 Sodium Chloride 0.9% 1, 200 000 ml @ 20 mls/hr IV . Q24H [facility] Rx#:[id number] Oral 200 240 Output: Urine 130 120 Uretheral (Muñoz) 20 Other: Voiding Method Urinal Urinal ABP, PAP, CO, CI - Last Documented Arterial Blood Pressure 120/70 - Labs CBC & Chem 7: 01/24/21 08:28 01/24/21 08:28 Labs: Abnormal Lab Results - Last 24 Hours (Table) 01/22/21 01/24/21 Range/Units 06:16 22:23 Urine Protein Trace H (Negative) Urine Mucus Rare H (None) /hpf Free [place] LC, Quant 9.82 H (0.33-1.94) mg/dL Free [place] LC, Quant 9.58 H (0.57-2.63) mg/dL Microbiology - Last 24 Hours (Table) 01/20/21 11:15 Gram Stain - Final Paracentesis Fluid Body Fluid Culture - Final
[2021-01-25] MEDS: SODIUM BICARBONATE TAB 650 MG TAB PO SCH ×2 (13:36→21:45)
[2021-01-25] MEDS: ALBUMIN HUMAN 25% 50 ML in EMPTY BAG 1 BAG IVPB SCH ×2 (13:36→21:43)
--- NOTE | 2021-01-25 14:21 | PN ---
PROGRESS NOTE DATE OF SERVICE: 01/25/2021 REASON FOR FOLLOWUP: Leukocytosis. INTERVAL HISTORY: The patient is afebrile. The patient is breathing comfortably. Denies any chest pain or cough. No worsening abdominal pain or diarrhea. PHYSICAL EXAMINATION: Blood pressure is 101/66, pulse of 85, temperature 97.8. He is 99% on room air. General description is a middle-aged male lying in bed in no distress. Respiratory system: Unlabored breathing, clear to auscultation anteriorly. Heart S1, S2. Regular rate and rhythm. Abdomen soft, mildly distended. No guarding or rigidity. LABS: No new labs have been obtained today. Cultures remain negative. DIAGNOSTIC IMPRESSION AND PLAN: Patient with leukocytosis in this patient who did have extensive workup and no clear focus of infection. The patient is currently being monitored closely off antibiotic therapy. Continue supportive care. MMODL / ROSEN: [id number] /
[2021-01-25 15:47] LABS: Albumin 2.39 g/dL (3.80-4.90); Gamma Globulin 0.75 g/dL (0.70-1.50)
--- NOTE | 2021-01-25 17:02 | US ---
EXAMINATION TYPE: US paracentesis abd w/image DATE OF EXAM: 01/25/2021 COMPARISON: NONE HISTORY: Ascites. PROCEDURE: Maximal barrier technique was utilized. The skin overlying a suitable pocket of fluid was localized with ultrasound and the overlying skin was prepped and draped. Ultrasound was utilized with sterile technique. Lidocaine was used for local anesthesia and a skin garrett made with a scalpel. Catheter was advanced under direct ultrasound guidance into a suitable pocket of fluid and approximately 4.2 liter s of serous fluid were removed. Catheter was withdrawn and hemostasis achieved. There is no immedia te complication; the patient is discharged in stable condition. IMPRESSION: STATUS POST ULTRASOUND GUIDED PARACENTESIS FOR PALLIATION OF ASCITES. THIS PROCEDURE WA S PERFORMED BY THE UNDERSIGNED.
[2021-01-25] MEDS: ALPRAZolam 0.25 MG TAB PO PRN (17:10)
[2021-01-25 17:37] LABS: Basophils # (A) 0.2 k/uL (0-0.2); Basophils % (A) 1 %; Eosinophils # (A) 0.6 k/uL (0-0.7); Eosinophils % (A) 2 %; HGB 10.6 gm/dL (13.0-17.5); Hypochromasia Moderate; Lymphocytes # (A) 1.1 k/uL (1.0-4.8); Lymphocytes % (A) 5 %; MCHC 31.2 g/dL (31.0-37.0); MCV 102.7 fL (80.0-100.0); Macrocytosis Slight; Monocytes # (A) 0.9 k/uL (0-1.0); Monocytes % (A) 4 %; Neutrophils # (A) 22.1 k/uL (1.3-7.7); Neutrophils % (A) 88 %; Platelet Count 210 k/uL (150-450); RBC 3.31 m/uL (4.30-5.90); RDW 15.4 % (11.5-15.5); WBC 25.2 k/uL (3.8-10.6)
[2021-01-25 17:48] LABS: ALT 39 U/L (4-49); AST 117 U/L (17-59); African American GFR (CKD) 21 (>60 ml/min/1.73 sqM); Albumin 2.5 g/dL (3.5-5.0); Albumin/Globulin Ratio 0.9; Alkaline Phosphatase 329 U/L (38-126); Anion Gap 8 mmol/L; Blood Urea Nitrogen 61 mg/dL (9-20); Calcium 8.6 mg/dL (8.4-10.2); Carbon Dioxide 20 mmol/L (22-30); Chloride 104 mmol/L (98-107); Globulin 2.9 g/dL; Glucose 127 mg/dL (74-99); Non-African American GFR(CKD) 18 (>60 ml/min/1.73 sqM); Potassium 4.8 mmol/L (3.5-5.1); Sodium 132 mmol/L (137-145); Total Bilirubin 1.7 mg/dL (0.2-1.3); Total Protein 5.4 g/dL (6.3-8.2)
[2021-01-25] MEDS: SENNOSIDES 8.6 MG TAB PO SCH (21:45)
[2021-01-26] MEDS: OCTREOTIDE 100 MCG/ML INJ SQ SCH ×3 (00:12→17:17)
[2021-01-26] MEDS: FAMOTIDINE 20 MG TAB PO SCH (08:30)
[2021-01-26] MEDS: SODIUM BICARBONATE TAB 650 MG TAB PO SCH ×2 (08:30→20:10)
[2021-01-26] MEDS: MIDODRINE 5 MG TAB PO SCH ×3 (08:30→17:16)
[2021-01-26] MEDS: SODIUM FERRIC GLUCONAT-SUCROSE 125 MG in SODIUM CHLORIDE 0.9% 100 ML IVPB SCH (08:30)
[2021-01-26] MEDS: HYDROcodone/APAP 5-325MG 1 EACH TAB PO PRN ×3 (08:30→22:27)
[2021-01-26] MEDS: DOCUSATE 100 MG CAP PO SCH ×2 (08:30→20:10)
--- NOTE | 2021-01-26 09:32 | P.PN ---
Subjective Patient is seen in follow-up for acute kidney injury. Renal function worsening. Creatinine 3.57 yesterday. Blood pressure stable on midodrine. Underwent paracentesis on January 20 with 3.6 L drained. Oral intake poor. Muñoz catheter placed yesterday. Urine output low. Vital signs are stable. HEENT: Head exam is unremarkable. LUNGS: Breath sounds decreased. HEART: Rate and Rhythm are regular. ABDOMEN: Soft, mild distention. EXTREMITITES: 1+ edema. Objective - Vital Signs Vital signs: Vital Signs Temp 97.7 F 01/26/21 07:23 Pulse 75 01/26/21 07:23 Resp 18 01/26/21 07:23 BP 106/64 01/26/21 07:23 Pulse Ox 98 01/26/21 07:23 Intake & Output 01/25/21 01/26/21 01/26/21 18:59 06:59 18:59 Intake Total 440 530 Output Total 120 0 220 Balance 320 530 -220 Weight 81.5 kg Intake: IV 200 Sodium Chloride 0.9% 1, 200 000 ml @ 20 mls/hr IV . Q24H [facility] Rx#:[id number] Intake, IV Titration 50 Amount Albumin Human 25% 50 ml 50 In Empty Bag 1 bag @ 50 mls/hr IVPB BID [facility] Rx#: [id number] Oral 240 480 Output: Urine 120 0 220 Uretheral (Muñoz) 20 Other: Voiding Method Urinal Indwelling Catheter # Voids 3 ABP, PAP, CO, CI - Last Documented Arterial Blood Pressure 120/70 - Labs CBC & Chem 7: 01/25/21 17:17 01/25/21 17:17 Labs: Abnormal Lab Results - Last 24 Hours (Table) 01/22/21 01/22/21 01/25/21 Range/Units 06:16 06:16 17:17 WBC 25.2 H (3.8-10.6) k/uL RBC 3.31 L (4.30-5.90) m/uL Hgb 10.6 L (13.0-17.5) gm/dL Hct 34.0 L (39.0-53.0) % MCV 102.7 H (80.0-100.0) fL Neutrophils # 22.1 H (1.3-7.7) k/uL Sodium (137-145) mmol/L Carbon Dioxide (22-30) mmol/L BUN (9-20) mg/dL Creatinine (0.66-1.25) mg/dL Glucose (74-99) mg/dL Total Bilirubin (0.2-1.3) mg/dL AST (17-59) U/L Alkaline Phosphatase (38-126) U/L Total Protein (6.3-8.2) g/dL Albumin (3.5-5.0) g/dL Albumin (PEP) 2.39 L (3.80-4.90) g/dL Ewpel-3-[id number] 0.49 H (0.10-0.40) g/dL Methylmalonic Acid 0.45 H (<0.40) umol/L 01/25/21 Range/Units 17:17 WBC (3.8-10.6) k/uL RBC (4.30-5.90) m/uL Hgb (13.0-17.5) gm/dL Hct (39.0-53.0) % MCV (80.0-100.0) fL Neutrophils # (1.3-7.7) k/uL Sodium 132 L (137-145) mmol/L Carbon Dioxide 20 L (22-30) mmol/L BUN 61 H (9-20) mg/dL Creatinine 3.57 H (0.66-1.25) mg/dL Glucose 127 H (74-99) mg/dL Total Bilirubin 1.7 H (0.2-1.3) mg/dL AST 117 H (17-59) U/L Alkaline Phosphatase 329 H (38-126) U/L Total Protein 5.4 L (6.3-8.2) g/dL Albumin 2.5 L (3.5-5.0) g/dL Albumin (PEP) (3.80-4.90) g/dL Owuif-0-Sqbgcnlbn (0.10-0.40) g/dL Methylmalonic Acid (<0.40) umol/L Assessment and Plan Plan: Assessment: 1. Acute kidney injury secondary to ATN secondary to hypotension. Also concern for hepatorenal syndrome. UA benign. Creatinine 3.57 yesterday. No hydronephrosis noted on kidney ultrasound. 2. Liver cirrhosis. 3. Ascites status post paracentesis on January 20 with 3.6 L drained. 4. Iron deficiency anemia. Receiving IV iron. 5. Metabolic acidosis secondary to acute kidney injury. Improving. Plan: Status post 25 g IV albumin 2 doses given January 25. Maintain Muñoz catheter. Strict I's and O's. Hold diuretics. Maintain midodrine. Follow-up urine sodium. Follow-up morning labs. Continue to monitor renal function and urine output. Add spironolactone 25 mg twice daily. Add Lasix 40 mg IV once daily.
[2021-01-26 10:02] LABS: HCT 30.3 % (39.6-50.0); HGB 9.8 g/dL (13.0-17.0); MCH 31.4 pg (27.0-32.0); MCHC 32.3 g/dL (32.0-37.0); MCV 97.1 fL (80.0-97.0); Mean Platelet Volume 11.5 fL (9.5-12.2); Platelet Count 160 X 10*3/uL (140-440); RBC 3.12 X 10*6/uL (4.40-5.60); RDW 16.7 % (11.5-14.5); WBC 22.99 X 10*3/uL (4.50-10.00)
[2021-01-26] MEDS: FUROSEMIDE 10 MG/ML 4 ML VIAL IV SCH (10:53)
[2021-01-26] MEDS: SPIRONOLACTONE 25 MG TAB PO SCH ×2 (10:54→20:10)
[2021-01-26 11:03] LABS: African American GFR (CKD) 19.4 (60.0-200.0); Albumin 2.5 g/dL (3.8-4.9); Albumin/Globulin Ratio 1.15 (1.60-3.17); Anion Gap 13.7 mmol/L (4.00-12.00); BUN/Creat Ratio 15.55 Ratio (12.00-20.00); Blood Urea Nitrogen 58.3 mg/dL (9.0-27.0); Calcium 8.4 mg/dL (8.7-10.3); Carbon Dioxide 18.3 mmol/L (21.6-31.8); Globulin 2.2 g/dL (1.6-3.3); Magnesium 2.2 mg/dL (1.5-2.4); Non-African American GFR(CKD) 16.7 (60.0-200.0); Potassium 4.7 mmol/L (3.5-5.5); Total Bilirubin 1.2 mg/dL (0.30-1.20); Total Protein 4.7 g/dL (6.2-8.2)
--- NOTE | 2021-01-26 13:23 | P.PN ---
Subjective Progress Note Date: 01/26/21 Principal diagnosis: sepsis Hospital Course: The patient is a 56-year-old male with a past medical history of cirrhosis, anemia, colitis and recent ventral hernia sx. He was reportedly living in a motel and was found to be unresponsive and hypothermic. He was taken to [place] [facility] and was transferred to our facility for ICU admission on 01/09/21 for d iagnosis of severe sepsis with septic shock as evidenced by hypotension, hypothermia, dehydration, and lactic acidosis. Initially pt was admitted to the medical ICU for septic shock with abdomen as a suspected source secondary to recent ventral hernia repair one month prior. General surgery was consulted. CT abdomen and pelvis obtained and had revealed seroma and he was maintained on broad-spectrum IV antibiotics. Initially pt required vasopressors, however these were eventually tapered off and patient was downgraded from the medical ICU. Seroma cultures came back negative. Blood cultures showing no growth after 144 hours. He was also found to have moderate ascitic fluid and underwent a paracentesis with removal of 1.7 L of fluid on 01/14/21 this was sent for culture with negative results. blood cultures showing no growth after 144 hours, gram stains negative, fungal culture negative and repeat blood cultures again showing no growth after 144 hours. Patient again underwent paracentesis on 01/20/21, with a reported removal of approximately 3.6 L of ascitic fluid. Repeat cultures and Gram stain on paracentesis fluid also negative. Echocardiogram revealing a normal EF between 60 and 65% with no significant valvular abnormalities. Patient continues to have significant leukocytosis and abdominal pain. Hematology consulted. General surgery also re-consulted secondary to CT findings revealing a 2.9 cm soft tissue density in gallbladder neck, General surgery not recommending surgical intervention at this time due to extreme risk of fulminant liver failure and abdominal pain believed to be secondary to cirrhosis and highly unlikely gallbladder related. 01/26: Having alot of abdominal pain. Had paracentesis on 01/25, which drained 4.2L. No other overnight issues. Objective - Vital Signs Vital signs: Vital Signs Temp 97.7 F 01/26/21 07:23 Pulse 75 01/26/21 07:23 Resp 18 01/26/21 07:23 BP 106/64 01/26/21 07:23 Pulse Ox 98 01/26/21 07:23 Intake & Output 1101/26/21 01/26/21 18:59 06:59 18:59 Intake Total 440 530 Output Total 120 0 220 Balance 320 530 -220 Weight 81.5 kg Intake: IV 200 Sodium Chloride 0.9% 1, 200 000 ml @ 20 mls/hr IV . Q24H [facility] Rx#:[id number] Intake, IV Titration 50 Amount Albumin Human 25% 50 ml 50 In Empty Bag 1 bag @ 50 mls/hr IVPB BID [facility] Rx#: [id number] Oral 240 480 Output: Urine 120 0 220 Uretheral (Muñoz) 20 Other: Voiding Method Urinal Indwelling Catheter # Voids 3 ABP, PAP, CO, CI - Last Documented Arterial Blood Pressure 120/70 - Exam General: Chronically Ill-appearing, no acute distress, appears at stated age Derm: warm, dry Head: atraumatic, normocephalic, symmetric Eyes: EOMI, no lid lag, anicteric sclera Mouth: no lip lesion, mucus membranes moist Cardiovascular: S1S2 reg, systolic murmur, positive posterior tibial pulses bilaterally, 2+ BLE pitting edema, Lungs: CTA bilateral, no rhonchi, no rales , no accessory muscle use Abdominal: Cirrhotic abdomen, +tenderness to palpation diffusely, no guarding, no appreciable organomegaly Ext: no gross muscle atrophy, no contractures Neuro: CN II-XI grossly intact, no focal neuro deficits Psych: Alert, oriented, appropriate affect - Labs CBC & Chem 7: 01/26/21 06:35 01/26/21 06:35 Labs: Abnormal Lab Results - Last 24 Hours (Table) 01/22/21 01/22/21 01/25/21 Range/Units 06:16 06:16 17:17 WBC 25.2 H (3.8-10.6) k/uL RBC 3.31 L (4.30-5.90) m/uL Hgb 10.6 L (13.0-17.5) gm/dL Hct 34.0 L (39.0-53.0) % MCV 102.7 H (80.0-100.0) fL RDW (11.5-14.5) % Neutrophils # 22.1 H (1.3-7.7) k/uL Sodium (137-145) mmol/L Carbon Dioxide (22-30) mmol/L Anion Gap (4.00-12.00) mmol/L BUN (9-20) mg/dL Creatinine (0.66-1.25) mg/dL Est GFR (CKD-EPI)AfAm (60.0-200.0) Est GFR (CKD-EPI)NonAf (60.0-200.0) Glucose (74-99) mg/dL Calcium (8.7-10.3) mg/dL Total Bilirubin (0.2-1.3) mg/dL AST (17-59) U/L Alkaline Phosphatase (38-126) U/L Total Protein (6.3-8.2) g/dL Albumin (3.5-5.0) g/dL Albumin (PEP) 2.39 L (3.80-4.90) g/dL Albumin/Globulin Ratio (1.60-3.17) g/dL Fphnz-7-Vrdpskpex 0.49 H (0.10-0.40) g/dL Methylmalonic Acid 0.45 H (<0.40) umol/L 01/25/21 01/26/21 01/26/21 Range/Units 17:17 06:35 06:35 WBC 22.99 H (3.8-10.6) k/uL RBC 3.12 L (4.30-5.90) m/uL Hgb 9.8 L (13.0-17.5) gm/dL Hct 30.3 L (39.0-53.0) % MCV 97.1 H (80.0-100.0) fL RDW 16.7 H (11.5-14.5) % Neutrophils # (1.3-7.7) k/uL Sodium 132 L (137-145) mmol/L Carbon Dioxide 20 L 18.3 L (22-30) mmol/L Anion Gap 13.70 H (4.00-12.00) mmol/L BUN 61 H 58.3 H (9-20) mg/dL Creatinine 3.57 H 3.8 H (0.66-1.25) mg/dL Est GFR (CKD-EPI)AfAm 19.4 L (60.0-200.0) Est GFR (CKD-EPI)NonAf 16.7 L (60.0-200.0) Glucose 127 H 118 H (74-99) mg/dL Calcium 8.4 L (8.7-10.3) mg/dL Total Bilirubin 1.7 H (0.2-1.3) mg/dL AST 117 H 80 H (17-59) U/L Alkaline Phosphatase 329 H 293 H (38-126) U/L Total Protein 5.4 L 4.7 L (6.3-8.2) g/dL Albumin 2.5 L 2.5 L (3.5-5.0) g/dL Albumin (PEP) (3.80-4.90) g/dL Albumin/Globulin Ratio 1.15 L (1.60-3.17) g/dL Prnez-9-Vqzukojdv (0.10-0.40) g/dL Methylmalonic Acid (<0.40) umol/L Assessment and Plan Plan: Liver cirrhosis MELD score of 21 Septic shock with suspected abdominal source Recent C. diff Persistent abdominal pain Moderate abdominal ascites with lower extremity edema Significant leukocytosis -CT abdomen and pelvis showed a seroma which was aspirated by Gen. surgery and sent for culture which was negative -Repeat abdominal ultrasound with moderate ascites. -IR following and patient underwent paracentesis with removal of 1.7 L of ascitic fluid on 01/14/21, then again on 01/20/21 in which 3.6 L of ascitic fluid was removed. Then again on 01/25 when 4.2L of fluids removed. -ID following, patient placed on holiday from antibiotics to evaluate WBC response as leukocytosis suspected to be from inflammatory reaction and less likely infectious. -GI services have signed off patient care, no plans for scopes at this time. -Hematology following, appreciate further recommendations. -Gen. surgery evaluated, not recommending surgical intervention at this time due to extreme risk of fulminant liver failure and abdominal pain believed to be secondary to cirrhosis and highly unlikely gallbladder related. -Blood cultures showing no growth after 144 hours. Gram stain negative. Fungal culture negative and ascites fluid culture negative. Repeat blood culture sh owing no growth after 144 hours. -Meld score 21 Acute kidney injury, worsening. LACEY secondary to ATN with Concerns for hepatorenal syndrome -Follwed by nephro, restarted diuretics 01/26. Continue albumin, octreotide and midodrine -Muñoz catheter to monitor of I's and O's -We will continue to follow BMP closely Recent C. diff colitis, from outside hospital -Completed course of oral vancomycin Anemia, suspected due to acute blood loss from GI bleeding, stable normocytic hyperchromic anemia -Status post 2 units of PRBCs since admission -Continue to monitor CBC -Stable at this time. Thrombocytopenia -We will continue to monitor with repeat a.m. labs. Physical Debility -PT Consult, appreciate recommendations DVT prophylaxis: SCDs Discussed with: Patient and RN Anticipated discharge date: Clinical Course to Determine Anticipated discharge place: SNF A total of 40 minutes was spent on the care of this complex patient more than 50% of the time was spent in counseling and care coordination.coordination.
[2021-01-26] MEDS ORDERED: HYDROcodone/APAP 5-325MG 1 EACH TAB PO STA (17:01)
[2021-01-26] MEDS: SENNOSIDES 8.6 MG TAB PO SCH (20:10)
--- NOTE | 2021-01-26 23:33 | PN ---
PROGRESS NOTE DATE OF SERVICE: 01/26/2021 REASON FOR FOLLOWUP: Leukocytosis. INTERVAL HISTORY: The patient is afebrile, has been breathing comfortably. He denies having any chest pain, shortness of breath or cough. Some abdominal discomfort. No vomiting. No diarrhea. PHYSICAL EXAMINATION: Blood pressure 110/69, pulse of 78, temperature 97.8. He is 99% on room air. General description is a middle-aged male lying in bed in no distress. Respiratory system: Unlabored breathing, clear to auscultation anteriorly. Heart S1, S2. Regular rate and rhythm. Abdomen soft, mildly distended. No guarding or rigidity. LABS: Hemoglobin , white count of 2.9. Creatinine is 3.8. DIAGNOSTIC IMPRESSION AND PLAN: Patient with leukocytosis, multifactorial, in this patient who did have extensive workup for an infection, all of which has been negative. Patient is currently being monitored closely off antibiotic therapy, and no worsening of his clinical condition or white count has been noted. Continue with supportive care. MMODL / IJN: [id number] /
[2021-01-27] MEDS: OCTREOTIDE 100 MCG/ML INJ SQ SCH ×4 (00:11→23:25)
[2021-01-27] MEDS: MIDODRINE 5 MG TAB PO SCH ×3 (07:11→17:24)
[2021-01-27] MEDS: SODIUM BICARBONATE TAB 650 MG TAB PO SCH ×2 (07:11→20:06)
[2021-01-27] MEDS: SPIRONOLACTONE 25 MG TAB PO SCH ×2 (07:12→20:06)
[2021-01-27] MEDS: FAMOTIDINE 20 MG TAB PO SCH (07:12)
[2021-01-27] MEDS: DOCUSATE 100 MG CAP PO SCH ×2 (07:13→20:06)
[2021-01-27] MEDS: HYDROcodone/APAP 5-325MG 1 EACH TAB PO PRN ×3 (07:36→23:26)
[2021-01-27] MEDS: FUROSEMIDE 10 MG/ML 4 ML VIAL IV SCH (07:36)
--- NOTE | 2021-01-27 10:06 | P.PN ---
Subjective Patient is seen in follow-up for acute kidney injury. Renal function worsening. Creatinine 3.8 yesterday. Blood pressure stable on midodrine. Underwent paracentesis on January 20 with 3.6 L drained. Oral intake fair. Diuretics resumed January 26. Urine output documented is a tender cc in the last 24 hours. Vital signs are stable. HEENT: Head exam is unremarkable. LUNGS: Breath sounds decreased. HEART: Rate and Rhythm are regular. ABDOMEN: Soft, mild distention. EXTREMITITES: 1+ edema. Objective - Vital Signs Vital signs: Vital Signs Temp 97.6 F 01/27/21 08:00 Pulse 93 01/27/21 08:00 Resp 16 01/27/21 08:00 BP 101/63 01/27/21 08:00 Pulse Ox 95 01/27/21 08:00 Intake & Output 01/26/21 01/27/21 01/27/21 18:59 06:59 18:59 Intake Total 458 Output Total 350 450 138 Balance -350 8 -138 Weight 80.5 kg Intake: IV 240 Sodium Chloride 0.9% 1, 240 000 ml @ 20 mls/hr IV . Q24H [facility] Rx#:[id number] Oral 218 Output: Urine 350 450 Post Void Residual 138 Other: Voiding Method Indwelling Catheter Indwelling Catheter Indwelling Catheter ABP, PAP, CO, CI - Last Documented Arterial Blood Pressure 120/70 - Labs CBC & Chem 7: 01/26/21 06:35 01/26/21 06:35 Labs: Abnormal Lab Results - Last 24 Hours (Table) 01/26/21 01/26/21 Range/Units 06:35 06:35 WBC 22.99 H (4.50-10.00) X 10*3/uL RBC 3.12 L (4.40-5.60) X 10*6/uL Hgb 9.8 L (13.0-17.0) g/dL Hct 30.3 L (39.6-50.0) % MCV 97.1 H (80.0-97.0) fL RDW 16.7 H (11.5-14.5) % Carbon Dioxide 18.3 L (21.6-31.8) mmol/L Anion Gap 13.70 H (4.00-12.00) mmol/L BUN 58.3 H (9.0-27.0) mg/dL Creatinine 3.8 H (0.6-1.5) mg/dL Est GFR (CKD-EPI)AfAm 19.4 L (60.0-200.0) Est GFR (CKD-EPI)NonAf 16.7 L (60.0-200.0) Glucose 118 H (70-110) mg/dL Calcium 8.4 L (8.7-10.3) mg/dL AST 80 H (14-35) U/L Alkaline Phosphatase 293 H (41-126) U/L Total Protein 4.7 L (6.2-8.2) g/dL Albumin 2.5 L (3.8-4.9) g/dL Albumin/Globulin Ratio 1.15 L (1.60-3.17) g/dL Assessment and Plan Plan: Assessment: 1. Acute kidney injury secondary to ATN secondary to hypotension. Also concern for hepatorenal syndrome. UA benign. Creatinine 3.8 yesterday. No hydronephrosis noted on kidney ultrasound. 2. Liver cirrhosis. 3. Ascites status post paracentesis on January 20 with 3.6 L drained and January 25 at 4.2 L drained. 4. Iron deficiency anemia, s/p IV iron. 5. Metabolic acidosis secondary to acute kidney injury. On oral bicarbonate. Plan: Status post 25 g IV albumin 2 doses given January 25. Maintain Muñoz catheter. Strict I's and O's. Maintain midodrine. Follow-up morning labs. Continue to monitor renal function and urine output. Maintain Lasix and spironolactone.
[2021-01-27 10:11] LABS: Basophils # (A) 0.28 X 10*3/uL (0.00-0.10); Basophils % (A) 1.2 %; Eosinophils # (A) 0.78 X 10*3/uL (0.04-0.35); Eosinophils % (A) 3.2 %; HCT 32.1 % (39.6-50.0); HGB 10.5 g/dL (13.0-17.0); Lymphocytes # (A) 2.12 X 10*3/uL (0.90-5.00); Lymphocytes % (A) 8.8 %; MCH 30.8 pg (27.0-32.0); MCHC 32.7 g/dL (32.0-37.0); MCV 94.1 fL (80.0-97.0); Mean Platelet Volume 11.9 fL (9.5-12.2); Monocytes # (A) 1.85 X 10*3/uL (0.20-1.00); Monocytes % (A) 7.7 %; Neutrophils # (A) 18.72 X 10*3/uL (1.80-7.70); Neutrophils % (A) 77.8 %; Platelet Count 143 X 10*3/uL (140-440); RBC 3.41 X 10*6/uL (4.40-5.60); RDW 17.2 % (11.5-14.5); WBC 24.06 X 10*3/uL (4.50-10.00)
[2021-01-27 12:58] LABS: African American GFR (CKD) 19.7 (60.0-200.0); Albumin 2.4 g/dL (3.8-4.9); Albumin/Globulin Ratio 1.14 (1.60-3.17); Anion Gap 14.8 mmol/L (4.00-12.00); BUN/Creat Ratio 15.81 Ratio (12.00-20.00); Blood Urea Nitrogen 58.5 mg/dL (9.0-27.0); Calcium 8.2 mg/dL (8.7-10.3); Carbon Dioxide 17.2 mmol/L (21.6-31.8); Globulin 2.1 g/dL (1.6-3.3); Magnesium 2.1 mg/dL (1.5-2.4); Potassium 4.5 mmol/L (3.5-5.5); Total Bilirubin 1.2 mg/dL (0.30-1.20); Total Protein 4.5 g/dL (6.2-8.2)
--- NOTE | 2021-01-27 13:58 | P.CRDCN ---
History of Present Illness History of present illness: HISTORY OF PRESENTING ILLNESS This is a pleasant 56-year-old male past medical history significant for cirrhosis, hernia repair in May 2020, anemia. We have been asked to see in consultation for possible junctional rhythm seen on telemetry. Patient presents to the emergency department on 01/09/21. He was living in [place] motel who was brought into the emergency room after he was found unconscious and hyperthermic. In the emergency room, the patient was noted to be hypotensive with dehydration and lactic acidosis. He was thereby admitted to the medical ICU for septic shock with abdomen as a suspected source. The patient reportedly recently undergone a hernia repair surgery at an outside facility. Also found to have acute kidney injury. He also has undergone multiple paracentesis was, most recent 01/25 with 4.2 L removed. He has now been transferred to 3S telemetry floor. Patient denies any chest pain, shortness of breath, lightheadedness, dizziness, palpitations. He continues to abdominal pain. He denies any nausea or vomiting. He denies any history of coronary disease, [place], stroke, hypertension, diabetes. Telemetry reviewed, patient in sinus mechanism HR 70s, questionable atrioventricular junctional rhythm, now he is in sinus mechanism. DIAGNOSTICS EKG on admission revealed sinus tachycardia, heart rate 103, no significant ST-T wave abnormalities. Echocardiogram completed on 01/14/21 revealed EF of 6065 percent, no significant wall motion abnormalities Laboratory reviewed, WBC 24, hemoglobin 10, platelets 143, sodium 137, potassium 4.5, BUN 58, serum creatinine 3.7, magnesium 2.1. Current medications include, midodrine 10 mg 3 times a day, IV Lasix 40 mg d aily, octreotide, spironolactone 25 mg twice a day, pepcid, colace, ferrous sulfate, sodium bicarb. REVIEW OF SYSTEMS At the time of my exam: CONSTITUTIONAL: Denies fever or chills. CARDIOVASCULAR: Denies chest pain, shortness of breath, orthopnea, PND or palpitations. RESPIRATORY: Denies cough. GASTROINTESTINAL: + abdominal pain, +lower extremity edema. Denies diarrhea, constipation, nausea or vomiting. MUSCULOSKELETAL: Denies myalgias. NEUROLOGIC: Denies numbness, tingling, headacbe or weakness. ENDOCRINE: Denies fatigue, weight change, polydipsia or polyurina. GENITOURINARY: Denies burning, hematuria or urgency with micturation. HEMATOLOGIC: Denies history of anemia or bleeding. PHYSICAL EXAMINATION Blood pressure 101/63, heart rate 93, afebrile and saturations greater than 92% on room air CONSTITUTIONAL: No apparent distress. HEENT: Head is normocephalic. Pupils are equal, round. Sclerae anicteric. Mucous membranes of the mouth are moist. No JVD. No carotid bruit. CHEST EXAMINATION: Lungs are clear to auscultation. No chest wall tenderness is noted on palpation or with deep breathing. HEART EXAMINATION: Regular rate and rhythm. S1, S2 heard. No murmurs, gallops or rub. ABDOMEN: Soft, tenderness to palpation. Right paracentesis site covered in dressing. Ascites. Positive bowel sounds. EXTREMITIES: 2+ peripheral pulses, no lower extremity edema and no calf tenderness. NEUROLOGIC EXAMINATION: Patient is awake, alert and oriented x3. ASSESSMENT Possible junctional rhythm Septic shock Liver Cirrhosis Abdominal pain Ascites Acute kidney injury Anemia PLAN From a cardiology perspective, telemetry reviewed with possible junction rhythm, no intervention needed at this time. We will check a TSH. Echocardiogram completed with normal ejection fraction. We will follow the patient as needed. Please reach out with any further questions or concerns. Nurse Practitioner note has been reviewed, I agree with a documented findings and plan of care. Patient was seen and examined. Past Medical History Past Medical History: Unable to Obtain, Liver Disease Additional Past Medical History / Comment(s): anemia, colitis, chirrosis History of Any Multi-Drug Resistant Organisms: None Reported Past Surgical History: Unable to Obtain Additional Past Surgical History / Comment(s): patient states ex-lap for an ulcer, anterior abdominal wall hernia repair approximately a month ago Past Anesthesia/Blood Transfusion Reactions: No Reported Reaction Past Psychological History: No Psychological Hx Reported Smoking Status: Current some day smoker Past Alcohol Use History: Abuse Past Drug Use History: None Reported Medications and Allergies Home Medications Medication Instructions Recorded Confirmed Type Albuterol Sulfate [Proair Hfa] 2 puff INHALATION RT-Q4H PRN 01/09/21 01/09/21 History Dicyclomine [Bentyl] 20 mg PO QID PRN 01/09/21 01/09/21 History HYDROcodone/APAP 10-325MG [[place] 1 tab PO Q4H PRN 01/09/21 01/09/21 History 10-325] Lisdexamfetamine Dimesylate 70 mg PO DAILY 01/09/21 01/09/21 History [Vyvanse] Pantoprazole Sodium 40 mg PO DAILY PRN 01/09/21 01/09/21 History Promethazine [Phenergan] 25 mg PO Q4H PRN 01/09/21 01/09/21 History Sucralfate [Carafate] 1 gm PO ACHS PRN 01/09/21 01/09/21 History Vancomycin HCl [Vancocin HCl] 125 mg PO QID 01/09/21 01/09/21 History Allergies Allergy/AdvReac Type Severity Reaction Status Date / Time No Known Allergies Allergy Verified 01/09/21 13:38 Physical Exam Vitals: Vital Signs Temp Pulse Resp BP Pulse Ox 01/27/21 08:00 97.6 F 93 16 101/63 95 01/27/21 01:48 97.5 F L 81 105/67 99 01/26/21 19:14 97.5 F L 74 16 95/60 97 01/26/21 15:04 97.8 F 78 18 110/69 99 Intake and Output 01/26/21 01/27/21 01/27/21 22:59 06:59 14:59 Intake Total 458 236 Output Total 330 250 138 Balance -330 208 98 Intake: IV 240 Sodium Chloride 0.9% 1, 240 000 ml @ 20 mls/hr IV . Q24H [facility] Rx#:[id number] Oral 218 236 Output: Urine 330 250 Post Void Residual 138 Other: Voiding Method Indwelling Catheter Indwelling Catheter Weight 80.5 kg Results 01/27/21 06:04 01/27/21 06:04 Cardiac Enzymes 01/27/21 Range/Units 06:04 AST 75 H (14-35) U/L CBC 01/27/21 Range/Units 06:04 WBC 24.06 H (4.50-10.00) X 10*3/uL RBC 3.41 L (4.40-5.60) X 10*6/uL Hgb 10.5 L (13.0-17.0) g/dL Hct 32.1 L (39.6-50.0) % Plt Count 143 (140-440) X 10*3/uL Comprehensive Metabolic Panel 01/27/21 Range/Units 06:04 Sodium 137 (135-145) mmol/L Potassium 4.5 (3.5-5.5) mmol/L Chloride 105 (96-109) mmol/L Carbon Dioxide 17.2 L (21.6-31.8) mmol/L BUN 58.5 H (9.0-27.0) mg/dL Creatinine 3.7 H (0.6-1.5) mg/dL Glucose 105 (70-110) mg/dL Calcium 8.2 L (8.7-10.3) mg/dL AST 75 H (14-35) U/L ALT 32 (10-49) U/L Alkaline Phosphatase 299 H (41-126) U/L Total Protein 4.5 L (6.2-8.2) g/dL Albumin 2.4 L (3.8-4.9) g/dL Current Medications Generic Name Dose Route Start Last Admin Trade Name Freq PRN Reason Stop Dose Admin Hydrocodone Bitart/Acetaminophen 1 each 01/24/21 12:35 01/27/21 07:36 Hydrocodone/Apap 5-325mg 1 Each Tab PO 1 each TID PRN Administration Moderate Pain Albuterol/Ipratropium 3 ml 01/09/21 14:29 Ipratropium-Albuterol 3 Ml Neb INHALATION RT-Q2H PRN Shortness Of Breath Or Wheezing Alprazolam 0.125 mg 01/09/21 14:29 01/25/21 17:10 Alprazolam 0.25 Mg Tab PO 0.125 mg Q6HR PRN Administration Mild Anxiety Bisacodyl 10 mg 01/09/21 14:29 Bisacodyl 10 Mg Supp RECTAL DAILY PRN Constipation Docusate Sodium 100 mg 01/09/21 21:00 01/27/21 07:13 Docusate 100 Mg Cap PO Not Given BID WHIT Famotidine 20 mg 01/21/21 09:00 01/27/21 07:12 Famotidine 20 Mg Tab PO 20 mg DAILY WHIT Administration Ferrous Sulfate 325 mg 01/27/21 17:30 Ferrous Sulfate 325 Mg Tab PO BID-W/MEALS WHIT Furosemide 40 mg 01/26/21 09:45 01/27/21 07:36 Furosemide 10 Mg/Ml 4 Ml Vial IV 40 mg DAILY WHIT Administration Midodrine 10 mg 01/24/21 12:30 01/27/21 11:29 Midodrine 5 Mg Tab PO 10 mg AC-TID WHIT Administration Naloxone HCl 0.2 mg 01/09/21 14:55 Naloxone 0.4 Mg/Ml 1 Ml Vial IV Q2M PRN Opioid Reversal Octreotide Acetate 100 mcg 01/23/21 18:45 01/27/21 07:12 Octreotide 100 Mcg/Ml Inj SQ 100 mcg Q8HR WHIT Administration Ondansetron HCl 4 mg 01/10/21 12:15 01/23/21 23:09 Ondansetron 4 Mg/2 Ml Vial IVP 4 mg Q6HR PRN Administration Nausea And Vomiting Pantoprazole Sodium 40 mg 01/09/21 15:53 Pantoprazole 40 Mg Tablet PO DAILY PRN GERD Senna 17.2 mg 01/09/21 21:00 01/26/21 20:10 Sennosides 8.6 Mg Tab PO 17.2 mg HS WHIT Administration Sodium Bicarbonate 650 mg 01/25/21 11:00 01/27/21 07:11 Sodium Bicarbonate Tab 650 Mg Tab PO 650 mg BID WHIT Administration Spironolactone 25 mg 01/26/21 09:45 01/27/21 07:12 Spironolactone 25 Mg Tab PO 25 mg BID WHIT Administration Sucralfate 1 gm 01/09/21 14:36 01/21/21 21:07 Sucralfate 1 Gm Tab PO 1 gm ACHS PRN Administration GI UPSET Intake and Output 01/26/21 01/27/21 01/27/21 22:59 06:59 14:59 Intake Total 458 236 Output Total 330 250 138 Balance -330 208 98 Intake: IV 240 Sodium Chloride 0.9% 1, 240 000 ml @ 20 mls/hr IV . Q24H [facility] Rx#:[id number] Oral 218 236 Output: Urine 330 250 Post Void Residual 138 Other: Voiding Method Indwelling Catheter Indwelling Catheter Weight 80.5 kg 01/27/21 06:04 01/27/21 06:04
--- NOTE | 2021-01-27 14:48 | P.PN ---
Subjective Progress Note Date: 01/27/21 Principal diagnosis: sepsis Patient still complaining of abdominal pain, however no other complaints. Nursing reported some junctional rhythm on telemetry. Currently he is in sinus rhythm. Objective - Vital Signs Vital signs: Vital Signs Temp 97.6 F 01/27/21 08:00 Pulse 93 01/27/21 08:00 Resp 16 01/27/21 08:00 BP 101/63 01/27/21 08:00 Pulse Ox 95 01/27/21 08:00 Intake & Output 01/26/21 01/27/21 01/27/21 18:59 06:59 18:59 Intake Total 458 236 Output Total 350 450 138 Balance -350 8 98 Weight 80.5 kg Intake: IV 240 Sodium Chloride 0.9% 1, 240 000 ml @ 20 mls/hr IV . Q24H [facility] Rx#:[id number] Oral 218 236 Output: Urine 350 450 Post Void Residual 138 Other: Voiding Method Indwelling Catheter Indwelling Catheter Indwelling Catheter ABP, PAP, CO, CI - Last Documented Arterial Blood Pressure 120/70 - Exam General: Chronically Ill-appearing, no acute distress, appears at stated age Derm: warm, dry Head: atraumatic, normocephalic, symmetric Eyes: EOMI, no lid lag, anicteric sclera Mouth: no lip lesion, mucus membranes moist Cardiovascular: S1S2 reg, systolic murmur, positive posterior tibial pulses bilaterally, 2+ BLE pitting edema, Lungs: CTA bilateral, no rhonchi, no rales , no accessory muscle use Abdominal: Cirrhotic abdomen, +tenderness to palpation diffusely, no guarding, no appreciable organomegaly Ext: no gross muscle atrophy, no contractures Neuro: CN II-XI grossly intact, no focal neuro deficits Psych: Alert, oriented, appropriate affect - Labs CBC & Chem 7: 01/27/21 06:04 01/27/21 06:04 Labs: Abnormal Lab Results - Last 24 Hours (Table) 01/27/21 01/27/21 Range/Units 06:04 06:04 WBC 24.06 H (4.50-10.00) X 10*3/uL RBC 3.41 L (4.40-5.60) X 10*6/uL Hgb 10.5 L (13.0-17.0) g/dL Hct 32.1 L (39.6-50.0) % RDW 17.2 H (11.5-14.5) % Absolute Nucleated RBC 0.02 H (0.00-0.00) X 10*3/uL Immature Gran # 0.31 H (0.00-0.04) X 10*3/uL Neutrophils # 18.72 H (1.80-7.70) X 10*3/uL Monocytes # 1.85 H (0.20-1.00) X 10*3/uL Eosinophils # 0.78 H (0.04-0.35) X 10*3/uL Basophils # 0.28 H (0.00-0.10) X 10*3/uL NRBC/100 WBC Diff 0.1 H (0.0-0.0) /100 WBCS Carbon Dioxide 17.2 L (21.6-31.8) mmol/L Anion Gap 14.80 H (4.00-12.00) mmol/L BUN 58.5 H (9.0-27.0) mg/dL Creatinine 3.7 H (0.6-1.5) mg/dL Est GFR (CKD-EPI)AfAm 19.7 L (60.0-200.0) Est GFR (CKD-EPI)NonAf 17.0 L (60.0-200.0) Calcium 8.2 L (8.7-10.3) mg/dL Phosphorus 6.0 H (2.4-5.1) mg/dL AST 75 H (14-35) U/L Alkaline Phosphatase 299 H (41-126) U/L Total Protein 4.5 L (6.2-8.2) g/dL Albumin 2.4 L (3.8-4.9) g/dL Albumin/Globulin Ratio 1.14 L (1.60-3.17) g/dL Assessment and Plan Plan: Liver cirrhosis MELD score of 21 Septic shock with suspected abdominal source Recent C. diff Persistent abdominal pain Moderate abdominal ascites with lower extremity edema Significant leukocytosis -CT abdomen and pelvis showed a seroma which was aspirated by Gen. surgery and sent for culture which was negative -Repeat abdominal ultrasound with moderate ascites. -IR following and patient underwent paracentesis with removal of 1.7 L of ascitic fluid on 01/14/21, then again on 11/3/21 in which 3.6 L of ascitic fluid was removed. Then again on 01/25 when 4.2L of fluids removed. -ID following, patient placed on holiday from antibiotics to evaluate WBC response as leukocytosis suspected to be from inflammatory reaction and less likely infectious. -GI services have signed off patient care, no plans for scopes at this time. -Hematology following, appreciate further recommendations. -Gen. surgery evaluated, not recommending surgical intervention at this time due to extreme risk of fulminant liver failure and abdominal pain believed to be secondary to cirrhosis and highly unlikely gallbladder related. -Blood cultures showing no growth after 144 hours. Gram stain negative. Fungal culture negative and ascites fluid culture negative. Repeat blood culture sh owing no growth after 144 hours. -Meld score 21 Acute kidney injury, worsening. LACEY secondary to ATN with Concerns for hepatorenal syndrome -Follwed by nephro, restarted diuretics 01/26. -Received albumin, continue octreotide and midodrine -Muñoz catheter to monitor of I's and O's -We will continue to follow BMP closely Recent C. diff colitis, from outside hospital -Completed course of oral vancomycin Anemia, suspected due to acute blood loss from GI bleeding, stable normocytic hyperchromic anemia -Status post 2 units of PRBCs since admission -Continue to monitor CBC -Stable at this time. Thrombocytopenia -We will continue to monitor with repeat a.m. labs. Physical Debility -PT Consult, appreciate recommendations DVT prophylaxis: SCDs Discussed with: Patient and RN Anticipated discharge date: Clinical Course to Determine Anticipated discharge place: SNF A total of 40 minutes was spent on the care of this complex patient more than 50% of the time was spent in counseling and care coordination.coordination.
--- NOTE | 2021-01-27 15:01 | PN ---
PROGRESS NOTE DATE OF SERVICE: 01/27/2021 REASON FOR FOLLOWUP: Leukocytosis. INTERVAL HISTORY: The patient is afebrile. He has been breathing comfortably. No chest pain, shortness of breath or cough. No abdominal pain and no diarrhea reported by the nurse aide. PHYSICAL EXAMINATION: Blood pressure 108/63, pulse of 93, temperature 97.6. He is 95% on room air. General description is a middle-aged male lying in bed in no distress. Respiratory system: Unlabored breathing, clear to auscultation anteriorly. Heart S1, S2. Regular rate and rhythm. Abdomen soft, no tenderness. LABS: Hemoglobin is 12.4, white count . Creatinine is 3.7. DIAGNOSTIC IMPRESSION AND PLAN: Patient with leukocytosis in this patient who had extensive workup. All cultures have been negative. Patient is currently off antibiotic therapy. Hematology is following the patient. With no obvious focus of infection, patient not on antibiotics. Infectious Disease Services will sign off. Please call back if any questions. MMODL / IJN: [id number] /
[2021-01-27] MEDS: FERROUS SULFATE 325 MG TAB PO SCH (17:25)
[2021-01-27] MEDS: SENNOSIDES 8.6 MG TAB PO SCH (20:06)
[2021-01-28] MEDS: FAMOTIDINE 20 MG TAB PO SCH (08:09)
[2021-01-28] MEDS: MIDODRINE 5 MG TAB PO SCH ×3 (08:09→16:47)
[2021-01-28] MEDS: OCTREOTIDE 100 MCG/ML INJ SQ SCH ×3 (08:09→23:05)
[2021-01-28] MEDS: SODIUM BICARBONATE TAB 650 MG TAB PO SCH ×2 (08:09→19:26)
[2021-01-28] MEDS: SPIRONOLACTONE 25 MG TAB PO SCH ×2 (08:09→19:26)
[2021-01-28] MEDS: DOCUSATE 100 MG CAP PO SCH ×2 (08:10→19:26)
[2021-01-28] MEDS: FERROUS SULFATE 325 MG TAB PO SCH ×2 (08:10→16:47)
[2021-01-28 08:23] LABS: ALT 30 U/L (4-49); AST 80 U/L (17-59); African American GFR (CKD) 23 (>60 ml/min/1.73 sqM); Albumin 2.2 g/dL (3.5-5.0); Albumin/Globulin Ratio 0.8; Alkaline Phosphatase 322 U/L (38-126); Anion Gap 6 mmol/L; Blood Urea Nitrogen 63 mg/dL (9-20); Calcium 8.3 mg/dL (8.4-10.2); Carbon Dioxide 21 mmol/L (22-30); Chloride 109 mmol/L (98-107); Globulin 2.7 g/dL; Glucose 115 mg/dL (74-99); Non-African American GFR(CKD) 20 (>60 ml/min/1.73 sqM); Potassium 4.5 mmol/L (3.5-5.1); Sodium 136 mmol/L (137-145); Total Bilirubin 1.5 mg/dL (0.2-1.3); Total Protein 4.9 g/dL (6.3-8.2)
--- NOTE | 2021-01-28 09:52 | P.PN ---
Subjective Patient is seen in follow-up for acute kidney injury. Renal function better. Creatinine 3.22 today. Blood pressure stable on midodrine. Oral intake fair. Diuretics resumed January 26. Urine output documented as 838 cc in the last 24 hours. Vital signs are stable. HEENT: Head exam is unremarkable. LUNGS: Breath sounds decreased. HEART: Rate and Rhythm are regular. ABDOMEN: Soft, mild distention. EXTREMITITES: 1+ edema. Objective - Vital Signs Vital signs: Vital Signs Temp 97.7 F 01/28/21 08:00 Pulse 85 01/28/21 08:00 Resp 16 01/28/21 08:00 BP 103/65 01/28/21 08:00 Pulse Ox 98 01/28/21 08:00 Intake & Output 01/27/21 01/28/21 01/28/21 18:59 06:59 18:59 Intake Total 354 140 Output Total 838 Balance -484 140 Weight 84 kg Intake: Oral 354 140 Output: Urine 700 Post Void Residual 138 Other: Voiding Method Indwelling Catheter Indwelling Catheter Indwelling Catheter # Voids 150 ABP, PAP, CO, CI - Last Documented Arterial Blood Pressure 120/70 - Labs CBC & Chem 7: 01/27/21 06:04 01/28/21 07:23 Labs: Abnormal Lab Results - Last 24 Hours (Table) 01/27/21 01/27/21 01/28/21 Range/Units 06:04 06:04 07:23 WBC 24.06 H (4.50-10.00) X 10*3/uL RBC 3.41 L (4.40-5.60) X 10*6/uL Hgb 10.5 L (13.0-17.0) g/dL Hct 32.1 L (39.6-50.0) % RDW 17.2 H (11.5-14.5) % Absolute Nucleated RBC 0.02 H (0.00-0.00) X 10*3/uL Immature Gran # 0.31 H (0.00-0.04) X 10*3/uL Neutrophils # 18.72 H (1.80-7.70) X 10*3/uL Monocytes # 1.85 H (0.20-1.00) X 10*3/uL Eosinophils # 0.78 H (0.04-0.35) X 10*3/uL Basophils # 0.28 H (0.00-0.10) X 10*3/uL NRBC/100 WBC Diff 0.1 H (0.0-0.0) /100 WBCS Sodium 136 L (137-145) mmol/L Chloride 109 H (98-107) mmol/L Carbon Dioxide 17.2 L 21 L (21.6-31.8) mmol/L Anion Gap 14.80 H (4.00-12.00) mmol/L BUN 58.5 H 63 H (9.0-27.0) mg/dL Creatinine 3.7 H 3.22 H (0.6-1.5) mg/dL Est GFR (CKD-EPI)AfAm 19.7 L (60.0-200.0) Est GFR (CKD-EPI)NonAf 17.0 L (60.0-200.0) Glucose 115 H (74-99) mg/dL Calcium 8.2 L 8.3 L (8.7-10.3) mg/dL Phosphorus 6.0 H (2.4-5.1) mg/dL Total Bilirubin 1.5 H (0.2-1.3) mg/dL AST 75 H 80 H (14-35) U/L Alkaline Phosphatase 299 H 322 H (41-126) U/L Total Protein 4.5 L 4.9 L (6.2-8.2) g/dL Albumin 2.4 L 2.2 L (3.8-4.9) g/dL Albumin/Globulin Ratio 1.14 L (1.60-3.17) g/dL Assessment and Plan Plan: Assessment: 1. Acute kidney injury secondary to ATN secondary to hepatorenal syndrome. UA benign. Renal function improving. Creatinine 3.22 today. No hydronephrosis noted on kidney ultrasound. 2. Liver cirrhosis. 3. Ascites status post paracentesis on January 20 with 3.6 L drained and January 25 at 4.2 L drained. 4. Iron deficiency anemia, s/p IV iron. 5. Metabolic acidosis secondary to acute kidney injury. On oral bicarbonate. Improved. Plan: Status post 25 g IV albumin 2 doses given January 25. Maintain Muñoz catheter. Strict I's and O's. Maintain midodrine. Continue to monitor renal function and urine output. Maintain Lasix and spironolactone. Repeat 25 g IV albumin today.
[2021-01-28] MEDS: ALBUMIN HUMAN 25% 50 ML in EMPTY BAG 1 BAG IVPB SCH ×2 (10:48→11:54)
[2021-01-28] MEDS: FUROSEMIDE 10 MG/ML 4 ML VIAL IV SCH (10:49)
--- NOTE | 2021-01-28 14:47 | P.PN ---
Subjective Progress Note Date: 01/28/21 Principal diagnosis: sepsis Patient lacks motivation, he is barely gettong up out of bed or ambulating. Not eating much as per nursing. Objective - Vital Signs Vital signs: Vital Signs Temp 97.7 F 01/28/21 08:00 Pulse 85 01/28/21 08:00 Resp 16 01/28/21 08:00 BP 103/65 01/28/21 08:00 Pulse Ox 98 01/28/21 08:00 Intake & Output 01/27/21 01/28/21 01/28/21 18:59 06:59 18:59 Intake Total 354 140 Output Total 838 Balance -484 140 Weight 84 kg Intake: Oral 354 140 Output: Urine 700 Post Void Residual 138 Other: Voiding Method Indwelling Catheter Indwelling Catheter Indwelling Catheter # Voids 150 ABP, PAP, CO, CI - Last Documented Arterial Blood Pressure 120/70 - Exam General: Chronically Ill-appearing, no acute distress, appears at stated age Derm: warm, dry Head: atraumatic, normocephalic, symmetric Eyes: EOMI, no lid lag, anicteric sclera Mouth: no lip lesion, mucus membranes moist Cardiovascular: S1S2 reg, systolic murmur, positive posterior tibial pulses bilaterally, 2+ BLE pitting edema, Lungs: CTA bilateral, no rhonchi, no rales , no accessory muscle use Abdominal: Cirrhotic abdomen, +tenderness to palpation diffusely, no guarding, no appreciable organomegaly Ext: no gross muscle atrophy, no contractures Neuro: CN II-XI grossly intact, no focal neuro deficits Psych: Alert, oriented, appropriate affect - Labs CBC & Chem 7: 01/27/21 06:04 01/28/21 07:23 Labs: Abnormal Lab Results - Last 24 Hours (Table) 01/28/21 Range/Units 07:23 Sodium 136 L (137-145) mmol/L Chloride 109 H (98-107) mmol/L Carbon Dioxide 21 L (22-30) mmol/L BUN 63 H (9-20) mg/dL Creatinine 3.22 H (0.66-1.25) mg/dL Glucose 115 H (74-99) mg/dL Calcium 8.3 L (8.4-10.2) mg/dL Total Bilirubin 1.5 H (0.2-1.3) mg/dL AST 80 H (17-59) U/L Alkaline Phosphatase 322 H (38-126) U/L Total Protein 4.9 L (6.3-8.2) g/dL Albumin 2.2 L (3.5-5.0) g/dL Assessment and Plan Plan: Liver cirrhosis MELD score of 21 Septic shock with suspected abdominal source Recent C. diff Persistent abdominal pain Moderate abdominal ascites with lower extremity edema Significant leukocytosis -CT abdomen and pelvis showed a seroma which was aspirated by Gen. surgery and sent for culture which was negative -Repeat abdominal ultrasound with moderate ascites. -IR following and patient underwent paracentesis with removal of 1.7 L of ascitic fluid on 01/14/21, then again on 01/20/21 in which 3.6 L of ascitic fluid was removed. Then again on 01/25 when 4.2L of fluids removed. -ID following, patient placed on holiday from antibiotics to evaluate WBC response as leukocytosis suspected to be from inflammatory reaction and less likely infectious--he is currently doing well without antibiotics, no need. -GI services have signed off patient care, no plans for scopes at this time. -Hematology following, appreciate further recommendations. -Gen. surgery evaluated, not recommending surgical intervention at this time due to extreme risk of fulminant liver failure and abdominal pain believed to be secondary to cirrhosis and highly unlikely gallbladder related. -Blood cultures showing no growth after 144 hours. Gram stain negative. Fungal culture negative and ascites fluid culture negative. Repeat blood culture showing no growth after 144 hours. -Meld score 21 Acute kidney injury, worsening. LACEY secondary to ATN with Concerns for hepatorenal syndrome -Follwed by nephro, restarted diuretics 01/26. -Received albumin, continue octreotide and midodrine -Muñoz catheter to monitor of I's and O's -We will continue to follow BMP closely -Improving Recent C. diff colitis, from outside hospital -Completed course of oral vancomycin Anemia, suspected due to acute blood loss from GI bleeding, stable normocytic hyperchromic anemia -Status post 2 units of PRBCs since admission -Continue to monitor CBC -Stable at this time. Thrombocytopenia -We will continue to monitor with repeat a.m. labs. Physical Debility -PT Consult, appreciate recommendations DVT prophylaxis: SCDs Discussed with: Patient and RN Anticipated discharge date: Clinical Course to Determine Anticipated discharge place: [facility] A total of 40 minutes was spent on the care of this complex patient more than 50% of the time was spent in counseling and care coordination.coordination.
[2021-01-28] MEDS: HYDROcodone/APAP 5-325MG 1 EACH TAB PO PRN ×2 (16:52→23:05)
[2021-01-28] MEDS: SENNOSIDES 8.6 MG TAB PO SCH (19:26)
[2021-01-29] MEDS: MIDODRINE 5 MG TAB PO SCH ×3 (09:16→17:16)
[2021-01-29] MEDS: SPIRONOLACTONE 25 MG TAB PO SCH ×2 (09:17→21:29)
[2021-01-29] MEDS: FAMOTIDINE 20 MG TAB PO SCH (09:17)
[2021-01-29] MEDS: SODIUM BICARBONATE TAB 650 MG TAB PO SCH ×2 (09:17→21:29)
[2021-01-29] MEDS: DOCUSATE 100 MG CAP PO SCH ×2 (09:17→21:29)
[2021-01-29] MEDS: OCTREOTIDE 100 MCG/ML INJ SQ SCH ×2 (09:17→17:17)
[2021-01-29] MEDS: FERROUS SULFATE 325 MG TAB PO SCH ×2 (09:17→17:16)
[2021-01-29] MEDS: FUROSEMIDE 10 MG/ML 4 ML VIAL IV SCH (09:18)
[2021-01-29] MEDS: HYDROcodone/APAP 5-325MG 1 EACH TAB PO PRN (09:49)
--- NOTE | 2021-01-29 10:01 | P.PN ---
Subjective Patient is seen in follow-up for acute kidney injury. Renal function better. Creatinine 3.22 yesterday. Edema improving. Blood pressure stable on midodrine. Oral intake fair. Diuretics resumed January 26. No changes overnight. Vital signs are stable. HEENT: Head exam is unremarkable. LUNGS: Breath sounds decreased. HEART: Rate and Rhythm are regular. ABDOMEN: Soft, mild distention. EXTREMITITES: 1+ edema. Objective - Vital Signs Vital signs: Vital Signs Temp 98.1 F 01/29/21 08:00 Pulse 83 01/29/21 08:00 Resp 14 01/29/21 08:00 BP 108/69 01/29/21 08:00 Pulse Ox 96 01/29/21 08:00 Intake & Output 01/28/21 01/29/21 01/29/21 18:59 06:59 18:59 Intake Total 118 Output Total 350 Balance -232 Weight 81.5 kg Intake: Oral 118 Output: Urine 350 Other: Voiding Method Indwelling Catheter Indwelling Catheter ABP, PAP, CO, CI - Last Documented Arterial Blood Pressure 120/70 - Labs CBC & Chem 7: 01/27/21 06:04 01/28/21 07:23 Assessment and Plan Plan: Assessment: 1. Acute kidney injury secondary to ATN secondary to hepatorenal syndrome. UA benign. Renal function improving. Creatinine 3.22 yesterday. No hydronephro sis noted on kidney ultrasound. 2. Liver cirrhosis. 3. Ascites status post paracentesis on January 20 with 3.6 L drained and January 25 at 4.2 L drained. 4. Iron deficiency anemia, s/p IV iron. 5. Metabolic acidosis secondary to acute kidney injury. On oral bicarbonate. Improved. Plan: Status post 25 g IV albumin 2 doses given January 25; received another dose on January 28. Maintain Muñoz catheter. Strict I's and O's. Maintain midodrine. Continue to monitor renal function and urine output. Maintain Lasix and spironolactone. Morning labs pending.
[2021-01-29 11:24] LABS: African American GFR (CKD) 25.4 (60.0-200.0); Albumin 2.7 g/dL (3.8-4.9); Albumin/Globulin Ratio 1.29 (1.60-3.17); Anion Gap 14.1 mmol/L (4.00-12.00); BUN/Creat Ratio 19.97 Ratio (12.00-20.00); Blood Urea Nitrogen 59.9 mg/dL (9.0-27.0); Calcium 8.3 mg/dL (8.7-10.3); Carbon Dioxide 17.9 mmol/L (21.6-31.8); Globulin 2.1 g/dL (1.6-3.3); Magnesium 2.2 mg/dL (1.5-2.4); Non-African American GFR(CKD) 21.9 (60.0-200.0); Potassium 4.6 mmol/L (3.5-5.5); Total Bilirubin 1.5 mg/dL (0.30-1.20); Total Protein 4.8 g/dL (6.2-8.2)
--- NOTE | 2021-01-29 12:38 | P.PN ---
Subjective Progress Note Date: 01/29/21 Principal diagnosis: sepsis States that he is currently feeling better. No sob or pain. No fevers. Pain is improved. Objective - Vital Signs Vital signs: Vital Signs Temp 98.1 F 01/29/21 08:00 Pulse 83 01/29/21 08:00 Resp 14 01/29/21 08:00 BP 108/69 01/29/21 08:00 Pulse Ox 96 01/29/21 08:00 Intake & Output 01/28/21 01/29/21 01/29/21 18:59 06:59 18:59 Intake Total 118 Output Total 350 450 Balance -232 -450 Weight 81.5 kg Intake: Oral 118 Output: Urine 350 450 Other: Voiding Method Indwelling Catheter Indwelling Catheter ABP, PAP, CO, CI - Last Documented Arterial Blood Pressure 120/70 - Exam General: Chronically Ill-appearing, no acute distress, appears at stated age Derm: warm, dry Head: atraumatic, normocephalic, symmetric Eyes: EOMI, no lid lag, anicteric sclera Mouth: no lip lesion, mucus membranes moist Cardiovascular: S1S2 reg, systolic murmur, positive posterior tibial pulses bilaterally, 2+ BLE pitting edema, Lungs: CTA bilateral, no rhonchi, no rales , no accessory muscle use Abdominal: Cirrhotic abdomen, +tenderness to palpation diffusely, no guarding, no appreciable organomegaly Ext: no gross muscle atrophy, no contractures Neuro: CN II-XI grossly intact, no focal neuro deficits Psych: Alert, oriented, appropriate affect - Labs CBC & Chem 7: 01/27/21 06:04 01/29/21 06:03 Labs: Abnormal Lab Results - Last 24 Hours (Table) 01/29/21 Range/Units 06:03 Carbon Dioxide 17.9 L (21.6-31.8) mmol/L Anion Gap 14.10 H (4.00-12.00) mmol/L BUN 59.9 H (9.0-27.0) mg/dL Creatinine 3.0 H (0.6-1.5) mg/dL Est GFR (CKD-EPI)AfAm 25.4 L (60.0-200.0) Est GFR (CKD-EPI)NonAf 21.9 L (60.0-200.0) Glucose 132 H (70-110) mg/dL Calcium 8.3 L (8.7-10.3) mg/dL Total Bilirubin 1.50 H (0.30-1.20) mg/dL AST 75 H (14-35) U/L Alkaline Phosphatase 297 H (41-126) U/L Total Protein 4.8 L (6.2-8.2) g/dL Albumin 2.7 L (3.8-4.9) g/dL Albumin/Globulin Ratio 1.29 L (1.60-3.17) g/dL Assessment and Plan Plan: Liver cirrhosis MELD score of 21 Septic shock with suspected abdominal source Recent C. diff Persistent abdominal pain Moderate abdominal ascites with lower extremity edema Significant leukocytosis -CT abdomen and pelvis showed a seroma which was aspirated by Gen. surgery and sent for culture which was negative -Repeat abdominal ultrasound with moderate ascites. -IR following and patient underwent paracentesis with removal of 1.7 L of ascit ic fluid on 01/14/21, then again on 01/20/21 in which 3.6 L of ascitic fluid was removed. Then again on 01/25 when 4.2L of fluids removed. -ID following, patient placed on holiday from antibiotics to evaluate WBC response as leukocytosis suspected to be from inflammatory reaction and less likely infectious--he is currently doing well without antibiotics, no need. -GI services have signed off patient care, no plans for scopes at this time. -Hematology following, appreciate further recommendations. -Gen. surgery evaluated, not recommending surgical intervention at this time due to extreme risk of fulminant liver failure and abdominal pain believed to be secondary to cirrhosis and highly unlikely gallbladder related. -Blood cultures showing no growth after 144 hours. Gram stain negative. Fungal culture negative and ascites fluid culture negative. Repeat blood culture showing no growth after 144 hours. -Meld score 21 01/29 Check a-fetoprotein Acute kidney injury, worsening. LACEY secondary to ATN with Concerns for hepatorenal syndrome -Follwed by nephro, restarted diuretics 01/26. -Received albumin, continue octreotide and midodrine -Muñoz catheter to monitor of I's and O's -We will continue to follow BMP closely -Improving Recent C. diff colitis, from outside hospital -Completed course of oral vancomycin Anemia, suspected due to acute blood loss from GI bleeding, stable normocytic hyperchromic anemia -Status post 2 units of PRBCs since admission -Continue to monitor CBC -Stable at this time. Thrombocytopenia -We will continue to monitor with repeat a.m. labs. Physical Debility -PT, patient encouraged to ambulate. DVT prophylaxis: SCDs Discussed with: Patient and RN Anticipated discharge date: Clinical Course to Determine Anticipated discharge place: SNF A total of 40 minutes was spent on the care of this complex patient more than 50% of the time was spent in counseling and care coordination.coordination.
--- NOTE | 2021-01-29 14:12 | P.PN ---
Subjective Progress Note Date: 01/29/21 Principal diagnosis: macrocytic anemia Objective - Vital Signs Vital signs: Vital Signs Temp 98.1 F 01/29/21 08:00 Pulse 83 01/29/21 08:00 Resp 14 01/29/21 08:00 BP 108/69 01/29/21 08:00 Pulse Ox 96 01/29/21 08:00 Intake & Output 01/28/21 01/29/21 01/29/21 18:59 06:59 18:59 Intake Total 118 Output Total 350 450 Balance -232 -450 Weight 81.5 kg Intake: Oral 118 Output: Urine 350 450 Other: Voiding Method Indwelling Catheter Indwelling Catheter Indwelling Catheter ABP, PAP, CO, CI - Last Documented Arterial Blood Pressure 120/70 - Constitutional Constitutional Comment(s): thin extremities, abd distension General appearance: Present: cooperative, no acute distress - EENT Eyes: Present: EOMI, scleral icterus ENT: Present: hearing grossly normal - Respiratory Respiratory: bilateral: diminished - Cardiovascular Heart sounds: normal: S1, S2 - Peripheral edema foot Peripheral Edema: bilateral: 1+, Pitting - Integumentary Integumentary: Present: jaundiced - Musculoskeletal Musculoskeletal: Present: generalized weakness - Psychiatric Psychiatric: Present: A&O x's 3, appropriate affect, intact judgment & insight - Labs CBC & Chem 7: 01/27/21 06:04 01/29/21 06:03 Labs: Abnormal Lab Results - Last 24 Hours (Table) 01/29/21 Range/Units 06:03 Carbon Dioxide 17.9 L (21.6-31.8) mmol/L Anion Gap 14.10 H (4.00-12.00) mmol/L BUN 59.9 H (9.0-27.0) mg/dL Creatinine 3.0 H (0.6-1.5) mg/dL Est GFR (CKD-EPI)AfAm 25.4 L (60.0-200.0) Est GFR (CKD-EPI)NonAf 21.9 L (60.0-200.0) Glucose 132 H (70-110) mg/dL Calcium 8.3 L (8.7-10.3) mg/dL Total Bilirubin 1.50 H (0.30-1.20) mg/dL AST 75 H (14-35) U/L Alkaline Phosphatase 297 H (41-126) U/L Total Protein 4.8 L (6.2-8.2) g/dL Albumin 2.7 L (3.8-4.9) g/dL Albumin/Globulin Ratio 1.29 L (1.60-3.17) g/dL Assessment and Plan (1) Macrocytic anemia Narrative/Plan: Hgb stable, no transfusions needed at this time. MMA elevated with a B12 >2000-no supplementation recommended at this time, more likely r/t liver disease Current Visit: Yes Status: Chronic Priority: Medium Code(s): D53.9 - NUTRITIONAL ANEMIA, UNSPECIFIED SNOMED Code(s): 78723113 (2) Leukocytosis Narrative/Plan: Persistent. So far work up has not identified an underlying cause. Still pending a few labs. Cont current plan of care as ordered Current Visit: Yes Status: Acute Priority: High Code(s): D72.829 - ELEVATED WHITE BLOOD CELL COUNT, UNSPECIFIED SNOMED Code(s): 587947932
[2021-01-29] MEDS: SENNOSIDES 8.6 MG TAB PO SCH (21:29)
[2021-01-30] MEDS: HYDROcodone/APAP 5-325MG 1 EACH TAB PO PRN ×2 (00:48→16:58)
[2021-01-30] MEDS: OCTREOTIDE 100 MCG/ML INJ SQ SCH ×4 (01:13→22:46)
[2021-01-30] MEDS: FERROUS SULFATE 325 MG TAB PO SCH ×2 (08:19→16:32)
[2021-01-30] MEDS: FAMOTIDINE 20 MG TAB PO SCH (08:19)
[2021-01-30] MEDS: DOCUSATE 100 MG CAP PO SCH ×2 (08:19→22:38)
[2021-01-30] MEDS: FUROSEMIDE 10 MG/ML 4 ML VIAL IV SCH (08:19)
[2021-01-30] MEDS: SPIRONOLACTONE 25 MG TAB PO SCH ×2 (08:19→22:39)
[2021-01-30] MEDS: SODIUM BICARBONATE TAB 650 MG TAB PO SCH ×2 (08:19→22:39)
[2021-01-30] MEDS: MIDODRINE 5 MG TAB PO SCH ×3 (08:19→16:31)
--- NOTE | 2021-01-30 09:04 | P.PN ---
Subjective Patient is seen in follow-up for acute kidney injury. Renal function better. Creatinine 3.0 yesterday. Edema improving. Blood pressure stable on midodrine. Oral intake fair. Diuretics resumed January 26. No changes overnight. Resting in bed. No active complaints. Vital signs are stable. HEENT: Head exam is unremarkable. LUNGS: Breath sounds decreased. HEART: Rate and Rhythm are regular. ABDOMEN: Soft, mild distention. EXTREMITITES: Trace edema. Objective - Vital Signs Vital signs: Vital Signs Temp 98.2 F 01/30/21 07:34 Pulse 88 01/30/21 07:34 Resp 20 01/30/21 07:34 BP 118/72 01/30/21 07:34 Pulse Ox 95 01/30/21 07:34 Intake & Output 01/29/21 01/30/21 01/30/21 18:59 06:59 18:59 Intake Total 320 Output Total 600 300 Balance -600 20 Weight 80.5 kg Intake: IV 120 Sodium Chloride 0.9% 1, 120 000 ml @ 20 mls/hr IV . Q24H [facility] Rx#:[id number] Oral 200 Output: Urine 600 300 Other: Voiding Method Indwelling Catheter Indwelling Catheter Indwelling Catheter ABP, PAP, CO, CI - Last Documented Arterial Blood Pressure 120/70 - Labs CBC & Chem 7: 01/27/21 06:04 01/29/21 06:03 Labs: Abnormal Lab Results - Last 24 Hours (Table) 01/29/21 Range/Units 06:03 Carbon Dioxide 17.9 L (21.6-31.8) mmol/L Anion Gap 14.10 H (4.00-12.00) mmol/L BUN 59.9 H (9.0-27.0) mg/dL Creatinine 3.0 H (0.6-1.5) mg/dL Est GFR (CKD-EPI)AfAm 25.4 L (60.0-200.0) Est GFR (CKD-EPI)NonAf 21.9 L (60.0-200.0) Glucose 132 H (70-110) mg/dL Calcium 8.3 L (8.7-10.3) mg/dL Total Bilirubin 1.50 H (0.30-1.20) mg/dL AST 75 H (14-35) U/L Alkaline Phosphatase 297 H (41-126) U/L Total Protein 4.8 L (6.2-8.2) g/dL Albumin 2.7 L (3.8-4.9) g/dL Albumin/Globulin Ratio 1.29 L (1.60-3.17) g/dL Microbiology - Last 24 Hours (Table) 01/14/21 16:13 Fungal Culture - Preliminary Ascites Fluid Assessment and Plan Plan: Assessment: 1. Acute kidney injury secondary to ATN secondary to hepatorenal syndrome. UA benign. Renal function improving. Creatinine 3.0 yesterday. No hydronephrosis noted on kidney ultrasound. 2. Liver cirrhosis. 3. Ascites status post paracentesis on January 20 with 3.6 L drained and January 25 at 4.2 L drained. 4. Iron deficiency anemia, s/p IV iron. 5. Metabolic acidosis secondary to acute kidney injury. On oral bicarbonate. Plan: Status post 25 g IV albumin 2 doses given January 25; received another dose on January 28. Maintain Muñoz catheter. Strict I's and O's. Maintain midodrine. Continue to monitor renal function and urine output. Maintain Lasix and spironolactone. Morning labs pending.
[2021-01-30 10:08] LABS: Basophils # (A) 0.1 k/uL (0-0.2); Basophils % (A) 0 %; Eosinophils # (A) 0.3 k/uL (0-0.7); Eosinophils % (A) 1 %; HCT 37.5 % (39.0-53.0); HGB 11.7 gm/dL (13.0-17.5); Hypochromasia Slight; Lymphocytes # (A) 1.3 k/uL (1.0-4.8); Lymphocytes % (A) 5 %; MCH 31.8 pg (25.0-35.0); MCHC 31.2 g/dL (31.0-37.0); MCV 101.8 fL (80.0-100.0); Macrocytosis Slight; Mean Platelet Volume 8.5; Monocytes # (A) 0.8 k/uL (0-1.0); Monocytes % (A) 3 %; Neutrophils % (A) 89 %; Platelet Count 228 k/uL (150-450); RBC 3.68 m/uL (4.30-5.90); WBC 25.8 k/uL (3.8-10.6)
[2021-01-30 10:23] LABS: ALT 27 U/L (4-49); AST 96 U/L (17-59); African American GFR (CKD) 31 (>60 ml/min/1.73 sqM); Albumin 2.6 g/dL (3.5-5.0); Albumin/Globulin Ratio 0.9; Alkaline Phosphatase 311 U/L (38-126); Anion Gap 9 mmol/L; Blood Urea Nitrogen 65 mg/dL (9-20); Calcium 8.6 mg/dL (8.4-10.2); Carbon Dioxide 21 mmol/L (22-30); Chloride 111 mmol/L (98-107); Glucose 108 mg/dL (74-99); Non-African American GFR(CKD) 27 (>60 ml/min/1.73 sqM); Sodium 141 mmol/L (137-145); Total Bilirubin 2.3 mg/dL (0.2-1.3); Total Protein 5.6 g/dL (6.3-8.2)
--- NOTE | 2021-01-30 13:05 | P.PN ---
Subjective Progress Note Date: 01/30/21 Patient seen and examined at bedside. Denies chest pain, shortness of breath, fever, chills, nausea, or vomiting. Kidney function is improving. WBC continues to be elevated. Objective - Vital Signs Vital signs: Vital Signs Temp 98.2 F 01/30/21 07:34 Pulse 88 01/30/21 07:34 Resp 20 01/30/21 07:34 BP 118/72 01/30/21 07:34 Pulse Ox 95 01/30/21 07:34 Intake & Output 01/29/21 01/30/21 01/30/21 18:59 06:59 18:59 Intake Total 320 100 Output Total 600 300 Balance -600 20 100 Weight 80.5 kg Intake: IV 120 Sodium Chloride 0.9% 1, 120 000 ml @ 20 mls/hr IV . Q24H [facility] Rx#:[id number] Oral 200 100 Output: Urine 600 300 Other: Voiding Method Indwelling Catheter Indwelling Catheter Indwelling Catheter ABP, PAP, CO, CI - Last Documented Arterial Blood Pressure 120/70 - Exam General: Chronically Ill-appearing, no acute distress, appears at stated age Derm: warm, dry Head: atraumatic, normocephalic, symmetric Eyes: EOMI, no lid lag, anicteric sclera Mouth: no lip lesion, mucus membranes moist Cardiovascular: S1S2 reg, systolic murmur, positive posterior tibial pulses bilaterally, 2+ BLE pitting edema, Lungs: CTA bilateral, no rhonchi, no rales , no accessory muscle use Abdominal: Cirrhotic abdomen, +tenderness to palpation diffusely, no guarding, no appreciable organomegaly Ext: no gross muscle atrophy, no contractures Neuro: CN II-XI grossly intact, no focal neuro deficits Psych: Alert, oriented, appropriate affect - Labs CBC & Chem 7: 01/30/21 09:55 01/30/21 09:55 Labs: Abnormal Lab Results - Last 24 Hours (Table) 01/30/21 01/30/21 Range/Units 09:55 09:55 WBC 25.8 H (3.8-10.6) k/uL RBC 3.68 L (4.30-5.90) m/uL Hgb 11.7 L (13.0-17.5) gm/dL Hct 37.5 L (39.0-53.0) % MCV 101.8 H (80.0-100.0) fL RDW 16.0 H (11.5-15.5) % Neutrophils # 23.0 H (1.3-7.7) k/uL Chloride 111 H (98-107) mmol/L Carbon Dioxide 21 L (22-30) mmol/L BUN 65 H (9-20) mg/dL Creatinine 2.52 H (0.66-1.25) mg/dL Glucose 108 H (74-99) mg/dL Total Bilirubin 2.3 H (0.2-1.3) mg/dL AST 96 H (17-59) U/L Alkaline Phosphatase 311 H (38-126) U/L Total Protein 5.6 L (6.3-8.2) g/dL Albumin 2.6 L (3.5-5.0) g/dL Microbiology - Last 24 Hours (Table) 01/14/21 16:13 Fungal Culture - Preliminary Ascites Fluid Assessment and Plan Plan: Liver cirrhosis MELD score of 21 Septic shock with suspected abdominal source Recent C. diff Persistent abdominal pain Moderate abdominal ascites with lower extremity edema Significant leukocytosis -CT abdomen and pelvis showed a seroma which was aspirated by Gen. surgery and sent for culture which was negative -Repeat abdominal ultrasound with moderate ascites. -IR following and patient underwent paracentesis with removal of 1.7 L of ascitic fluid on 01/14/21, then again on 01/20/21 in which 3.6 L of ascitic fluid was removed. Then again on 01/25 when 4.2L of fluids removed. -ID following, patient placed on holiday from antibiotics to evaluate WBC response as leukocytosis suspected to be from inflammatory reaction and less likely infectious--he is currently doing well without antibiotics, no need. -GI services have signed off patient care, no plans for scopes at this time. -Hematology following, appreciate further recommendations. -Gen. surgery evaluated, not recommending surgical intervention at this time due to extreme risk of fulminant liver failure and abdominal pain believed to be secondary to cirrhosis and highly unlikely gallbladder related. -Blood cultures showing no growth after 144 hours. Gram stain negative. Fungal culture negative and ascites fluid culture negative. Repeat blood culture showing no growth after 144 hours. -Meld score 21 -a-fetoprotein less than 1.82 Acute kidney injury, improving today with Cr at 2.52 from 3.0 LACEY secondary to ATN with Concerns for hepatorenal syndrome -Follwed by nephro, restarted diuretics 01/26. -Received albumin, continue octreotide and midodrine -Muñoz catheter to monitor of I's and O's -We will continue to follow BMP closely -Improving Recent C. diff colitis, from outside hospital -Completed course of oral vancomycin Anemia, suspected due to acute blood loss from GI bleeding, stable normocytic hyperchromic anemia -Status post 2 units of PRBCs since admission -Continue to monitor CBC -Stable at this time. Thrombocytopenia -We will continue to monitor with repeat a.m. labs. Physical Debility -PT, patient encouraged to ambulate. DVT prophylaxis: SCDs Discussed with: Patient and RN Anticipated discharge date: Clinical Course to Determine Anticipated discharge place: SNF A total of 40 minutes was spent on the care of this complex patient more than 50% of the time was spent in counseling and care coordination.coordination.
[2021-01-30] MEDS: SENNOSIDES 8.6 MG TAB PO SCH (22:39)
--- NOTE | 2021-01-31 09:35 | P.PN ---
Subjective Patient is seen in follow-up for acute kidney injury. Renal function better. Creatinine 2.52 yesterday. Edema improving. Blood pressure stable on midodrine. Oral intake fair. Diuretics resumed January 26. No changes overnight. Resting in bed. No active complaints. Vital signs are stable. HEENT: Head exam is unremarkable. LUNGS: Breath sounds decreased. HEART: Rate and Rhythm are regular. ABDOMEN: Soft, mild distention. EXTREMITITES: Trace edema. Objective - Vital Signs Vital signs: Vital Signs Temp 98.7 F 01/31/21 07:23 Pulse 90 01/31/21 07:23 Resp 16 01/31/21 07:23 BP 118/75 01/31/21 07:23 Pulse Ox 94 L 01/31/21 07:23 Intake & Output 01/30/21 01/31/21 01/31/21 18:59 06:59 18:59 Intake Total 421 170 Output Total 500 550 Balance -79 -380 Weight 80.2 kg Intake: IV 120 Sodium Chloride 0.9% 1, 120 000 ml @ 20 mls/hr IV . Q24H [facility] Rx#:[id number] Oral 421 50 Output: Urine 500 550 Other: Voiding Method Indwelling Catheter Indwelling Catheter ABP, PAP, CO, CI - Last Documented Arterial Blood Pressure 120/70 - Labs CBC & Chem 7: 01/30/21 09:55 01/30/21 09:55 Labs: Abnormal Lab Results - Last 24 Hours (Table) 01/30/21 01/30/21 Range/Units 09:55 09:55 WBC 25.8 H (3.8-10.6) k/uL RBC 3.68 L (4.30-5.90) m/uL Hgb 11.7 L (13.0-17.5) gm/dL Hct 37.5 L (39.0-53.0) % MCV 101.8 H (80.0-100.0) fL RDW 16.0 H (11.5-15.5) % Neutrophils # 23.0 H (1.3-7.7) k/uL Chloride 111 H (98-107) mmol/L Carbon Dioxide 21 L (22-30) mmol/L BUN 65 H (9-20) mg/dL Creatinine 2.52 H (0.66-1.25) mg/dL Glucose 108 H (74-99) mg/dL Total Bilirubin 2.3 H (0.2-1.3) mg/dL AST 96 H (17-59) U/L Alkaline Phosphatase 311 H (38-126) U/L Total Protein 5.6 L (6.3-8.2) g/dL Albumin 2.6 L (3.5-5.0) g/dL Assessment and Plan Plan: Assessment: 1. Acute kidney injury secondary to ATN secondary to hepatorenal syndrome. UA benign. Renal function improving. Creatinine 2.52 yesterday. No hydronephrosis noted on kidney ultrasound. 2. Liver cirrhosis. 3. Ascites status post paracentesis on January 20 with 3.6 L drained and January 25 at 4.2 L drained. 4. Iron deficiency anemia, s/p IV iron. 5. Metabolic acidosis secondary to acute kidney injury. On oral bicarbonate. Improved. Plan: Status post 25 g IV albumin 2 doses given January 25; received another dose on January 28. Okay to discontinue Muñoz catheter. Maintain midodrine. Continue to monitor renal function and urine output. Maintain Lasix and spironolactone. Morning labs pending.
[2021-01-31 09:48] LABS: Basophils # (A) 0.1 k/uL (0-0.2); Basophils % (A) 0 %; Eosinophils # (A) 0.2 k/uL (0-0.7); Eosinophils % (A) 1 %; HCT 37.1 % (39.0-53.0); HGB 11.4 gm/dL (13.0-17.5); Hypochromasia Moderate; Lymphocytes # (A) 1.1 k/uL (1.0-4.8); Lymphocytes % (A) 4 %; MCH 31.5 pg (25.0-35.0); MCHC 30.7 g/dL (31.0-37.0); MCV 102.8 fL (80.0-100.0); Macrocytosis Moderate; Mean Platelet Volume 8.8; Monocytes # (A) 0.8 k/uL (0-1.0); Monocytes % (A) 3 %; Neutrophils # (A) 23.3 k/uL (1.3-7.7); Neutrophils % (A) 90 %; Platelet Count 187 k/uL (150-450); RBC 3.61 m/uL (4.30-5.90); WBC 25.8 k/uL (3.8-10.6)
[2021-01-31 10:01] LABS: ALT 23 U/L (4-49); AST 70 U/L (17-59); African American GFR (CKD) 30 (>60 ml/min/1.73 sqM); Albumin 2.5 g/dL (3.5-5.0); Albumin/Globulin Ratio 0.8; Alkaline Phosphatase 310 U/L (38-126); Anion Gap 10 mmol/L; Blood Urea Nitrogen 67 mg/dL (9-20); Calcium 8.7 mg/dL (8.4-10.2); Carbon Dioxide 19 mmol/L (22-30); Chloride 114 mmol/L (98-107); Globulin 3.1 g/dL; Glucose 112 mg/dL (74-99); Non-African American GFR(CKD) 26 (>60 ml/min/1.73 sqM); Phosphorus 5.6 mg/dL (2.5-4.5); Sodium 143 mmol/L (137-145); Total Bilirubin 2.3 mg/dL (0.2-1.3); Total Protein 5.6 g/dL (6.3-8.2)
[2021-01-31] MEDS: SPIRONOLACTONE 25 MG TAB PO SCH ×2 (10:02→21:05)
[2021-01-31] MEDS: FUROSEMIDE 10 MG/ML 4 ML VIAL IV SCH (10:02)
[2021-01-31] MEDS: SODIUM BICARBONATE TAB 650 MG TAB PO SCH ×2 (10:02→21:05)
[2021-01-31] MEDS: MIDODRINE 5 MG TAB PO SCH ×3 (10:02→17:32)
[2021-01-31] MEDS: FERROUS SULFATE 325 MG TAB PO SCH ×2 (10:02→17:32)
[2021-01-31] MEDS: FAMOTIDINE 20 MG TAB PO SCH (10:02)
[2021-01-31] MEDS: DOCUSATE 100 MG CAP PO SCH ×2 (10:02→21:05)
[2021-01-31] MEDS: OCTREOTIDE 100 MCG/ML INJ SQ SCH ×2 (10:03→16:18)
--- NOTE | 2021-01-31 13:55 | P.PN ---
Subjective Progress Note Date: 01/31/21 Patient seen and examined at bedside. Denies chest pain, shortness of breath, fever, chills, nausea, or vomiting. Kidney function is improving. WBC is stable and likely reactive.. Objective - Vital Signs Vital signs: Vital Signs Temp 98.7 F 01/31/21 07:23 Pulse 90 01/31/21 07:23 Resp 16 01/31/21 07:23 BP 118/75 01/31/21 07:23 Pulse Ox 94 L 01/31/21 07:23 Intake & Output 01/30/21 01/31/21 01/31/21 18:59 06:59 18:59 Intake Total 421 170 100 Output Total 500 550 Balance -79 -380 100 Weight 80.2 kg Intake: IV 120 Sodium Chloride 0.9% 1, 120 000 ml @ 20 mls/hr IV . Q24H [facility] Rx#:[id number] Oral 421 50 100 Output: Urine 500 550 Other: Voiding Method Indwelling Catheter Indwelling Catheter Indwelling Catheter ABP, PAP, CO, CI - Last Documented Arterial Blood Pressure 120/70 - Exam General: Chronically Ill-appearing, no acute distress, appears at stated age Derm: warm, dry Head: atraumatic, normocephalic, symmetric Eyes: EOMI, no lid lag, anicteric sclera Mouth: no lip lesion, mucus membranes moist Cardiovascular: S1S2 reg, systolic murmur, positive posterior tibial pulses bilaterally, 2+ BLE pitting edema, Lungs: CTA bilateral, no rhonchi, no rales , no accessory muscle use Abdominal: Cirrhotic abdomen, +tenderness to palpation diffusely, no guarding, no appreciable organomegaly Ext: no gross muscle atrophy, no contractures Neuro: CN II-XI grossly intact, no focal neuro deficits Psych: Alert, oriented, appropriate affec.t - Labs CBC & Chem 7: 01/31/21 09:29 01/31/21 09:29 Labs: Abnormal Lab Results - Last 24 Hours (Table) 01/31/21 01/31/21 Range/Units 09: 09:29 WBC 25.8 H (3.8-10.6) k/uL RBC 3.61 L (4.30-5.90) m/uL Hgb 11.4 L (13.0-17.5) gm/dL Hct 37.1 L (39.0-53.0) % MCV 102.8 H (80.0-100.0) fL MCHC 30.7 L (31.0-37.0) g/dL RDW 16.0 H (11.5-15.5) % Neutrophils # 23.3 H (1.3-7.7) k/uL Chloride 114 H (98-107) mmol/L Carbon Dioxide 19 L (22-30) mmol/L BUN 67 H (9-20) mg/dL Creatinine 2.63 H (0.66-1.25) mg/dL Glucose 112 H (74-99) mg/dL Phosphorus 5.6 H (2.5-4.5) mg/dL Total Bilirubin 2.3 H (0.2-1.3) mg/dL AST 70 H (17-59) U/L Alkaline Phosphatase 310 H (38-126) U/L Total Protein 5.6 L (6.3-8.2) g/dL Albumin 2.5 L (3.5-5.0) g/dL Assessment and Plan Plan: Liver cirrhosis MELD score of 21 Septic shock with suspected abdominal source Recent C. diff Persistent abdominal pain Moderate abdominal ascites with lower extremity edema Significant leukocytosis -CT abdomen and pelvis showed a seroma which was aspirated by Gen. surgery and sent for culture which was negative -Repeat abdominal ultrasound with moderate ascites. -IR following and patient underwent paracentesis with removal of 1.7 L of ascitic fluid on 01/14/21, then again on 01/20/21 in which 3.6 L of ascitic fluid was removed. Then again on 01/25 when 4.2L of fluids removed. -ID following, patient placed on holiday from antibiotics to evaluate WBC response as leukocytosis suspected to be from inflammatory reaction and less likely infectious--he is currently doing well without antibiotics, no need. -GI services have signed off patient care, no plans for scopes at this time. -Hematology following, appreciate further recommendations. -Gen. surgery evaluated, not recommending surgical intervention at this time due to extreme risk of fulminant liver failure and abdominal pain believed to be secondary to cirrhosis and highly unlikely gallbladder related. -Blood cultures showing no growth after 144 hours. Gram stain negative. Fungal culture negative and ascites fluid culture negative. Repeat blood culture showing no growth after 144 hours. -Meld score 21 -a-fetoprotein less than 1.82 Acute kidney injury, improved and currently stable LACEY secondary to ATN with Concerns for hepatorenal syndrome -Follwed by nephro, restarted diuretics 01/26. -Received albumin, continue octreotide and midodrine -Muñoz catheter to monitor of I's and O's -We will continue to follow BMP closely -Improving Recent C. diff colitis, from outside hospital -Completed course of oral vancomycin Anemia, suspected due to acute blood loss from GI bleeding, stable normocytic hyperchromic anemia -Status post 2 units of PRBCs since admission -Continue to monitor CBC -Stable at this time. Thrombocytopenia -We will continue to monitor with repeat a.m. labs. Physical Debility -PT, patient encouraged to ambulate. DVT prophylaxis: SCDs Discussed with: Patient and RN Anticipated discharge place: SNF
[2021-01-31] MEDS: HYDROcodone/APAP 5-325MG 1 EACH TAB PO PRN (17:37)
[2021-01-31] MEDS: SENNOSIDES 8.6 MG TAB PO SCH (21:05)
[2021-02-01] MEDS: OCTREOTIDE 100 MCG/ML INJ SQ SCH ×3 (01:15→17:09)
[2021-02-01] MEDS: FAMOTIDINE 20 MG TAB PO SCH (07:22)
[2021-02-01] MEDS: SODIUM BICARBONATE TAB 650 MG TAB PO SCH ×2 (07:22→20:41)
[2021-02-01] MEDS: DOCUSATE 100 MG CAP PO SCH ×2 (07:22→20:41)
[2021-02-01] MEDS: SPIRONOLACTONE 25 MG TAB PO SCH ×2 (07:22→20:41)
[2021-02-01] MEDS: MIDODRINE 5 MG TAB PO SCH ×3 (07:22→17:09)
[2021-02-01] MEDS: FERROUS SULFATE 325 MG TAB PO SCH ×2 (07:22→17:09)
[2021-02-01] MEDS: FUROSEMIDE 10 MG/ML 4 ML VIAL IV SCH (07:23)
[2021-02-01] MEDS: HYDROcodone/APAP 5-325MG 1 EACH TAB PO PRN (07:25)
[2021-02-01 08:53] LABS: ALT 21 U/L (4-49); AST 59 U/L (17-59); African American GFR (CKD) 28 (>60 ml/min/1.73 sqM); Albumin 2.5 g/dL (3.5-5.0); Albumin/Globulin Ratio 0.8; Alkaline Phosphatase 290 U/L (38-126); Anion Gap 11 mmol/L; Blood Urea Nitrogen 72 mg/dL (9-20); Calcium 8.6 mg/dL (8.4-10.2); Carbon Dioxide 23 mmol/L (22-30); Chloride 112 mmol/L (98-107); Globulin 3.1 g/dL; Glucose 117 mg/dL (74-99); Magnesium 2.1 mg/dL (1.6-2.3); Non-African American GFR(CKD) 24 (>60 ml/min/1.73 sqM); Potassium 4.8 mmol/L (3.5-5.1); Sodium 146 mmol/L (137-145); Total Bilirubin 2.3 mg/dL (0.2-1.3); Total Protein 5.6 g/dL (6.3-8.2)
[2021-02-01 11:07] LABS: Basophils # (A) 0.07 X 10*3/uL (0.00-0.10); Basophils % (A) 0.3 %; Eosinophils # (A) 0.14 X 10*3/uL (0.04-0.35); Eosinophils % (A) 0.6 %; HCT 32.4 % (39.6-50.0); HGB 10.7 g/dL (13.0-17.0); Lymphocytes # (A) 1.44 X 10*3/uL (0.90-5.00); Lymphocytes % (A) 5.7 %; MCH 31.3 pg (27.0-32.0); MCV 94.7 fL (80.0-97.0); Mean Platelet Volume 10.7 fL (9.5-12.2); Monocytes # (A) 1.21 X 10*3/uL (0.20-1.00); Monocytes % (A) 4.8 %; Neutrophils % (A) 87.6 %; Platelet Count 116 X 10*3/uL (140-440); RBC 3.42 X 10*6/uL (4.40-5.60); RDW 18.7 % (11.5-14.5); WBC 25.41 X 10*3/uL (4.50-10.00)
--- NOTE | 2021-02-01 14:30 | PN ---
PROGRESS NOTE Patient is seen for followup for acute kidney injury, mostly hepatorenal. This seems to have improved. Patient has an indwelling Muñoz catheter, 24 hour urine output about 1 L. The patient is maintained on IV Lasix. He is maintained on midodrine and Sandostatin as well. He has had significant lower extremity edema and recurrent ascites. PHYSICAL EXAMINATION: On examination today, patient is sleeping, comfortable. He is arousable, not in any acute distress. Blood pressure 111/71, heart rate 88 per minute. He is afebrile. Examination of the heart S1, S2. Examination of lungs decreased breath sounds at the bases. Abdomen is soft, nontender. Mild ascites noted. Exam of lower extremities edema 1+ bilaterally. ROLL PANNER exam shows patient is sleeping. He is arousable. LAB: Show sodium 146, potassium 4.8, chloride 112, BUN 72, creatinine 2.78, hemoglobin 10.7 g/dL. ASSESSMENT: 1. Acute kidney injury hepatorenal syndrome, currently improved. Renal function has been stable. Good urine output. Continue with Sandostatin, midodrine and IV Lasix. 2. Liver cirrhosis. 3. Portal hypertension with recurrent ascites status post paracentesis on January 20 and then again January 25 at 4.2 L. 4. Iron deficiency anemia status post IV iron. 5. Metabolic acidosis associated with renal failure maintained on oral sodium bicarb. PLAN: Continue current medications. No changes. Encourage increased oral intake, decrease the Lasix to 20 mg IV tomorrow if sodium is worse. MMODL / IJN: [id number] /
--- NOTE | 2021-02-01 14:39 | P.PN ---
Subjective Progress Note Date: 02/01/21 Hospital Course: The patient is a 56-year-old male with a past medical history of cirrhosis, anemia, colitis and recent ventral hernia sx. He was reportedly living in a motel and was found to be unresponsive and hypothermic. He was taken to [place] [facility] and was transferred to our facility for ICU admission on 01/09/21 for diagnosis of severe sepsis with septic shock as evidenced by hypotension, hypothermia, dehydration, and lactic acidosis. Initially pt was admitted to the medical ICU for septic shock with abdomen as a suspected source secondary to recent ventral hernia repair one month prior. General surgery was consulted. CT abdomen and pelvis obtained and had revealed seroma and he was maintained on broad-spectrum IV antibiotics. Initially pt required vasopressors, however these were eventually tapered off and patient was downgraded from the medical ICU. Seroma cultures came back negative. Blood cultures showing no growth after 144 hours. He was also found to have moderate ascitic fluid and underwent a paracentesis with removal of 1.7 L of fluid on 01/14/21 this was sent for culture with negative results. blood cultures showing no growth after 144 hours, gram stains negative, fungal culture negative and repeat blood cultures again showing no growth after 144 hours. Patient again underwent paracentesis on 01/20/21, with a reported removal of approximately 3.6 L of ascitic fluid. Repeat cultures and Gram stain on paracentesis fluid also negative. Echocardiogram revealing a normal EF between 60 and 65% with no significant valvular abnormalities. Patient continues to have significant leukocytosis and abdominal pain. Hematology consulted. General surgery also re-consulted secondary to CT findings revealing a 2.9 cm soft tissue density in gallbladder neck, General surgery not recommending surgical intervention at this time due to extreme risk of fulminant liver failure and abdominal pain believed to be secondary to cirrhosis and highly unlikely gallbladder related. Physical Examination: Patient was seen and fully evaluated at bedside this morning. Patient resting in bed. he has had 1500 mL of urinary output over the past 24 hours.currently reports pain is controlled. morning labs reveal BUN of 72, creatinine 2.78, and GFR of 24. Patient tolerating oral intake and denies any nausea or vomiting. he reports abdominal pain currently controlled. he states that he feels a little tired this morning but otherwise denies having any further complaints including headache, lightheadedness, dizziness, chest pain, palpitations, shortness of breath, or experiencing any numbness/tingling in his extremities. General: Chronically Ill-appearing, no acute distress, appears at stated age Derm: warm, dry Head: atraumatic, normocephalic, symmetric Eyes: EOMI, no lid lag, anicteric sclera Mouth: no lip lesion, mucus membranes moist Cardiovascular: S1S2 reg, systolic murmur, positive posterior tibial pulses bilaterally, 2+ BLE pitting edema, Lungs: CTA bilateral, no rhonchi, no rales , no accessory muscle use Abdominal: Cirrhotic abdomen, +tenderness to palpation diffusely, no guarding, no appreciable organomegaly Ext: no gross muscle atrophy, no contractures Neuro: CN II-XI grossly intact, no focal neuro deficits Psych: Alert, oriented, appropriate affect Assessment and Plan of Care: Liver cirrhosis MELD score of 21 Septic shock with suspected abdominal source Recent C. diff Persistent abdominal pain Moderate abdominal ascites with lower extremity edema Significant leukocytosis, likely reactive -CT abdomen and pelvis showed a seroma which was aspirated by Gen. surgery and sent for culture which was negative -Repeat abdominal ultrasound with moderate ascites. -IR following and patient underwent paracentesis with removal of 1.7 L of ascitic fluid on 01/14/21. -Patient underwent repeat paracentesis 01/20/21 in which 3.6 L of ascitic fluid was removed. -ID following, patient placed on holiday from antibiotics to evaluate WBC response as leukocytosis suspected to be from inflammatory reaction and less likely infectious. -GI services have signed off patient care, no plans for scopes at this time. -Hematology following, appreciate further recommendations. -Gen. surgery evaluated, not recommending surgical intervention at this time due to extreme risk of fulminant liver failure and abdominal pain believed to be secondary to cirrhosis and highly unlikely gallbladder related. -Blood cultures showing no growth after 144 hours. Gram stain negative. Fungal culture negative and ascites fluid culture negative. Repeat blood culture showing no growth after 144 hours. -Meld score 21 -A-fetoprotein less than 1.82 Acute kidney injury, improving LACEY secondary to ATN with Concerns for hepatorenal syndrome -Followed by nephrology, restarted on diuretics Lasix and Aldactone 01/26/21. -Received albumin x 2 doses. Plan to continue octreotide, midodrine, and sodium bicarb tablets at this time. -We will continue to follow BMP closely Recent C. diff colitis, from outside hospital -Completed course of oral vancomycinIn reporting back to normal bowel function Anemia, suspected due to acute blood loss from GI bleeding, stable normocytic hyperchromic anemia -Status post 2 units of PRBCs since admission -Continue to monitor CBC -Stable at this time. Thrombocytopenia -We will continue to monitor with repeat a.m. labs. Physical Debility -PT Consult, appreciate recommendations DVT prophylaxis: SCDs Discussed with: Patient and RN Anticipated discharge date: Clinical Course to Determine Anticipated discharge place: SNF A total of 45 minutes was spent on the care of this complex patient more than 50% of the time was spent in counseling and care coordination.coordination. Objective - Vital Signs Vital signs: Vital Signs Temp 98.1 F 02/01/21 08:00 Pulse 88 02/01/21 08:00 Resp 16 02/01/21 08:00 BP 111/71 02/01/21 08:00 Pulse Ox 97 02/01/21 08:00 Intake & Output 01/31/21 02/01/21 02/01/21 18:59 06:59 18:59 Intake Total 250 220 Output Total 441 200 Balance -191 20 Weight 78.9 kg Intake: IV 120 Sodium Chloride 0.9% 1, 120 000 ml @ 20 mls/hr IV . Q24H [facility] Rx#:[id number] Oral 250 100 Output: Urine 440 200 Stool 1 Other: Voiding Method Indwelling Catheter Indwelling Catheter # Voids 150 ABP, PAP, CO, CI - Last Documented Arterial Blood Pressure 120/70 - Labs CBC & Chem 7: 02/01/21 07:15 02/01/21 07:15 Labs: Abnormal Lab Results - Last 24 Hours (Table) 01/31/21 01/31/21 Range/Units 09:29 09:29 WBC 25.8 H (3.8-10.6) k/uL RBC 3.61 L (4.30-5.90) m/uL Hgb 11.4 L (13.0-17.5) gm/dL Hct 37.1 L (39.0-53.0) % MCV 102.8 H (80.0-100.0) fL MCHC 30.7 L (31.0-37.0) g/dL RDW 16.0 H (11.5-15.5) % Neutrophils # 23.3 H (1.3-7.7) k/uL Chloride 114 H (98-107) mmol/L Carbon Dioxide 19 L (22-30) mmol/L BUN 67 H (9-20) mg/dL Creatinine 2.63 H (0.66-1.25) mg/dL Glucose 112 H (74-99) mg/dL Phosphorus 5.6 H (2.5-4.5) mg/dL Total Bilirubin 2.3 H (0.2-1.3) mg/dL AST 70 H (17-59) U/L Alkaline Phosphatase 310 H (38-126) U/L Total Protein 5.6 L (6.3-8.2) g/dL Albumin 2.5 L (3.5-5.0) g/dL
[2021-02-01] MEDS: SENNOSIDES 8.6 MG TAB PO SCH (20:41)
[2021-02-02] MEDS: OCTREOTIDE 100 MCG/ML INJ SQ SCH ×3 (01:07→16:44)
[2021-02-02] MEDS: HYDROcodone/APAP 5-325MG 1 EACH TAB PO PRN ×2 (01:08→14:37)
[2021-02-02 09:21] LABS: HGB 11.5 gm/dL (13.0-17.5); MCH 32.5 pg (25.0-35.0); MCHC 32.8 g/dL (31.0-37.0); MCV 99.1 fL (80.0-100.0); RBC 3.53 m/uL (4.30-5.90); WBC 25.6 k/uL (3.8-10.6)
[2021-02-02 09:22] LABS: Anisocytosis Slight; Basophils # (A) 0.1 k/uL (0-0.2); Basophils % (A) 0 %; Eosinophils # (A) 0.5 k/uL (0-0.7); Eosinophils % (A) 2 %; Lymphocytes # (A) 1.6 k/uL (1.0-4.8); Lymphocytes % (A) 6 %; Macrocytosis Slight; Mean Platelet Volume 9.8; Monocytes # (A) 1.1 k/uL (0-1.0); Monocytes % (A) 4 %; Neutrophils % (A) 86 %; Platelet Count 129 k/uL (150-450); RDW 16.3 % (11.5-15.5)
[2021-02-02] MEDS: FERROUS SULFATE 325 MG TAB PO SCH ×2 (09:22→16:44)
[2021-02-02] MEDS: FUROSEMIDE 10 MG/ML 4 ML VIAL IV SCH (09:22)
[2021-02-02] MEDS: SODIUM BICARBONATE TAB 650 MG TAB PO SCH ×2 (09:22→20:00)
[2021-02-02] MEDS: MIDODRINE 5 MG TAB PO SCH ×3 (09:22→16:44)
[2021-02-02] MEDS: DOCUSATE 100 MG CAP PO SCH ×2 (09:23→20:00)
[2021-02-02] MEDS: SPIRONOLACTONE 25 MG TAB PO SCH ×2 (09:23→19:59)
[2021-02-02] MEDS: FAMOTIDINE 20 MG TAB PO SCH (09:23)
[2021-02-02 09:56] LABS: ALT 20 U/L (4-49); AST 61 U/L (17-59); African American GFR (CKD) 30 (>60 ml/min/1.73 sqM); Albumin 2.4 g/dL (3.5-5.0); Albumin/Globulin Ratio 0.8; Alkaline Phosphatase 260 U/L (38-126); Anion Gap 7 mmol/L; Blood Urea Nitrogen 75 mg/dL (9-20); Calcium 8.7 mg/dL (8.4-10.2); Carbon Dioxide 22 mmol/L (22-30); Chloride 116 mmol/L (98-107); Globulin 3.1 g/dL; Glucose 127 mg/dL (74-99); Non-African American GFR(CKD) 26 (>60 ml/min/1.73 sqM); Potassium 4.8 mmol/L (3.5-5.1); Sodium 145 mmol/L (137-145); Total Protein 5.5 g/dL (6.3-8.2)
--- NOTE | 2021-02-02 14:36 | PN ---
PROGRESS NOTE The patient is seen for followup for acute kidney injury with concern for hepatorenal syndrome. Renal function has been improving. Serum creatinine is down to 2.58 today from 2.7 yesterday. This morning patient denies any significant complaints. He is comfortable. PHYSICAL EXAMINATION: Blood pressure is 108/77, heart rate 88 per minute. He is afebrile. Examination of the heart S1, S2. Examination of the lungs, decreased breath sounds at bases. Abdomen: Soft, distended with ascites, nontender. Exam of lower extremities shows 1+ edema bilaterally. CLINICAL MASSAGE THERAPIST exam grossly intact. LABS: Show sodium 145, potassium 4.8, chloride 116, BUN 75, creatinine 2.58, hemoglobin 11.5 g/dL. ASSESSMENT: 1. Acute kidney injury, acute tubular necrosis with component of hepatorenal syndrome currently improved, maintained on Sandostatin, midodrine, and patient is receiving IV Lasix. 2. Portal hypertension with recurrent ascites, status post paracentesis January 25 with 4.2 L. previously he had it on January 20. 3. Iron deficiency anemia status post IV iron. 4. Metabolic acidosis secondary to renal failure maintained on oral sodium bicarb. PLAN: Continue with the IV Lasix. Continue midodrine and Sandostatin for now. Continue with the sodium bicarb as well. Avoid hypotension. Repeat labs in a.m. MMODL / IJN: [id number] /
--- NOTE | 2021-02-02 16:27 | P.PN ---
Subjective Progress Note Date: 02/02/21 Hospital Course: The patient is a 56-year-old male with a past medical history of cirrhosis, anemia, colitis and recent ventral hernia sx. He was reportedly living in a motel and was found to be unresponsive and hypothermic. He was taken to [place] ER and was transferred to our facility for ICU admission on 01/09/21 for diagnosis of severe sepsis with septic shock as evidenced by hypotension, hypothermia, dehydration, and lactic acidosis. Initially pt was admitted to the medical ICU for septic shock with abdomen as a suspected source secondary to recent ventral hernia repair one month prior. General surgery was consulted. CT abdomen and pelvis obtained and had revealed seroma and he was maintained on broad-spectrum IV antibiotics. Initially pt required vasopressors, however these were eventually tapered off and patient was downgraded from the medical ICU. Seroma cultures came back negative. Blood cultures showing no growth after 144 hours. He was also found to have moderate ascitic fluid and underwent a paracentesis with removal of 1.7 L of fluid on 01/14/21 this was sent for culture with negative results. blood cultures showing no growth after 144 hours, gram stains negative, fungal culture negative and repeat blood cultures again showing no growth after 144 hours. Patient again underwent paracentesis on 01/20/21, with a reported removal of approximately 3.6 L of ascitic fluid. Repeat cultures and Gram stain on paracentesis fluid also negative. Echocardiogram revealing a normal EF between 60 and 65% with no significant valvular abnormalities. Patient continues to have significant leukocytosis and abdominal pain. Hematology consulted. General surgery also re-consulted secondary to CT findings revealing a 2.9 cm soft tissue density in gallbladder neck, General surgery not recommending surgical intervention at this time due to extreme risk of fulminant liver failure and abdominal pain believed to be secondary to cirrhosis and highly unlikely gallbladder related. Physical Examination: Patient was seen and fully evaluated at bedside this morning. Patient resting in bed. Had long discussion with patient regarding need to get out of bed and ambulate as we have been encouraging if he plans on being discharged home with home care. Highly recommending SNF as patient has had minimal movement and continues to require assistance. Had discussion with patient's daughter on telephone as well and expressed recommendations for SNF placement. Patient again discussed with social work and agrees he is not able to go home and care for self. Arrangements being made for SNF placement. Renal function remains elevated but stable at this point in time with BUN 75, creatinine 2.58, and GFR of 26. Pt remains on Lasix, Aldactone, octreotide, midodrine, and sodium bicarb. Plan for discharge to SNF and patient will need close monitoring and follow-up with youth officer and fruit press operator on an outpatient basis. General: Chronically Ill-appearing, no acute distress, appears at stated age Derm: warm, dry Head: atraumatic, normocephalic, symmetric Eyes: EOMI, no lid lag, anicteric sclera Mouth: no lip lesion, mucus membranes moist Cardiovascular: S1S2 reg, systolic murmur, positive posterior tibial pulses ariadna aterally, 1-2+ BLE pitting edema, Lungs: CTA bilateral, no rhonchi, no rales , no accessory muscle use Abdominal: Cirrhotic abdomen, +tenderness to palpation diffusely, no guarding, no appreciable organomegaly Ext: no gross muscle atrophy, no contractures Neuro: CN II-XI grossly intact, no focal neuro deficits Psych: Alert, oriented, appropriate affect Assessment and Plan of Care: Liver cirrhosis MELD score of 21 Portal hypertension with recurrent ascites status post paracentesis Septic shock with suspected abdominal source Persistent abdominal pain Moderate abdominal ascites with lower extremity edema Significant leukocytosis, likely reactive -CT abdomen and pelvis showed a seroma which was aspirated by Gen. surgery and sent for culture which was negative -Repeat abdominal ultrasound with moderate ascites. -IR following and patient underwent paracentesis with removal of 1.7 L of ascitic fluid on 01/14/21. -Patient underwent repeat paracentesis 01/20/21 in which 3.6 L of ascitic fluid was removed. -ID following, patient placed on holiday from antibiotics to evaluate WBC response as leukocytosis suspected to be from inflammatory reaction and less likely infectious. -GI services have signed off patient care, no plans for scopes at this time. -Hematology following, appreciate further recommendations. -Gen. surgery evaluated, not recommending surgical intervention at this time due to extreme risk of fulminant liver failure and abdominal pain believed to be secondary to cirrhosis and highly unlikely gallbladder related. -Blood cultures showing no growth after 144 hours. Gram stain negative. Fungal culture negative and ascites fluid culture negative. Repeat blood culture showing no growth after 144 hours. -Meld score 21 -A-fetoprotein less than 1.82 Acute kidney injury, improving and stable LACEY secondary to ATN with Concerns for hepatorenal syndrome Metabolic acidosis associated with renal failure maintained on oral sodium bicarb -Followed by nephrology, restarted on diuretics Lasix and Aldactone 01/26/21. -Received albumin x 2 doses. Plan to continue octreotide, midodrine, and sodium bicarb tablets at this time. -We will continue to follow BMP closely Recent C. diff colitis, from outside hospital -Completed course of oral vancomycinIn reporting back to normal bowel function Anemia, suspected due to acute blood loss from GI bleeding, stable normocytic hyperchromic anemia Iron deficiency anemia status post IV iron -Status post 2 units of PRBCs since admission -Continue to monitor CBC -Stable at this time. Thrombocytopenia -We will continue to monitor with repeat a.m. labs. Physical Debility -PT Consult, appreciate recommendations DVT prophylaxis: SCDs Discussed with: Patient and RN as well as pt's sister on telephone at 11 am. Anticipated discharge date: tomorrow Anticipated discharge place: SNF for rehab A total of 45 minutes was spent on the care of this complex patient more than 50% of the time was spent in counseling and care coordination.coordination. Objective - Vital Signs Vital signs: Vital Signs Temp 97.7 F 02/02/21 08:00 Pulse 88 02/02/21 08:00 Resp 18 02/02/21 08:00 BP 108/77 02/02/21 08:00 Pulse Ox 97 02/02/21 08:00 Intake & Output 02/01/21 02/02/21 02/02/21 18:59 06:59 18:59 Intake Total 472 240 Output Total 280 300 Balance 192 -300 240 Weight 76 kg Intake: Oral 472 240 Output: Urine 280 300 Other: Voiding Method Indwelling Catheter ABP, PAP, CO, CI - Last Documented Arterial Blood Pressure 120/70 - Labs CBC & Chem 7: 02/02/21 08:54 02/02/21 08:54 Labs: Abnormal Lab Results - Last 24 Hours (Table) 02/01/21 02/01/21 Range/Units 07:15 07:15 WBC 25.41 H (4.50-10.00) X 10*3/uL RBC 3.42 L (4.40-5.60) X 10*6/uL Hgb 10.7 L (13.0-17.0) g/dL Hct 32.4 L (39.6-50.0) % RDW 18.7 H (11.5-14.5) % Plt Count 116 L (140-440) X 10*3/uL Immature Gran # 0.25 H (0.00-0.04) X 10*3/uL Neutrophils # 22.30 H (1.80-7.70) X 10*3/uL Monocytes # 1.21 H (0.20-1.00) X 10*3/uL Sodium 146 H (137-145) mmol/L Chloride 112 H (98-107) mmol/L BUN 72 H (9-20) mg/dL Creatinine 2.78 H (0.66-1.25) mg/dL Glucose 117 H (74-99) mg/dL Total Bilirubin 2.3 H (0.2-1.3) mg/dL Alkaline Phosphatase 290 H (38-126) U/L Total Protein 5.6 L (6.3-8.2) g/dL Albumin 2.5 L (3.5-5.0) g/dL Microbiology - Last 24 Hours (Table) 01/31/21 09:29 Blood Culture - Preliminary Blood No Growth after 24 hours
[2021-02-02] MEDS: SENNOSIDES 8.6 MG TAB PO SCH (20:00)
[2021-02-03] MEDS: OCTREOTIDE 100 MCG/ML INJ SQ SCH ×3 (00:52→16:02)
[2021-02-03] MEDS: FERROUS SULFATE 325 MG TAB PO SCH ×2 (06:49→16:02)
[2021-02-03] MEDS: SPIRONOLACTONE 25 MG TAB PO SCH ×2 (06:50→20:09)
[2021-02-03] MEDS: FAMOTIDINE 20 MG TAB PO SCH (06:50)
[2021-02-03] MEDS: MIDODRINE 5 MG TAB PO SCH ×3 (06:50→16:02)
[2021-02-03] MEDS: SODIUM BICARBONATE TAB 650 MG TAB PO SCH ×2 (06:50→20:09)
[2021-02-03] MEDS: DOCUSATE 100 MG CAP PO SCH ×2 (06:50→20:09)
[2021-02-03] MEDS: HYDROcodone/APAP 5-325MG 1 EACH TAB PO PRN ×2 (07:49→20:09)
[2021-02-03] MEDS: FUROSEMIDE 10 MG/ML 4 ML VIAL IV SCH (07:52)
[2021-02-03 10:02] LABS: Basophils % (A) 0 %; Eosinophils # (A) 0.5 k/uL (0-0.7); Eosinophils % (A) 2 %; HCT 37.1 % (39.0-53.0); HGB 11.5 gm/dL (13.0-17.5); Hypochromasia Moderate; Lymphocytes # (A) 1.1 k/uL (1.0-4.8); Lymphocytes % (A) 5 %; MCH 31.6 pg (25.0-35.0); MCHC 31.1 g/dL (31.0-37.0); MCV 101.7 fL (80.0-100.0); Macrocytosis Slight; Mean Platelet Volume 9.6; Monocytes # (A) 0.7 k/uL (0-1.0); Monocytes % (A) 3 %; Neutrophils # (A) 18.9 k/uL (1.3-7.7); Neutrophils % (A) 89 %; Platelet Count 123 k/uL (150-450); RBC 3.65 m/uL (4.30-5.90); RDW 15.7 % (11.5-15.5); WBC 21.3 k/uL (3.8-10.6)
[2021-02-03 10:18] LABS: ALT 20 U/L (4-49); AST 69 U/L (17-59); African American GFR (CKD) 38 (>60 ml/min/1.73 sqM); Albumin 2.3 g/dL (3.5-5.0); Albumin/Globulin Ratio 0.7; Alkaline Phosphatase 260 U/L (38-126); Anion Gap 9 mmol/L; Blood Urea Nitrogen 70 mg/dL (9-20); Calcium 8.4 mg/dL (8.4-10.2); Carbon Dioxide 21 mmol/L (22-30); Chloride 114 mmol/L (98-107); Globulin 3.1 g/dL; Glucose 124 mg/dL (74-99); Non-African American GFR(CKD) 33 (>60 ml/min/1.73 sqM); Potassium 4.2 mmol/L (3.5-5.1); Sodium 144 mmol/L (137-145); Total Bilirubin 2.1 mg/dL (0.2-1.3); Total Protein 5.4 g/dL (6.3-8.2)
--- NOTE | 2021-02-03 13:36 | P.PN ---
Subjective Progress Note Date: 02/03/21 Principal diagnosis: Patient still weak no chest pain no shortness of breath Constitutional: No acute distress, conversant, pleasant Eyes: Anicteric sclerae, moist conjunctiva, no lid-lag PERRLA ENMT: NC/AT Oropharynx clear, no erythema, exudates Neck: Supple, FROM, no masses, or JVD No carotid bruits No thyromegaly Lungs: Clear to auscultation Clear to percussion Normal respiratory effort, no accessory muscle use Cardiovascular: Heart regular in rate and rhythm, No murmurs, gallops, or rubs No peripheral edema Abdominal: Soft Nontender, no guarding, rebound or rigidity Abdomen moving with respiration Normoactive bowel sounds No hepatomegaly, No splenomegaly No palpable mass No abdominal wall hernia noted Skin: Normal temperature, tone, texture, turgor No induration No subcutaneous nodules No rash, lesions No ulcers Extremities: No digital cyanosis No clubbing Pedal pulses intact and symmetrical Radial pulses intact and symmetrical Normal gait and station No calf tenderness Psychiatric:Alert and oriented to person, place and time Appropriate affect Intact judgement Neuro: Muscles Strength 5/5 in all 4 extremities Sensation to light touch grossly present throughout Cranial nerves II-XII grossly intact No focal sensory deficits Liver cirrhosis MELD score of 21 Portal hypertension with recurrent ascites status post paracentesis Septic shock with suspected abdominal source Persistent abdominal pain Moderate abdominal ascites with lower extremity edema Significant leukocytosis, likely reactive -CT abdomen and pelvis showed a seroma which was aspirated by Gen. surgery and sent for culture which was negative -Repeat abdominal ultrasound with moderate ascites. -IR following and patient underwent paracentesis with removal of 1.7 L of ascitic fluid on 01/14/21. -Patient underwent repeat paracentesis 01/20/21 in which 3.6 L of ascitic fluid was removed. -ID following, patient placed on holiday from antibiotics to evaluate WBC response as leukocytosis suspected to be from inflammatory reaction and less likely infectious. -GI services have signed off patient care, no plans for scopes at this time. -Hematology following, appreciate further recommendations. -Gen. surgery evaluated, not recommending surgical intervention at this time due to extreme risk of fulminant liver failure and abdominal pain believed to be secondary to cirrhosis and highly unlikely gallbladder related. -Blood cultures showing no growth after 144 hours. Gram stain negative. Fungal culture negative and ascites fluid culture negative. Repeat blood culture showing no growth after 144 hours. -Meld score 21 -A-fetoprotein less than 1.82 Acute kidney injury, improving and stable LACEY secondary to ATN with Concerns for hepatorenal syndrome Metabolic acidosis associated with renal failure maintained on oral sodium bicarb -Followed by nephrology, restarted on diuretics Lasix and Aldactone 01/26/21. -Received albumin x 2 doses. Plan to continue octreotide, midodrine, and sodium bicarb tablets at this time. -We will continue to follow BMP closely Recent C. diff colitis, from outside hospital -Completed course of oral vancomycinIn reporting back to normal bowel function Anemia, suspected due to acute blood loss from GI bleeding, stable normocytic hyperchromic anemia Iron deficiency anemia status post IV iron -Status post 2 units of PRBCs since admission -Continue to monitor CBC -Stable at this time. Thrombocytopenia -We will continue to monitor with repeat a.m. labs. Physical Debility -PT Consult, appreciate recommendations Acute renal failure continue to monitor overall stable likely needs rehab Objective - Vital Signs Vital signs: Vital Signs Temp 98.0 F 02/03/21 08:39 Pulse 85 02/03/21 08:39 Resp 18 02/03/21 08:45 BP 119/77 02/03/21 08:39 Pulse Ox 96 02/03/21 08:39 Intake & Output 02/02/21 02/03/21 02/03/21 18:59 06:59 18:59 Intake Total 880 238 400 Output Total 500 450 401 Balance 380 -212 -1 Weight 76 kg 76 kg Intake: IV 120 Sodium Chloride 0.9% 1, 120 000 ml @ 20 mls/hr IV . Q24H [facility] Rx#:[id number] Oral 880 118 400 Output: Urine 500 450 400 Stool 1 Other: Voiding Method Indwelling Catheter Indwelling Catheter ABP, PAP, CO, CI - Last Documented Arterial Blood Pressure 120/70 - Labs CBC & Chem 7: 02/03/21 09:37 02/03/21 09:37 Labs: Abnormal Lab Results - Last 24 Hours (Table) 02/03/21 02/03/21 Range/Units 09:37 09:37 WBC 21.3 H (3.8-10.6) k/uL RBC 3.65 L (4.30-5.90) m/uL Hgb 11.5 L (13.0-17.5) gm/dL Hct 37.1 L (39.0-53.0) % MCV 101.7 H (80.0-100.0) fL RDW 15.7 H (11.5-15.5) % Plt Count 123 L (150-450) k/uL Neutrophils # 18.9 H (1.3-7.7) k/uL Chloride 114 H (98-107) mmol/L Carbon Dioxide 21 L (22-30) mmol/L BUN 70 H (9-20) mg/dL Creatinine 2.16 H (0.66-1.25) mg/dL Glucose 124 H (74-99) mg/dL Total Bilirubin 2.1 H (0.2-1.3) mg/dL AST 69 H (17-59) U/L Alkaline Phosphatase 260 H (38-126) U/L Total Protein 5.4 L (6.3-8.2) g/dL Albumin 2.3 L (3.5-5.0) g/dL Microbiology - Last 24 Hours (Table) 01/31/21 09:29 Blood Culture - Preliminary Blood No Growth after 72 hours
--- NOTE | 2021-02-03 15:12 | P.PN ---
Subjective Progress Note Date: 02/03/21 Principal diagnosis: macrocytic anemia, leukocytosis In f/u pt is slightly confused, he states he takes a pill for nausea, no recent vomiting, he is weak. Objective - Vital Signs Vital signs: Vital Signs Temp 98.0 F 02/03/21 08:39 Pulse 85 02/03/21 08:39 Resp 18 02/03/21 08:45 BP 119/77 02/03/21 08:39 Pulse Ox 96 02/03/21 08:39 Intake & Output 02/02/21 02/03/21 02/03/21 18:59 06:59 18:59 Intake Total 880 238 400 Output Total 500 450 401 Balance 380 -212 -1 Weight 76 kg 76 kg Intake: IV 120 Sodium Chloride 0.9% 1, 120 000 ml @ 20 mls/hr IV . Q24H [facility] Rx#:[id number] Oral 880 118 400 Output: Urine 500 450 400 Stool 1 Other: Voiding Method Indwelling Catheter Indwelling Catheter ABP, PAP, CO, CI - Last Documented Arterial Blood Pressure 120/70 - Constitutional General appearance: Present: average body habitus, cooperative, no acute distress - EENT Eyes: Present: EOMI, scleral icterus ENT: Present: hearing grossly normal, normal oropharynx - Respiratory Respiratory: bilateral: diminished - Cardiovascular Rhythm: regular Heart sounds: normal: S1, S2 Abnormal Heart Sounds: Absent: systolic murmur, diastolic murmur, rub, S3 Gallop, S4 Gallop, click, other - Peripheral edema foot Peripheral Edema: bilateral: 1+ - Gastrointestinal General gastrointestinal: Present: distended, normal bowel sounds, soft - Musculoskeletal Musculoskeletal: Present: generalized weakness - Labs CBC & Chem 7: 02/03/21 09:37 02/03/21 09:37 Labs: Abnormal Lab Results - Last 24 Hours (Table) 02/03/21 02/03/21 Range/Units 09:37 09:37 WBC 21.3 H (3.8-10.6) k/uL RBC 3.65 L (4.30-5.90) m/uL Hgb 11.5 L (13.0-17.5) gm/dL Hct 37.1 L (39.0-53.0) % MCV 101.7 H (80.0-100.0) fL RDW 15.7 H (11.5-15.5) % Plt Count 123 L (150-450) k/uL Neutrophils # 18.9 H (1.3-7.7) k/uL Chloride 114 H (98-107) mmol/L Carbon Dioxide 21 L (22-30) mmol/L BUN 70 H (9-20) mg/dL Creatinine 2.16 H (0.66-1.25) mg/dL Glucose 124 H (74-99) mg/dL Total Bilirubin 2.1 H (0.2-1.3) mg/dL AST 69 H (17-59) U/L Alkaline Phosphatase 260 H (38-126) U/L Total Protein 5.4 L (6.3-8.2) g/dL Albumin 2.3 L (3.5-5.0) g/dL Microbiology - Last 24 Hours (Table) 01/31/21 09:29 Blood Culture - Preliminary Blood No Growth after 72 hours Assessment and Plan (1) Macrocytic anemia Narrative/Plan: Hgb stable, no transfusions needed at this time. MMA elevated with a B12 >2000-no supplementation recommended at this time, more likely r/t liver disease Current Visit: Yes Status: Chronic Priority: Medium Code(s): D53.9 - NUTRITIONAL ANEMIA, UNSPECIFIED SNOMED Code(s): 22839390 (2) Leukocytosis Narrative/Plan: Persistent. So far work up has not identified an underlying cause. Current Visit: Yes Status: Acute Priority: High Code(s): D72.829 - ELEVATED WHITE BLOOD CELL COUNT, UNSPECIFIED SNOMED Code(s): 593986507 Plan: Discussed with pt today the possibility of needing a bone marrow biopsy and aspirate to further assess his lab abnormalities. Pt verbalized understanding. He says he will think about it. We can plan for f/u outpt. Will cont to monitor counts.
--- NOTE | 2021-02-03 18:07 | PN ---
PROGRESS NOTE Patient is seen for followup for acute kidney injury, mostly hepatorenal syndrome and possible ATN. Patient's renal function has been improving. His creatinine is down to 2.1 mg/dL. On examination, patient is comfortable, awake and alert. Blood pressure this morning 123/74, heart rate 85 per minute. He is afebrile. EXAMINATION OF THE HEART: S1 and S2. EXAMINATION OF LUNGS: Bilateral breath sounds are heard. Abdomen is soft, non-tender, distended. Examination of lower extremities shows no evidence of edema. PROPERTY CONTROLLER EXAM: Grossly intact. Labs show sodium of 144, potassium 4.2, chloride 114. CO2 is 21, BUN 70, creatinine 2.16, hemoglobin 11.4. ASSESSMENT: 1. Acute kidney injury, acute tubular necrosis and component of hepatorenal syndrome earlier, currently improving. Patient is maintained on Sandostatin and midodrine. He had been getting albumin, which was not given recently. Patient remains on Lasix 40 mg IV daily. He has had good urine output. He is trying to increase his oral intake. I will continue with the current management. We can switch the Lasix to p.o. tomorrow. 2. Recent Clostridium difficile colitis prior to admission. 3. Anemia associated with acute blood loss from gastrointestinal bleed, status post packed RBCs transfusion and status post IV iron for iron deficiency. 4. Liver cirrhosis with portal hypertension and recurrent ascites. 5. Metabolic acidosis associated with renal failure, maintained on sodium bicarb, which we can continue for now. PLAN: Continue with the sodium bicarb. Can switch the Lasix to p.o. tomorrow. MMODL / IJN: [id number] /
[2021-02-03] MEDS: SENNOSIDES 8.6 MG TAB PO SCH (20:09)
[2021-02-04] MEDS: OCTREOTIDE 100 MCG/ML INJ SQ SCH ×2 (02:27→09:09)
[2021-02-04] MEDS: HYDROcodone/APAP 5-325MG 1 EACH TAB PO PRN (07:24)
[2021-02-04 08:20] VITALS: RESP 18
[2021-02-04] MEDS: SODIUM BICARBONATE TAB 650 MG TAB PO SCH (09:09)
[2021-02-04] MEDS: FERROUS SULFATE 325 MG TAB PO SCH (09:09)
[2021-02-04] MEDS: DOCUSATE 100 MG CAP PO SCH (09:09)
[2021-02-04] MEDS: SPIRONOLACTONE 25 MG TAB PO SCH (09:09)
[2021-02-04] MEDS: MIDODRINE 5 MG TAB PO SCH ×2 (09:09→13:39)
[2021-02-04] MEDS: FUROSEMIDE 10 MG/ML 4 ML VIAL IV SCH (09:59)
--- NOTE | 2021-02-04 10:33 | P.PN ---
Subjective Progress Note Date: 02/04/21 Patient still weak no chest pain no shortness of breath Constitutional: No acute distress, conversant, pleasant Eyes: Anicteric sclerae, moist conjunctiva, no lid-lag PERRLA ENMT: NC/AT Oropharynx clear, no erythema, exudates Neck: Supple, FROM, no masses, or JVD No carotid bruits No thyromegaly Lungs: Clear to auscultation Clear to percussion Normal respiratory effort, no accessory muscle use Cardiovascular: Heart regular in rate and rhythm, No murmurs, gallops, or rubs No peripheral edema Abdominal: Soft Nontender, no guarding, rebound or rigidity Abdomen moving with respiration Normoactive bowel sounds No hepatomegaly, No splenomegaly No palpable mass No abdominal wall hernia noted Skin: Normal temperature, tone, texture, turgor No induration No subcutaneous nodules No rash, lesions No ulcers Extremities: No digital cyanosis No clubbing Pedal pulses intact and symmetrical Radial pulses intact and symmetrical Normal gait and station No calf tenderness Psychiatric:Alert and oriented to person, place and time Appropriate affect Intact judgement Neuro: Muscles Strength 5/5 in all 4 extremities Sensation to light touch grossly present throughout Cranial nerves II-XII grossly intact No focal sensory deficits Liver cirrhosis MELD score of 21 Portal hypertension with recurrent ascites status post paracentesis Septic shock with suspected abdominal source Persistent abdominal pain Moderate abdominal ascites with lower extremity edema Significant leukocytosis, likely reactive -CT abdomen and pelvis showed a seroma which was aspirated by Gen. surgery and sent for culture which was negative -Repeat abdominal ultrasound with moderate ascites. -IR following and patient underwent paracentesis with removal of 1.7 L of ascitic fluid on 01/14/21. -Patient underwent repeat paracentesis 01/20/21 in which 3.6 L of ascitic fluid was removed. -ID following, patient placed on holiday from antibiotics to evaluate WBC response as leukocytosis suspected to be from inflammatory reaction and less likely infectious. -GI services have signed off patient care, no plans for scopes at this time. -Hematology following, appreciate further recommendations. -Gen. surgery evaluated, not recommending surgical intervention at this time due to extreme risk of fulminant liver failure and abdominal pain believed to be secondary to cirrhosis and highly unlikely gallbladder related. -Blood cultures showing no growth after 144 hours. Gram stain negative. Fungal culture negative and ascites fluid culture negative. Repeat blood culture showing no growth after 144 hours. -Meld score 21 -A-fetoprotein less than 1.82 Acute kidney injury, improving and stable LACEY secondary to ATN with Concerns for hepatorenal syndrome Metabolic acidosis associated with renal failure maintained on oral sodium bicarb -Followed by nephrology, restarted on diuretics Lasix and Aldactone 01/26/21. -Received albumin x 2 doses. Plan to continue octreotide, midodrine, and sodium bicarb tablets at this time. -We will continue to follow BMP closely Recent C. diff colitis, from outside hospital -Completed course of oral vancomycinIn reporting back to normal bowel function Anemia, suspected due to acute blood loss from GI bleeding, stable normocytic hyperchromic anemia Iron deficiency anemia status post IV iron -Status post 2 units of PRBCs since admission -Continue to monitor CBC -Stable at this time. Thrombocytopenia -We will continue to monitor with repeat a.m. labs. Physical Debility -PT Consult, appreciate recommendations Acute renal failure continue to monitor overall stable likely needs rehab Overall stable we'll arrange for rehab Objective - Vital Signs Vital signs: Vital Signs Temp 97.8 F 02/04/21 08:00 Pulse 90 02/04/21 08:00 Resp 18 02/04/21 08:00 BP 111/73 02/04/21 08:00 Pulse Ox 96 02/04/21 08:00 Intake & Output 02/03/21 02/04/21 02/04/21 18:59 06:59 18:59 Intake Total 400 960 Output Total 401 500 Balance -1 460 Weight 79 kg Intake: Oral 400 960 Output: Urine 400 500 Stool 1 Other: Voiding Method Indwelling Catheter Indwelling Catheter Indwelling Catheter ABP, PAP, CO, CI - Last Documented Arterial Blood Pressure 120/70 - Labs CBC & Chem 7: 02/03/21 09:37 02/03/21 09:37 Labs: Microbiology - Last 24 Hours (Table) 01/31/21 09:29 Blood Culture - Preliminary Blood No Growth after 72 hours
[2021-02-04 10:58] LABS: Acanthocytes 2+; Basophils # (A) 0.09 X 10*3/uL (0.00-0.10); Basophils % (A) 0.4 %; Eosinophils # (A) 0.66 X 10*3/uL (0.04-0.35); Eosinophils % (A) 2.7 %; HCT 34.6 % (39.6-50.0); Lymphocytes # (A) 1.38 X 10*3/uL (0.90-5.00); Lymphocytes % (A) 5.6 %; MCH 30.5 pg (27.0-32.0); MCHC 31.8 g/dL (32.0-37.0); MCV 95.8 fL (80.0-97.0); Mean Platelet Volume 12.2 fL (9.5-12.2); Monocytes # (A) 1.34 X 10*3/uL (0.20-1.00); Monocytes % (A) 5.4 %; Neutrophils # (A) 21.15 X 10*3/uL (1.80-7.70); Neutrophils % (A) 85.2 %; Platelet Count 91 X 10*3/uL (140-440); RBC 3.61 X 10*6/uL (4.40-5.60); RDW 18.1 % (11.5-14.5); WBC 24.79 X 10*3/uL (4.50-10.00)
[2021-02-04 13:00] LABS: African American GFR (CKD) 38.8 (60.0-200.0); Albumin 2.4 g/dL (3.8-4.9); Albumin/Globulin Ratio 0.87 (1.60-3.17); Anion Gap 16.4 mmol/L (4.00-12.00); BUN/Creat Ratio 28.29 Ratio (12.00-20.00); Blood Urea Nitrogen 59.7 mg/dL (9.0-27.0); Calcium 8.1 mg/dL (8.7-10.3); Carbon Dioxide 18.5 mmol/L (21.6-31.8); Globulin 2.8 g/dL (1.6-3.3); Non-African American GFR(CKD) 33.5 (60.0-200.0); Potassium 4.1 mmol/L (3.5-5.5); Total Bilirubin 1.8 mg/dL (0.30-1.20); Total Protein 5.2 g/dL (6.2-8.2)
[2021-02-04 14:32] VITALS: BP 114/78; PULSE 89; TEMP 97.5
[2021-02-04 14:56] VITALS: BMI 24.3
--- NOTE | 2021-02-04 14:58 | P.DS ---
Providers Date of admission: 01/09/21 14:36 Expected date of discharge: 02/04/21 Attending physician: Jairon Friedman MD Consults: 01/09/21 14:36 Consult Physician Urgent Consulting Provider: Melanie Zapata Consult Reason/Comments: ICU admission Do you want consulting provider notified?: Yes 01/09/21 14:55 Consult Physician Urgent Consulting Provider: Cassidy Yarbrough Consult Reason/Comments: Sepsis, abdominal pain, history of hernia surgery and colitis Do you want consulting provider notified?: Already Contacted 01/11/21 15:04 Consult Physician Routine Consulting Provider: Lilia Aleman Consult Reason/Comments: melanotic stool and c diff Do you want consulting provider notified?: Yes 01/13/21 15:02 Consult Physician Urgent Consulting Provider: Carmine Grant Consult Reason/Comments: Shock resolved, now persistent leukocytosis, unclear source,possibly seroma Do you want consulting provider notified?: Yes 01/20/21 22:44 Consult Physician Routine Consulting Provider: Jonas Yoon Consult Reason/Comments: leukocytosis, not responsive to ABX Do you want consulting provider notified?: Yes 01/21/21 13:27 Consult Physician Routine Consulting Provider: Cassidy Yarbrough Consult Reason/Comments: cont leukocytosis ascities, CT 2.9cm soft tissue density @neck of gallbladd Do you want consulting provider notified?: Yes 01/23/21 18:29 Consult Physician Routine Consulting Provider: Rhonda Llanes Consult Reason/Comments: hepatorenal syndrome Do you want consulting provider notified?: Yes 01/27/21 01:45 Consult Physician Urgent Consulting Provider: Tony Conway Consult Reason/Comments: Intermittent junctional rhythm Do you want consulting provider notified?: Yes Primary care physician: Geri Gonzales MD Hospital Course: Portal hypertension with recurrent ascites status post paracentesis Septic shock with suspected abdominal source Persistent abdominal pain Moderate abdominal ascites with lower extremity edema Significant leukocytosis, likely reactive -CT abdomen and pelvis showed a seroma which was aspirated by Gen. surgery and sent for culture which was negative -Repeat abdominal ultrasound with moderate ascites. -IR following and patient underwent paracentesis with removal of 1.7 L of ascitic fluid on 01/14/21. -Patient underwent repeat paracentesis 01/20/21 in which 3.6 L of ascitic fluid was removed. -ID following, patient placed on holiday from antibiotics to evaluate WBC response as leukocytosis suspected to be from inflammatory reaction and less likely infectious. -GI services have signed off patient care, no plans for scopes at this time. -H -Gen. surgery evaluated, not recommending surgical intervention at this time due to extreme risk of fulminant liver failure and abdominal pain believed to be secondary to cirrhosis and highly unlikely gallbladder related. -Blood cultures showing no growth after 144 hours. Gram stain negative. Fungal culture negative and ascites fluid culture negative. Repeat blood culture showing no growth after 144 hours. -Meld score 21 -A-fetoprotein less than 1.82 Acute kidney injury, improving and stable LACEY secondary to ATN with Concerns for hepatorenal syndrome Metabolic acidosis associated with renal failure maintained on oral sodium bicarb -Followed by nephrology, restarted on diuretics Lasix and Aldactone 01/26/21. -Received albumin x 2 doses. -We will continue to follow BMP closely Recent C. diff colitis, from outside hospital -Completed course of oral vancomycinIn reporting back to normal bowel function Anemia, suspected due to acute blood loss from GI bleeding, stable normocytic hyperchromic anemia Iron deficiency anemia status post IV iron -Status post 2 units of PRBCs since admission - Thrombocytopenia -We will continue to monitor with repeat a.m. labs. 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 patient went also in acute renal failure and liver failure overall has been stabilized the patient did have aspiration of abdominal seroma acute renal failure has been improving in the last few days and patient has been continued on Aldactone and Lasix has been stopped due to the kidney failure Constitutional: No acute distress, conversant, pleasant Eyes: Anicteric sclerae, moist conjunctiva, no lid-lag PERRLA ENMT: NC/AT Oropharynx clear, no erythema, exudates Neck: Supple, FROM, no masses, or JVD No carotid bruits No thyromegaly Lungs: Clear to auscultation Clear to percussion Normal respiratory effort, no accessory muscle use Cardiovascular: Heart regular in rate and rhythm, No murmurs, gallops, or rubs No peripheral edema Abdominal: Soft Nontender, no guarding, rebound or rigidity Abdomen moving with respiration Normoactive bowel sounds No hepatomegaly, No splenomegaly No palpable mass No abdominal wall hernia noted Skin: Normal temperature, tone, texture, turgor No induration No subcutaneous nodules No rash, lesions No ulcers Extremities: No digital cyanosis No clubbing Pedal pulses intact and symmetrical Radial pulses intact and symmetrical Normal gait and station No calf tenderness Psychiatric:Alert and oriented to person, place and time Appropriate affect Intact judgement Neuro: Generalized weakness [facility] may require repeating thoracentesis in the coming week or 2 Patient needs to be monitored closely for any signs or symptoms of hepatic encephalopathy Patient may need to have repeated CMP and CBC in the coming few days and follow up with nephrology as an outpatient and primary care physician and gastroenterology in 2 weeks Patient Condition at Discharge: Fair Plan - Discharge Summary Discharge Rx Participant: Yes New Discharge Prescriptions: New ALPRAZolam [Xanax] 0.125 mg PO Q12HR PRN tab PRN Reason: Mild Anxiety Spironolactone [Aldactone] 25 mg PO BID 30 Days #60 tab HYDROcodone/APAP 5-325MG [[place] 5-325] 1 each PO TID PRN tab PRN Reason: Moderate Pain Sodium Bicarbonate Tab 650 mg PO BID 30 Days #60 tab Continue Promethazine [Phenergan] 25 mg PO Q4H PRN PRN Reason: Shortness Of Breath Albuterol Sulfate [Proair Hfa] 2 puff INHALATION RT-Q4H PRN PRN Reason: Shortness Of Breath Pantoprazole Sodium 40 mg PO DAILY PRN PRN Reason: Gi Upset Dicyclomine [Bentyl] 20 mg PO QID PRN PRN Reason: CRAMPING Sucralfate [Carafate] 1 gm PO ACHS PRN PRN Reason: GI UPSET HYDROcodone/APAP 10-325MG [[place] 10-325] 1 tab PO Q4H PRN PRN Reason: Pain Lisdexamfetamine Dimesylate [Vyvanse] 70 mg PO DAILY Discontinued Vancomycin HCl [Vancocin HCl] 125 mg PO QID Discharge Medication List Albuterol Sulfate [Proair Hfa] 2 puff INHALATION RT-Q4H PRN 01/09/21 [History] Dicyclomine [Bentyl] 20 mg PO QID PRN 01/09/21 [History] HYDROcodone/APAP 10-325MG [[place] 10-325] 1 tab PO Q4H PRN 01/09/21 [History] Lisdexamfetamine Dimesylate [Vyvanse] 70 mg PO DAILY 01/09/21 [History] Pantoprazole Sodium 40 mg PO DAILY PRN 01/09/21 [History] Promethazine [Phenergan] 25 mg PO Q4H PRN 01/09/21 [History] Sucralfate [Carafate] 1 gm PO ACHS PRN 01/09/21 [History] ALPRAZolam [Xanax] 0.125 mg PO Q12HR PRN tab 02/04/21 [Rx] HYDROcodone/APAP 5-325MG [[place] 5-325] 1 each PO TID PRN tab 02/04/21 [Rx] Sodium Bicarbonate Tab 650 mg PO BID 30 Days #60 tab 02/04/21 [Rx] Spironolactone [Aldactone] 25 mg PO BID 30 Days #60 tab 02/04/21 [Rx] Follow up Appointment(s)/Referral(s): [facility]Home Care [NON-STAFF] - 1-2 Days Nonstaff,Physician [REFERRING] - 1 Week Activity/Diet/Wound Care/Special Instructions: [facility] on d/c Brizuela catheter discontinued on 02/04. Rehab facility should monitor voids, check bladder scan post voids, and straight cath or place brizuela per their policies. Discharge Disposition: TRANSFER TO SNF/ECF
--- NOTE | 2021-02-04 15:36 | P.PN ---
Subjective Progress Note Date: 02/04/21 Principal diagnosis: macrocytic anemia, leukocytosis In f/u pt is stable, he is going to [facility] today Objective - Vital Signs Vital signs: Vital Signs Temp 97.5 F L 02/04/21 14:00 Pulse 89 02/04/21 14:00 Resp 18 02/04/21 14:00 BP 114/78 02/04/21 14:00 Pulse Ox 96 02/04/21 14:00 Intake & Output 02/03/21 02/04/21 02/04/21 18:59 06:59 18:59 Intake Total 400 960 Output Total 401 500 Balance -1 460 Weight 79 kg 79 kg Intake: Oral 400 960 Output: Urine 400 500 Stool 1 Other: Voiding Method Indwelling Catheter Indwelling Catheter Indwelling Catheter ABP, PAP, CO, CI - Last Documented Arterial Blood Pressure 120/70 - Constitutional General appearance: Present: cooperative, no acute distress, thin - Peripheral edema leg Peripheral Edema: bilateral: 2+, Pitting - Gastrointestinal General gastrointestinal: Present: distended, soft, tenderness (generalized), ventral hernia - Musculoskeletal Musculoskeletal: Present: generalized weakness - Psychiatric Psychiatric: Present: A&O x's 3 - Labs CBC & Chem 7: 02/04/21 05:40 02/04/21 05:40 Labs: Abnormal Lab Results - Last 24 Hours (Table) 02/04/21 02/04/21 Range/Units 05:40 05:40 WBC 24.79 H (4.50-10.00) X 10*3/uL RBC 3.61 L (4.40-5.60) X 10*6/uL Hgb 11.0 L (13.0-17.0) g/dL Hct 34.6 L (39.6-50.0) % MCHC 31.8 L (32.0-37.0) g/dL RDW 18.1 H (11.5-14.5) % Plt Count 91 L (140-440) X 10*3/uL Plt Count Comment DECREASED A Immature Gran # 0.17 H (0.00-0.04) X 10*3/uL Neutrophils # 21.15 H (1.80-7.70) X 10*3/uL Monocytes # 1.34 H (0.20-1.00) X 10*3/uL Eosinophils # 0.66 H (0.04-0.35) X 10*3/uL Chloride 110 H (96-109) mmol/L Carbon Dioxide 18.5 L (21.6-31.8) mmol/L Anion Gap 16.40 H (4.00-12.00) mmol/L BUN 59.7 H (9.0-27.0) mg/dL Creatinine 2.1 H (0.6-1.5) mg/dL Est GFR (CKD-EPI)AfAm 38.8 L (60.0-200.0) Est GFR (CKD-EPI)NonAf 33.5 L (60.0-200.0) BUN/Creatinine Ratio 28.29 H (12.00-20.00) Ratio Glucose 125 H (70-110) mg/dL Calcium 8.1 L (8.7-10.3) mg/dL Total Bilirubin 1.80 H (0.30-1.20) mg/dL AST 72 H (14-35) U/L Alkaline Phosphatase 264 H (41-126) U/L Total Protein 5.2 L (6.2-8.2) g/dL Albumin 2.4 L (3.8-4.9) g/dL Albumin/Globulin Ratio 0.87 L (1.60-3.17) g/dL Microbiology - Last 24 Hours (Table) 01/31/21 09:29 Blood Culture - Preliminary Blood No Growth after 96 hours Assessment and Plan (1) Macrocytic anemia Narrative/Plan: Hgb stable, no transfusions needed at this time. MMA elevated with a B12 >2000-no supplementation recommended at this time, more likely r/t liver disease Current Visit: Yes Status: Chronic Priority: Medium Code(s): D53.9 - NUTRITIONAL ANEMIA, UNSPECIFIED SNOMED Code(s): 44933329 (2) Leukocytosis Narrative/Plan: Persistent. So far work up has not identified an underlying cause. Current Visit: Yes Status: Acute Priority: High Code(s): D72.829 - ELEVATED WHITE BLOOD CELL COUNT, UNSPECIFIED SNOMED Code(s): 610695329 Plan: Discussed with pt today the possibility of needing a bone marrow biopsy and aspirate to further assess his lab abnormalities. Pt verbalized understanding. He says he will think about it. We can plan for f/u outpt.
--- NOTE | 2021-02-04 17:51 | PN ---
PROGRESS NOTE Patient is seen for followup for acute kidney injury, mostly ATN, with component of hepatorenal syndrome initially. Renal function has been progressively improving and serum creatinine has stayed about 2.1 for the last couple of days. No significant complaints today. On examination, blood pressure was 111/73 this morning, heart rate 90 per minute. He is afebrile. EXAMINATION OF THE HEART: S1 and S2. EXAMINATION OF LUNGS: Bilateral breath sounds are heard. Abdomen is soft, non-tender, with ascites noted. Examination of lower extremities shows trace edema bilaterally. Labs show sodium 145, potassium 4.1, chloride 110. CO2 is 18.5, BUN 59, creatinine 2.1. ASSESSMENT: 1. Acute kidney injury, acute tubular necrosis, with a component of hepatorenal syndrome initially, currently resolved. Renal function continuing to improve. Creatinine staying at about 2.1 for the last couple of days. 2. Recent Clostridium difficile colitis prior to admission. 3. Anemia associated with acute blood loss with gastrointestinal bleed, status post packed RBC transfusion, status post IV iron for iron deficiency as well. 4. Liver cirrhosis with portal hypertension and recurrent ascites. 5. Metabolic acidosis, maintained on sodium bicarb. PLAN: Continue with the sodium bicarb. Patient will need followup in about 1-2 weeks post discharge. He will need to continue with the midodrine for now. MMODL / IJN: [id number] /
== END 2021-02-04 15:45 | DRG 871 ==
LOC: EC 12:39 → 2SICU 14:36 → 4SSUR 01-13 21:43 → UNDODISIN 01-22 17:16
PROVIDERS: ADMIT Student in an Organized Health Care Education/Training Program; ATTEND Student in an Organized Health Care Education/Training Program
PROC: 02HV33Z Insertion of Infusion Device into Superior Vena Cava, Percutaneous Approach (ICD-10-PCS; principal; 2021-01-09)
PROC: 30233N1 Transfusion of Nonautologous Red Blood Cells into Peripheral Vein, Percutaneous Approach (ICD-10-PCS; 2021-01-09)
PROC: 0W9G3ZZ Drainage of Peritoneal Cavity, Percutaneous Approach (ICD-10-PCS; 2021-01-14)
PROC: 0W9G3ZZ Drainage of Peritoneal Cavity, Percutaneous Approach (ICD-10-PCS; 2021-01-15)
PROC: 3E033XZ Introduction of Vasopressor into Peripheral Vein, Percutaneous Approach (ICD-10-PCS; 2021-01-15)
PROC: 0W9G3ZZ Drainage of Peritoneal Cavity, Percutaneous Approach (ICD-10-PCS; 2021-01-25)
PROC: 05HC33Z Insertion of Infusion Device into Left Basilic Vein, Percutaneous Approach (ICD-10-PCS; 2021-02-01)
DX: A41.9 Sepsis, unspecified organism (principal); R65.21 Severe sepsis with septic shock; N17.0 Acute kidney failure with tubular necrosis; K76.7 Hepatorenal syndrome; K65.1 Peritoneal abscess; D62 Acute posthemorrhagic anemia; K92.1 Melena; E87.1 Hypo-osmolality and hyponatremia; E87.2 Acidosis; J90 Pleural effusion, not elsewhere classified; K56.7 Ileus, unspecified; K76.6 Portal hypertension; A04.72 Enterocolitis due to Clostridium difficile, not specified as recurrent; L76.34 Postprocedural seroma of skin and subcutaneous tissue following other procedure; B37.0 Candidal stomatitis; F10.10 Alcohol abuse, uncomplicated; K57.30 Diverticulosis of large intestine without perforation or abscess without bleeding; K70.31 Alcoholic cirrhosis of liver with ascites; K81.9 Cholecystitis, unspecified; K43.2 Incisional hernia without obstruction or gangrene; E88.09 Other disorders of plasma-protein metabolism, not elsewhere classified; D50.9 Iron deficiency anemia, unspecified; D53.9 Nutritional anemia, unspecified; D69.6 Thrombocytopenia, unspecified; D75.89 Other specified diseases of blood and blood-forming organs; T68.XXXA Hypothermia, initial encounter; R74.01 Elevation of levels of liver transaminase levels; E86.0 Dehydration; E87.5 Hyperkalemia; E87.8 Other disorders of electrolyte and fluid balance, not elsewhere classified; K52.9 Noninfective gastroenteritis and colitis, unspecified; Y83.8 Other surgical procedures as the cause of abnormal reaction of the patient, or of later complication, without mention of misadventure at the time of the procedure; R01.1 Cardiac murmur, unspecified; F17.210 Nicotine dependence, cigarettes, uncomplicated; K82.8 Other specified diseases of gallbladder; Z20.822 Contact with and (suspected) exposure to COVID-19; Z79.899 Other long term (current) drug therapy; Z86.19 Personal history of other infectious and parasitic diseases; Z71.41 Alcohol abuse counseling and surveillance of alcoholic
CPT/HCPCS: 36410; 36415; 36556; 36620; 49083; 71045; 71046; 74176; 76705; 76937; 80048; 80053; 80074; 81001; 81003; 82042; 82105; 82150; 82272; 82550; 82607; 82668; 82728; 82746; 82784; 82945; 83010; 83540; 83550; 83605; 83615; 83690; 83735; 83883; 83921; 84100; 84145; 84157; 84165; 84300; 84443; 84484; 85025; 85027; 85045; 85610; 85652; 85730; 86038; 86140; 86334; 86431; 86708; 86709; 86850; 86900; 86901; 86920; 87040; 87070; 87075; 87102; 87205; 87324; 87502; 87635; 88108; 88305; 89050; 93005; 93306; 99291